=== PATIENT | female | born 1975 | race Caucasian/White ===

== ENCOUNTER 2017-06-24 16:23 | Emergency (ER) | payer MEDICAID, SELFPAY ==
[2017-06-24 16:24] VITALS: BP 124/82; PULSE 93; RESP 16; TEMP 36.9; O2SAT 97; BMI 26.9
--- NOTE | 2017-06-24 19:02 | CT_ITS ---
STUDY: CT ABDOMEN AND PELVIS WITH CONTRAST REASON FOR EXAM: Female, 42 years old. Right flank pain RADIATION DOSAGE (If Supplied By Facility): CTDIvol = ( 9.58 ) mGy, DLP = ( 471.56 ) mGycm TECHNIQUE: Transaxial images were obtained from the dome of the diaphragm to the symphysis pubis without oral contrast. 100 ml of Isovue 300 contrast was administered. Sagittal and coronal images were reconstructed. Individualized dose optimization techniques were used for this CT. COMPARISON: May 19, 2017 FINDINGS: There is diffuse interstitial thickening at both lung bases. The visualized portions of the heart are within normal limits. Normal liver. Normal gallbladder and extrahepatic biliary system. Normal spleen. Normal pancreas. Normal bilateral adrenal glands. Tiny noncalcified nonobstructing left renal calculus without hydronephrosis or ureteral calculus There is mild right renal pelvocaliectasis and hydroureter without definitive evidence for ureteral calculus. There is no renal mass Normal visualized stomach. Normal small intestine. Normal colon. The appendix is visualized and appears normal. Normal abdominal aorta. Normal inferior vena cava. Normal retroperitoneum. There is mild prominence of the uterus is deviated towards the left depressing the dome the bladder. There is mild cystic change in left adnexa and a small amount of fluid in the cul-de-sac possibly due to ovulation. Normal abdominal wall. Normal osseous structures. CT/Abdomen/Pelvis WITH Contrast IMPRESSION: Tiny nonobstructing left renal calculus. Mild right renal pelvocaliectasis and hydroureter of indeterminate etiology possibly due to recently passed stone Other findings as above. Electronically Signed: Juan Moser MD at 22:12 EST , Service support ,
--- NOTE | 2017-06-24 19:04 | ED.DCSUM_ITS ---
- ER Visit Summary Date of Service: 06/24/17 Chief Complaint: Abdominal pain History of Present Illness: The patient is a 42 F who presents for 1 week of right lower quadrant abdominal pain that radiates into the right lower back. Patient has had this pain before with negative workups, including in the emergency department and from her primary care doctor. She has been trying ibuprofen without relief. She has had vomiting, with none today but is currently nauseated. No diarrhea or constipation. No urinary symptoms. Patient is status post a right oophorectomy. She does still have her appendix. Physical Examination: Vital signs: afebrile, hemodynamically stable, no hypoxia on room air General: well nourished, well developed, in no distress Skin: warm, dry, no rash, no pallor HEENT: normocephalic and atraumatic; PERRL, EOMI, moist mucous membranes Cardiovascular: regular rate and rhythm without murmurs, no peripheral edema, 2 + pulses all distal extremities Respiratory: No increased work of breathing, lungs are clear to auscultation bilaterally, no rales, rhonchi or wheezing Abdominal: Abdomen is soft, tender in the right lower quadrant with normoactive bowel sounds, no guarding or rebound, no masses, tender to percussion of the right lower back MSK: Moves all extremities, no deformities, normal strength Neuro: Awake and alert, oriented ?4. No facial droop, sensation and motor function intact and symmetric Test Results: Abnormal Lab Results 06/24/17 06/24/17 06/24/17 17:55 17:55 18:06 WBC 6.3 RBC 4.28 Hgb 12.3 Hct 38.8 MCV 90.7 MCH 28.7 MCHC 31.7 L RDW 13.0 RDW Differential 42.9 Plt Count 217 MPV 10.0 Immature Gran % (Auto) 0.200 Neut % (Auto) 45.2 L Lymph % (Auto) 42.8 H Carver % (Auto) 7.5 Eos % (Auto) 3.8 Baso % (Auto) 0.5 Absolute Neuts (auto) 2.8 Absolute Lymphs (auto) 2.69 Total Counted Not Reportable Sodium 141 Potassium 3.8 Chloride 107 Carbon Dioxide 26.0 Anion Gap 8 BUN 9 Creatinine 0.62 Estim Creat Clear Calc 114.95 Est GFR (MDRD) Af Amer 137 Est GFR (MDRD) Non-Af 113 BUN/Creatinine Ratio 14.6 Glucose 72 L Calcium 8.6 Total Bilirubin 0.20 AST 12 L ALT 17 Alkaline Phosphatase 64 Total Protein 7.7 Albumin 3.7 Globulin 4.0 Albumin/Globulin Ratio 0.9 Lipase 170 Urine Color Urine Clarity Urine pH Ur Specific [place] Urine Protein Urine Glucose (UA) Urine Ketones Urine Occult Blood Urine Nitrite Urine Bilirubin Urine Urobilinogen Ur Leukocyte Esterase Urine RBC Urine WBC Ur Squamous Epith Cells Amorphous Sediment Urine Bacteria Urine Mucus Urine Test Negative 06/24/17 18:06 WBC RBC Hgb Hct MCV MCH MCHC RDW RDW Differential Plt Count MPV Immature Gran % (Auto) Neut % (Auto) Lymph % (Auto) Carver % (Auto) Eos % (Auto) Baso % (Auto) Absolute Neuts (auto) Absolute Lymphs (auto) Total Counted Sodium Potassium Chloride Carbon Dioxide Anion Gap BUN Creatinine Estim Creat Clear Calc Est GFR (MDRD) Af Amer Est GFR (MDRD) Non-Af BUN/Creatinine Ratio Glucose Calcium Total Bilirubin AST ALT Alkaline Phosphatase Total Protein Albumin Globulin Albumin/Globulin Ratio Lipase Urine Color Yellow Urine Clarity Clear Urine pH 7.0 Ur Specific [place] 1.015 Urine Protein Negative Urine Glucose (UA) Normal Urine Ketones Negative Urine Occult Blood Negative Urine Nitrite Negative Urine Bilirubin Negative Urine Urobilinogen Normal Ur Leukocyte Esterase Negative Urine RBC 0 SEEN Urine WBC 0 SEEN Ur Squamous Epith Cells 0-5 SEEN Amorphous Sediment 1+ Urine Bacteria 0 SEEN Urine Mucus 0 SEEN Urine Test Emergency Department Course and Treatment: Patient has had prior workups for the same complaint, with a negative CT scan last month. However she is presenting with right lower quadrant tenderness that is concerning for possible appendicitis. Thus workup was performed. Labs showed no leukocytosis, no electrolyte derangements, no hepatic derangements, negative , no UTI. CT of the abdomen and pelvis showed a mild right hydro ureter, with differential including recent passage of a kidney stone. Patient's presentation is consistent with this. She was given morphine and Zofran for pain as well as IV fluids while in the emergency department. She was given a prescription for Zofran and Motrin for home use for control of further symptoms. She was given referral to urology in case her symptoms do not resolve despite no obvious stone currently in her ureter. She was given a few [place] for severe pain. Patient agreed with this plan was discharged home in improved condition. Treatment Plan: [] Disposition: [] Impression: Right flank pain, low abdominal pain; right hydroureter, back recent passage of a kidney stone This note was generated with [employer] dictation software. It may contain incorrect words, spelling, and punctuation that were not noted in review of the chart prior to signing ED Disposition - Plan for ED Patient: Disposition: Home or Assisted Living Chief Complaint: Flank Pain Instructions: ED Flank Pain Uncertain Cause Prescriptions: Hydrocodone Bitart/Apap 5-325 [[place] 5/325] 1 tab PO Q6H PRN PRN 2 Days #8 tab PRN Reason: Pain Ondansetron [Zofran Odt] 4 mg PO Q8H PRN PRN #10 tab PRN Reason: Nausea Naproxen [Naprosyn] 500 mg PO BID #20 tab Referrals: Chandra Prado DO [Primary Care Provider] - 3-5 Days if not improving Jagdish Rivera MD [STAFF PHYSICIAN] - As soon as possible Additional Instructions: Your scan of your abdomen shows that you may have recently passed a kidney stone. Your pain should improve within a couple days. In the meantime you may use naproxen as needed for pain and the [place] for severe pain only. The Zofran is for nausea. Please follow-up with the urologist if you do not have improvement in your pain in 3 days since you continue to have this recurrent right-sided pain. Plenty of fluids. If you have any worsening of your condition or any new concerning symptoms, please come back to the emergency department for another evaluation.
[2017-06-24 19:11] LABS: Bacteria 0 SEEN /hpf (None Seen); Mucous, Urine 0 SEEN /hpf (<or=2+); Red Blood Cells-Urine 0 SEEN /hpf (0-5); White Blood Cells 0 SEEN /hpf (0-5)
[2017-06-24 19:12] LABS: Absolute Lymphocyte Count 2.69 X10^3/ul (0.83-4.51); Absolute Neutrophil Count 2.8 X10^3/uL (2.0-7.7); Basophil# 0.03 X10^3/uL; Basophil% 0.5 % (0-1); Eosinophil# 0.24 X10^3/uL; Eosinophils% 3.8 % (0-5); Hematocrit 38.8 % (37-47); Hemoglobin 12.3 g/dl (12.0-15.0); Lymphocyte # 2.69 X10^3/ul (4.0); Lymphocyte % 42.8 % (19-41); Mean Corp Hgb Conc 31.7 g/gl (32-36); Mean Corpuscular Hgb 28.7 pg (27.0-32.0); Mean Corpuscular Volume 90.7 fL (81-99); Monocyte# 0.47 X10^3/uL; Monocyte% 7.5 % (0-10); Neutrophil # 2.84 X10^3/uL (2.7-7.7); Neutrophil % 45.2 % (47-70); Platelet Count 217 K/mm3 (150-450); RBC Distribution Width SD 42.9 fl (35.1-43.9); Red Blood Count 4.28 M/mm3 (4.2-5.4); White Blood Count 6.3 K/mm3 (4.4-11.0)
[2017-06-24] MEDS: Ondansetron 4 MG/2 ML Vial IV (19:12)
[2017-06-24] MEDS: 0.9% Normal Saline 1,000 ML 1000 ML IV (19:12)
[2017-06-24 19:13] LABS: POSITIVE COUNT NO; POSITIVE DIFFERENTIAL NO; POSITIVE MORPHOLOGY NO
[2017-06-24 19:16] LABS: Color, Urine Yellow (Yellow); Glucose, Dipstick Normal (Normal); Ketone-Dipstick Negative (Negative); Leukocyte Esterase-Dipstick Negative /ul (Negative); Nitrite-Dipstick Negative (Negative); Occult Blood-Urine Negative /ul (Negative); Protein-Dipstick Negative (Negative); Specific Gravity, Urine 1.015 (1.002-1.030); Urine Bilirubin Dipstick Negative (Negative); Urine Clarity Clear (Clear); Urine Urobilinogen Normal (Normal)
[2017-06-24 19:21] LABS: Internal QC Validated? YES +Cl - CLEAR BKGD; Pregnancy, Urine Negative Negative
[2017-06-24 19:26] LABS: ALB/GLOB Ratio 0.9 RATIO (0.9-2.4); AST(SGOT) 12 U/L (15-37); Alanine Aminotransfer ALT/SGPT 17 U/L (13-56); Albumin, Serum 3.7 g/dL (3.2-5.0); Alkaline Phosphatase 64 U/L (45-117); Anion Gap 8 (5-15); BUN 9 mg/dL (7-18); BUN/Creat Ratio 14.6 RATIO (10-20); Calcium,Total 8.6 mg/dL (8.5-10.1); Chloride 107 mmol/L (98-107); Creatinine, Serum 0.62 mg/dL (0.55-1.02); EST Glomerular Filtration Rate 113 mL/min (>60); Est Glom Filt Rate - Afr Amer 137 mL/min (>60); Estimated Creatinine Clearance 114.95 ml/min; Glucose 72 mg/dL (74-106); Lipase 170 U/L (73-393); Potassium 3.8 mmol/L (3.5-5.1); Protein, Total 7.7 g/dL (6.4-8.2); Sodium Level 141 mmol/L (136-145)
[2017-06-24 20:39] LABS: Amorphous Sediment 1+; Squamous Epithelial Cells - UA 0-5 SEEN /hpf (5-10)
[2017-06-24 20:53] VITALS: RESP 16
--- NOTE | 2017-06-24 22:38 | ED.DEP ---
ED Disposition - Plan for ED Patient: Disposition: Home or Assisted Living Chief Complaint: Flank Pain Instructions: ED Flank Pain Uncertain Cause Prescriptions: Hydrocodone Bitart/Apap 5-325 [[place] 5/325] 1 tab PO Q6H PRN PRN 2 Days #8 tab PRN Reason: Pain Ondansetron [Zofran Odt] 4 mg PO Q8H PRN PRN #10 tab PRN Reason: Nausea Naproxen [Naprosyn] 500 mg PO BID #20 tab Referrals: Chandra Prado DO [Primary Care Provider] - 3-5 Days if not improving Jagdish Rivera MD [STAFF PHYSICIAN] - As soon as possible Additional Instructions: Your scan of your abdomen shows that you may have recently passed a kidney stone. Your pain should improve within a couple days. In the meantime you may use naproxen as needed for pain and the [place] for severe pain only. The Zofran is for nausea. Please follow-up with the urologist if you do not have improvement in your pain in 3 days since you continue to have this recurrent right-sided pain. Plenty of fluids. If you have any worsening of your condition or any new concerning symptoms, please come back to the emergency department for another evaluation.
--- NOTE | 2017-06-24 22:41 | DCINST.ED_ITS ---
ED Disposition - Plan for ED Patient: Disposition: Home or Assisted Living Chief Complaint: Flank Pain Instructions: ED Flank Pain Uncertain Cause Prescriptions: Hydrocodone Bitart/Apap 5-325 [[place] 5/325] 1 tab PO Q6H PRN PRN 2 Days #8 tab PRN Reason: Pain Ondansetron [Zofran Odt] 4 mg PO Q8H PRN PRN #10 tab PRN Reason: Nausea Naproxen [Naprosyn] 500 mg PO BID #20 tab Referrals: Chandra Prado DO [Primary Care Provider] - 3-5 Days if not improving Jagdish Rivera MD [STAFF PHYSICIAN] - As soon as possible Additional Instructions: Your scan of your abdomen shows that you may have recently passed a kidney stone. Your pain should improve within a couple days. In the meantime you may use naproxen as needed for pain and the [place] for severe pain only. The Zofran is for nausea. Please follow-up with the urologist if you do not have improvement in your pain in 3 days since you continue to have this recurrent right-sided pain. Plenty of fluids. If you have any worsening of your condition or any new concerning symptoms, please come back to the emergency department for another evaluation.
[2017-06-24] MEDS: Ketorolac 30 MG/ML Syringe 15 MG IV (22:50)
[2017-06-24 23:05] VITALS: BP 103/71; PULSE 71; RESP 16; O2SAT 97
== END 2017-06-24 23:06 | disposition home or self-care (01) ==
PROVIDERS: Emergency Provider Emergency Medicine; Family Provider Family Medicine; PCP Family Medicine
DX: N13.4 Hydroureter (principal); R10.31 Right lower quadrant pain; Z87.442 Personal history of urinary calculi; Z90.721 Acquired absence of ovaries, unilateral
CPT/HCPCS: 74177; 80053; 81001; 81025; 83690; 85025; 96361; 96374; 96375; 99284; J7030; Q9967; A4216; J2405

== ENCOUNTER → 2017-07-20 10:12 | Outpatient (CLI) | payer MEDICAID, SELFPAY ==
[2017-07-20 12:59] LABS: Color, Urine Yellow (Yellow); Glucose, Dipstick Normal (Normal); Ketone-Dipstick 5 mg/dl (Negative); Leukocyte Esterase-Dipstick 25 /ul (Negative); Nitrite-Dipstick Negative (Negative); Occult Blood-Urine 10 /ul (Negative); Protein-Dipstick 30 mg/dl (Negative); Specific Gravity, Urine 1.025 (1.002-1.030); Urine Clarity Cloudy (Clear); Urine Urobilinogen 1 mg/dl (Normal)
[2017-07-20 13:00] LABS: Urine Bilirubin Dipstick 1 mg/dL (Negative)
[2017-07-20 13:04] LABS: Internal QC Validated? YES +Cl - CLEAR BKGD
[2017-07-20 15:06] LABS: Pregnancy, Urine Positive Negative
== END ==
PROVIDERS: Visit Provider Family Medicine
DX: R10.9 Unspecified abdominal pain (principal)
CPT/HCPCS: 81002; 81025; 87086

== ENCOUNTER → 2017-07-20 14:37 | Outpatient (CLI) | payer MEDICAID, SELFPAY ==
--- NOTE | 2017-07-20 14:39 | US_ITS ---
STUDY: RENAL ULTRASOUND - COMPLETE REASON FOR EXAM: Female, 42 years old. FLANK PAIN- RT TECHNIQUE: Ultrasound evaluation of the kidneys was performed with real-time and static figueroa-scale imaging. COMPARISON: None. FINDINGS: RIGHT KIDNEY: Normal location of the right kidney, which is normal in size. The right kidney measures 11.3 x 5 x 5.5 cm. There is a normal cortex of the right kidney. The renal cortex measures 1.3 cm. There is no right renal mass or cyst. Single 7 mm calculus visualized in the right kidney. There is no right hydronephrosis. DISTAL RIGHT URETER: There is non-visualization of the distal right ureter. There is no demonstrated right ureterovesical junction calculus. There is no demonstrated right ureteral jet. LEFT KIDNEY: Normal location of the left kidney, which is normal in size. The left kidney measures 11.7 x 4.9 x 4.3 cm. There is a normal cortex of the left kidney. The renal cortex measures 1.1 cm. There is no left renal mass or cyst. There are no left renal calculi. There is no left hydronephrosis. DISTAL LEFT URETER: There is non-visualization of the distal left ureter. There is no demonstrated left ureterovesical junction calculus. There is no demonstrated left ureteral jet. Small fluid collection in the uterus. This has the appearance of a gestational sac. Dedicated pelvic ultrasound is suggested to further evaluate. US/Kidney and Bladder IMPRESSION: Nonobstructive right renal stone. Small fluid collection in the uterus. This has the appearance of a gestational sac. Dedicated pelvic ultrasound is suggested to further evaluate. Electronically Signed: Chano Acuna MD at 21:56 EDT , Service support ,
== END ==
PROVIDERS: Family Provider Family Medicine; PCP Family Medicine; Visit Provider Family Medicine
DX: N20.0 Calculus of kidney (principal); N13.4 Hydroureter
CPT/HCPCS: 76770; 81002; 81025; 87086

== ENCOUNTER → 2017-07-25 15:44 | Outpatient (CLI) | payer MEDICAID, SELFPAY ==
--- NOTE | 2017-07-25 15:47 | US_ITS ---
STUDY: FIRST TRIMESTER OBSTETRICAL ULTRASOUND REASON FOR EXAM: Female, 42 years old. Right-sided pain. . TECHNIQUE: Transvaginal PRIOR ULTRASOUND: None. FINDINGS: There is visualization of a single gestational sac in a normal intrauterine position. There is a visualized yolk sac. There is visualization of a live embryo. The crown-rump length (CRL) measures 0.9 cm, indicating an estimated gestational age (EGA) of 7 weeks, 1 days. There is demonstrated cardiac activity with a heart rate of 139 bpm. The uterus measures 11.5 x 6.3 x 6.0. There is no demonstrated uterine fibroid. The cervix is closed. The patient is status post right oophorectomy. The left ovary measures 2.8 x 2.8 x 1.8 cm. There is no left ovarian cyst. There is no visualized left adnexal mass or complex lesion. There is no fluid in the cul de sac. US/Transvaginal w/Preg US IMPRESSION: Single live intrauterine gestation at approximately 7 weeks and 1 day. Electronically Signed: [place] Joe, at 16:47 EDT Tel , Service support ,
== END ==
PROVIDERS: Family Provider Family Medicine; PCP Family Medicine; Visit Provider Family Medicine
DX: O26.891 Other specified pregnancy related conditions, first trimester (principal); R10.9 Unspecified abdominal pain; Z3A.01 Less than 8 weeks gestation of pregnancy
CPT/HCPCS: 76817

== ENCOUNTER 2017-08-04 16:27 | Emergency (ER) | payer MEDICAID, SELFPAY ==
[2017-08-04 16:27] VITALS: BP 116/85; PULSE 102; RESP 16; TEMP 36.7; O2SAT 98; BMI 26.2
--- NOTE | 2017-08-04 17:29 | US_ITS ---
STUDY: FIRST TRIMESTER OBSTETRICAL ULTRASOUND REASON FOR EXAM: Female, 42 years old. RLQ PAIN AND SPOTTING LMP: TECHNIQUE: Transvaginal PRIOR ULTRASOUND: July 25, 2017 FINDINGS: There is visualization of a single gestational sac in a normal intrauterine position. The mean sac diameter (MSD) measures 33 mm, indicating an estimated gestational age (EGA) of 8 weeks, 5 days. The gestational sac shape is within normal limits. There is a visualized yolk sac. The yolk sac measures 5.3 mm. The placenta is non-visualized. There is visualization of a live embryo. The crown-rump length (CRL) measures 5.3 mm, indicating an estimated gestational age (EGA) of 8 weeks, 2 days. There is demonstrated cardiac activity with a heart rate of 167 bpm. The estimated gestation age (EGA) by LMP is 8 weeks, 4 days. The estimated date of delivery (ELI) by LMP is 11.4.18. The estimated gestation age (EGA) by US is 8 weeks, 4 days. The estimated date of delivery (ELI) by US is 11.4.18. The uterus measures 11.6x8.9x5.8cm. There is no demonstrated uterine fibroid. The cervix is closed. The right ovary is not seen. The left ovary measures 27 x 17 x 14 mm. There is no left ovarian cyst. There is no visualized left adnexal mass or complex lesion. There is no fluid in the cul de sac. US/Transvaginal w/Preg US IMPRESSION: There is a single live intrauterine with a heart rate of 167 bpm. The estimated gestation age (EGA) by US is 8 weeks, 4 days. The estimated date of delivery (ELI) by US is 11.4.18. Electronically Signed: Chano Acuna MD at 18:56 EDT , Service support ,
--- NOTE | 2017-08-04 17:29 | ED.VISSUMM ---
- ER Visit Summary Date of Service: 08/04/17 Chief Complaint: Pelvic pain History of Present Illness: The patient is a 42 F presenting with pelvic pain ?2 days. She states she began having spotting last night. She is currently 7 weeks . She is Ab2. She denies fever. Denies other complaints. Physical Examination: Vitals are stable. Patient is afebrile. Alert no acute distress. HEENT exam is unremarkable. Neck is supple. Lungs are clear and equal bilaterally. Heart is regular rate and rhythm. Abdomen is soft mild suprapubic tenderness with no rebound or guarding : No vaginal bleeding, cervix is closed, no adnexal tenderness. Extremities are unremarkable. Skin is warm and dry. Remainder of exam is unremarkable. Emergency Department Course and Treatment: HCG quant 49970. Blood type A positive. Ultrasound shows single live IUP with heart rate 167, 8 weeks 4 days. Patient is advised to follow-up with her PHARMACEUTICAL SERVICE REPRESENTATIVE. Advised return ED if worsening complaints. Disposition: Discharge home Impression: Threatened miscarriage This note was generated with [employer] dictation software. It may contain incorrect words, spelling, and punctuation that were not noted in review of the chart prior to signing ED Disposition - Plan for ED Patient: Chief Complaint: Abd Pain Referrals: Chandra Prado DO [Primary Care Provider] -
[2017-08-04 18:33] VITALS: BP 120/78; PULSE 77; RESP 16; O2SAT 99
[2017-08-04 19:19] LABS: hCG Titer Quant., Serum 62096 mIU/mL (<9 non-preg)
--- NOTE | 2017-08-04 19:48 | ED.RN ---
lab called for critical lab results. HCG level [address]. Dr. Zhou made aware no new orders at this time
--- NOTE | 2017-08-04 20:17 | ED.DEP ---
ED Disposition - Plan for ED Patient: Chief Complaint: Abd Pain Instructions: ED Miscarriage Poss Referrals: Chandra Prado DO [Primary Care Provider] - Prisca Hines MD [STAFF PHYSICIAN] -
[2017-08-04 20:25] VITALS: RESP 16
== END 2017-08-04 20:26 | disposition home or self-care (01) ==
LOC: ED 18:38
PROVIDERS: Emergency Provider Emergency Medicine; Family Provider Family Medicine; PCP Family Medicine
DX: O20.0 Threatened abortion (principal); O99.351 Diseases of the nervous system complicating pregnancy, first trimester; G40.909 Epilepsy, unspecified, not intractable, without status epilepticus; Z3A.01 Less than 8 weeks gestation of pregnancy
CPT/HCPCS: 76817; 84702; 86900; 99282

== ENCOUNTER 2017-10-09 14:32 | Emergency (ER) | payer MEDICAID, SELFPAY ==
[2017-10-09 14:32] VITALS: BP 125/73; PULSE 90; RESP 14; TEMP 36.6; O2SAT 100; BMI 26.6
--- NOTE | 2017-10-09 14:42 | RAD_ITS ---
STUDY: X-RAY - LEFT WRIST REASON FOR EXAM: Female, 42 years old. Left wrist pain TECHNIQUE: 3 view(s) of the wrist were obtained. COMPARISON: None. FINDINGS: There is no evidence of fracture or dislocation. There are no significant degenerative changes. There are no radiodense foreign bodies. RAD/Wrist min 3 Views IMPRESSION: No fracture or dislocation. Electronically Signed: [place] Joe, at 15:17 EDT Tel , Service support ,
--- NOTE | 2017-10-09 14:43 | ED.VISSUMM ---
- ER Visit Summary Date of Service: 10/09/17 Chief Complaint: [] Left wrist injury occurred a few days ago about 20 weeks History of Present Illness: The patient is a 42 F [] patient reports is about 20 weeks she indicates that is uncomplicated no pain or bleeding she indicates the other day she basically punched an LAVONNE machine with her left hand she has persistent left wrist pain she is right-hand dominant no other complaints no forearm elbow shoulder pain Physical Examination: [] She is resting comforting the bed no distress she has a very mild pain to the left wrist is full range of motion of the wrist and hand function is normal okay sign thumb sign finger function normal forearm elbow unremarkable the rest of exams unremarkable the abdomen soft and nontender she appears Test Results: [] In the side she asked me to look at a small circular red dot on her buttock that she believes was related to an insect bite that occurred yesterday this area is on the buttock it is flat soft not fluctuant and does not appear to involve anything other than the very superficial part of the skin there is no vesicles or lesions elsewhere on her body explained her the exact etiology this lesion is unclear and have asked her to follow-up with her PLANT BREEDER return for change in symptoms or should there be any other lesions that develop on her skin Emergency Department Course and Treatment: [] The x-ray per radiology shows nothing acute of explained all the above the patient cons of occult injury Velcro preformed splint is applied she will follow-up Dr. Ratliff her family doctor return for change in symptoms and follow with her OB Treatment Plan: [] Disposition: [] Home stable Impression: [] Left wrist injury, reportedly 20 weeks This note was generated with [employer] dictation software. It may contain incorrect words, spelling, and punctuation that were not noted in review of the chart prior to signing ED Disposition - Plan for ED Patient: Chief Complaint: Upper Extremity Injury Referrals: Chandra Prado DO [Primary Care Provider] -
[2017-10-09] MEDS: Acetaminophen/Codeine #3 Tablet 1 TABLET PO (15:03)
--- NOTE | 2017-10-09 15:21 | ED.DEP ---
ED Disposition - Plan for ED Patient: Chief Complaint: Upper Extremity Injury Instructions: ED Sprain Wrist Prescriptions: Acetaminophen/Codeine #3 [Tylenol#3] 1 tab PO Q4H PRN PRN #10 tab PRN Reason: Pain Referrals: Chandra Prado DO [Primary Care Provider] -
== END 2017-10-09 15:42 | disposition home or self-care (01) ==
PROVIDERS: Emergency Provider Emergency Medicine; Family Provider Family Medicine; PCP Family Medicine
DX: O99.89 Other specified diseases and conditions complicating pregnancy, childbirth and the puerperium (principal); S69.92XA Unspecified injury of left wrist, hand and finger(s), initial encounter; W22.8XXA Striking against or struck by other objects, initial encounter; Y93.89 Activity, other specified; Y92.9 Unspecified place or not applicable; O99.712 Diseases of the skin and subcutaneous tissue complicating pregnancy, second trimester; L98.9 Disorder of the skin and subcutaneous tissue, unspecified; Z3A.20 20 weeks gestation of pregnancy
CPT/HCPCS: 73110; 99283

== ENCOUNTER 2017-10-17 18:42 | Emergency (ER) | payer MEDICAID, SELFPAY ==
--- NOTE | 2017-10-17 18:42 | DT_ITS ---
This patient was seen during an EMR downtime October 10, 2017 - October 17, 2017. This patient may have a combination of paper and electronic documentation or all paper documentation. All documentation is viewable within the e-chart portion of [facility] for each patient visit.
[2017-10-17 18:43] VITALS: BP 121/80; PULSE 102; RESP 22; TEMP 36.9; O2SAT 100; BMI 27.6
[2017-10-17] MEDS: DiphenhydrAMINE 50 MG/ML Syringe IV (18:52)
[2017-10-17] MEDS: MethylPREDNISolone 125 MG/2 ML Vial IV (18:53)
[2017-10-17 18:56] VITALS: BP 121/80; PULSE 110; RESP 24; O2SAT 99
--- NOTE | 2017-10-17 19:31 | ED.VISSUMM ---
- ER Visit Summary Date of Service: 10/17/17 Chief Complaint: Allergic reaction History of Present Illness: The patient is a 42 F who states that she accidentally ingested some oysters and she is allergic to seafood. Patient states that her throat is closing off. She states that she is 4 months . Physical Examination: Afebrile vital signs are stable 100% on room air heart rate of 94 Gen: Well-nourished well-developed Head: Normocephalic atraumatic Eyes: Perrl EOMI ENT: TMs clear no rhinorrhea moist mucous membranes there is no drooling. There is no tongue swelling. The posterior pharynx is normal. Neck: Supple no lymphadenopathy no JVD nontender CVS: Regular rate rhythm no murmurs normal S1-S2 Respiratory: clear to auscultation bilaterally chest nontender patient's breathing pattern is not consistent with acute angioedema or anaphylaxis. Patient holds her breath and then give several short quick breaths. During these breaths lung sounds are clear. Abdomen: Soft nontender nondistended normal bowel sounds no masses Back: Nontender Extremity: Nontender no edema Skin: Normal color there is no rash or urticaria Neuro: alert orientated ?3 CN II-XII intact normal strength sensation reflexes gait cerebellar Psych: Normal affect normal mood Emergency Department Course and Treatment: Patient received Benadryl Solu-Medrol and Pepcid. She was observed. Patient's exam is inconsistent. She goes from periods of a hoarse voice to periods where her voice is normal. heart tones are 150. Patient will be discharged home. Impression: 1. Acute stress reaction due to possibility of allergic reaction due to seafood 2. Second trimester This note was generated with [employer] dictation software. It may contain incorrect words, spelling, and punctuation that were not noted in review of the chart prior to signing ED Disposition - Plan for ED Patient: Disposition: Home or Assisted Living Chief Complaint: Allergic Reaction Instructions: First Aid: Allergic Reactions Referrals: Chandra Prado DO [Primary Care Provider] - As Needed
--- NOTE | 2017-10-17 19:34 | ED.DCSUM_ITS ---
- ER Visit Summary Date of Service: 10/17/17 Chief Complaint: Allergic reaction History of Present Illness: The patient is a 42 F who states that she accidentally ingested some oysters and she is allergic to seafood. Patient states that her throat is closing off. She states that she is 4 months . Physical Examination: Afebrile vital signs are stable 100% on room air heart rate of 94 Gen: Well-nourished well-developed Head: Normocephalic atraumatic Eyes: Perrl EOMI ENT: TMs clear no rhinorrhea moist mucous membranes there is no drooling. There is no tongue swelling. The posterior pharynx is normal. Neck: Supple no lymphadenopathy no JVD nontender CVS: Regular rate rhythm no murmurs normal S1-S2 Respiratory: clear to auscultation bilaterally chest nontender patient's breathing pattern is not consistent with acute angioedema or anaphylaxis. Patient holds her breath and then give several short quick breaths. During these breaths lung sounds are clear. Abdomen: Soft nontender nondistended normal bowel sounds no masses Back: Nontender Extremity: Nontender no edema Skin: Normal color there is no rash or urticaria Neuro: alert orientated ?3 CN II-XII intact normal strength sensation reflexes gait cerebellar Psych: Normal affect normal mood Emergency Department Course and Treatment: Patient received Benadryl Solu- Medrol and Pepcid. She was observed. Patient's exam is inconsistent. She goes from periods of a hoarse voice to periods where her voice is normal. heart tones are 150. Patient will be discharged home. Impression: 1. Acute stress reaction due to possibility of allergic reaction due to seafood 2. Second trimester This note was generated with [employer] dictation software. It may contain incorrect words, spelling, and punctuation that were not noted in review of the chart prior to signing ED Disposition - Plan for ED Patient: Disposition: Home or Assisted Living Chief Complaint: Allergic Reaction Instructions: First Aid: Allergic Reactions Referrals: Chandra Prado DO [Primary Care Provider] - As Needed
[2017-10-17 20:13] VITALS: BP 106/72; PULSE 85; RESP 21; O2SAT 96
[2017-10-17 21:00] VITALS: BP 106/72; PULSE 74; RESP 20; O2SAT 94
== END 2017-10-17 21:02 | disposition home or self-care (01) ==
PROVIDERS: Emergency Provider Emergency Medicine; Family Provider Family Medicine; PCP Family Medicine
DX: O99.89 Other specified diseases and conditions complicating pregnancy, childbirth and the puerperium (principal); T78.1XXA Other adverse food reactions, not elsewhere classified, initial encounter; F43.0 Acute stress reaction; X58.XXXA Exposure to other specified factors, initial encounter; Z3A.16 16 weeks gestation of pregnancy
CPT/HCPCS: 96374; 96375; 99284; A4216; J3490

== ENCOUNTER 2017-10-31 17:05 | Outpatient (CLI) | payer MEDICAID, SELFPAY ==
[2017-10-31 17:34] VITALS: BMI 26.9
[2017-10-31 17:45] LABS: Mucous, Urine 0 SEEN /hpf (<or=2+)
[2017-10-31 18:16] LABS: Color, Urine Yellow (Yellow); Glucose, Dipstick Normal (Normal); Ketone-Dipstick Negative (Negative); Leukocyte Esterase-Dipstick 500 /ul (Negative); Nitrite-Dipstick Negative (Negative); Occult Blood-Urine 10 /ul (Negative); Protein-Dipstick 15 mg/dl (Negative); Urine Bilirubin Dipstick Negative (Negative); Urine Clarity Cloudy (Clear); Urine Urobilinogen Normal (Normal)
[2017-10-31 18:23] LABS: Amphetamine Urine VISTA NEGATIVE (<1000 ng/mL); Barbiturate Urine VISTA NEGATIVE (< 200 ng/mL); Benzodiazepine Urine VISTA NEGATIVE (< 200 ng/mL); Cocaine Urine VISTA NEGATIVE (< 300 ng/mL); Ecstacy Urine VISTA NEGATIVE (< 500 ng/mL); Methadone Urine VISTA NEGATIVE (< 300 ng/mL); PCP Urine VISTA NEGATIVE (< 25 ng/mL); THC Urine VISTA NEGATIVE (< 50 ng/mL); Vista UDS pH Range 6
[2017-10-31 18:56] LABS: Bacteria 2+ /hpf (None Seen); Red Blood Cells-Urine 0-5 SEEN /hpf (0-5); Squamous Epithelial Cells - UA 0-5 SEEN /hpf (5-10); White Blood Cells 25-50 SEEN /hpf (0-5)
[2017-10-31 20:20] VITALS: RESP 18
--- NOTE | 2017-11-07 12:27 | OB.TRI.NOTE ---
History of Present Illness Date of Service: 10/31/17 Was patient seen by the physician?: No Reason For Visit: R/O LABOR Date of Service: 10/31/17 Final ELI: 03/08/18 Final ELI Source: US <20 weeks Gestational age: 22 Weeks and 5 Days History of Present Illness: Presented to L&D with complaint of abdominal cramping and pain. Allergies hydromorphone HCl [From Dilaudid] Allergy (Verified 10/31/17 17:40) Hives Penicillins [PCN] Allergy (Verified 10/31/17 17:40) Hives sea food Allergy (Uncoded 10/17/17 18:47) Anaphylaxis Physical Exam Vitals: Vital Signs Resp 18 10/31/17 20:20 NST - FHR Rate Baby A Baseline: 130. Unable to complete NST due to gestational age. Uterine Activity:: None Impression/Plan A:False Labor P: 1) Urine tox screen negative. 2) Urine culture ordered, fax results to office. 3) D/C home, PTL precautions reviewed.
== END 2017-10-31 20:20 | disposition home or self-care (01) ==
LOC: WPOUT 17:29 → WP 17:32
PROVIDERS: Family Provider Family Medicine; PCP Family Medicine; Visit Provider Advanced Practice Midwife
DX: O47.02 False labor before 37 completed weeks of gestation, second trimester (principal); Z3A.22 22 weeks gestation of pregnancy
CPT/HCPCS: 59050; 80307; 81001; 87086; 87088; 87186; 99218; G0378

== ENCOUNTER 2017-11-22 15:01 | Emergency (ER) | payer MEDICAID, SELFPAY ==
[2017-11-22 15:01] VITALS: BP 111/72; PULSE 94; RESP 16; TEMP 36.8; O2SAT 98; BMI 27.3
--- NOTE | 2017-11-22 15:46 | CT_ITS ---
STUDY: CT ABDOMEN AND PELVIS WITH CONTRAST REASON FOR EXAM: Female, 42 years old. RLQ PAIN, NAUSEA X 3 DAYS. 24 WEEKS RADIATION DOSAGE (If Supplied By Facility): CTDIvol = ( 14.97 ) mGy, DLP = ( 1012.84 ) mGycm TECHNIQUE: Transaxial images were obtained from the dome of the diaphragm to the symphysis pubis without oral contrast. 100 ml of Isovue 300 contrast was administered. Sagittal and coronal images were reconstructed. Individualized dose optimization techniques were used for this CT. COMPARISON: None. FINDINGS: The visualized lung bases are unremarkable. The visualized portions of the heart are within normal limits. Normal liver. Normal gallbladder and extrahepatic biliary system. Normal spleen. Normal pancreas. Normal bilateral adrenal glands. Mild right hydronephroureter. The right ureter is compressed at its midportion along the psoas muscle from the large gravid uterus. Normal left kidney. Normal visualized stomach. Normal small intestine. Normal colon. The appendix is visualized and appears normal. Normal abdominal aorta. Normal inferior vena cava. Normal retroperitoneum. Normal urinary bladder. Gravid uterus. Normal abdominal wall. Normal osseous structures. CT/Abdomen/Pelvis W IV Cont ONLY IMPRESSION: The appendix is visualized and appears normal. Mild right hydronephroureter. The right ureter is compressed at its midportion along the psoas muscle from the large gravid uterus. Electronically Signed: Chano Acuna MD at 17:47 EDT , Service support ,
--- NOTE | 2017-11-22 15:49 | ED.VISSUMM ---
- ER Visit Summary Date of Service: 11/22/17 Chief Complaint: Right lower quadrant abdominal pain History of Present Illness: The patient is a 42 F currently at 25 weeks. Due date is 03/08/2018. She is Ab2 with those being miscarriages. Currently under the care of [facility] at [facility]. Recently treated for UTI just finished her antibiotics. She states she has a 5-day history of right lower quadrant abdominal pain. Associated nausea with her . No fever. Currently no dysuria or hematuria. She does have a right-sided kidney stone reportedly. She denies any vaginal bleeding or discharge. She denies any fever. Physical Examination:. H EENT exam unremarkable. Poor dentition. Lungs clear to auscultation bilaterally. Heart regular rhythm no murmur. Abdomen gravid nontender uterus. Right lower quadrant pain around McBurney's point. Nondistended. Normal bowel sounds no peritoneal signs right upper left upper and left lower quadrant unremarkable. No signs of trauma. She is moving all 4 extremities. The neurovascular intact. Neurologically she is awake and alert with no focal motor deficits. Test Results: White count of 5. H&H 11 and 33 which is her baseline chronic anemia. No bands. Electrolytes gap and creatinine are all normal. Liver enzymes are unremarkable. UA normal no signs of infection. CT abdomen pelvis showed normal appendix. Mild right hydroureter secondary to a gravid uterus. Emergency Department Course and Treatment: female 25 weeks with right lower quadrant abdominal pain. History of both a kidney stone and recent UTI. She still has her appendix. IV morphine and Zofran. Labs will be obtained. She denied discussed imaging techniques. We discussed risks and benefits and she is fine with having a CT of her abdomen and pelvis done. Treatment Plan: Repeat exam patient doing well at 1801 and will be discharged home. Tylenol for pain. Disposition: Discharge Impression: Acute right lower quadrant abdominal pain of uncertain etiology 25 weeks This note was generated with Jolicloud dictation software. It may contain incorrect words, spelling, and punctuation that were not noted in review of the chart prior to signing ED Disposition - Plan for ED Patient: Chief Complaint: Abd Pain Referrals: Chandra Prado DO [Primary Care Provider] -
--- NOTE | 2017-11-22 15:52 | ED.DCSUM_ITS ---
- ER Visit Summary Date of Service: 11/22/17 Chief Complaint: Right lower quadrant abdominal pain History of Present Illness: The patient is a 42 F currently at 25 weeks. Due date is 03/08/2018. She is Ab2 with those being miscarriages. Currently under the care of [facility] at [facility]. Recently treated for UTI just finished her antibiotics. She states she has a 5-day history of right lower quadrant abdominal pain. Associated nausea with her . No fever. Currently no dysuria or hematuria. She does have a right-sided kidney stone reportedly. She denies any vaginal bleeding or discharge. She denies any fever. Physical Examination:. H EENT exam unremarkable. Poor dentition. Lungs clear to auscultation bilaterally. Heart regular rhythm no murmur. Abdomen gravid nontender uterus. Right lower quadrant pain around McBurney's point. Nondistended. Normal bowel sounds no peritoneal signs right upper left upper and left lower quadrant unremarkable. No signs of trauma. She is moving all 4 extremities. The neurovascular intact. Neurologically she is awake and alert with no focal motor deficits. Test Results: White count of 5. H&H 11 and 33 which is her baseline chronic anemia. No bands. Electrolytes gap and creatinine are all normal. Liver enzymes are unremarkable. UA normal no signs of infection. CT abdomen pelvis showed normal appendix. Mild right hydroureter secondary to a gravid uterus. Emergency Department Course and Treatment: female 25 weeks with right lower quadrant abdominal pain. History of both a kidney stone and recent UTI. She still has her appendix. IV morphine and Zofran. Labs will be obtained. She denied discussed imaging techniques. We discussed risks and benefits and she is fine with having a CT of her abdomen and pelvis done. Treatment Plan: Repeat exam patient doing well at 1801 and will be discharged home. Tylenol for pain. Disposition: Discharge Impression: Acute right lower quadrant abdominal pain of uncertain etiology 25 weeks This note was generated with HAM-IT dictation software. It may contain incorrect words, spelling, and punctuation that were not noted in review of the chart prior to signing ED Disposition - Plan for ED Patient: Chief Complaint: Abd Pain Referrals: Chandra Prado DO [Primary Care Provider] -
[2017-11-22] MEDS: Morphine 4 MG/ML Syringe IV (15:55)
[2017-11-22] MEDS: Ondansetron 4 MG/2 ML Vial IV (15:55)
[2017-11-22 15:59] LABS: Absolute Lymphocyte Count 1.66 X10^3/ul (0.83-4.51); Absolute Neutrophil Count 3.6 X10^3/uL (2.0-7.7); Basophil# 0.02 X10^3/uL; Basophil% 0.3 % (0-1); Eosinophil# 0.12 X10^3/uL; Lymphocyte # 1.66 X10^3/ul (4.0); Lymphocyte % 28.3 % (19-41); Mean Corp Hgb Conc 33.3 g/gl (32-36); Mean Corpuscular Hgb 30.1 pg (27.0-32.0); Mean Corpuscular Volume 90.4 fL (81-99); Mean Platelet Vol. 9.9 fl (6.2-12.0); Monocyte% 8.5 % (0-10); Neutrophil # 3.55 X10^3/uL (2.7-7.7); Neutrophil % 60.7 % (47-70); Platelet Count 181 K/mm3 (150-450); RBC Distribution Width CV 12.8 % (11.6-14.6); RBC Distribution Width SD 41.1 fl (35.1-43.9); Red Blood Count 3.65 M/mm3 (4.2-5.4); White Blood Count 5.9 K/mm3 (4.4-11.0)
[2017-11-22 16:01] LABS: POSITIVE COUNT NO; POSITIVE DIFFERENTIAL NO; POSITIVE MORPHOLOGY NO
[2017-11-22 16:14] LABS: Mucous, Urine 0 SEEN /hpf (<or=2+); Red Blood Cells-Urine 0 SEEN /hpf (0-5)
[2017-11-22 16:24] LABS: Color, Urine Yellow (Yellow); Glucose, Dipstick Normal (Normal); Ketone-Dipstick Negative (Negative); Leukocyte Esterase-Dipstick 25 /ul (Negative); Nitrite-Dipstick Negative (Negative); Occult Blood-Urine 25 /ul (Negative); Protein-Dipstick Negative (Negative); Specific Gravity, Urine 1.015 (1.002-1.030); Urine Bilirubin Dipstick Negative (Negative); Urine Clarity Clear (Clear); Urine Urobilinogen Normal (Normal)
[2017-11-22 16:43] LABS: Bacteria RARE /hpf (None Seen); Squamous Epithelial Cells - UA 0-5 SEEN /hpf (5-10); White Blood Cells 0-5 SEEN /hpf (0-5)
[2017-11-22 17:15] LABS: AST(SGOT) 8 U/L (15-37); Alanine Aminotransfer ALT/SGPT 10 U/L (13-56); Albumin, Serum 2.5 g/dL (3.2-5.0); Alkaline Phosphatase 47 U/L (45-117); Anion Gap 8 (5-15); BUN 6 mg/dL (7-18); BUN/Creat Ratio 16.7 RATIO (10-20); Bilirubin, Direct < 0.05 mg/dL (0.00-0.30); Calcium,Total 8.4 mg/dL (8.5-10.1); Chloride 106 mmol/L (98-107); Creatinine, Serum 0.36 mg/dL (0.55-1.02); EST Glomerular Filtration Rate 210 mL/min (>60); Est Glom Filt Rate - Afr Amer 254 mL/min (>60); Estimated Creatinine Clearance 197.97 ml/min; Globulin 4.1 g/dL (2.2-4.2); Glucose 76 mg/dL (74-106); Potassium 4.3 mmol/L (3.5-5.1); Protein, Total 6.6 g/dL (6.4-8.2); Sodium Level 139 mmol/L (136-145)
[2017-11-22 17:18] VITALS: BP 109/77; PULSE 87; RESP 15; O2SAT 96
--- NOTE | 2017-11-22 18:02 | ED.DEP ---
ED Disposition - Plan for ED Patient: Disposition: Home or Assisted Living Chief Complaint: Abd Pain Instructions: ED Abdominal Pain Unkn Cause Referrals: Chandra Prado DO [Primary Care Provider] - As Needed Additional Instructions: Tylenol for pain. Your labs today, urinalysis and CAT scan all were negative. Follow-up with your MILIEU TECHNICIAN physician or your primary care physician.
[2017-11-22 18:25] VITALS: BP 112/67; PULSE 80; RESP 12; O2SAT 98
--- NOTE | 2017-11-22 18:26 | ED.RN ---
pt given written and verbal discharge instructions and verbalizes understanding. educated to follow up with ob and return for any new or worsened sx. iv d/c and covered with 2x2 gauze dressing and paper tape. pt ambulates out of dept. with spouse. educated not to drive for 6 hours after having morphine.
== END 2017-11-22 18:27 | disposition home or self-care (01) ==
PROVIDERS: Emergency Provider Emergency Medicine; Family Provider Family Medicine; PCP Family Medicine
DX: O26.892 Other specified pregnancy related conditions, second trimester (principal); R10.31 Right lower quadrant pain; O99.012 Anemia complicating pregnancy, second trimester; D64.9 Anemia, unspecified; O99.352 Diseases of the nervous system complicating pregnancy, second trimester; G40.909 Epilepsy, unspecified, not intractable, without status epilepticus; Z3A.25 25 weeks gestation of pregnancy
CPT/HCPCS: 74177; 80048; 80076; 81001; 85025; 96374; 96375; 99283; Q9967; J2405

== ENCOUNTER 2017-11-23 10:55 | Outpatient (CLI) | payer MEDICAID, SELFPAY ==
[2017-11-23 11:13] VITALS: BMI 29.4
--- NOTE | 2017-11-23 19:14 | OB.TRI.HP_ITS ---
- Problem List (1) Vaginal discharge during in second trimester Status: Acute History of Present Illness Date of Service: 11/23/17 Was patient seen by the physician?: No Reason For Visit: CRAMPING Date of Service: 11/23/17 Final ELI: 03/08/18 Final ELI Source: US <20 weeks Gestational age: 25 Weeks and 0 Days History of Present Illness: Patient reports evaluation in [facility] office yesterday for evaluation of RLQ pain. Concern for possible appendicitis or Kidney Stone noted and patient was sent from office to ER for evaluation and imaging. Work-up was negative, CT scan was done and was unremarkable. Full physical head to toe exam done in ER including SVE. Patient was told to come back to hospital for evaluation if any of her symptoms changed. Patient presents today with scant brown vaginal discharge. Patient denies pain, reports +FM, denies vaginal bleeding. Allergies hydromorphone HCl [From Dilaudid] Allergy (Verified 11/22/17 15:04) Hives Penicillins [PCN] Allergy (Verified 11/22/17 15:04) Hives sea food Allergy (Uncoded 11/22/17 15:04) Anaphylaxis Physical Exam Vitals: See nursing note for vital signs and assessment. Estimated gestational size: Appropriate for gestational size Presentation: Cephalic NST - FHR Rate Baby A Baseline: 135 Variability:: Moderate Accelerations:: 15 x 15 Decelerations:: Variable - Few NST Reactive:: Appropriate for gestational age Uterine Activity:: No ctx noted on tocometer Impression/Plan 42 y/o @ 25 wks, Vaginal Discharge P: 1) discharge likely old blood and related to recent SVE check done yesterday - reassurance provided 2) PTL precaution education given 3) RTC as scheduled in 3 weeks for next visit. Estrella GRANT
== END 2017-11-23 12:40 | disposition home or self-care (01) ==
LOC: WPOUT 11:01 → WP 11:02
PROVIDERS: Family Provider Family Medicine; PCP Family Medicine; Visit Provider Advanced Practice Midwife
DX: O26.892 Other specified pregnancy related conditions, second trimester (principal); N89.8 Other specified noninflammatory disorders of vagina; Z3A.25 25 weeks gestation of pregnancy
CPT/HCPCS: 59025; 59050; 99218; G0378

== ENCOUNTER 2018-02-17 07:18 | Outpatient (CLI) | payer MEDICAID, SELFPAY ==
[2018-02-17 07:52] VITALS: BMI 29.1
--- NOTE | 2018-02-21 16:52 | OB.TRI.NOTE ---
- Problem List (1) Breech presentation Status: Acute History of Present Illness Date of Service: 02/17/18 Was patient seen by the physician?: Yes Reason For Visit: AVERSION Date of Service: 02/17/18 Final ELI: 03/08/18 Final ELI Source: US <20 weeks Gestational age: 37 Weeks and 6 Days History of Present Illness: 42 y/o multip who presents to L&D at 37 wks gestation for version given breech presentation on prior US and in the office. Upon her arriving to L&D, repeat US was performed and fetus now in vertex position. Feeling well and no complaints. No ctx, vb, lof. +FM. Allergies hydromorphone HCl [From Dilaudid] Allergy (Verified 11/22/17 15:04) Hives Penicillins [PCN] Allergy (Verified 11/22/17 15:04) Hives influenza virus vaccine ts [id number] (36 mos,up) [From Fluarix] Adverse Reaction (Mild, Verified 02/17/18 07:52) Rash sea food Allergy (Uncoded 11/22/17 15:04) Anaphylaxis Physical Exam General: Alert, Oriented x3 HEENT: Atraumatic Abdomen: Soft, Non Tender, Gravid Neurological: Neuro grossly intact Presentation: Cephalic Impression/Plan Patient presented for version. Ultrasound performed and fetus now in vertex presentation. NST obtained and discharged home with follow up in the office.
--- NOTE | 2018-02-21 16:56 | OB.TRI.HP_ITS ---
- Problem List (1) Breech presentation Status: Acute History of Present Illness Date of Service: 02/17/18 Was patient seen by the physician?: Yes Reason For Visit: AVERSION Date of Service: 02/17/18 Final ELI: 03/08/18 Final ELI Source: US <20 weeks Gestational age: 37 Weeks and 6 Days History of Present Illness: 42 y/o multip who presents to L&D at 37 wks gestation for version given breech presentation on prior US and in the office. Upon her arriving to L&D, repeat US was performed and fetus now in vertex position. Feeling well and no complaints. No ctx, vb, lof. +FM. Allergies hydromorphone HCl [From Dilaudid] Allergy (Verified 11/22/17 15:04) Hives Penicillins [PCN] Allergy (Verified 11/22/17 15:04) Hives influenza virus vaccine ts [id number] (36 mos,up) [From Fluarix] Adverse Reaction (Mild, Verified 02/17/18 07:52) Rash sea food Allergy (Uncoded 11/22/17 15:04) Anaphylaxis Physical Exam General: Alert, Oriented x3 HEENT: Atraumatic Abdomen: Soft, Non Tender, Gravid Neurological: Neuro grossly intact Presentation: Cephalic Impression/Plan Patient presented for version. Ultrasound performed and fetus now in vertex presentation. NST obtained and discharged home with follow up in the office.
== END 2018-02-17 08:15 | disposition home or self-care (01) ==
LOC: WPOUT 07:20 → WP 07:21
PROVIDERS: Family Provider Family Medicine; PCP Family Medicine; Referring Provider Obstetrics & Gynecology; Visit Provider Obstetrics & Gynecology
DX: Z03.79 Encounter for other suspected maternal and fetal conditions ruled out (principal)
CPT/HCPCS: 59025

== ENCOUNTER 2018-03-02 08:40 | Inpatient (IN) | payer MEDICAID, SELFPAY ==
[2018-03-02 09:20] VITALS: BMI 28.8
[2018-03-02 10:03] LABS: Hematocrit 35.3 % (37-47); Hemoglobin 11.5 g/dl (12.0-15.0); Mean Corp Hgb Conc 32.6 g/gl (32-36); Mean Corpuscular Hgb 29.8 pg (27.0-32.0); Mean Corpuscular Volume 91.5 fL (81-99); Mean Platelet Vol. 9.7 fl (6.2-12.0); Platelet Count 195 K/mm3 (150-450); RBC Distribution Width CV 13.4 % (11.6-14.6); RBC Distribution Width SD 44.5 fl (35.1-43.9); Red Blood Count 3.86 M/mm3 (4.2-5.4); White Blood Count 5.8 K/mm3 (4.4-11.0)
[2018-03-02 10:04] LABS: Scan Indicated on CBC? Y/N NO
[2018-03-02] MEDS: miSOPROStol 25 MCG TABLET PO (10:43)
[2018-03-02] MEDS: Lactated Ringers 1,000 ML 50 ML IV ×2 (12:22→14:03)
--- NOTE | 2018-03-02 12:41 | PCM.HP.OB ---
- Problem List (1) AMA (advanced maternal age) multigravida 35+ Status: Acute History Date of Admission: 03/02/18 Final ELI: 03/08/18 Final ELI Source: US <20 weeks Gestational age: 39 Weeks and 1 Days History of this : This is a 42 year-old, G9, P6026, at 39 weeks gestational age who presents for IOL for AMA. No complaints today. significant for the following: History of rapid deliveries. Desires permanent sterilization. Hx of IUGR in the , and was getting weekly biophysical profiles as well as Doppler ultrasounds; most recent growth 11% and no longer IUGR. She does not have custody of any of her other children as she states she was living in a house with drug friends. History of drug use. History of seizure disorder diagnosed in 2013 on Lamictal. 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 Hx of herpes on HSV prophylaxis. Poor historian. Grand mulitp with 6 prior vaginal deliveries. 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 Grand multipara Z64.1 Herpes B00.9 History of narcotic use Z87.898 IUGR (intrauterine growth restriction) Pyelectasis of fetus on ultrasound O35.8XX0 Seizure disorder G40.909 Allergies hydromorphone HCl [From Dilaudid] Allergy (Verified 11/22/17 15:04) Hives Penicillins [PCN] Allergy (Verified 11/22/17 15:04) Hives influenza virus vaccine ts [id number] (36 mos,up) [From Fluarix] Adverse Reaction (Mild, Verified 02/17/18 07:52) Rash sea food Allergy (Uncoded 11/22/17 15:04) Anaphylaxis Home Medications: Home Medications Albuterol Inhaler [Ventolin Hfa (SP)] 2 puff INHALATION Q6H PRN PRN 05/19/17 Lamotrigine [Lamictal Chew] 50 mg PO BID 10/31/17 Vits [Prenatabs FA] 1 tablet PO DAILY 10/31/17 Acyclovir [Zovirax] 200 mg PO TID 02/17/18 Magnesium 400 mg PO DAILY 03/02/18 Smoking Status: Former smoker Number of Fetus(es): 1 Heart Tracing: Category 1 TOCO Analysis: Quiet on admission, now with ctx's q 2 min History Past Pregnancies: Past Pregnancies Delivery Date Name GA/Weeks Outcome Route Weight Infant Gender Labor Length Anesthesia Delivery Location Provider FOB term term term term term term sab sab Labs: 1 hr GTT wnl, Rh pos, [id number] neg, Syphilis neg, RI, HepB neg, HIV neg, GC/CT neg Review of Systems Gynecological: Reports: - - No ctx, vb, lof. +FM Physical Exam General: Alert, Oriented x3 HEENT: Atraumatic Lungs: - - No increased resp effort Abdomen: Soft, Non Tender, Gravid Neurological: Neuro grossly intact AUDIO NARRATOR: Normal external genitalia - No HSV lesions noted by Dr. Hines on exam Presentation: Cephalic - TAUS perform by Dr. Hines confirming vertex presentation Cervix Dilation (cm): 1 Station: -3 Effacement (%): 50 Assessment/Plan All Active Problems Vaginal discharge during in second trimester (Acute) Breech presentation (Acute) AMA (advanced maternal age) multigravida 35+ (Acute) This is a 42 year-old, G9, P6026, at 39 weeks gestational age. - Admit for routine intrapartum care - Cytotec - UDS on admission - Desires tubal - Epidural prn
[2018-03-02 12:43] LABS: Amphetamine Urine VISTA NEGATIVE (<1000 ng/mL); Barbiturate Urine VISTA NEGATIVE (< 200 ng/mL); Benzodiazepine Urine VISTA NEGATIVE (< 200 ng/mL); Cocaine Urine VISTA NEGATIVE (< 300 ng/mL); Ecstacy Urine VISTA NEGATIVE (< 500 ng/mL); Methadone Urine VISTA NEGATIVE (< 300 ng/mL); PCP Urine VISTA NEGATIVE (< 25 ng/mL); THC Urine VISTA NEGATIVE (< 50 ng/mL); Vista UDS pH Range 6
--- NOTE | 2018-03-02 12:48 | HP.PCM_ITS ---
- Problem List (1) AMA (advanced maternal age) multigravida 35+ Status: Acute History Date of Admission: 03/02/18 Final ELI: 03/08/18 Final ELI Source: US <20 weeks Gestational age: 39 Weeks and 1 Days History of this : This is a 42 year-old, G9, P6026, at 39 weeks gestational age who presents for IOL for AMA. No complaints today. significant for the following: History of rapid deliveries. Desires permanent sterilization. Hx of IUGR in the , and was getting weekly biophysical profiles as well as Doppler ultrasounds; most recent growth 11% and no longer IUGR. She does not have custody of any of her other children as she states she was living in a house with drug friends. History of drug use. History of seizure disorder diagnosed in 2013 on Lamictal. 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 Hx of herpes on HSV prophylaxis. Poor historian. Grand mulitp with 6 prior vaginal deliveries. 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 Grand multipara Z64.1 Herpes B00.9 History of narcotic use Z87.898 IUGR (intrauterine growth restriction) Pyelectasis of fetus on ultrasound O35.8XX0 Seizure disorder G40.909 Allergies hydromorphone HCl [From Dilaudid] Allergy (Verified 11/22/17 15:04) Hives Penicillins [PCN] Allergy (Verified 11/22/17 15:04) Hives influenza virus vaccine ts [id number] (36 mos,up) [From Fluarix] Adverse Reaction (Mild, Verified 02/17/18 07:52) Rash sea food Allergy (Uncoded 11/22/17 15:04) Anaphylaxis Home Medications: Home Medications Albuterol Inhaler [Ventolin Hfa (SP)] 2 puff INHALATION Q6H PRN PRN 05/19/17 Lamotrigine [Lamictal Chew] 50 mg PO BID 10/31/17 Vits [Prenatabs FA] 1 tablet PO DAILY 10/31/17 Acyclovir [Zovirax] 200 mg PO TID 02/17/18 Magnesium 400 mg PO DAILY 03/02/18 Smoking Status: Former smoker Number of Fetus(es): 1 Heart Tracing: Category 1 TOCO Analysis: Quiet on admission, now with ctx's q 2 min History Past Pregnancies: Past Pregnancies Delivery Date Name GA/Weeks Outcome Route Weight Infant Gender Labor Length Anesthesia Delivery Location Provider FOB term term term term term term sab sab Labs: 1 hr GTT wnl, Rh pos, BlvfetpO17 neg, Syphilis neg, RI, HepB neg, HIV neg, GC/CT neg Review of Systems Gynecological: Reports: - - No ctx, vb, lof. 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 Hines on exam Presentation: Cephalic - TAUS perform by Dr. Hines confirming vertex presentation Cervix Dilation (cm): 1 Station: -3 Effacement (%): 50 Assessment/Plan All Active Problems Vaginal discharge during in second trimester (Acute) Breech presentation (Acute) AMA (advanced maternal age) multigravida 35+ (Acute) This is a 42 year-old, G9, P6026, at 39 weeks gestational age. - Admit for routine intrapartum care - Cytotec - UDS on admission - Desires tubal - Epidural prn
[2018-03-02] MEDS: fentaNYL-bupivacaine (epidural) 100 ML BAG EPIDURAL (14:51)
[2018-03-02] MEDS: Oxytocin 30 units/NS 500 ml 30 UNITS/500 ML IV.SOLN IV (15:46)
--- NOTE | 2018-03-02 16:12 | PCM.PN.BLA ---
Progress Note Patient was admitted by me. Upon examination when she was a first admitted, her cervix was 1 thick and the station was -4 and ballotable. heart tones are category 1. She was given a dose of Cytotec. When I reexamined the patient at lunchtime she was found to be approximately 2 cm dilated 50% effaced and -3 station. Head was against the cervix enough to allow for rupture of membranes. Large amount of clear fluid return. scalp electrode and IUPC were placed. heart tones are still category 1. It has been greater than 4 hours since she received the Cytotec. Will initiate Pitocin. Epidural is working somewhat, but she states she still feels a lot on her left side. Anesthesia has evaluated and will have them reevaluate as needed
[2018-03-02] MEDS: Ondansetron 4 MG/2 ML Vial IV (16:56)
--- NOTE | 2018-03-02 18:00 | PLAC_PTH ---
PATIENT: EVELYNE MARAVILLA LOC: [facility] U#:[id number] AGE/SX: 42/F ROOM: WP002 RE03/02/[address]: Dr. Prisca Hines MD : 1975 BED: 1 DIS: 03/04/2018 SPEC #: [id number] RECD: 03/02/18 20:26 STATUS: ADRIAN RESavana #: [id number] NAY: 03/02/18 18:[address]: Prisca Hines DEPT: SURGICAL PATHOLOGY RECD BY: Willam Luna ENTERED: 03/03/18 11:48 SP TYPE: PLACENTA OTHR DR: Dr. Chandra Prado, DO Tissues: Placenta, NOS Procedures: Surgery Specimen Level V HEADER OPERATION: Vaginal delivery PRE-OP DIAGNOSIS: SGA TISSUE SUBMITTED: Placenta MICROSCOPIC DIAGNOSIS Placenta: Placental disc - third trimester placenta (430 gm). - Focal area of infarction (0.5 cm in greatest dimension). - Focal increased perivillous and intervillous fibrin deposition. Membranes - focal circummarginate insertion. Umbilical cord - three blood vessels and no pathologic diagnosis. SJ:antonette 03/06/18 MICROSCOPIC DESCRIPTION Slides are reviewed. GROSS DESCRIPTION SPECIMEN: PLACENTA / CLINICAL INFORMATION: A. Weight: 2.647 kg B. Gestational Age: 39 weeks C. Sex: Male PLACENTAL WEIGHT (POST FIXATION): 430 gm PLACENTAL DIMENSIONS: 17 x 15 x 4 cm PLACENTAL SHAPE: Usual ovoid PLACENTAL WEIGHT FOR GESTATIONAL AGE: Within 10-99th percentile MEMBRANES - Present A. Insertion: The membranes are inserted in one-fourth circumference of placenta 1.5 cm away from the margin. B. Site of rupture from edge: 10 cm from edge of placental disc C. Color of membrane: Neville-ma D. Abnormalities: None UMBILICAL CORD - Present A. Color: Neville-ma B. Insertion: Paracentral C. Length: 34 cm D. Diameter: 1.3 cm E. Number of vessels: Three F. Abnormalities: None PLACENTAL DISC - Present A. Color of surface: Neville-ma B. surface abnormalities: None C. Maternal cotyledons: Intact with minimal tears. Maternal surface shows a plaque-like area measuring 0.5 cm in greatest dimension. D. Attached retro placental clot: No clot E. Cut surface: Dark red and spongy F. Lesions: None G. Separate clot: Absent SECTIONS SUBMITTED: 1. Membrane roll 2. Cord, maternal end, insertion of membrane away from the margin 3. Cord, end, insertion of membrane away from the margin 4. Placental disc, and maternal surfaces, plaque-like area 5. Placental disc, and maternal surfaces 6. Placental disc, and maternal surfaces ZAY:antonette 03/03/18 TC:5 CPT: 59294
[2018-03-02] MEDS: Oxytocin 30 units/NS 500 ml 30 UNITS/500 ML IV.SOLN 334 UNITS IV (18:06)
--- NOTE | 2018-03-02 18:31 | PCM.OB.VAG ---
Vaginal Delivery Maternal Presentation: Medically Indicated Induction Method of Induction: Pitocin, Amniotomy, Cytotec Medical Reason for Induction: - - polyhydramnios, SGA , advanced maternal age Amniotic Membrane Rupture Type: Artificial Amniotic Fluid Description: Clear, Bloody - at delivery Final ELI: 03/08/18 Gestational age: 39 Weeks and 1 Days Date of Procedure: 03/02/18 Pre-Operative Diagnosis: labor Post-Operative Diagnosis: same Surgery/ Procedure Performed: Spontaneous Vaginal Delivery Type of Anesthesia: Epidural Description of Procedure: A vigorous male infant was delivered LOP over an intact perineum. The remainder the infant was delivered with maternal pushing and gentle traction only in less than 15 seconds. The Pitocin infusion was initiated for active management of the third stage. The cord was clamped and cut immediately because the was not immediately vigorous with stimulation and suctioning during cord clamping. The infant was attended to by the waiting nursing staff. The placenta was delivered spontaneously and intact. The cervix and vagina were intact. Sponge and needle counts were correct. A vaginal sweep was completed by me. Presentation: ROP Placental Delivery Description: Spontaneous Placenta Disposition: Sent to Pathology Cord Vessel Description: 3 Vessels Cord Gases drawn per routine: ABG, VBG Cord Entanglement: None Drain: - - none Estimated Blood Loss: 300 Infant A gender: Male (1 minute): 2 (5 minute): 6 - 7,8 Episiotomy Description: None Laceration: None Medications given after delivery: IV Pitocin Complications: None
[2018-03-02] MEDS: Oxytocin 30 units/NS 500 ml 30 UNITS/500 ML IV.SOLN 167 UNITS IV (18:36)
[2018-03-02] MEDS: Naproxen 250 MG Tablet PO (19:47)
[2018-03-02] MEDS: 0.9% Saline Lock 10 ML Syringe IV (19:48)
--- NOTE | 2018-03-02 19:59 | SUR.OPER ---
This RN asked mother about other children. Patient reports that she now has 5 boys and 2 girls. The 19 year old and 10 year old live with biological father and the rest of them are adopted out. Patient reports that she is hoping to keep this one and reports having financial support from boyfriend's (Ernesto) 25 year old son. Patient reports that he makes good money and is an EMT and a cable tower operator. Patient states that boyfriend's son has paid to buy them a trailer and has bought them a brand new car seat for this baby.
[2018-03-02] MEDS: lamoTRIgine 25 MG Tablet 50 MG PO (23:39)
[2018-03-03] VITALS (14 sets, daily range): BP systolic 89–125; BP diastolic 59–73; PULSE 67–97; RESP 14–18; TEMP 36.3–37.1; O2SAT 97–99; BMI 28.8
--- NOTE | 2018-03-03 | FALS_PTH ---
PATIENT: EVELYNE MARAVILLA LOC: [facility] U#:[id number] AGE/SX: 42/F ROOM: WP002 RE03/02/[address]: Dr. Prisca Hines MD : 1975 BED: 1 DIS: 03/04/2018 SPEC #: [id number] RECD: 03/03/18 14:30 STATUS: ADRIAN REQ #: [id number] NAY: 03/03/18 00:[address]: Zayda Augustine DEPT: SURGICAL PATHOLOGY RECD BY: Dre Zheng ENTERED: 03/03/18 14:30 SP TYPE: FALL TUBES OTHR DR: DO Dr. Prisca Somers MD Tissues: Fallopian tube Procedures: Surgery Specimen Level II Comments: @ Ordering doctor for SUII edited from to @ by RGOOD at 03/06/18828 @ Submitting doctor edited from to @ by RGOOD at 03/06/18828 HEADER OPERATION: bilateral tubal ligation PRE-OP DIAGNOSIS: Elective sterilization TISSUE SUBMITTED: Bilateral fallopian tubes (portion) MICROSCOPIC DIAGNOSIS Bilateral fallopian tubes, tubal ligation: Completely transected segments of bilateral fallopian tubes, no pathologic diagnosis. ZAY:antonette 03/06/18 MICROSCOPIC DESCRIPTION Slides are reviewed. GROSS DESCRIPTION Received is one container labeled with the patient's name and designated bilateral fallopian tubes (portion). The specimen consists of two tubular pieces of vela soft tissue measuring 2 cm in length and 0.7 cm in diameter and 1.8 cm in length and 0.6 cm in diameter. Both pieces are not identified as right or left. The entire specimen is submitted in one cassette. Both pieces will be sectioned at the time of embedding. / ZAY:antonette 03/03/18 TC: 4 CPT: 23283 x2
[2018-03-03] MEDS: Naproxen 250 MG Tablet PO ×3 (04:31→22:06)
--- NOTE | 2018-03-03 06:55 | NURSING ---
0010 epidural removed per Artemio RN blue tip intact.
--- NOTE | 2018-03-03 07:13 | PCM.PN.OB ---
Patient Problems: Active and Suspected Problems (Last Updated 03/02/18 @ 12:50 by Zayda Augustine DO) AMA (advanced maternal age) multigravida 35+ (Acute) Subjective: average lochia, some cramping - Physical Exam General: Alert, Cooperative, No apparent distress Vital Signs Temp Pulse Resp BP 97.7 F L 76 16 120/73 03/03/18 04:30 03/03/18 04:30 03/03/18 04:30 03/03/18 04:30 Weight: 83.4 kg Body Mass Index (BMI) 28.8 Finger Stick Blood Glucose 91 Intake and Output for Last 24 Hours 03/01/18 03/02/18 03/03/18 23:59 23:59 23:59 Intake Total 1120 / 1120 Output Total 1200 / 1200 600 / 600 Balance -80 / -80 -600 / -600 Laboratory Tests Past 24 Hrs 03/02/18 03/02/18 03/02/18 09:10 09:10 12:05 WBC 5.8 RBC 3.86 L Hgb 11.5 L Hct 35.3 L MCV 91.5 MCH 29.8 MCHC 32.6 RDW 13.4 RDW Differential 44.5 H Plt Count 195 MPV 9.7 Urine Opiates Screen NEGATIVE Urine Methadone Screen NEGATIVE Ur Barbiturates Screen NEGATIVE Ur Phencyclidine Scrn NEGATIVE Ur Amphetamines Screen NEGATIVE U Methamphetamin-MDMA NEGATIVE U Benzodiazepines Scrn NEGATIVE Urine Cocaine Screen NEGATIVE U Cannabinoids Screen NEGATIVE Ur Drug Screen Comment Blood Type A POSITIVE Antibody Screen NEGATIVE Medical Necessity - Tobacco Use Smoking Status: Former smoker Assessment/Plan All Active Problems (Last Updated 03/02/18 @ 12:50 by Zayda Augustine DO) Vaginal discharge during in second trimester (Acute) Breech presentation (Acute) AMA (advanced maternal age) multigravida 35+ (Acute) PPD#1 doing well routine care NPO for BTO today
--- NOTE | 2018-03-03 07:59 | NURSING ---
0600 when up to void pt states she is to have a tubal today made npo, dr. deras informed that pt just now npo and that epidural was dcd after recovery when pt moved room as not aware pt to go to surgery today. Dr. Bejarano states she is unsure when she is scheduled for today, so continue to remain npo and leave SL in.
[2018-03-03] MEDS: lamoTRIgine 25 MG Tablet 50 MG PO ×2 (10:31→22:06)
[2018-03-03] MEDS: Magnesium Oxide 400 MG Tablet PO (10:32)
--- NOTE | 2018-03-03 12:36 | OP.PCM_ITS ---
Problem List (1) AMA (advanced maternal age) multigravida 35+ Status: Acute (2) Sterilization Status: Acute Operative Report Date of Procedure: 03/03/18 Pre-op diagnosis: Multiparity requesting permanent sterilization Postop diagnosis: As above Operation performed: bilateral partial tubal sterilization Estimated blood loss: < 50 cc Anesthesia: Spinal Complications: None Specimens removed: Bilateral partial fallopian tube segments Indications: Patient is a 42-year-old who is from a vaginal delivery. She desires permanent sterilization. She is 100% certain she does not want to conceive in the future. She understands all alternative control options to tubal ligation. Risks, benefits, and alternatives were fully discussed and she was consented. Procedure: The patient was taken to the operating room where spinal anesthesia was found to be adequate. The patient was then placed in supine position and prepped and draped in the usual sterile fashion. An infraumbilical incision was created using a scalpel and carried to the underlying fascial layer. The fascia was grasped with 2 hemostats and then sharply incised. The peritoneum was entered using blunt dissection. 2 [place] retractors were placed and the left fallopian tube was grasped. The left fallopian tube was followed out to the fimbriated end. A portion of the left fallopian tube was then double suture ligated and transected removing a 2 cm segment of the left fallopian tube. Hemostasis was noted. This tube was placed back in its anatomic position. The right fallopian tube was then grasped and followed out to the fimbriated end. The right fallopian tube was double suture ligated and transected. Hemostasis was noted. This tube was placed back in its anatomic position. The bilateral fallopian tube segments were sent to pathology for review. The peritoneum and fascia were reapproximated using 0 Vicryl in a running fashion. The subcutaneous tissue was hemostatic. The skin was closed in a subcuticular fashion. Dermabond was placed over the incision. Instrument count, needle count and sponge counts were all correct. The patient was taken to the recovery room in stable condition.
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
[2018-03-04] MEDS: Acetaminophen 500 MG Tablet 1000 MG PO ×2 (00:26→11:35)
[2018-03-04 00:30] VITALS: BP 110/66; PULSE 79; RESP 16; TEMP 37.7
[2018-03-04 04:00] VITALS: BP 121/73; PULSE 71; RESP 14; TEMP 37.1
[2018-03-04 08:00] VITALS: BP 117/71; PULSE 91; RESP 16; TEMP 36.8; O2SAT 97
--- NOTE | 2018-03-04 08:01 | PCM.PN.OB ---
Patient Problems: Active and Suspected Problems (Last Updated 03/02/18 @ 12:50 by Zayda Augustine DO) AMA (advanced maternal age) multigravida 35+ (Acute) Sterilization (Acute) Subjective: pt seen at bedside, doing well. pt reports good pain control. lochia mild. bottle feeding- baby in SCN. - Physical Exam General: Alert, Oriented x3 Abdomen: Soft, Non Tender, - - incision site dry and intact with skin glue. fundus firm Extremities: No Calf Tenderness Vital Signs Temp Pulse Resp BP Pulse Ox 98.7 F 71 14 121/73 H 97 03/04/18 04:00 03/04/18 04:00 03/04/18 04:00 03/04/18 04:00 03/03/18 13:09 Oxygen Delivery Method Room Air Weight: 83.4 kg Body Mass Index (BMI) 28.8 Finger Stick Blood Glucose 91 Intake and Output for Last 24 Hours 03/02/18 03/03/18 03/04/18 23:59 23:59 23:59 Intake Total 1120 / 1120 600 / 600 Output Total 1200 / 1200 600 / 600 Balance -80 / -80 0 / 0 Medical Necessity - Tobacco Use Smoking Status: Former smoker Assessment/Plan All Active Problems (Last Updated 03/02/18 @ 12:50 by Zayda Augustine DO) Vaginal discharge during in second trimester (Acute) Breech presentation (Acute) AMA (advanced maternal age) multigravida 35+ (Acute) Sterilization (Acute) PPD#2, POD#1- pt doing well Dc to hotel status today discharge instructions reviewed- has f/u appt scheduled in office 1-2 weeks from now.
--- NOTE | 2018-03-04 08:08 | DCINST_ITS ---
Discharge Diet: No Restrictions Discharge Activity: Return to Normal Activity, May not drive while taking narcotic pain medications., May Shower May resume sexual activity in: 4-6 weeks Additional Activity Instructions:: Nothing in the vagina for 4-6 weeks. You may return to work/school in 6 weeks. Call your doctor if your incision/area has: Continuous Slow Oozing, Sudden Increased Bleeding, Increased Pain/ Swelling, Increased Redness, Foul Smelling Discharge Call your doctor if you observe: Fever of 101 or Higher Cleanse incision/area with: - - do not pick off skin glue- you may shower let the soap and water run over incision site and dab it to dry. Additional Instructions: If you experience any of the following, contact your healthcare provider. * Bleeding that soaks a pad every hour for 2 hours * Fever 100.4 or higher * Unrelieved incision or abdominal pain * Swelling, redness, discharge or bleeding from your incision or episiotomy site * Your incision begins to separate * Problems urinating (including inability to urinate or burning while urinating). * Visual changes * Severe headache * Flu-like symptoms * Pain or redness in one of both of your breasts * Pain, warmth, tenderness or swelling in your legs, especially the calf area * Frequent nausea and vomiting * Symptoms of depression or anxiety If you experience any of the following, call 911 or go to the nearest Emergency Room. * Chest pain * Problems breathing * Seizure activity * Partial or complete paralysis of a body part, slurred speech, weakness or drooping of the face, or a sudden inability to walk or hold your balance Allergies/Adverse Reactions: Allergies hydromorphone HCl [From Dilaudid] Allergy (Verified 11/22/17 15:04) Hives Penicillins [PCN] Allergy (Verified 11/22/17 15:04) Hives influenza virus vaccine ts [id number] (36 mos,up) [From Fluarix] Adverse Reaction (Mild, Verified 02/17/18 07:52) Rash sea food Allergy (Uncoded 11/22/17 15:04) Anaphylaxis Medications to take at Discharge Albuterol Inhaler [Ventolin Hfa] 2 puff INHALATION Q6H PRN PRN 05/19/17 Lamotrigine [Lamictal Chew] 50 mg PO BID 10/31/17 Vits [Prenatabs FA ] 1 tablet PO DAILY 10/31/17 Acyclovir [Zovirax] 200 mg PO TID 02/17/18 Magnesium 400 mg PO DAILY 03/02/18 Lamotrigine [Lamictal Chew] 50 mg PO BID tablet 03/04/18 Magnesium Oxide [Mag-Ox 400] 400 mg PO DAILY tablet 03/04/18 Naproxen [Naprosyn] 250 - 500 mg PO Q8H PRN PRN #30 tablet 03/04/18 The following prescriptions were given: Naproxen [Naprosyn] 250 - 500 mg PO Q8H PRN PRN #30 tablet PRN Reason: Mild Pain (-07/16) Please Follow Up With: Dr. Zayda Bass When: Call to make an appointment with your doctor in 1-2 weeks and then again for your 6 weeks post check Primary Care Physician: Chandra Prado DO [Primary Care Provider] - Test Results: Test results from this visit will be discussed in further detail at your follow- up appointment, if applicable. Proposed Discharge Date: 03/04/18
[2018-03-04] MEDS: Naproxen 250 MG Tablet PO (08:36)
[2018-03-04 10:00] VITALS: BP 118/79; PULSE 105; PULSE 91; RESP 16; TEMP 37; O2SAT 96
[2018-03-04] MEDS: lamoTRIgine 25 MG Tablet 50 MG PO (11:35)
[2018-03-04] MEDS: Magnesium Oxide 400 MG Tablet PO (11:59)
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
[2018-03-06 16:01] LABS: Pathology Specimen OB SEE PATHOLOGY REPORT
== END 2018-03-04 12:30 | disposition home or self-care (01) | DRG 541 ==
PROVIDERS: Obstetrics & Gynecology; Admitting Provider Obstetrics & Gynecology; Family Provider Family Medicine; PCP Family Medicine; Referring Provider Obstetrics & Gynecology; Visit Provider Obstetrics & Gynecology
PROC: 0UL70ZZ Occlusion of Bilateral Fallopian Tubes, Open Approach (ICD-10-PCS; principal; 2018-03-03 07:15)
DX: O40.3XX0 Polyhydramnios, third trimester, not applicable or unspecified (principal); O36.5930 Maternal care for other known or suspected poor fetal growth, third trimester, not applicable or unspecified; O09.523 Supervision of elderly multigravida, third trimester; O99.354 Diseases of the nervous system complicating childbirth; G40.909 Epilepsy, unspecified, not intractable, without status epilepticus; O99.52 Diseases of the respiratory system complicating childbirth; J45.909 Unspecified asthma, uncomplicated; O98.513 Other viral diseases complicating pregnancy, third trimester; O99.284 Endocrine, nutritional and metabolic diseases complicating childbirth; E78.00 Pure hypercholesterolemia, unspecified; Z87.59 Personal history of other complications of pregnancy, childbirth and the puerperium; Z87.891 Personal history of nicotine dependence; Z87.898 Personal history of other specified conditions; Z86.73 Personal history of transient ischemic attack (TIA), and cerebral infarction without residual deficits; Z3A.39 39 weeks gestation of pregnancy; Z37.0 Single live birth; Z30.2 Encounter for sterilization
CPT/HCPCS: 59025; 59050; 80307; 85027; 86850; 86900; 88302; 88307; 99218; J7120; A4216; G0378; J2405

== ENCOUNTER 2018-05-18 17:16 | Emergency (ER) | payer MEDICAID, SELFPAY ==
[2018-05-18 17:17] VITALS: BP 163/81; PULSE 117; RESP 16; TEMP 36.6; O2SAT 97; BMI 26.2
--- NOTE | 2018-05-18 17:31 | RAD_ITS ---
STUDY: X-RAY - LEFT TIBIA AND FIBULA REASON FOR EXAM: Female, 42 years old. Pain of the distal lower leg after falling. TECHNIQUE: 2 view(s) of the tibia and fibula were obtained. COMPARISON: None. FINDINGS: Normal visualized tibia. Normal visualized fibula. There is no demonstrated acute fracture. The soft tissue structures are unremarkable. RAD/Tibia & Fibula 2 Views IMPRESSION: Normal x-ray examination of the tibia and fibula. Electronically Signed: Kristie Chandler MD at 18:11 EST , Service support ,
--- NOTE | 2018-05-18 17:32 | ED.VISSUMM ---
- ER Visit Summary Date of Service: 05/18/18 Chief Complaint: Distal left leg pain History of Present Illness: The patient is a 42 F who presents because of distal left leg pain since Tuesday. She states she was walking from her doctor's appointment [facility] office to the [place] and developed severe pain. She has no history of gout or pseudogout. She does not recall anything specific with regards to trauma. She denies symptoms of claudication. She denies symptoms to suggest neuropathy. She denies discoloration of her toes to suggest ray nods phenomenon. Physical Examination: Vital signs noted. She appears in no distress. She has pain out of proportion to tactile stimuli of the left distal leg. There is no swelling of the ankle or effusion noted. There is full active range of motion. DP and PT pulses are palpable. Capillary refill is normal. Foot is not discolored or cold. Test Results: Two-view x-ray of the left tibia/fibula interpreted by me as negative for fracture, foreign body soft tissue swelling or subcutaneous air. Emergency Department Course and Treatment: X-ray to evaluate patient's pain and anti-inflammatory since there is no contraindication Treatment Plan: Prescription for Naprosyn Disposition: Discharged home Impression: Left leg pain of unknown etiology This note was generated with WhatsOpen dictation software. It may contain incorrect words, spelling, and punctuation that were not noted in review of the chart prior to signing ED Disposition - Plan for ED Patient: Disposition: Home or Assisted Living Chief Complaint: Lower Extremity Injury Instructions: ED Acute Pain [facility]O Prescriptions: Naproxen [Naprosyn] 500 mg PO BID #14 tablet Referrals: Chandra Prado DO [Primary Care Provider] - 3-5 Days if not improving Additional Instructions: Your prescription was electronically transmitted to [email or web address].
--- NOTE | 2018-05-18 17:35 | ED.DCSUM_ITS ---
- ER Visit Summary Date of Service: 05/18/18 Chief Complaint: Distal left leg pain History of Present Illness: The patient is a 42 F who presents because of distal left leg pain since Tuesday. She states she was walking from her doctor's appointment [facility] office to the [place] and developed severe pain. She has no history of gout or pseudogout. She does not recall anything specific with regards to trauma. She denies symptoms of claudication. She denies symptoms to suggest neuropathy. She denies discoloration of her toes to suggest ray nods phenomenon. Physical Examination: Vital signs noted. She appears in no distress. She has pain out of proportion to tactile stimuli of the left distal leg. There is no swelling of the ankle or effusion noted. There is full active range of motion. DP and PT pulses are palpable. Capillary refill is normal. Foot is not di scolored or cold. Test Results: Two-view x-ray of the left tibia/fibula interpreted by me as negative for fracture, foreign body soft tissue swelling or subcutaneous air. Emergency Department Course and Treatment: X-ray to evaluate patient's pain and anti-inflammatory since there is no contraindication Treatment Plan: Prescription for Naprosyn Disposition: Discharged home Impression: Left leg pain of unknown etiology This note was generated with Intertwine dictation software. It may contain incorrect words, spelling, and punctuation that were not noted in review of the chart prior to signing ED Disposition - Plan for ED Patient: Disposition: Home or Assisted Living Chief Complaint: Lower Extremity Injury Instructions: ED Acute Pain [facility]O Prescriptions: Naproxen [Naprosyn] 500 mg PO BID #14 tablet Referrals: Chandra Prado DO [Primary Care Provider] - 3-5 Days if not improving Additional Instructions: Your prescription was electronically transmitted to [facility].
[2018-05-18] MEDS: Naproxen 500 MG Tablet PO (18:02)
== END 2018-05-18 18:19 | disposition home or self-care (01) ==
LOC: ED 18:13
PROVIDERS: Emergency Provider Emergency Medicine; Family Provider Family Medicine; PCP Family Medicine
DX: M79.662 Pain in left lower leg (principal); J45.909 Unspecified asthma, uncomplicated; G40.909 Epilepsy, unspecified, not intractable, without status epilepticus; Z79.899 Other long term (current) drug therapy; Z87.891 Personal history of nicotine dependence
CPT/HCPCS: 73590; 99283

== ENCOUNTER 2018-06-01 23:20 | Emergency (ER) | payer MEDICAID, SELFPAY ==
[2018-06-01 23:21] VITALS: BP 109/69; PULSE 108; RESP 16; TEMP 36.7; O2SAT 97; BMI 26.8
[2018-06-01 23:50] LABS: Color, Urine Yellow (Yellow); Glucose, Dipstick Normal (Normal); Ketone-Dipstick Negative (Negative); Leukocyte Esterase-Dipstick 500 /ul (Negative); Nitrite-Dipstick Negative (Negative); Occult Blood-Urine 250 /ul (Negative); Protein-Dipstick 15 mg/dl (Negative); Specific Gravity, Urine 1.025 (1.002-1.030); Urine Bilirubin Dipstick Negative (Negative); Urine Clarity Sl. Cloudy (Clear); Urine Urobilinogen Normal (Normal)
[2018-06-01] MEDS: Ketorolac 30 MG/ML Syringe IV (23:54)
[2018-06-01] MEDS: 0.9% Normal Saline 1,000 ML 1000 ML IV (23:54)
[2018-06-01 23:55] LABS: Bacteria RARE /hpf (None Seen); Mucous, Urine 1+ /hpf (<or=2+)
[2018-06-01] MEDS: Ondansetron 4 MG/2 ML Vial IV (23:55)
[2018-06-01 23:56] LABS: Red Blood Cells-Urine 0-5 SEEN /hpf (0-5); Squamous Epithelial Cells - UA 0-5 SEEN /hpf (5-10); White Blood Cells 10-25 SEEN /hpf (0-5)
[2018-06-01 23:59] LABS: Absolute Lymphocyte Count 2.96 X10^3/ul (0.83-4.51); Absolute Neutrophil Count 3.1 X10^3/uL (2.0-7.7); Basophil# 0.05 X10^3/uL; Basophil% 0.7 % (0-1); Eosinophil# 0.07 X10^3/uL; Hematocrit 36.4 % (37-47); Lymphocyte # 2.96 X10^3/ul (4.0); Lymphocyte % 44.1 % (19-41); Mean Corpuscular Hgb 29.9 pg (27.0-32.0); Mean Corpuscular Volume 90.5 fL (81-99); Mean Platelet Vol. 9.7 fl (6.2-12.0); Monocyte# 0.51 X10^3/uL; Monocyte% 7.6 % (0-10); Neutrophil # 3.11 X10^3/uL (2.7-7.7); Neutrophil % 46.5 % (47-70); Platelet Count 259 K/mm3 (150-450); RBC Distribution Width CV 13.1 % (11.6-14.6); Red Blood Count 4.02 M/mm3 (4.2-5.4); White Blood Count 6.7 K/mm3 (4.4-11.0)
[2018-06-02 00:03] LABS: Differential Indicated SCAN CRITERIA MET; POSITIVE COUNT NO; POSITIVE DIFFERENTIAL NO; POSITIVE MORPHOLOGY YES
[2018-06-02 00:13] LABS: AST(SGOT) 17 U/L (15-37); Alanine Aminotransfer ALT/SGPT 25 U/L (13-56); Albumin, Serum 3.6 g/dL (3.2-5.0); Alkaline Phosphatase 63 U/L (45-117); Anion Gap 10 (5-15); BUN 15 mg/dL (7-18); BUN/Creat Ratio 26.5 RATIO (10-20); Bilirubin, Direct 0.13 mg/dL (0.00-0.30); Calcium,Total 8.1 mg/dL (8.5-10.1); Chloride 109 mmol/L (98-107); Creatinine, Serum 0.57 mg/dL (0.55-1.02); EST Glomerular Filtration Rate 124 mL/min (>60); Est Glom Filt Rate - Afr Amer 150 mL/min (>60); Estimated Creatinine Clearance 123.76 ml/min; Globulin 3.5 g/dL (2.2-4.2); Glucose 86 mg/dL (74-106); Lipase 133 U/L (73-393); Potassium 3.8 mmol/L (3.5-5.1); Protein, Total 7.1 g/dL (6.4-8.2); Sodium Level 141 mmol/L (136-145)
[2018-06-02 00:17] LABS: Pregnancy, Serum, hCG Quali. NEGATIVE Negative (0-9 Nonpreg)
[2018-06-02 00:20] LABS: Differential Comment SCANNED
[2018-06-02] MEDS: Ceftriaxone 1 GM/50 ML BAG IV (00:33)
[2018-06-02 00:36] VITALS: BP 116/80; PULSE 76; RESP 18; TEMP 36.6; O2SAT 96
--- NOTE | 2018-06-02 01:36 | ED.DCSUM_ITS ---
- ER Visit Summary Date of Service: 06/02/18 Chief Complaint: Right flank and abdominal pain History of Present Illness: The patient is a [address] Prado. She reports that he had the abrupt onset of right flank and right-sided abdominal pain today. She describes it as a sharp pain is 10 at 10 worst 910 currently. Is worsened by nothing relieved by nothing. She denies any nausea or vomiting. She reports she has had 4 episodes of diarrhea today. No blood in her stools or black tarry stools. No dysuria or frequency. Last months. Was approximate 3 weeks ago. She reports is similar to when she had kidney stones in the past. Physical Examination: Vitals: Stable. Afebrile. General: Well-nourished and well-developed. Head: Normocephalic atraumatic. Neck: Supple, no lymphadenopathy. No JVD. Nontender. Cardiovascular: Regular rate and rhythm. No murmurs. Respiratory: No respiratory distress. Clear to auscultation bilaterally. Abdominal: Soft, moderate right upper quadrant tenderness palpation mild right lower quadrant tenderness to palpation, nondistended, normal bowel sounds. No guarding, rebound, or peritoneal signs. Back: Nontender. No CVA tenderness. Extremities: Nontender, no edema. Skin: Normal color, no rash. Neurologic: Alert and oriented ?3. Cranial nerves II through XII are intact. Normal strength and sensation. Psych: Normal affect. Test Results: CBC is remarkable for hematocrit of 36.4, 7 neutrophils of 47, l ymphocytes 44. Chem-7 is more for chloride 109 calcium of 8.1. LFTs are normal. Lipase is normal. UA does show UTI with 10-25 white blood cells and rare bacteria. test is negative. Clinical Impression(s) from Imaging Studies Abdomen/Pelvis CT 06/02/18 23:36 IMPRESSION: 1. Nonobstructive 3 mm left lower renal pole calculus. 2. 5 mm hyperattenuated lesion in the posterior midpole of the left kidney, potentially representing a hemorrhagic cyst 3. Small fat-containing umbilical Electronically Signed: Dre Sanchez MD at 1:38 EST Tel , Service support , Emergency Department Course and Treatment: Patient had an IV placed. She was given Toradol and Zofran IV. When her urine returned she was given a dose of Rocephin IV. She is resting comfortably. Treatment Plan: Patient will be discharged with Keflex and Zofran. Instructed use Tylenol and/or ibuprofen for pain. Follow-up with Dr. Prado in 1 week for another exam. Return to the emergency department for any worsening symptoms. Disposition: To home in improved and stable condition. Impression: 1. UTI. This note was generated with VitaPortal dictation software. It may contain incorrect words, spelling, and punctuation that were not noted in review of the chart prior to signing ED Disposition - Plan for ED Patient: Chief Complaint: Flank Pain Instructions: ED UTI Cystitis Female Prescriptions: Ondansetron [Zofran Odt] 4 mg PO Q8H PRN PRN #10 tablet PRN Reason: Nausea Cephalexin [Keflex] 500 mg PO Q12 #14 capsule Referrals: Chandra Prado DO [Primary Care Provider] - 1 Week
[2018-06-02 02:08] VITALS: BP 106/71; PULSE 66; RESP 16; O2SAT 98
--- NOTE | 2018-06-02 23:36 | CT_ITS ---
STUDY: CT ABDOMEN AND PELVIS WITHOUT CONTRAST REASON FOR EXAM: Female, 43 years old. Right flank pain RADIATION DOSAGE (If Supplied By Facility): CTDIvol = ( 7.20 ) mGy, DLP = ( 377.81 ) mGycm TECHNIQUE: Transaxial images were obtained from the dome of the diaphragm to the symphysis pubis without oral contrast, and without intravenous contrast. Sagittal and coronal images were reconstructed. Individualized dose optimization techniques were used for this CT. COMPARISON: 11/22/2017 FINDINGS: Atelectasis versus scar formation at the lung bases. The visualized portions of the heart are within normal limits. Normal liver. Normal gallbladder and extrahepatic biliary system. Normal spleen. Normal pancreas. Normal bilateral adrenal glands. Normal right kidney. Hyperattenuated lesion within the posterior mid pole of the left kidney. 3 mm calculus in the left lower renal pole. No hydronephrosis. Normal bilateral ureters. Normal visualized stomach. Normal small intestine. Normal colon. The appendix is visualized and appears normal. Normal abdominal aorta. Normal inferior vena cava. Normal retroperitoneum. Normal urinary bladder. Normal reproductive organs. Small fat-containing umbilical hernia with no evidence of bowel involvement. Normal osseous structures. CT/Abdomen/Pelvis without Cont IMPRESSION: 1. Nonobstructive 3 mm left lower renal pole calculus. 2. 5 mm hyperattenuated lesion in the posterior midpole of the left kidney, potentially representing a hemorrhagic cyst 3. Small fat-containing umbilical Electronically Signed: Dre Sanchez MD at 1:38 EST Tel , Service support ,
== END 2018-06-02 02:09 | disposition home or self-care (01) ==
LOC: ED 06-02 00:08
PROVIDERS: Emergency Provider Emergency Medicine; Family Provider Family Medicine; PCP Family Medicine
DX: N39.0 Urinary tract infection, site not specified (principal); J45.909 Unspecified asthma, uncomplicated; G40.909 Epilepsy, unspecified, not intractable, without status epilepticus; Z79.899 Other long term (current) drug therapy; Z72.0 Tobacco use
CPT/HCPCS: 74176; 80048; 80076; 81001; 83690; 84703; 85025; 96365; 96375; 99284; J7030; A4216; J2405

== ENCOUNTER → 2018-06-29 15:00 | Outpatient (CLI) | payer MEDICAID, SELFPAY ==
[2018-06-01 23:21] VITALS: BMI 26.8
[2018-06-29 15:04] LABS: Mucous, Urine 0 SEEN /hpf (<or=2+); Red Blood Cells-Urine 0 SEEN /hpf (0-5); White Blood Cells 0 SEEN /hpf (0-5)
[2018-06-29 18:00] LABS: Absolute Lymphocyte Count 2.38 X10^3/ul (0.83-4.51); Absolute Neutrophil Count 1.8 X10^3/uL (2.0-7.7); Basophil# 0.03 X10^3/uL; Basophil% 0.6 % (0-1); Eosinophil# 0.13 X10^3/uL; Eosinophils% 2.7 % (0-5); Hematocrit 38.2 % (37-47); Hemoglobin 12.1 g/dl (12.0-15.0); Lymphocyte # 2.38 X10^3/ul (4.0); Lymphocyte % 50.1 % (19-41); Mean Corp Hgb Conc 31.7 g/gl (32-36); Mean Corpuscular Hgb 29.6 pg (27.0-32.0); Mean Corpuscular Volume 93.4 fL (81-99); Mean Platelet Vol. 9.7 fl (6.2-12.0); Monocyte# 0.39 X10^3/uL; Monocyte% 8.2 % (0-10); Neutrophil # 1.82 X10^3/uL (2.7-7.7); Neutrophil % 38.4 % (47-70); Platelet Count 258 K/mm3 (150-450); RBC Distribution Width CV 13.5 % (11.6-14.6); RBC Distribution Width SD 45.9 fl (35.1-43.9); Red Blood Count 4.09 M/mm3 (4.2-5.4); White Blood Count 4.8 K/mm3 (4.4-11.0)
[2018-06-29 18:01] LABS: POSITIVE COUNT NO; POSITIVE DIFFERENTIAL NO; POSITIVE MORPHOLOGY NO
[2018-06-29 18:12] LABS: Erythrocyte Sedimentation Rate 7 mm/hr (0-20)
[2018-06-29 18:14] LABS: hCG Titer Quant., Serum < 1 mIU/mL (<9 non-preg)
[2018-06-29 18:19] LABS: AST(SGOT) 13 U/L (15-37); Alanine Aminotransfer ALT/SGPT 32 U/L (13-56); Albumin, Serum 3.7 g/dL (3.2-5.0); Alkaline Phosphatase 64 U/L (45-117); Anion Gap 8 (5-15); BUN 11 mg/dL (7-18); BUN/Creat Ratio 18.1 RATIO (10-20); CRP < 2.90 mg/L (0.0-3.0); Calcium,Total 8.4 mg/dL (8.5-10.1); Chloride 105 mmol/L (98-107); Creatinine, Serum 0.61 mg/dL (0.55-1.02); EST Glomerular Filtration Rate 114 mL/min (>60); Est Glom Filt Rate - Afr Amer 138 mL/min (>60); Globulin 3.8 g/dL (2.2-4.2); Glucose 88 mg/dL (74-106); Potassium 4.1 mmol/L (3.5-5.1); Protein, Total 7.5 g/dL (6.4-8.2); Sodium Level 141 mmol/L (136-145)
[2018-06-29 18:23] LABS: Color, Urine Yellow (Yellow); Glucose, Dipstick Normal (Normal); Ketone-Dipstick Negative (Negative); Leukocyte Esterase-Dipstick 25 /ul (Negative); Nitrite-Dipstick Negative (Negative); Occult Blood-Urine Negative /ul (Negative); Protein-Dipstick Negative (Negative); Specific Gravity, Urine 1.005 (1.002-1.030); Urine Bilirubin Dipstick Negative (Negative); Urine Clarity Clear (Clear); Urine Urobilinogen Normal (Normal)
[2018-06-29 18:41] LABS: Bacteria RARE /hpf (None Seen); Squamous Epithelial Cells - UA 0-5 SEEN /hpf (5-10)
== END ==
PROVIDERS: Family Provider Family Medicine; PCP Family Medicine; Visit Provider Family Medicine
DX: G43.909 Migraine, unspecified, not intractable, without status migrainosus (principal); R10.9 Unspecified abdominal pain
CPT/HCPCS: 36415; 80053; 81001; 84702; 85025; 85652; 86140; 87086; 87088

== ENCOUNTER 2018-07-21 18:24 | Emergency (ER) | payer MEDICAID, SELFPAY ==
[2018-07-21 18:24] VITALS: BP 134/85; PULSE 97; RESP 16; TEMP 37; O2SAT 99; BMI 27.6
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
[2018-07-21] MEDS: Naproxen 250 MG Tablet 500 MG PO (19:36)
[2018-07-21 19:52] VITALS: PULSE 91; RESP 20; O2SAT 99
--- NOTE | 2018-07-21 19:58 | ED.RN ---
THIS NURSE REVIEWED D/C INSTRUCTIONS WITH PT. PT VERBALIZED UNDERSTANDING OF INSTRUCTIONS. PT DENIES FURTHER NEEDS OR QUESTIONS AT THIS TIME. PT AMBULATES FROM ROOM ON OWN WITHOUT ASSISTANCE FROM STAFF
== END 2018-07-21 19:59 | disposition home or self-care (01) ==
LOC: ED 19:27
PROVIDERS: Emergency Provider Emergency Medicine; Family Provider Family Medicine; PCP Family Medicine
DX: T23.052A Burn of unspecified degree of left palm, initial encounter (principal); T23.051A Burn of unspecified degree of right palm, initial encounter; X19.XXXA Contact with other heat and hot substances, initial encounter; Y93.9 Activity, unspecified; Y92.9 Unspecified place or not applicable
CPT/HCPCS: 99283

== ENCOUNTER 2018-07-28 13:24 | Emergency (ER) | payer MEDICAID, SELFPAY ==
[2018-07-28 13:25] VITALS: BP 107/74; PULSE 93; RESP 18; TEMP 36.6; O2SAT 96; BMI 28.1
--- NOTE | 2018-07-28 14:40 | RAD_ITS ---
STUDY: X-RAY - RIGHT KNEE REASON FOR EXAM: Female, 43 years old. RT KNEE PAIN X COUPLE DAYS. HX KNEE DISLOCATION 2012. PT STATES IT KEEPS LOCKING TECHNIQUE: 5 view(s) of the knee. COMPARISON: None. FINDINGS: Normal visualized distal femur. Normal visualized proximal tibia and fibula. Normal proximal tibiofibular articulation. Normal medial femorotibial compartment. Normal lateral femorotibial compartment. Normal patellofemoral articulation. The soft tissue structures are unremarkable. RAD/Knee 4 or More Views IMPRESSION: Normal x-ray examination of the knee. Electronically Signed: Liana Durant, at 15:38 EDT Tel , Service support ,
--- NOTE | 2018-07-28 16:11 | ED.VISSUMM ---
- ER Visit Summary Date of Service: 07/28/18 Chief Complaint: Right knee pain History of Present Illness: The patient is a 43 F reports her right knee has been locking up intermittently for the past 2 days. She does describe a patellar dislocation greater than 10 years ago. She had not had problems with the knee until 2 days ago. She denies any recent injury. Physical Examination: Vital signs unremarkable. Patient is sitting upright in bed no acute distress. Right lower extremity examination reveals tenderness of the lateral joint line of the right knee. No edema. Patient will actively resist any attempt to bend her knee. She is able to straight leg raise her foot off the bed. Strong distal pulses are noted. Test Results: Right knee x-rays are obtained and are unremarkable. This does include sunrise view with her knee fully flexed. Emergency Department Course and Treatment: Test results were discussed with the patient. She states that she pushes on the back of her knee she is able to bend it. She be given an Alec wrap and referred to orthopedics for follow-up. We did discuss possibility of meniscus injury causing her knee to lock up, but I am uncertain why this would start acting up now when she has not had recent injury. Treatment Plan: [] Disposition: Discharge Impression: Right knee pain This note was generated with [employer] dictation software. It may contain incorrect words, spelling, and punctuation that were not noted in review of the chart prior to signing ED Disposition - Plan for ED Patient: Referrals: Chandra Prado DO [Primary Care Provider] -
--- NOTE | 2018-07-28 16:13 | ED.DEP ---
ED Disposition - Plan for ED Patient: Disposition: Home or Assisted Living Instructions: ED Meniscal Injury Knee Poss Referrals: Chandra Prado DO [Primary Care Provider] - Malachi Maradiaga MD [STAFF PHYSICIAN] - As Needed
== END 2018-07-28 16:22 | disposition home or self-care (01) ==
PROVIDERS: Emergency Provider Emergency Medicine; Family Provider Family Medicine; PCP Family Medicine
DX: M25.561 Pain in right knee (principal); G40.909 Epilepsy, unspecified, not intractable, without status epilepticus; J45.909 Unspecified asthma, uncomplicated; Z72.0 Tobacco use
CPT/HCPCS: 73564; 99282

== ENCOUNTER 2018-08-29 09:05 | Emergency (ER) | payer MEDICAID, SELFPAY ==
[2018-08-29 09:06] VITALS: BP 121/89; PULSE 98; RESP 16; TEMP 36.4; O2SAT 99; BMI 27.6
--- NOTE | 2018-08-29 09:18 | RAD_ITS ---
STUDY: X-RAY - RIGHT ANKLE REASON FOR EXAM: [place] a pop this morning. TECHNIQUE: 3 view(s) of the ankle. COMPARISON: Radiographs 07/17/2015. FINDINGS: Normal visualized distal tibia and fibula. Normal medial malleolus. There is an anchor in the lateral malleolus. Normal tibiotalar articulation and ankle mortise. Normal visualized talus and calcaneus. The visualized subtalar, talonavicular, calcaneocuboid and tarsal articulations are normal. There are small phleboliths anterior to the distal tibial diaphysis. RAD/Ankle min 3 Views IMPRESSION: [place] in the lateral malleolus. No demonstrated fracture. Electronically Signed: Segun Flores MD at 10:04 EDT Tel , Service support ,
--- NOTE | 2018-08-29 09:21 | ED.DCSUM_ITS ---
- ER Visit Summary Date of Service: 08/29/18 Chief Complaint: [Pain and swelling to right ankle] History of Present Illness: The patient is a 43 F [presents to the emergency department complaint of pain and swelling x5 days. Patient states that the ankle will pop when she walks and it feels very painful at times. Patient denies any trauma. Patient states she fractured her ankle in 2009 that required surgery. Patient denies any fevers. She denies recent illness.] Physical Examination: [HEENT-PERRLA, EOMI. Cranial nerves II through XII grossly intact. TMs clear. Mucous membranes moist. No adenopathy. Cardiovascular-regular rate and rhythm without murmur or ectopy Lungs-clear to auscultation, chest wall stable without crepitus or subcu emphysema Abdomen-normoactive bowel sounds, soft, nontender, no rebound or rigidity, no peritoneal signs. Extremities-intact ?4, normal range of motion, normal pulses, atraumatic. Right ankle-patient has tenderness to palpation inferior to the medial malleolus. There is no ecchymosis or bruising noted. There is no edema noted. There is no joint effusion noted. He is neurovascular intact distally. No pain at the proximal fibular head and no pain at the base of the fifth metatarsal. ] Test Results: [X-rays of the right ankle obtained which showed a bone anchor in the lateral malleolus however no new fractures.] Emergency Department Course and Treatment: [Patient was given an air splint and crutches] Treatment Plan: Patient given a prescription for naproxen and referral to orthopedics [] Disposition: [Discharged home in stable condition] Impression: [Right ankle pain Right ankle sprain] This note was generated with [employer] dictation software. It may contain incorrect words, spelling, and punctuation that were not noted in review of the chart prior to signing ED Disposition - Plan for ED Patient: Referrals: Chandra Prado DO [Primary Care Provider] -
--- NOTE | 2018-08-29 10:11 | ED.DEP ---
ED Disposition - Plan for ED Patient: Instructions: ED Sprain Ankle W X Ray Prescriptions: Naproxen [Naprosyn] 500 mg PO BID PRN #20 tab Referrals: Chandra Prado DO [Primary Care Provider] - Juan Galindo DPM [STAFF PHYSICIAN] - 5-7 Days
[2018-08-29 10:21] VITALS: PULSE 78; RESP 19; O2SAT 99
== END 2018-08-29 10:22 | disposition home or self-care (01) ==
LOC: ED 10:14
PROVIDERS: Emergency Provider Emergency Medicine; Family Provider Family Medicine; PCP Family Medicine
DX: S93.401A Sprain of unspecified ligament of right ankle, initial encounter (principal); X58.XXXA Exposure to other specified factors, initial encounter; Y93.9 Activity, unspecified; Y92.9 Unspecified place or not applicable; J45.909 Unspecified asthma, uncomplicated; G40.909 Epilepsy, unspecified, not intractable, without status epilepticus; Z72.0 Tobacco use
CPT/HCPCS: 73610; 99284; A4216

== ENCOUNTER 2018-09-18 09:05 | Emergency (ER) | payer MEDICAID, SELFPAY ==
[2018-09-18 09:06] VITALS: BP 127/72; PULSE 102; PULSE 98; RESP 16; TEMP 36.8; O2SAT 96; O2SAT 97; BMI 27.1
--- NOTE | 2018-09-18 09:20 | ED.VIS.GEN ---
History of Present Illness Chief Complaint: Abd Pain Informant: Patient Onset: Yesterday Context: Sudden Onset Timing: Continuous Quality: Pain Location: right groin region Current Severity: Moderate Maximum Severity: Severe Worsened by: Not able to specify Relieved by: Nothing Associated Symptoms: No associated symptoms Narrative: Patient is a 43-year-old woman status post bilateral tubal ligation and right nephrectomy who presents with pain right groin area. 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 She states her doctors are waiting for approval of a CAT scan of her abdomen. She denies nausea, vomiting diarrhea. She denies constipation. She denies black or maroon stool. She denies dysuria, frequency, urgency or hematuria. Per old records she has history of renal colic. She denies loss of appetite. She denies back or flank pain. Prior similar symptoms: Yes Recent Illness/Hospitalization: No - Past Medical History (1) Asthma Status: Chronic (2) Hypercholesterolemia Status: Chronic (3) Seizures Status: Chronic Past Medical History - Allergies and Home Meds Allergies/Adverse Reactions: Allergies hydromorphone HCl [From Dilaudid] Allergy (Verified 09/18/18 09:07) Hives Penicillins [PCN] Allergy (Verified 09/18/18 09:07) Hives shellfish derived Allergy (Verified 09/18/18 09:08) Anaphylaxis influenza virus vaccine ts [id number] (36 mos,up) [From Fluarix] Adverse Reaction (Mild, Verified 09/18/18 09:07) Rash sea food Allergy (Uncoded 09/18/18 09:07) Anaphylaxis Primary Care Physician: Chandra Prado DO [Primary Care Provider] - Prior records reviewed: Yes Surgical History: - - Right oopherectomy Lives: Spouse/ Significant Other Smoking Status: Current every day smoker Alcohol: Rare Drugs: None Review of Systems General: Denies: Chills, Fever, Sweats Eyes: Denies: Visual changes - bilaterally, Blurred Vision - bilaterally, Diplopia ENT: Denies: Rhinorrhea, Sore throat Cardiovascular: Denies: Chest pain, Palpitations Respiratory: Denies: Dyspnea, Cough, Dyspnea on exertion Gastrointestinal: Reports: Abdominal pain. Denies: Nausea, Vomiting, Diarrhea, Constipation, Melena, Hematochezia, -, - Genitourinary: Denies: Dysuria, Hematuria, Frequency Musculoskeletal: Denies: Myalgias, Arthralgias, Neck pain, Back pain, Extremity Pain Skin: Denies: Rash Neurological: Denies: Headache, Weakness, Numbness Hematologic: Denies: Easy bruising, Easy bleeding Allergy: Denies: Uticaria, Swelling of the mouth Physical Exam Vital Signs/Narrative: Vital Signs Temp Pulse Resp BP Pulse Ox 09/18/18 09:06 98.2 F 98 16 127/72 H 97 Inital Vital Signs reviewed: Yes General: Well nourished, Well developed, No Acute Distress Head: Normocephalic, Atraumatic Eyes: Perrl, EOMI ENT: Moist mucous membranes, No rhinorrhea Neck: Supple, Nontender, No lymphadenopathy, No JVD Cardiovascular: Regular rate, Regular rhythm, No murmurs, Normal S1, Normal S2 Respiratory: No distress, CTA bilaterally, Chest nontender Abdomen: Soft, Nondistended, Normal bowel sounds, No masses, - - Patient had pain out of proportion to light touch. She had pain prior to depression of the fascia. With distraction she had no pain.. Negative for: Hepatomegaly, Splenomegaly, Mass, Pulsatile mass, Ventral hernia, Inguinal hernia, Umbilical hernia Rectal: Deferred Back: Nontender, Normal Inspection Extremities: Nontender, No edema Skin: Normal color, No rash Neurological: Alert, Oriented x3, Cranial nerves II-XII grossly intact, Normal Strength, Normal Sensation, Normal Gait Psychological: Normal affect, Normal Mood Diagnostic/Tx/Re-eval Laboratory Results 09/18/18 09/18/18 09/18/18 09:20 09:25 09:25 WBC 7.2 RBC 4.23 Hgb 12.5 Hct 38.2 MCV 90.3 MCH 29.6 MCHC 32.7 RDW 13.4 RDW Differential 43.8 Plt Count 206 MPV 9.0 Immature Gran % (Auto) 0.100 Neut % (Auto) 74.8 H Lymph % (Auto) 16.6 L [place] % (Auto) 7.1 Eos % (Auto) 1.4 Baso % (Auto) 0.0 Absolute Neuts (auto) 5.4 Absolute Lymphs (auto) 1.19 Total Counted Not Reportable Sodium 136 Potassium 3.6 Chloride 105 Carbon Dioxide 26.0 Anion Gap 5 BUN 11 Creatinine 0.65 Estim Creat Clear Calc 108.52 Est GFR (MDRD) Af Amer 127 Est GFR (MDRD) Non-Af 105 BUN/Creatinine Ratio 16.8 Glucose 101 Calcium 8.1 L Urine Color Straw Urine Clarity Sl. Cloudy Urine pH 6.5 Ur Specific [place] 1.005 Urine Protein Negative Urine Glucose (UA) Normal Urine Ketones Negative Urine Occult Blood Negative Urine Nitrite Negative Urine Bilirubin Negative Urine Urobilinogen Normal Ur Leukocyte Esterase Negative Urine RBC 0 SEEN Urine WBC 0 SEEN Ur Squamous Epith Cells 0-5 SEEN Urine Bacteria 0 SEEN Urine Mucus 0 SEEN - Medical Decision Making Pain with recurrent right lower quadrant abdominal pain. Exam is benign. Because there is history of renal colic will obtain UA, CBC. Since she has had a nephrectomy and tubal ligation test was not obtained. She was medicated with IV Toradol. Will reevaluate once CBC, BMP and UA results are available for review and interpretation. Differential diagnosis right lower quadrant/inguinal pain of unknown etiology, exacerbation of chronic pain, mesenteric adenitis, doubt appendicitis doubt ectopic since she does not have an ovary and is status post tubal ligation. Patient was informed of results at 1015. After entering the room she began to grimace and applied pressure to her right lower quadrant and roll in bed. Patient was informed the etiology of her pain is unknown. Her work-up was negative. 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 Prisca Hines. ED Disposition - Plan for ED Patient: Disposition: Home or Assisted Living Diagnosis: Recurrent right lower quadrant abdominal pain Instructions: ED Abdominal Pain Unkn Cause Referrals: Chandra Prado DO [Primary Care Provider] - Prisca Hines MD [STAFF PHYSICIAN] - 3-5 Days
--- NOTE | 2018-09-18 09:26 | ED.DCSUM_ITS ---
History of Present Illness Chief Complaint: Abd Pain Informant: Patient Onset: Yesterday Context: Sudden Onset Timing: Continuous Quality: Pain Location: right groin region Current Severity: Moderate Maximum Severity: Severe Worsened by: Not able to specify Relieved by: Nothing Associated Symptoms: No associated symptoms Narrative: Patient is a 43-year-old woman status post bilateral tubal ligation and right nephrectomy who presents with pain right groin area. 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 She states her doctors are waiting for approval of a CAT scan of her abdomen. She denies nausea, vomiting diarrhea. She denies constipation. She denies black or maroon stool. She denies dysuria, frequency, urgency or hematuria. Per old records she has history of renal colic. She denies loss of appetite. She denies back or flank pain. Prior similar symptoms: Yes Recent Illness/Hospitalization: No - Past Medical History (1) Asthma Status: Chronic (2) Hypercholesterolemia Status: Chronic (3) Seizures Status: Chronic Past Medical History - Allergies and Home Meds Allergies/Adverse Reactions: Allergies hydromorphone HCl [From Dilaudid] Allergy (Verified 09/18/18 09:07) Hives Penicillins [PCN] Allergy (Verified 09/18/18 09:07) Hives shellfish derived Allergy (Verified 09/18/18 09:08) Anaphylaxis influenza virus vaccine ts [id number] (36 mos,up) [From Fluarix] Adverse Reaction (Mild, Verified 09/18/18 09:07) Rash sea food Allergy (Uncoded 09/18/18 09:07) Anaphylaxis Primary Care Physician: Chandra Prado DO [Primary Care Provider] - Prior records reviewed: Yes Surgical History: - - Right oopherectomy Lives: Spouse/ Significant Other Smoking Status: Current every day smoker Alcohol: Rare Drugs: None Review of Systems General: Denies: Chills, Fever, Sweats Eyes: Denies: Visual changes - bilaterally, Blurred Vision - bilaterally, Diplopia ENT: Denies: Rhinorrhea, Sore throat Cardiovascular: Denies: Chest pain, Palpitations Respiratory: Denies: Dyspnea, Cough, Dyspnea on exertion Gastrointestinal: Reports: Abdominal pain. Denies: Nausea, Vomiting, Diarrhea, Constipation, Melena, Hematochezia, -, - Genitourinary: Denies: Dysuria, Hematuria, Frequency Musculoskeletal: Denies: Myalgias, Arthralgias, Neck pain, Back pain, Extremity Pain Skin: Denies: Rash Neurological: Denies: Headache, Weakness, Numbness Hematologic: Denies: Easy bruising, Easy bleeding Allergy: Denies: Uticaria, Swelling of the mouth Physical Exam Vital Signs/Narrative: Vital Signs Temp Pulse Resp BP Pulse Ox 09/18/18 09:06 98.2 F 98 16 127/72 H 97 Inital Vital Signs reviewed: Yes General: Well nourished, Well developed, No Acute Distress Head: Normocephalic, Atraumatic Eyes: Perrl, EOMI ENT: Moist mucous membranes, No rhinorrhea Neck: Supple, Nontender, No lymphadenopathy, No JVD Cardiovascular: Regular rate, Regular rhythm, No murmurs, Normal S1, Normal S2 Respiratory: No distress, CTA bilaterally, Chest nontender Abdomen: Soft, Nondistended, Normal bowel sounds, No masses, - - Patient had pain out of proportion to light touch. She had pain prior to depression of the fascia. With distraction she had no pain.. Negative for: Hepatomegaly, Splen omegaly, Mass, Pulsatile mass, Ventral hernia, Inguinal hernia, Umbilical hernia Rectal: Deferred Back: Nontender, Normal Inspection Extremities: Nontender, No edema Skin: Normal color, No rash Neurological: Alert, Oriented x3, Cranial nerves II-XII grossly intact, Normal Strength, Normal Sensation, Normal Gait Psychological: Normal affect, Normal Mood Diagnostic/Tx/Re-eval Laboratory Results 09/18/18 09/18/18 09/18/18 09:20 09:25 09:25 WBC 7.2 RBC 4.23 Hgb 12.5 Hct 38.2 MCV 90.3 MCH 29.6 MCHC 32.7 RDW 13.4 RDW Differential 43.8 Plt Count 206 MPV 9.0 Immature Gran % (Auto) 0.100 Neut % (Auto) 74.8 H Lymph % (Auto) 16.6 L [place] % (Auto) 7.1 Eos % (Auto) 1.4 Baso % (Auto) 0.0 Absolute Neuts (auto) 5.4 Absolute Lymphs (auto) 1.19 Total Counted Not Reportable Sodium 136 Potassium 3.6 Chloride 105 Carbon Dioxide 26.0 Anion Gap 5 BUN 11 Creatinine 0.65 Estim Creat Clear Calc 108.52 Est GFR (MDRD) Af Amer 127 Est GFR (MDRD) Non-Af 105 BUN/Creatinine Ratio 16.8 Glucose 101 Calcium 8.1 L Urine Color Straw Urine Clarity Sl. Cloudy Urine pH 6.5 Ur Specific [place] 1.005 Urine Protein Negative Urine Glucose (UA) Normal Urine Ketones Negative Urine Occult Blood Negative Urine Nitrite Negative Urine Bilirubin Negative Urine Urobilinogen Normal Ur Leukocyte Esterase Negative Urine RBC 0 SEEN Urine WBC 0 SEEN Ur Squamous Epith Cells 0-5 SEEN Urine Bacteria 0 SEEN Urine Mucus 0 SEEN - Medical Decision Making Pain with recurrent right lower quadrant abdominal pain. Exam is benign. Because there is history of renal colic will obtain UA, CBC. Since she has had a nephrectomy and tubal ligation test was not obtained. She was medicated with IV Toradol. Will reevaluate once CBC, BMP and UA results are available for review and interpretation. Differential diagnosis right lower quadrant/inguinal pain of unknown etiology, exacerbation of chronic pain, mesenteric adenitis, doubt appendicitis doubt ectopic since she does not have an ovary and is status post tubal ligation. Patient was informed of results at 1015. After entering the room she began to grimace and applied pressure to her right lower quadrant and roll in bed. Patient was informed the etiology of her pain is unknown. Her work-up was negative. 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 Prisca Hines. ED Disposition - Plan for ED Patient: Disposition: Home or Assisted Living Diagnosis: Recurrent right lower quadrant abdominal pain Instructions: ED Abdominal Pain Unkn Cause Referrals: Chandra Prado DO [Primary Care Provider] - Prisca Hines MD [STAFF PHYSICIAN] - 3-5 Days
[2018-09-18] MEDS: Ketorolac 15 MG/ML Vial IV (09:27)
[2018-09-18 09:35] LABS: Absolute Lymphocyte Count 1.19 X10^3/ul (0.83-4.51); Absolute Neutrophil Count 5.4 X10^3/uL (2.0-7.7); Eosinophils% 1.4 % (0-5); Hematocrit 38.2 % (37-47); Hemoglobin 12.5 g/dl (12.0-15.0); Lymphocyte # 1.19 X10^3/ul (4.0); Lymphocyte % 16.6 % (19-41); Mean Corp Hgb Conc 32.7 g/gl (32-36); Mean Corpuscular Hgb 29.6 pg (27.0-32.0); Mean Corpuscular Volume 90.3 fL (81-99); Monocyte# 0.51 X10^3/uL; Monocyte% 7.1 % (0-10); Neutrophil # 5.38 X10^3/uL (2.7-7.7); Neutrophil % 74.8 % (47-70); POSITIVE COUNT NO; POSITIVE DIFFERENTIAL NO; POSITIVE MORPHOLOGY NO; Platelet Count 206 K/mm3 (150-450); RBC Distribution Width CV 13.4 % (11.6-14.6); RBC Distribution Width SD 43.8 fl (35.1-43.9); Red Blood Count 4.23 M/mm3 (4.2-5.4); White Blood Count 7.2 K/mm3 (4.4-11.0)
[2018-09-18 09:36] LABS: Bacteria 0 SEEN /hpf (None Seen); Mucous, Urine 0 SEEN /hpf (<or=2+); Red Blood Cells-Urine 0 SEEN /hpf (0-5); White Blood Cells 0 SEEN /hpf (0-5)
[2018-09-18 09:37] LABS: Color, Urine Straw (Yellow); Glucose, Dipstick Normal (Normal); Ketone-Dipstick Negative (Negative); Leukocyte Esterase-Dipstick Negative /ul (Negative); Nitrite-Dipstick Negative (Negative); Occult Blood-Urine Negative /ul (Negative); Protein-Dipstick Negative (Negative); Specific Gravity, Urine 1.005 (1.002-1.030); Urine Bilirubin Dipstick Negative (Negative); Urine Clarity Sl. Cloudy (Clear); Urine Urobilinogen Normal (Normal); Urine pH 6.5 (5.0 - 8.0)
[2018-09-18 09:43] LABS: Squamous Epithelial Cells - UA 0-5 SEEN /hpf (5-10)
[2018-09-18 09:46] LABS: Anion Gap 5 (5-15); BUN 11 mg/dL (7-18); BUN/Creat Ratio 16.8 RATIO (10-20); Calcium,Total 8.1 mg/dL (8.5-10.1); Chloride 105 mmol/L (98-107); Creatinine, Serum 0.65 mg/dL (0.55-1.02); EST Glomerular Filtration Rate 105 mL/min (>60); Est Glom Filt Rate - Afr Amer 127 mL/min (>60); Estimated Creatinine Clearance 108.52 ml/min; Glucose 101 mg/dL (74-106); Potassium 3.6 mmol/L (3.5-5.1); Sodium Level 136 mmol/L (136-145)
[2018-09-18 10:32] VITALS: BP 121/74; PULSE 87; RESP 18; O2SAT 99
== END 2018-09-18 10:33 | disposition home or self-care (01) ==
PROVIDERS: Emergency Provider Emergency Medicine; Family Provider Family Medicine; PCP Family Medicine
DX: R10.31 Right lower quadrant pain (principal); J45.909 Unspecified asthma, uncomplicated; F17.200 Nicotine dependence, unspecified, uncomplicated
CPT/HCPCS: 80048; 81001; 85025; 96374; 99283; A4216

== ENCOUNTER 2018-10-14 01:37 | Emergency (ER) | payer MEDICAID, SELFPAY ==
[2018-10-14 01:38] VITALS: BP 130/75; PULSE 94; RESP 16; TEMP 36.7; O2SAT 100; BMI 27.8
--- NOTE | 2018-10-14 01:46 | CT_ITS ---
STUDY: CT ABDOMEN AND PELVIS WITH CONTRAST REASON FOR EXAM: Female, 43 years old. RLQ PAIN,NAUSEA,VOMITING AND DIARRHEA,COUGH HX:ASTHMA,HLD,KIDNEY STONES,OVARIAN CYST WITH RT OOPHORECTOMY,TUBAL LIGATION RADIATION DOSAGE (If Supplied By Facility): CTDIvol = ( 16.93 ) mGy, DLP = ( 884.96 ) mGycm TECHNIQUE: Transaxial images were obtained from the dome of the diaphragm to the symphysis pubis without oral contrast. 100ML IV Isovue 300 was administered. Sagittal and coronal images were reconstructed. Individualized dose optimization techniques were used for this CT. COMPARISON: None. FINDINGS: The visualized lung bases are unremarkable. The visualized portions of the heart are within normal limits. Normal liver. Normal gallbladder and extrahepatic biliary system. Normal spleen. Normal pancreas. Normal bilateral adrenal glands. Normal right kidney. Normal left kidney. Normal visualized stomach. Normal small intestine. Normal colon. The appendix is visualized and appears normal. Normal abdominal aorta. Normal inferior vena cava. Normal retroperitoneum. Normal urinary bladder. Normal abdominal wall. There is levoscoliosis of the lumbar spine. CT/Abdomen/Pelvis W IV Cont ONLY IMPRESSION: Normal enhanced CT of the abdomen and pelvis. Electronically Signed: Liana Durant, at 3:19 EDT Tel , Service support ,
--- NOTE | 2018-10-14 01:47 | RAD_ITS ---
STUDY: X-RAY CHEST REASON FOR EXAM: Female, 43 years old. Cough TECHNIQUE: Frontal and lateral views of the chest. COMPARISON: None. FINDINGS: The lungs are clear and expanded. There is no demonstrated pleural abnormality. Normal size heart. Normal mediastinum and garfield. Normal visualized pulmonary arteries. Normal visualized aortic arch and descending thoracic aorta. There is a dextroscoliosis of the thoracic spine. Normal visualized ribs, clavicles, and shoulders. There is no demonstrated abnormality of the visualized soft tissue structures of the upper abdomen. RAD/Chest PA and Lateral IMPRESSION: No demonstrated acute cardiopulmonary process. Electronically Signed: Liana Durant, at 4:00 EDT Tel , Service support ,
[2018-10-14 01:48] VITALS: TEMP 36.7
[2018-10-14] MEDS: 0.9% Normal Saline 1,000 ML 1000 ML IV (01:59)
[2018-10-14] MEDS: Ondansetron 4 MG/2 ML Vial IV (01:59)
[2018-10-14 02:08] LABS: Bacteria 0 SEEN /hpf (None Seen); Mucous, Urine 0 SEEN /hpf (<or=2+); Red Blood Cells-Urine 0 SEEN /hpf (0-5); White Blood Cells 0 SEEN /hpf (0-5)
[2018-10-14 02:10] LABS: Color, Urine Yellow (Yellow); Glucose, Dipstick Normal (Normal); Ketone-Dipstick Negative (Negative); Leukocyte Esterase-Dipstick Negative /ul (Negative); Nitrite-Dipstick Negative (Negative); Occult Blood-Urine Negative /ul (Negative); Protein-Dipstick 15 mg/dl (Negative); Specific Gravity, Urine 1.025 (1.002-1.030); Urine Bilirubin Dipstick Negative (Negative); Urine Clarity Sl. Cloudy (Clear); Urine Urobilinogen Normal (Normal)
[2018-10-14 02:11] LABS: Absolute Lymphocyte Count 2.99 X10^3/ul (0.83-4.51); Absolute Neutrophil Count 3.3 X10^3/uL (2.0-7.7); Basophil# 0.03 X10^3/uL; Basophil% 0.4 % (0-1); Eosinophil# 0.08 X10^3/uL; Eosinophils% 1.1 % (0-5); Hematocrit 34.7 % (37-47); Hemoglobin 11.2 g/dl (12.0-15.0); Lymphocyte # 2.99 X10^3/ul (4.0); Lymphocyte % 42.7 % (19-41); Mean Corp Hgb Conc 32.3 g/gl (32-36); Mean Corpuscular Hgb 28.9 pg (27.0-32.0); Mean Corpuscular Volume 89.7 fL (81-99); Mean Platelet Vol. 9.5 fl (6.2-12.0); Monocyte# 0.61 X10^3/uL; Monocyte% 8.7 % (0-10); Neutrophil # 3.29 X10^3/uL (2.7-7.7); POSITIVE COUNT NO; POSITIVE DIFFERENTIAL NO; POSITIVE MORPHOLOGY NO; Platelet Count 254 K/mm3 (150-450); RBC Distribution Width CV 12.7 % (11.6-14.6); RBC Distribution Width SD 40.7 fl (35.1-43.9); Red Blood Count 3.87 M/mm3 (4.2-5.4)
[2018-10-14 02:16] LABS: Squamous Epithelial Cells - UA 0-5 SEEN /hpf (5-10)
[2018-10-14 02:23] LABS: Internal QC Validated? YES +Cl - CLEAR BKGD; Pregnancy, Serum, hCG Quali. NEGATIVE Negative
[2018-10-14 02:32] LABS: ALB/GLOB Ratio 0.9 RATIO (0.9-2.4); AST(SGOT) 10 U/L (15-37); Alanine Aminotransfer ALT/SGPT 19 U/L (13-56); Albumin, Serum 3.2 g/dL (3.2-5.0); Alkaline Phosphatase 66 U/L (45-117); Anion Gap 4 (5-15); BUN 14 mg/dL (7-18); BUN/Creat Ratio 22.6 RATIO (10-20); Calcium,Total 8.2 mg/dL (8.5-10.1); Chloride 108 mmol/L (98-107); Creatinine, Serum 0.62 mg/dL (0.55-1.02); EST Glomerular Filtration Rate 112 mL/min (>60); Est Glom Filt Rate - Afr Amer 135 mL/min (>60); Estimated Creatinine Clearance 113.78 ml/min; Globulin 3.5 g/dL (2.2-4.2); Glucose 90 mg/dL (74-106); Lipase 160 U/L (73-393); Potassium 3.7 mmol/L (3.5-5.1); Protein, Total 6.7 g/dL (6.4-8.2); Sodium Level 140 mmol/L (136-145)
[2018-10-14 02:33] LABS: Lactic Acid 0.8 mmol/L (0.4-2.0)
[2018-10-14 02:50] VITALS: TEMP 37
[2018-10-14 03:00] VITALS: TEMP 37.2
[2018-10-14 03:37] VITALS: BP 128/73; PULSE 72; RESP 17; O2SAT 98
--- NOTE | 2018-10-14 04:06 | ED.VISSUMM ---
- ER Visit Summary Date of Service: 10/14/18 Chief Complaint: [Vomiting and diarrhea and cough] History of Present Illness: The patient is a 43 F [presents to the emergency department with vomiting diarrhea for 3 days. Patient states that she is had 3 episodes of diarrhea today she is having frequent vomiting and cannot keep anything down. Patient denies any fever. She does have some right lower abdominal pain. She denies any urinary symptoms. Patient also states that she has a sore throat and she has had a cough for 3 to 4 weeks. Patient was seen at urgent care on September 23 and was given a cough syrup which is not helping her symptoms. Patient has history of asthma as well as seizures and history of hypoglycemia.] Physical Examination: [HEENT-PERRLA, EOMI. Cranial nerves II through XII grossly intact. TMs clear. Mucous membranes moist. No adenopathy. Cardiovascular-regular rate and rhythm without murmur or ectopy Lungs-clear to auscultation, chest wall stable without crepitus or subcu emphysema Abdomen-normoactive bowel sounds, soft. Patient has tenderness palpation over right lower quadrant with some guarding. There is no rebound, rigidity, or perineal signs. Extremities-intact ?4, normal range of motion, normal pulses, atraumatic] Test Results: [CBC with differential obtained was unremarkable. Chemistries unremarkable. LFTs were normal. Lipase was 160. Urinalysis normal. hCG was negative. CT flank showed nothing acute. Chest x-ray obtained was unremarkable.] Emergency Department Course and Treatment: [Patient was given Zofran in the emergency department patient also started on Zithromax 500 mg p.o.] Treatment Plan: [Given the prolonged cough of 3 to 4 weeks will cover for atypical pathogens with Zithromax. Patient will be given a prescription for Zofran. Patient advised to push fluids. Patient to follow-up with primary care physician in 5 to 7 days. Patient advised to return if increasing shortness of breath or condition should worsen anyway.] Disposition: [Discharged home in stable condition] Impression: [Bronchitis Gastroenteritis] This note was generated with [employer] software. It may contain incorrect words, spelling, and punctuation that were not noted in review of the chart prior to signing ED Disposition - Plan for ED Patient: Referrals: Chandra Prado DO [Primary Care Provider] -
--- NOTE | 2018-10-14 04:09 | ED.DEP ---
ED Disposition - Plan for ED Patient: Instructions: ED Nausea Vomiting, Acute Bronchitis Prescriptions: Ondansetron [Zofran Odt] 4 mg PO Q8H PRN PRN #10 tab PRN Reason: Nausea Azithromycin [Zithromax] 250 mg PO DAILY #4 tab Benzonatate [Tessalon Perle] 200 mg PO TID PRN PRN #20 cap PRN Reason: Cough Referrals: Chandra Prado DO [Primary Care Provider] - 5-7 Days
[2018-10-14] MEDS: Azithromycin 250 MG Tablet 500 MG PO (04:14)
[2018-10-14] MEDS: Ondansetron ODT 4 MG Tablet PO (04:15)
[2018-10-14 04:19] VITALS: RESP 16
== END 2018-10-14 04:20 | disposition home or self-care (01) ==
PROVIDERS: Emergency Provider Emergency Medicine; Family Provider Family Medicine; PCP Family Medicine
DX: K52.9 Noninfective gastroenteritis and colitis, unspecified (principal); J40 Bronchitis, not specified as acute or chronic; J06.9 Acute upper respiratory infection, unspecified; G40.909 Epilepsy, unspecified, not intractable, without status epilepticus; Z79.899 Other long term (current) drug therapy; Z72.0 Tobacco use
CPT/HCPCS: 71046; 74177; 80053; 81001; 83605; 83690; 84703; 85025; 96361; 96374; 99283; J7030; Q9967; A4216; J2405

== ENCOUNTER 2018-10-25 13:34 | Emergency (ER) | payer MEDICAID, SELFPAY ==
[2018-10-25 13:35] VITALS: BP 111/73; PULSE 96; RESP 18; TEMP 36.5; O2SAT 95; BMI 27.8
--- NOTE | 2018-10-25 13:52 | EKG12_ITS ---
Test Reason : CP Blood Pressure : / mmHG Vent. Rate : 097 BPM Atrial Rate : 097 BPM P-R Int : 128 ms QRS Dur : 078 ms QT Int : 338 ms P-R-T Axes : 057 077 020 degrees QTc Int : 429 ms Normal sinus rhythm Normal ECG Confirmed by KENIA DICK ([id number]), editor map AYALA CONNORS ([id number]) on 10/30/2018 10:03:21 AM Referred By: FRANKLIN Confirmed By:KENIA DICK
--- NOTE | 2018-10-25 13:55 | RAD_ITS ---
STUDY: X-RAY CHEST REASON FOR EXAM: Female, 43 years old. Chest pain. TECHNIQUE: Single AP portable view of the chest. COMPARISON: Comparison is made with prior study of October 14, 2018. FINDINGS: EKG records are seen. The lungs are clear and expanded. There is no demonstrated pleural abnormality. Normal size heart. Normal mediastinum and garfield. Normal visualized pulmonary arteries. Normal visualized aortic arch and descending thoracic aorta. There is a dextroscoliosis of the thoracic spine. Normal visualized ribs, clavicles, and shoulders. There is no demonstrated abnormality of the visualized soft tissue structures of the upper abdomen. RAD/Chest 1 View (Portable) IMPRESSION: Normal x-ray examination of the chest. Electronically Signed: Karlos Concepcion, at 14:08 EDT , Service support ,
[2018-10-25 14:00] LABS: Absolute Lymphocyte Count 2.48 X10^3/ul (0.83-4.51); Absolute Neutrophil Count 2.3 X10^3/uL (2.0-7.7); Basophil# 0.02 X10^3/uL; Basophil% 0.4 % (0-1); Eosinophil# 0.08 X10^3/uL; Eosinophils% 1.5 % (0-5); Hematocrit 40.7 % (37-47); Hemoglobin 13.2 g/dl (12.0-15.0); Lymphocyte # 2.48 X10^3/ul (4.0); Lymphocyte % 46.4 % (19-41); Mean Corp Hgb Conc 32.4 g/gl (32-36); Mean Corpuscular Hgb 28.8 pg (27.0-32.0); Mean Corpuscular Volume 88.7 fL (81-99); Mean Platelet Vol. 9.5 fl (6.2-12.0); Monocyte# 0.46 X10^3/uL; Monocyte% 8.6 % (0-10); Neutrophil % 42.9 % (47-70); POSITIVE COUNT NO; POSITIVE DIFFERENTIAL NO; POSITIVE MORPHOLOGY NO; Platelet Count 375 K/mm3 (150-450); RBC Distribution Width CV 12.9 % (11.6-14.6); RBC Distribution Width SD 41.8 fl (35.1-43.9); Red Blood Count 4.59 M/mm3 (4.2-5.4); White Blood Count 5.4 K/mm3 (4.4-11.0)
[2018-10-25] MEDS: Aspirin 81 MG TAB.CHEW 324 MG PO (14:00)
--- NOTE | 2018-10-25 14:00 | ED.RN ---
MED SCANNER IN ROOM NOT WORKING. UNABLE TO SCAN ASPIRIN. PT VERIFIED
[2018-10-25 14:12] LABS: Anion Gap 6 (5-15); BUN 12 mg/dL (7-18); BUN/Creat Ratio 15.3 RATIO (10-20); Calcium,Total 8.8 mg/dL (8.5-10.1); Chloride 107 mmol/L (98-107); Creatinine, Serum 0.78 mg/dL (0.55-1.02); EST Glomerular Filtration Rate 85 mL/min (>60); Est Glom Filt Rate - Afr Amer 103 mL/min (>60); Estimated Creatinine Clearance 90.44 ml/min; Glucose 105 mg/dL (74-106); Sodium Level 141 mmol/L (136-145)
[2018-10-25 14:45] VITALS: BP 111/69; PULSE 89; RESP 17; O2SAT 100
[2018-10-25 15:12] VITALS: BP 115/75; PULSE 70; RESP 18; O2SAT 100
--- NOTE | 2018-10-25 15:12 | ED.DCSUM_ITS ---
- ER Visit Summary Date of Service: 10/25/18 Chief Complaint: Midsternal chest pain History of Present Illness: The patient is a 43 F history of hypoglycemia, seizures and kidney stones. Also high cholesterol. No prior cardiac history. He states for [address] sharp stabbing pain. Pain is constant. No better. Mild shortness of breath. Pain is been constant for 4 days. And she denies any exertional symptoms. He is never had a heart cath. Physical Examination: Well-appearing middle-aged female. Vital signs stable afebrile. Pulse ox 95% room air no signs of hypoxia. HEENT exam normal. Neck nontender no JVD. Lungs clear to auscultation bilaterally. Heart regular rhyth m rate 90 no murmur. Chest wall is reproducible sternal chest wall pain. There is no ecchymosis or bruising. No subcu air crepitance. Abdomen is soft and nontender. Normal bowel sounds no peritoneal signs. No hernias or masses. Patient is moving all 4 extremities. There are neurovascular intact. Calves are nontender no cords. Equal symmetrical radial pulses. Neurologically she is awake alert with no focal motor deficits. Back exam is normal. Test Results: Middle-aged female with atypical reproducible chest wall pain. EKG shows a sinus rhythm rate of 97 no acute signs of ID or ischemia. Portable chest x-ray shows no acute abnormality is normal cardiac silhouette mediastinum read both by myself and the radiologist. CBC normal. Chemistries normal. Troponin normal. Emergency Department Course and Treatment: Patient treated with Motrin for pain. Repeat exam she is doing well at 15 11 PM. She and family and I discussed all of her test results. They are comfortable with her being discharged home. Treatment Plan: Motrin for pain. Ice to her chest wall. Follow-up if not improving or return if worse. Disposition: Discharge Impression: Acute chest wall pain This note was generated with [employer] dictation software. It may contain incorrect words, spelling, and punctuation that were not noted in review of the chart prior to signing ED Disposition - Plan for ED Patient: Referrals: Chandra Prado DO [Primary Care Provider] -
[2018-10-25 15:16] VITALS: BP 117/80; PULSE 80; RESP 18; O2SAT 98
--- NOTE | 2018-10-25 15:16 | ED.DEP ---
ED Disposition - Plan for ED Patient: Disposition: Home or Assisted Living Instructions: CHEST WALL PAIN, Costochondritis Referrals: Chandra Prado DO [Primary Care Provider] - 1 Week if not improving Additional Instructions: Your pain appears to be chest wall pain. All your labs and chest x-ray were unremarkable. Ice to your chest wall and Motrin for pain and inflammation. Follow-up with your doctor if not improving. Return if feeling worse.
[2018-10-25] MEDS: Ibuprofen 600 MG Tablet PO (15:20)
== END 2018-10-25 15:26 | disposition home or self-care (01) ==
PROVIDERS: Emergency Provider Emergency Medicine; Family Provider Family Medicine; PCP Family Medicine
DX: R07.89 Other chest pain (principal); E78.00 Pure hypercholesterolemia, unspecified; G40.909 Epilepsy, unspecified, not intractable, without status epilepticus; Z72.0 Tobacco use
CPT/HCPCS: 71045; 80048; 84484; 85025; 93005; 99284; A4216

== ENCOUNTER 2018-12-12 13:00 | Emergency (ER) | payer MEDICAID, SELFPAY ==
[2018-12-12 13:01] VITALS: BP 116/75; PULSE 98; RESP 16; TEMP 35.8; O2SAT 99; BMI 27.6
--- NOTE | 2018-12-12 14:53 | ED.DCSUM_ITS ---
History of Present Illness Chief Complaint: Bite Informant: Patient Onset: Yesterday Context: Gradual Onset Timing: Continuous Location: RLE Current Severity: Mild Maximum Severity: Mild Worsened by: n/a Relieved by: n/a Associated Symptoms: - - nausea earlier; no fevers. Negative for: Parasthesia, Weakness, Loss of Funtion Narrative: Patient states that 2 nights ago she stayed out and [employer], when she left yesterday morning she noticed a small red area that is very small and asymptomatic on her right proximal thigh that look like it might have been a bite sofiya. Today she noticed a couple of other red areas that are a little itchy but not painful that are more distal in her right lower extremity. She had some nausea and wondered if might these be related. She has no other symptoms or rashes. - Past Medical History (1) Borderline diabetes Status: Chronic (2) Asthma Status: Chronic (3) Hypercholesterolemia Status: Chronic (4) Seizures Status: Chronic Past Medical History - Allergies and Home Meds Allergies/Adverse Reactions: Allergies hydromorphone HCl [From Dilaudid] Allergy (Verified 10/14/18 01:48) Hives Penicillins [PCN] Allergy (Verified 10/14/18 01:48) Hives shellfish derived Allergy (Verified 10/14/18 01:48) Anaphylaxis influenza virus vaccine ts [id number] (36 mos,up) [From Fluarix] Adverse Reaction (Mild, Verified 10/14/18 01:48) Rash sea food Allergy (Uncoded 09/18/18 09:07) Anaphylaxis Primary Care Physician: Sofiya Prado DO [Primary Care Provider] - Surgical History: - - Right oopherectomy Smoking Status: Current every day smoker Drugs: None Review of Systems General: Denies: Chills, Fever Gastrointestinal: Reports: Nausea. Denies: Abdominal pain, Vomiting Musculoskeletal: Denies: Swelling, Extremity Pain Skin: Reports: Rash Neurological: Denies: Headache, Weakness, Numbness Physical Exam Vital Signs/Narrative: Vital Signs Temp Pulse Resp BP Pulse Ox 12/12/18 13:01 96.5 F L 98 16 116/75 99 Inital Vital Signs reviewed: Yes General: Well nourished, Well developed, - - Well-appearing, NAD Head: Normocephalic, Atraumatic Skin: Normal color, No Trauma, - - 1 small nontender papule right proximal thigh. 3 small areas of nonraised blanching nontender erythema right distal lower leg. No lymphangitis. Neurological: Alert, Oriented x3, Cranial nerves II-XII grossly intact, Normal Strength, Normal Sensation, Normal Gait Psychological: Normal affect, Normal Mood Diagnostic/Tx/Re-eval - Medical Decision Making Patient reassured these are likely not spider bite which is what she is concerned about, and if they are bedbug bites, she is removed from the scenario and has no bedbugs in her clothing. Given appropriate discharge instructions, h ydrocortisone cream on itchy areas only. ED Disposition - Plan for ED Patient: Disposition: Home or Assisted Living Diagnosis: Insect bites Instructions: Insect Bite Referrals: Sofiya Prado DO [Primary Care Provider] - As Needed
== END 2018-12-12 15:05 | disposition home or self-care (01) ==
LOC: ED 15:04
PROVIDERS: Emergency Provider Emergency Medicine; Family Provider Family Medicine; PCP Family Medicine
DX: S70.361A Insect bite (nonvenomous), right thigh, initial encounter (principal); S80.861A Insect bite (nonvenomous), right lower leg, initial encounter; W57.XXXA Bitten or stung by nonvenomous insect and other nonvenomous arthropods, initial encounter; Y93.89 Activity, other specified; Y92.838 Other recreation area as the place of occurrence of the external cause; Y99.8 Other external cause status; J45.909 Unspecified asthma, uncomplicated; G40.909 Epilepsy, unspecified, not intractable, without status epilepticus; F17.200 Nicotine dependence, unspecified, uncomplicated; Z79.899 Other long term (current) drug therapy
CPT/HCPCS: 99282

== ENCOUNTER 2019-01-12 21:54 | Emergency (ER) | payer MEDICAID, SELFPAY ==
[2019-01-12 21:56] VITALS: BP 131/94; PULSE 89; RESP 15; TEMP 36.8; O2SAT 99; BMI 27.3
--- NOTE | 2019-01-12 22:28 | ED.DCSUM_ITS ---
History of Present Illness Chief Complaint: Abd Pain Narrative: Patient is a 43-year-old female who presents with sudden onset nausea vomiting and diarrhea. This began about an hour after eating her dinner. She had steak ribs and kielbasa. No history of similar symptoms with these foods previously. She denies any fevers. She complains of sharp upper abdominal pain without radiation. She has had a tubal ligation but no other abdominal surgeries. Past Medical History - Allergies and Home Meds Allergies/Adverse Reactions: Allergies hydromorphone HCl [From Dilaudid] Allergy (Verified 01/12/19 21:58) Hives Penicillins [PCN] Allergy (Verified 01/12/19 21:58) Hives shellfish derived Allergy (Verified 01/12/19 21:58) Anaphylaxis influenza virus vaccine ts [id number] (36 mos,up) [From Fluarix] Adverse Reaction (Mild, Verified 01/12/19 21:58) Rash sea food Allergy (Uncoded 01/12/19 21:58) Anaphylaxis Primary Care Physician: Chandra Prado DO [Primary Care Provider] - Surgical History: - - Right oopherectomy Smoking Status: Light Smoker (<10/day) Review of Systems All systems negative except as indicated General: Denies: Fever Cardiovascular: Denies: Chest pain Respiratory: Denies: Dyspnea, Cough Gastrointestinal: Reports: Abdominal pain, Nausea, Vomiting, Diarrhea Neurological: Denies: Headache Physical Exam Vital Signs/Narrative: Vital Signs Temp Pulse Resp BP Pulse Ox 01/12/19 21:56 98.3 F 89 15 131/94 H 99 Inital Vital Signs reviewed: Yes General: Well nourished Head: Normocephalic Eyes: EOMI ENT: Moist mucous membranes Cardiovascular: Regular rate, Regular rhythm Respiratory: No distress, CTA bilaterally Abdomen: Soft, Nondistended, Tender - Epigastric. Negative for: Nontender, Guarding, Rebound tenderness Skin: Normal color Neurological: Alert Psychological: Normal affect Diagnostic/Tx/Re-eval Laboratory Results 01/12/19 01/12/19 22:12 22:12 WBC 6.7 RBC 4.30 Hgb 12.4 Hct 38.5 MCV 89.5 MCH 28.8 MCHC 32.2 RDW Std Deviation 42.8 RDW Coeff of [place]asha[place] 13.1 Plt Count 235 MPV 9.6 Immature Gran % (Auto) 0.100 Neut % (Auto) 46.3 L Lymph % (Auto) 45.0 H [place] % (Auto) 6.1 Eos % (Auto) 2.1 Baso % (Auto) 0.4 Absolute Neuts (auto) 3.1 Absolute Lymphs (auto) 3.02 Nucleated RBC % 0 Sodium 140 Potassium 3.6 Chloride 106 Carbon Dioxide 32.0 Anion Gap 2 L BUN 14 Creatinine 0.70 Estim Creat Clear Calc 100.77 Est GFR (MDRD) Af Amer 117 Est GFR (MDRD) Non-Af 97 BUN/Creatinine Ratio 20.0 Glucose 96 Calcium 8.7 Total Bilirubin 0.10 L AST 24 ALT 27 Alkaline Phosphatase 66 Total Protein 7.4 Albumin 3.6 Globulin 3.8 Albumin/Globulin Ratio 0.9 Lipase 177 - Medical Decision Making Labs including CBC, CMP, lipase unremarkable. I suspect patient's symptoms are related to gastroenteritis. She was treated here with IV fluids, Bentyl, Zofran, Imodium. She was given a prescription for Zofran for home and advised on supportive care. She understands return for new or worsening symptoms. She was advised to follow-up as an outpatient. She was discharged. ED Disposition - Plan for ED Patient: Disposition: Home or Assisted Living Diagnosis: Gastroenteritis Instructions: FOOD POISONING or GASTROENTERITIS (6y-Adult) Prescriptions: Ondansetron [Zofran Odt] 4 mg PO Q8H PRN PRN #10 tab PRN Reason: Nausea Prescription Printed Referrals: Chandra Prado DO [Primary Care Provider] -
[2019-01-12 22:48] LABS: Absolute Lymphocyte Count 3.02 X10^3/uL (0.83-4.51); Absolute Neutrophil Count 3.1 X10^3/uL (2.0-7.7); Basophil# 0.03 X10^3/uL; Basophil% 0.4 % (0-1); Eosinophil# 0.14 X10^3/uL; Eosinophils% 2.1 % (0-5); Hematocrit 38.5 % (37-47); Hemoglobin 12.4 g/dL (12.0-15.0); Lymphocyte # 3.02 X10^3/ul (4.0); Mean Corp Hgb Conc 32.2 g/dL (32-36); Mean Corpuscular Hgb 28.8 pg (27.0-32.0); Mean Corpuscular Volume 89.5 fL (81-99); Mean Platelet Vol. 9.6 fl (6.2-12.0); Monocyte# 0.41 X10^3/uL; Monocyte% 6.1 % (0-10); NRBC Flagged by Analyzer 0 % (0-5); Neutrophil % 46.3 % (47-70); Platelet Count 235 K/mm3 (150-450); RBC Distribution Width CV 13.1 % (11.6-14.6); RBC Distribution Width SD 42.8 fl (35.1-43.9); White Blood Count 6.7 K/mm3 (4.4-11.0)
[2019-01-12] MEDS: 0.9% Normal Saline 1,000 ML 1000 ML IV (22:53)
[2019-01-12] MEDS: Ondansetron 4 MG/2 ML Vial IV (22:54)
[2019-01-12] MEDS: Loperamide 2 MG Capsule 4 MG PO (22:54)
[2019-01-12] MEDS: Dicyclomine 20 MG/2 ML Vial IM (22:54)
[2019-01-12 23:00] LABS: ALB/GLOB Ratio 0.9 RATIO (0.9-2.4); AST(SGOT) 24 U/L (15-37); Alanine Aminotransfer ALT/SGPT 27 U/L (13-56); Albumin, Serum 3.6 g/dL (3.2-5.0); Alkaline Phosphatase 66 U/L (45-117); Anion Gap 2 (5-15); BUN 14 mg/dL (7-18); Calcium,Total 8.7 mg/dL (8.5-10.1); Chloride 106 mmol/L (98-107); EST Glomerular Filtration Rate 97 mL/min (>60); Est Glom Filt Rate - Afr Amer 117 mL/min (>60); Estimated Creatinine Clearance 100.77 ml/min; Globulin 3.8 g/dL (2.2-4.2); Glucose 96 mg/dL (74-106); Lipase 177 U/L (73-393); Potassium 3.6 mmol/L (3.5-5.1); Protein, Total 7.4 g/dL (6.4-8.2); Sodium Level 140 mmol/L (136-145)
[2019-01-12 23:49] VITALS: BP 131/86; PULSE 81; RESP 12; O2SAT 97
== END 2019-01-12 23:50 | disposition home or self-care (01) ==
PROVIDERS: Emergency Provider Emergency Medicine; Family Provider Family Medicine; PCP Family Medicine
DX: K52.9 Noninfective gastroenteritis and colitis, unspecified (principal); F17.200 Nicotine dependence, unspecified, uncomplicated
CPT/HCPCS: 80053; 83690; 85025; 96361; 96372; 96374; 99284; J7030; A4216; J2405

== ENCOUNTER → 2019-05-17 16:20 | Outpatient (CLI) | payer MEDICAID, SELFPAY ==
[2019-05-17 17:56] LABS: T4 Free Direct 0.94 ng/dL (0.76-1.46); Thyroid Stim Hormone (TSH) 1.31 uIU/mL (0.358-3.74)
== END ==
PROVIDERS: Family Provider Family Medicine; PCP Family Medicine; Visit Provider Family Medicine
DX: L65.9 Nonscarring hair loss, unspecified (principal)
CPT/HCPCS: 36415; 84439; 84443

== ENCOUNTER → 2019-07-03 16:42 | Outpatient (CLI) | payer MEDICAID, SELFPAY ==
--- NOTE | 2019-07-03 17:30 | MRI_ITS ---
STUDY: MR PELVIS WITH T WITHOUT CONTRAST REASON FOR EXAM: Female, 44 years old. RLQ pain x 2 months. History of tubal ligation and right ovarian cyst removal TECHNIQUE: Standardized fat and water weighted pulse sequences were obtained in all 3 orthogonal planes, pre-and post contrast administration. Pt received 17ml Dotarem via IV was administered for the contrast portion of the examination. COMPARISON: CT 10/14/2018 FINDINGS: Normal urinary bladder. Normal visualized small intestine. Normal visualized colon. There is no pelvic fluid. There is no pelvic mass lesion or lymphadenopathy. Normal visualized pelvic arteries. Prominent left ovarian vein and parametrial veins which can be seen in pelvic congestion syndrome. Normal osseous structures. Normal abdominal wall. MRI/Pelvis W/WO Contrast IMPRESSION: Possible pelvic congestion syndrome. Electronically Signed: Willam Marshall MD at 15:49 EST Tel , Service support ,
== END ==
PROVIDERS: PCP Family Medicine; Referring Provider Family Medicine; Visit Provider Family Medicine
DX: R10.31 Right lower quadrant pain (principal); I82.890 Acute embolism and thrombosis of other specified veins
CPT/HCPCS: 72197; A9575

== ENCOUNTER → 2020-08-12 09:56 | Outpatient (CLI) | payer MEDICAID, SELFPAY ==
[2020-08-12 11:12] LABS: Color, Urine Yellow (Yellow); Glucose, Dipstick Normal (Normal); Ketone-Dipstick Negative (Negative); Leukocyte Esterase-Dipstick Negative /ul (Negative); Nitrite-Dipstick Negative (Negative); Occult Blood-Urine Negative /ul (Negative); Protein-Dipstick Negative (Negative); Urine Bilirubin Dipstick Negative (Negative); Urine Clarity Sl. Cloudy (Clear); Urine Urobilinogen Normal (Normal)
[2020-08-12 11:14] LABS: Erythrocyte Sedimentation Rate 8 mm/hr (0-30)
[2020-08-12 11:16] LABS: Absolute Lymphocyte Count 2.39 X10^3/uL (0.83-4.51); Absolute Neutrophil Count 2.3 X10^3/uL (2.0-7.7); Basophil# 0.04 X10^3/uL; Basophil% 0.7 % (0-1); Eosinophil# 0.15 X10^3/uL; Eosinophils% 2.8 % (0-5); Hematocrit 37.8 % (37-47); Hemoglobin 12.1 g/dL (12.0-15.0); Lymphocyte # 2.39 X10^3/ul (4.0); Lymphocyte % 44.8 % (19-41); Mean Corpuscular Hgb 29.3 pg (27.0-32.0); Mean Corpuscular Volume 91.5 fL (81-99); Mean Platelet Vol. 9.6 fl (6.2-12.0); Monocyte# 0.44 X10^3/uL; Monocyte% 8.2 % (0-10); NRBC Flagged by Analyzer 0 % (0-5); Neutrophil # 2.31 X10^3/uL (2.7-7.7); Neutrophil % 43.3 % (47-70); Platelet Count 256 K/mm3 (150-450); RBC Distribution Width CV 12.7 % (11.6-14.6); RBC Distribution Width SD 42.3 fl (35.1-43.9); Red Blood Count 4.13 M/mm3 (4.2-5.4); White Blood Count 5.3 K/mm3 (4.4-11.0)
[2020-08-12 11:35] LABS: AST(SGOT) 15 U/L (15-37); Alanine Aminotransfer ALT/SGPT 21 U/L (13-56); Albumin, Serum 3.6 g/dL (3.2-5.0); Alkaline Phosphatase 64 U/L (45-117); Anion Gap 6 (5-15); BUN 15 mg/dL (7-18); BUN/Creat Ratio 27.8 RATIO (10-20); CRP < 2.90 mg/L (0.0-3.0); Calcium,Total 8.3 mg/dL (8.5-10.1); Chloride 105 mmol/L (98-107); Creatinine, Serum 0.54 mg/dL (0.55-1.02); EST Glomerular Filtration Rate 130 mL/min (>60); Est Glom Filt Rate - Afr Amer 157 mL/min (>60); Globulin 3.6 g/dL (2.2-4.2); Glucose 89 mg/dL (74-106); Protein, Total 7.2 g/dL (6.4-8.2); Sodium Level 136 mmol/L (136-145)
== END ==
PROVIDERS: PCP Family Medicine; Referring Provider Family Medicine; Visit Provider Family Medicine
DX: R10.31 Right lower quadrant pain (principal)
CPT/HCPCS: 36415; 80053; 81002; 85025; 85651; 85652; 86140

== ENCOUNTER → 2020-09-01 14:55 | Outpatient (CLI) | payer MEDICAID, SELFPAY ==
--- NOTE | 2020-09-01 14:58 | CT_ITS ---
INDICATION: RLQ ABD PAIN EXAMINATION: CT Abdomen And Pelvis W/ Contrast Injection TECHNIQUE: Helically acquired images were obtained of the abdomen and pelvis after IV contrast. A radiation dose optimization technique was used for this scan. IV Contrast dosage and agent: 100 cc [id number]-300 Oral contrast: Yes COMPARISON: 10/14/2018 FINDINGS: Visualized lung bases: Left basilar atelectasis. Liver: Unremarkable Gallbladder: Unremarkable Spleen: Unremarkable Pancreas: Unremarkable Adrenal Glands: Unremarkable Kidneys: Unremarkable Vasculature: Unremarkable GI Tract: Unremarkable Lymphadenopathy: None Peritoneum: No ascites. Bladder: Unremarkable Reproductive organs: Status post right oophorectomy. Bones/Soft tissues: Mild scattered degenerative changes of the visualized spine. CT/Abdomen/Pelvis WITH Contrast IMPRESSION: No acute abnormalities in the abdomen or pelvis. Electronically Signed: Yovany Gomez MD at 16:42 EDT Tel , Service support ,
== END ==
PROVIDERS: PCP Family Medicine; Referring Provider Family Medicine; Visit Provider Family Medicine
DX: R10.31 Right lower quadrant pain (principal)
CPT/HCPCS: 74177; Q9967

== ENCOUNTER 2021-01-28 09:13 | Day surgery (SDC) | payer MEDICAID, SELFPAY ==
[2021-01-28] VITALS (8 sets, daily range): BP systolic 114–126; BP diastolic 77–87; PULSE 71–85; RESP 16; TEMP 36.1–36.3; O2SAT 99–100; BMI 29.0
--- NOTE | 2021-01-28 09:34 | HP.PCM_ITS ---
History and Physical Date of Admission: 01/28/21 Date of Service: 01/09/21 Intake Vital Signs 01/01/21 09:36 01/09/21 14:03 Height 5 ft 7 in Weight: 186 lb 2 oz BMI 29.1 BP 122/80 H Blood Pressure Location Rt brachial Position Sitting Respiration 20 H Pulse 92 Pulse Source NIBP Temp 97.5 F L Temp Source Temporal Pulse Oximetry (%) 98 Oxygen Delivery Method room air Intake Visit Reasons: CSCOPE, EGD/ ABDOMINAL PAIN Chief Complaint: RLQ pain [employer] Captain Required: No Is patient in pain?: Yes (RLQ pain ) Pain scale (1-10): 5 Allergies hydromorphone HCl [From Dilaudid] Allergy (Verified 01/09/21 14:04) Hives Penicillins [PCN] Allergy (Verified 01/09/21 14:04) Hives shellfish derived Allergy (Verified 01/09/21 14:04) Anaphylaxis influenza virus vaccine ts [id number] (36 mos,up) [From Fluarix] Adverse Reaction (Mild, Verified 01/09/21 14:04) Rash sea food Allergy (Uncoded 01/12/19 21:58) Anaphylaxis Medications albuterol sulfate [Ventolin HFA] 2 puff INHALATION Q6H PRN PRN 05/19/17 [History Confirmed 01/09/21] lamotrigine 100 mg PO BID 10/31/17 [History Confirmed 01/09/21] ondansetron 4 mg PO Q8H PRN PRN #10 tab 10/14/18 [Rx Confirmed 01/09/21] naproxen 500 mg tablet 500 mg PO QHS tab 01/09/21 [History Confirmed 01/09/21] nortriptyline 10 mg capsule 10 mg PO QHS 01/09/21 [History Confirmed 01/09/21] rizatriptan 10 mg tablet 10 mg PO ONCE 01/09/21 [History Confirmed 01/09/21] Is last menstrual period known: No Post menopausal: No Patient : No PFSH Medical History (Updated 01/11/21 @ 09:[address] Monica Odom MD) Congenital heart defect Grand multipara Herpes History of narcotic use IUGR (intrauterine growth restriction) Myocardial infarction Pyelectasis of fetus on ultrasound Seizure disorder Surgical History (Updated 01/09/21 @ 14:07 by Lizbeth Rojo) History of ankle surgery History of oophorectomy, unilateral History of tubal ligation (~02/2018) Family History (Updated 01/09/21 @ 14:03 by Lizbeth Rojo) Mother Diabetes Father Cancer Sister Asthma Brother Heart disease Social History Smoking Status: Light Smoker (<10/day) HPI HPI HPI: EVELYNE MARAVILLA, is a 45 F who presents to the office today for colonoscopy due to right lower quadrant pain. Patient states for the last 2 months she has had constant right lower quadrant/groin pain. Patient states is not gotten any better with heat or ice. She states it is worse with movement. Patient states she has bowel movements daily denies any blood denies any family history colon cancer, and is never had a previous scope before. Patient denies any reflux, nausea, vomiting, epigastric pain. Patient currently does take naproxen 500 mg p.o. nightly for the pain. ROS Cardio Cardiovascular: No chest pain Resp Respiratory: No shortness of breath, Yes sleep apnea and No cough Gastro Gastrointestinal: Yes abdominal pain, No nausea or vomiting, No diarrhea, Yes constipation, No blood in stool, No acid reflux, No hemorrhoids, No ulcers, No gallbladder problem and No black,tarry stools Exam Const General: cooperative, healthy appearing, comfortable and no acute distress Neck Neck: normal visual inspection Resp Effort & Inspection: normal respiratory effort Cardio Rate: regular rate GI Inspection: non-distended Palpation: soft, no guarding, no hernias (Either groin right or left.) and tender (Right lower quadrant/groin, no peritoneal signs) Skin General: no rashes or lesions noted Neuro General: patient oriented x3 Psych Affect: normal affect COVID (Procedure Consent) Procedure Criteria Procedure Criteria: Yes Elective The surgeon/proceduralist and patient have discussed in detail the risk of exposure to and/or potential harm posed by the COVID-19 virus with having a surgery/procedure at this time versus the risk of delaying the surgery/procedure. It is not possible to know either the risk of delaying the surgery or procedure or chance of getting an infection with perfect accuracy, but a joint decision was made between the patient and the surgeon/proceduralist to proceed at this time with the scheduled surgery/procedure as indicated on the consent form. Assessment and Plan Assessment and Plan (1) RLQ abdominal pain: Status: Acute Plan - Dr. Monica Odom MD: Do not appreciate any hernia in that area in the right lower quadrant/right groin. Also did review previous CT abdomen pelvis that was done here did not see any obvious hernia. We will try to get the most recent CT abdomen pelvis from November pushed over from [place]. I have discussed the above with the patient. I have offered the patient colonoscopy for evaluation. I have explained the risks/benefits of the procedure and described the procedure. I have discussed the risks with the patient, including but not limited to: infection, bleeding, perforation of the GI tract requiring emergency surgery, inability to complete the procedure, injury to any internal organs, complications of anesthesia, etc. - the patient understands and agrees to proceed. I have answered all the patient's questions to the patient's satisfaction and the patient has no further questions. The patient has been given instructions for the colon cleansing preparation. 1 day of clears, MiraLAX Dulcolax prep. Monica Odom M.D. Pager: [phone] [facility] [address] [place] [address], [address] [place] [address] Office: [phone] Plan Details Other Orders: Orders: Colonoscopy Today Coding Level of Care Code Off vis,new,level 3 Diagnoses RLQ abdominal pain R10.31 01/11/21 0915<Electronically signed by Monica Odom MD>Date Monica Odom MD
[2021-01-28] MEDS: Lactated Ringers 1,000 ML 100 ML IV (09:56)
--- NOTE | 2021-01-28 11:13 | OP.COLON_ITS ---
Patient Name: Susy Florence Procedure Date: 01/28/2021 10:33 AM Date of : 1975 Age: 45 Procedure: Colonoscopy Indications: Abdominal pain in the right lower quadrant Providers: Monica Odom MD Medicines: Monitored Anesthesia Care Patient Profile: This is a 45 year old female. Last Colonoscopy: none. The patient's first colonoscopy is today. Complications: No immediate complications. Procedure: Pre-Anesthesia Assessment: - Prior to the procedure, a History and Physical was performed, and patient medications and allergies were reviewed. The patient's tolerance of previous anesthesia was also reviewed. The risks and benefits of the procedure and the sedation options and risks were discussed with the patient. All questions were answered, and informed consent was obtained. Prior Anticoagulants: The patient has taken no previous anticoagulant or antiplatelet agents. ASA Grade Assessment: Per anesthesia. After reviewing the risks and benefits, the patient was deemed in satisfactory condition to undergo the procedure. After I obtained informed consent, the scope was passed under direct vision. Throughout the procedure, the patient's blood pressure, pulse, and oxygen saturations were monitored continuously. The pediatric colonoscope was introduced through the anus and advanced to the terminal ileum. The colonoscopy was performed without difficulty. The patient tolerated the procedure well. The quality of the bowel preparation was good. Scope In: 10:48:27 AM Scope Withdrawal Time 0 hours 9 minutes 35 seconds Scope Out: 11:09:09 AM Total Procedure Duration Time 0 hours 20 minutes 42 seconds Findings: The perianal and digital rectal examinations were normal. The terminal ileum appeared normal. The entire examined colon appeared normal on direct and retroflexion views. Impression: - The examined portion of the ileum was normal. - The entire examined colon is normal on direct and retroflexion views. - No specimens collected. Recommendation: - Discharge patient to home. - Resume previous diet. - Continue present medications. - Repeat colonoscopy in 10 years for screening purposes. Procedure Code(s): --- Professional --- 71884, Colonoscopy, flexible; diagnostic, including collection of specimen(s) by brushing or washing, when performed (separate procedure) Diagnosis Code(s): --- Professional --- R10.31, Right lower quadrant pain CPT copyright 2017 [employer]. All rights reserved. The codes documented in this report are preliminary and upon auditing coder review may be revised to meet current compliance requirements. MD Monica Chisholm MD 01/28/2021 11:13:02 AM This report has been signed electronically. Number of Addenda: 0 Note Initiated On: 01/28/2021 10:33 AM
--- NOTE | 2021-01-28 11:14 | OP.CCLET_ITS ---
01/28/2021 Chandra Prado [address] [place] [address] Re : Colonoscopy procedure for Susy Florence Dear Dr. Prado This procedure was performed on Thursday, January 28, 2021. My impressions and recommendations are as follows: Impressions : - The examined portion of the ileum was normal. - The entire examined colon is normal on direct and retroflexion views. - No specimens collected. Recommendations : - Discharge patient to home. - Resume previous diet. - Continue present medications. - Repeat colonoscopy in 10 years for screening purposes. My findings are described in the full procedure note, which is enclosed. If I can be of further assistance, please feel free to contact me at Doctor phone number(s): , Work: . Sincerely, MD Monica Chisholm MD 01/28/2021 11:13:02 AM This report has been signed electronically.
== END 2021-01-28 12:29 ==
LOC: EN 09:13 → AC 09:14
PROVIDERS: PCP Family Medicine; Referring Provider Surgery; Visit Provider Surgery
PROC: 0DJD8ZZ Inspection of Lower Intestinal Tract, Via Natural or Artificial Opening Endoscopic (ICD-10-PCS; CPT 45378; principal; 2021-01-28 10:40)
DX: R10.31 Right lower quadrant pain (principal); F17.200 Nicotine dependence, unspecified, uncomplicated; I25.2 Old myocardial infarction; J45.909 Unspecified asthma, uncomplicated; G40.909 Epilepsy, unspecified, not intractable, without status epilepticus; Q24.9 Congenital malformation of heart, unspecified; Z79.899 Other long term (current) drug therapy
CPT/HCPCS: 45378; 87426; C9803; J7120

== ENCOUNTER → 2021-09-17 | Outpatient (CLI) | payer MEDICAID, SELFPAY ==
--- NOTE | 2021-09-17 09:42 | US_ITS ---
STUDY: ABDOMINAL ULTRASOUND - RIGHT UPPER QUADRANT REASON FOR VISIT: Female, 46 years old RUQ PAIN TECHNIQUE: Ultrasound evaluation of the right upper quadrant was performed with real-time and static ma-scale imaging. TECHNICAL QUALITY: Adequate. COMPARISON: None. FINDINGS: Liver: The liver measures 15.8 cm. There is increased echogenicity consistent with mild degree of fatty infiltration. The bile ducts are within normal limits. There is hepatic color flow. The direction of portal flow is hepatopetal. There is no demonstrated mass lesion. Gallbladder: Normal distended gallbladder. The gallbladder wall measures 2.2 mm. There is a negative sonographic Haas''s sign. There is no pericholecystic fluid. There are multiple echogenic structures within the gallbladder, consistent with multiple gallstones. Common Bile Duct (C.B.D.): The common bile duct measures 2.6 mm. Pancreas: Normal size of the head, body and tail of the pancreas. There is normal echogenicity of the pancreas. There is no demonstrated pancreatic mass or cyst. Right Kidney: Normal size of the right kidney. The right kidney measures 12 cm x 5.6 x 5.3 cm. Normal renal cortex. The right cortex measures 1.4 cm. There is no demonstrated renal mass or cyst. There is no right hydronephrosis. US/Abdomen Limited IMPRESSION: Mild degree of fatty infiltration of the liver. Multiple gallstones. Electronically Signed: Karlos Concepcion MD at 11:58 EDT ,
== END | disposition home or self-care (01) ==
LOC: US 09:39
PROVIDERS: PCP Family Medicine; Referring Provider Family Medicine; Visit Provider Family Medicine
DX: R11.2 Nausea with vomiting, unspecified (principal); R10.9 Unspecified abdominal pain
CPT/HCPCS: 76705

== ENCOUNTER 2021-09-25 06:54 | Day surgery (SDC) | payer MEDICAID, SELFPAY ==
[2021-09-25] MEDS: Lactated Ringers 1,000 ML 15 ML IV (07:10)
--- NOTE | 2021-09-25 07:11 | PCM.HP.BLA ---
History and Physical Date of Admission: 09/25/21 Date of Service: 09/21/21 MR#:[id number]:[id number]: EVELYNE MARAVILLARep #:[id number]:1975 Provider:Bev Joseph/Sex: 46/F [facility] Vital Signs 09/21/21 13:30 Height 5 ft 7 in Weight: 192 lb 8 oz BMI 30.1 BP 124/76 H Blood Pressure Location Rt brachial Position Sitting Respiration 18 Pulse 82 Pulse Source NIBP Temp 97.6 F L Temp Source Temporal Pulse Oximetry (%) 99 Oxygen Delivery Method room air Intake Visit Reasons: GALLBLADDER/GALLSTONES Chief Complaint: gallstones, abd pain [employer] Required: No Is patient in pain?: Yes (right mid abd into right flank--stabbing) Pain scale (1-10): 10 Allergies hydromorphone HCl [From Dilaudid] Allergy (Verified 09/21/21 13:31) Hives Penicillins [PCN] Allergy (Verified 09/21/21 13:31) Hives shellfish derived Allergy (Verified 09/21/21 13:31) Anaphylaxis influenza virus vaccine ts [id number] (36 mos,up) [From Fluarix] Adverse Reaction (Mild, Verified 09/21/21 13:31) Rash sea food Allergy (Uncoded 01/28/21 09:41) Anaphylaxis Medications albuterol sulfate [Ventolin HFA] 2 puff INHALATION Q6H PRN PRN 05/19/17 [History Confirmed 09/21/21] ondansetron 4 mg PO Q8H PRN PRN #10 tab 10/14/18 [Rx Confirmed 09/21/21] naproxen 500 mg tablet 500 mg PO QHS tab 01/09/21 [History Confirmed 09/21/21] nortriptyline 10 mg capsule 10 mg PO QHS 01/09/21 [History Confirmed 09/21/21] clonazepam 1 mg tablet 1 mg PO QHS tab 09/21/21 [History Confirmed 09/21/21] lamotrigine 25 mg chewable dispersible tablet 50 mg PO BID ea 09/21/21 [History Confirmed 09/21/21] pantoprazole 40 mg tablet,delayed release 40 mg PO DAILY #30 tab 09/21/21 [Rx Confirmed 09/21/21] Is last menstrual period known: No Post menopausal: No Patient : No PFSH Medical History (Updated 09/21/21 @ 14:06 by Lizbeth Rojo) Alcohol use Asthma Back pain Cardiology follow-up encounter Complete edentulism, class III Congenital heart defect Easy bruising Family history of patent foramen ovale Grand multipara Heartburn Herpes History of echocardiogram History of narcotic use History of stress test Hx of scoliosis Injury of head and neck IUGR (intrauterine growth restriction) Leg cramps Low iron Migraine headache Myocardial infarction Pyelectasis of fetus on ultrasound Seizure disorder Shortness of breath on exertion Smoker Syncope Wears glasses Surgical History (Updated 09/21/21 @ 13:30 by Lizbeth Rojo) History of ankle surgery History of cardiac catheterization History of colonoscopy History of oophorectomy, unilateral History of tubal ligation (~02/2018) Family History Mother Diabetes Father Cancer Sister Asthma Brother Heart disease Social History Smoking Status: Light Smoker (<10/day) HPI HPI HPI: EVELYNE MARAVILLA, is a 46 F who presents to the office today for right mid quadrant to back pain. Patient was previously seen in December 2020 for right-sided abdominal pain as well had a screening colonoscopy which did not show any obvious source. Patient currently rates it pain at 10/10 stabbing constant. Patient states it starts in the right upper quadrant and wraps around towards the back. Patient also does describe some nausea when she wakes up but does take some nausea medication on Tuesday night patient did wake up middle night with nausea and vomiting. Does not typically have the vomiting. Patient previously states the pain was a 7/10 before this Tuesday. Patient that time was also taking naproxen more regularly. Patient states she has bowel moods daily denies any blood. Still unable to get her last CT abdomen pelvis from November 2020 being pushed over from [place]. She did recently have an ultrasound of the gallbladder which showed gallstones normal wall of 2.2 cm, normal common bile duct, no pericholecystic fluid. Patient states that this time she was still having her constant 10 out of 10 pain. ROS General General: No weight change or fatigue HEENT HEENT: No difficulty swallowing Endo Endocrine: No cold intolerance Skin Skin: No rash or changing moles Musc Musculoskeletal: No back problems or joint pain Cardio Cardiovascular: No chest pain Psych Psychiatric: No depression or anxiety Resp Respiratory: No shortness of breath and No cough Gastro Gastrointestinal: Yes abdominal pain, No nausea or vomiting, No diarrhea, No constipation, No blood in stool, No acid reflux, No hemorrhoids, No ulcers, Yes gallbladder problem and No black,tarry stools Joaquin Hematologic: No blood thinners, No blood disorders, No bleeding, No anemia and No blood clots Neuro Neurologic: No abnormal speech and No confusion Exam Const General: cooperative, healthy appearing, comfortable and no acute distress HENMT Head: normocephalic and atraumatic Neck Neck: normal visual inspection Resp Effort & Inspection: normal respiratory effort Cardio Rate: regular rate GI Inspection: non-distended Palpation: soft, no guarding, hernia (Incisional at umbilicus-reducible) and tender (Right flank/right back near lower ribs) in the epigastrum and in the RUQ; with no rebound tenderness Skin General: no rashes or lesions noted Neuro General: patient oriented x3 Psych Affect: normal affect Assessment and Plan Assessment and Plan (1) RUQ pain: Status: Acute (2) Epigastric abdominal pain: Status: Acute (3) Nausea & vomiting: Status: Acute (4) Right flank pain: Status: Acute (5) Right-sided back pain: Status: Acute Orders: Orders: Abdomen/Pelvis WITH Contrast Today R10.9 Plan - Dr. Monica Odom MD: Did review patient's ultrasound with the patient and her . Patient does have gallstones however normal gallbladder wall with no pericholecystic fluid was seen. Patient states that eating does not make a difference with the pain as it is constant. Discussed with patient and her that typical presentation of gallbladder disease with gallstones right upper quadrant pain nausea and vomiting about 30 minutes or an hour after eating fatty or greasy foods. Patient's history does not fit with this. Patient does have some nausea in the morning before when she wakes up and also some in the middle night along with some vomiting question whether patient may have some gastritis. Will recommend Protonix and plan for an EGD. However on exam patient also is quite tender in the right flank and right back along near the inferior ribs unable to really account for this with gastritis or cholelithiasis with a normal ultrasound. Plan to get CT abdomen pelvis with IV and p.o. contrast. I have discussed the above with the patient. I have offered the patient EGD for evaluation. I have explained the risks/benefits of the procedure and described the procedure. I have discussed the risks with the patient, including but not limited to: infection, bleeding, perforation of the GI tract requiring emergency surgery, inability to complete the procedure, injury to any internal organs, complications of anesthesia, etc. - the patient understands and agrees to proceed. I have answered all the patient's questions to the patient's satisfaction and the patient has no further questions. Monica Odom M.D. Pager: [phone] [facility] [address] [place] [address], [address] [place] [address] Office: [phone] Plan Details Other Medications: New: pantoprazole Okay to take OTC famotidine 20 mg p.o. daily for the first 3 days when first starting medication; 40 mg PO DAILY 30 tabs 1RF Other Orders: Orders: EGD Today Coding Level of Care Code Off vis,est,level 4 Diagnoses RUQ pain R10.11 Epigastric abdominal pain R10.13 Nausea & vomiting R11.2 Right flank pain R10.9 Right-sided back pain M54.9 09/21/21 1413<Electronically signed by Monica Odom MD>Date Monica Odom MD
[2021-09-25 07:34] VITALS: BP 131/94; PULSE 85; RESP 18; TEMP 37.1; O2SAT 96
--- NOTE | 2021-09-25 08:45 | IMM_PTH ---
PATIENT: EVELYNE MARAVILLA LOC: [facility] U#:[id number] AGE/SX: 46/F ROOM: RE09/25/[address]: Dr. Monica Odom MD : 1975 BED: DIS: 09/25/2021 SPEC #: [id number] RECD: 09/25/21 15:02 STATUS: ADRIAN NATHALY #: [id number] NAY: 09/25/21 08:[address]: Monica Odom DEPT: IMMUNOHISTOCHEMISTRY RECD BY: Ainka Lindo ENTERED: 09/25/21 15:03 SP TYPE: IMMUNO OTHR DR: Dr. Chandra Prado, DO Tissues: Pylorus Procedures: H Pylori (initial) PHYSICIAN & INSTITUTION [place] [address] SPECIMEN INFORMATION: Tissue Source: Prepyloric ulcer Clinical Info: RUQ pain, epigastric abdominal pain, nausea and vomiting, right flank pain Specimen Number: [id number] CPT code: 73216 METHODOLOGY: Deparaffinized sections of prefer/formalin-fixed tissue or PAP/DQ stained slides are incubated with monoclonal/polyclonal antibodies/oligonucleotide probes. Localization is made via biotin free immunoperoxidase method. Appropriate controls are performed and reacted as expected. Results on target cell population are indicated in the following table: RESULTS: ANTIBODY / CLONE RESULT H Pylori (polyclonal) negative These tests were developed and their performance characteristics determined by [facility]. They may not have been cleared or approved by the U.S. Food and Drug Administration. The FDA has determined that such clearance or approval is not necessary. The above immunohistochemical/dualISH markers are ordered and reviewed by the Pathologist. INTERPRETATION: Prepyloric ulcer, biopsy: Negative for Helicobacter pylori organisms. SJ:antonette 09/29/2021
--- NOTE | 2021-09-25 08:45 | EGD_PTH ---
PATIENT: EVELYNE MARAVILLA LOC: EN U#:[id number] AGE/SX: 46/F ROOM: RE09/25/[address]: Dr. Monica Odom MD : 1975 BED: DIS: 09/25/2021 SPEC #: [id number] RECD: 09/25/21 09:57 STATUS: ADRIAN NATHALY #: [id number] NAY: 09/25/21 08:[address]: Monica Odom DEPT: SURGICAL PATHOLOGY RECD BY: Sandra Lemos ENTERED: 09/25/21 10:40 SP TYPE: EGD BIOPSY OT DR: Dr. Chandra Prado, DO Tissues: Gastric mucous membrane Procedures: Surgery Specimen Level IV HEADER OPERATION[place] DIAGNOSIS: RUQ pain, epigastric abdominal pain, nausea and vomiting, right flank pain TISSUE SUBMITTED: Prepyloric ulcer biopsy for H. pylori and pathology MICROSCOPIC DIAGNOSIS Prepyloric ulcer biopsy: Mild gastritis. See microscopic description and comment. ZAY:antonette 09/28/2021 COMMENT The results of immunohistochemistry for Helicobacter pylori will be reported separately ([id number]). MICROSCOPIC DESCRIPTION Slides are reviewed. The specimen shows fragments of gastric mucosa with chronic inflammatory cell infiltrates in the lamina propria consisting of lymphocytes and plasma cells, consistent with mild chronic gastritis. GROSS DESCRIPTION Received in fixative is one container labeled with the patient's name and designated prepyloric ulcer biopsy. The specimen consists of two irregular fragments of light vela soft tissue that in aggregate measure 0.4 x 0.2 x 0.1 cm. The specimen is totally submitted in one cassette. / ZAY:antonette 09/25/2021 TC:3 CPT: 03436
[2021-09-25 09:05] VITALS: BP 101/72; BP 131/94; PULSE 72; RESP 16; TEMP 36.6; O2SAT 100
--- NOTE | 2021-09-25 09:09 | OP.EGD_ITS ---
Patient Name: Susy Florence Procedure Date: 09/25/2021 8:48 AM Date of : 1975 Age: 46 Procedure: Upper GI endoscopy Indications: Abdominal pain in the right upper quadrant, Nausea Providers: Monica Odom MD Medicines: Monitored Anesthesia Care Patient Profile: This is a 46 year old female. Complications: No immediate complications. Procedure: Pre-Anesthesia Assessment: - Prior to the procedure, a History and Physical was performed, and patient medications and allergies were reviewed. The patient's tolerance of previous anesthesia was also reviewed. The risks and benefits of the procedure and the sedation options and risks were discussed with the patient. All questions were answered, and informed consent was obtained. Prior Anticoagulants: The patient has taken no previous anticoagulant or antiplatelet agents. ASA Grade Assessment: Per anesthesia. After reviewing the risks and benefits, the patient was deemed in satisfactory condition to undergo the procedure. After obtaining informed consent, the endoscope was passed under direct vision. Throughout the procedure, the patient's blood pressure, pulse, and oxygen saturations were monitored continuously. The gastroscope was introduced through the mouth, and advanced to the second part of duodenum. The upper GI endoscopy was accomplished without difficulty. The patient tolerated the procedure well. Scope In: 8:55:08 AM Scope Out: 8:58:32 AM Total Procedure Duration Time 0 hours 3 minutes 24 seconds Findings: The Z-line was variable and was found 38 cm from the incisors. The examined duodenum was normal. One non-bleeding cratered gastric ulcer with [Bleeding Classification] was found in the prepyloric region of the stomach. The lesion was 3 mm in largest dimension. Biopsies were taken with a cold forceps for histology. Biopsies were taken with a cold forceps for Helicobacter pylori cultures. The cardia and gastric fundus were normal on retroflexion. Impression: - Z-line variable, 38 cm from the incisors. - Normal examined duodenum. - Non-bleeding gastric ulcer with a clean ulcer base (Niraj Class III). Biopsied. Recommendation: - Await pathology results. - Discharge patient to home. - Resume previous diet. - Continue present medications. - Await pathology results. - Use sucralfate tablets 1 gram PO QID for 2 weeks. Procedure Code(s): --- Professional --- 88774, Esophagogastroduodenoscopy, flexible, transoral; with biopsy, single or multiple Diagnosis Code(s): --- Professional --- R10.11, Right upper quadrant pain R11.0, Nausea CPT copyright 2017 [employer]. All rights reserved. The codes documented in this report are preliminary and upon vp of global marketing review may be revised to meet current compliance requirements. MD Monica Chisholm MD 09/25/2021 9:09:07 AM This report has been signed electronically. Number of Addenda: 0 Note Initiated On: 09/25/2021 8:48 AM
[2021-09-25 09:10] VITALS: BP 113/74; BP 131/94; PULSE 71; RESP 16; O2SAT 100
--- NOTE | 2021-09-25 09:10 | OP.CCLET_ITS ---
09/25/2021 Chandra Prado [address] [place] [address] Re : Upper GI endoscopy procedure for Susy Florence Dear Dr. Prado This procedure was performed on Saturday, September 25, 2021. My impressions and recommendations are as follows: Impressions : - Z-line variable, 38 cm from the incisors. - Normal examined duodenum. - Non-bleeding gastric ulcer with a clean ulcer base (Niraj Class III). Biopsied. Recommendations : - Await pathology results. - Discharge patient to home. - Resume previous diet. - Continue present medications. - Await pathology results. - Use sucralfate tablets 1 gram PO QID for 2 weeks. My findings are described in the full procedure note, which is enclosed. If I can be of further assistance, please feel free to contact me at Doctor phone number(s): , Work: . Sincerely, MD Monica Chisholm MD 09/25/2021 9:09:07 AM This report has been signed electronically.
[2021-09-25 09:15] VITALS: BP 109/77; BP 131/94; PULSE 69; RESP 16; O2SAT 100
[2021-09-25 09:20] VITALS: BP 123/80; BP 131/94; PULSE 80; RESP 16; TEMP 37.3; O2SAT 99
[2021-09-25 10:06] VITALS: BP 131/94
== END 2021-09-25 10:38 | disposition home or self-care (01) ==
LOC: EN 06:55 → AC 06:57
PROVIDERS: PCP Family Medicine; Referring Provider Family Medicine; Visit Provider Surgery
PROC: 0DJ08ZZ Inspection of Upper Intestinal Tract, Via Natural or Artificial Opening Endoscopic (ICD-10-PCS; CPT 43235; principal; 2021-09-25 08:40)
DX: K29.70 Gastritis, unspecified, without bleeding (principal); G40.909 Epilepsy, unspecified, not intractable, without status epilepticus; R10.11 Right upper quadrant pain; M54.9 Dorsalgia, unspecified; K80.20 Calculus of gallbladder without cholecystitis without obstruction; F17.200 Nicotine dependence, unspecified, uncomplicated; K25.9 Gastric ulcer, unspecified as acute or chronic, without hemorrhage or perforation; R11.0 Nausea; R10.13 Epigastric pain; J45.909 Unspecified asthma, uncomplicated; Q24.9 Congenital malformation of heart, unspecified; Q21.1 Atrial septal defect; Z87.39 Personal history of other diseases of the musculoskeletal system and connective tissue; Z79.899 Other long term (current) drug therapy; I25.2 Old myocardial infarction; R06.02 Shortness of breath
CPT/HCPCS: 43239; 88305; 88342; J7120; J2405

== ENCOUNTER → 2021-10-07 | Outpatient (CLI) | payer MEDICAID, SELFPAY ==
--- NOTE | 2021-10-07 15:41 | CT_ITS ---
STUDY: CT Abdomen And Pelvis W/ Contrast Injection 10/07/2021 4:57 PM REASON FOR EXAM: Female, 46 years old. ABDOMINAL PAIN abd pain TECHNIQUE: Transaxial images were obtained without oral contrast, and IV 100mL Isovue-300 intravenous contrast. Individualized dose optimization techniques were used for this CT. COMPARISON: 09.01.20. FINDINGS: The visualized lung bases are unremarkable. The visualized portions of the heart are within normal limits. Unremarkable liver. Unremarkable gallbladder and extrahepatic biliary system. Unremarkable spleen. Unremarkable pancreas. Unremarkable bilateral adrenal glands. No acute findings of the right kidney. No acute findings of the left kidney. Unremarkable visualized stomach. Unremarkable small intestine. Unremarkable colon. The appendix is visualized and appears unremarkable. There are calcifications of the abdominal aorta. This is consistent for atherosclerotic disease. There is no abdominal aortic aneurysm. Unremarkable inferior vena cava. Subcentimeter mesenteric lymph nodes. Unremarkable urinary bladder. Normal visualized uterus. There is an umbilical hernia containing fat. There is scoliosis of the lumbar spine. CT/Abdomen/Pelvis WITH Contrast IMPRESSION: (NOT LISTED IN ORDER OF SIGNIFICANCE) There are no acute findings. Other findings as above. Electronically Signed: Chano Acuna MD at 17:13 EDT ,
== END | disposition home or self-care (01) ==
LOC: CT 15:35
PROVIDERS: PCP Family Medicine; Referring Provider Surgery; Visit Provider Surgery
DX: R10.9 Unspecified abdominal pain (principal)
CPT/HCPCS: 74177; Q9967

== ENCOUNTER 2021-10-27 11:51 | Day surgery (SDC) | payer MEDICAID, SELFPAY ==
[2021-10-27] VITALS (8 sets, daily range): BP systolic 116–145; BP diastolic 76–99; PULSE 72–91; RESP 15–18; TEMP 36.2–37; O2SAT 92–99; BMI 29.7
--- NOTE | 2021-10-27 11:59 | HP.PCM_ITS ---
HPI - General HPI Narrative EVELYNE MARAVILLA, is a 46 F who presents for a laparoscopic cholecystectomy. The patient has been having some right upper quadrant pain as well as right flank/back pain. Patient did have an EGD which showed prepyloric ulcer patient was started on Carafate as well as Protonix. Patient also had repeat CT abdomen pelvis would not show any obvious abnormalities acutely. Patient states she is still having right-sided abdominal pain. Ultrasound the gallbladder did show some gallstones within normal wall normal duct no pericholecystic fluid and normal LFTs. More recently patient states the right upper quadrant pain has gotten worse not as much in the back. Patient states she has not eaten as much due to the pain as well. [facility] Medical History (Updated 10/27/21 @ 12:[address] Monica Odom MD) Alcohol use Asthma Back pain Cardiology follow-up encounter Complete edentulism, class III Congenital heart defect Easy bruising Family history of patent foramen ovale Grand multipara Heartburn Herpes History of echocardiogram History of narcotic use History of stress test Hx of scoliosis Injury of head and neck IUGR (intrauterine growth restriction) Leg cramps Low iron Migraine headache Myocardial infarction Pyelectasis of fetus on ultrasound Seizure disorder Seizures Shortness of breath on exertion Smoker Syncope Wears glasses Home Medications albuterol sulfate 90 mcg/actuation aerosol inhaler (Ventolin HFA) 2 puff inhalation Q6H PRN PRN Shortness Of Breath 05/19/17 [History Last Taken 10/31/17] ondansetron 4 mg disintegrating tablet 4 mg PO Q8H PRN PRN Nausea #10 tabs 10/14/18 [Rx Last Taken Unknown] naproxen 500 mg tablet 500 mg PO QHS 01/09/21 [History Last Taken Unknown] nortriptyline 10 mg capsule 10 mg PO QHS 01/09/21 [History Last Taken Unknown] clonazepam 1 mg tablet 1 mg PO QHS 09/21/21 [History Last Taken Unknown] lamotrigine 25 mg chewable dispersible tablet 50 mg PO BID siezures 09/21/21 [History Last Taken 09/25/21 05:00] pantoprazole 40 mg tablet,delayed release 40 mg PO DAILY #30 tabs 09/21/21 [Rx Last Taken 09/25/21 05:00] sucralfate 1 gram tablet 1 g PO 4X/DAY #56 tabs 09/25/21 [Rx Last Taken Unknown] Allergy/AdvReac Type Severity Reaction Status Date / Time hydromorphone HCl Allergy Hives Verified 10/22/21 14:55 [From Dilaudid] Penicillins [PCN] Allergy Hives Verified 10/22/21 14:55 shellfish derived Allergy Anaphylaxis Verified 10/22/21 14:55 influenza virus vaccine ts AdvReac Mild Rash Verified 10/22/21 14:55 [id number] (36 mos,up) [From Fluarix] adhesive tape AdvReac Rash Verified 10/22/21 14:55 sea food Allergy Anaphylaxis Uncoded 10/22/21 14:55 Family History Mother Diabetes Father Cancer Sister Asthma Brother Heart disease Surgical History (Updated 10/22/21 @ 14:59 by Alissa Peres) History of ankle surgery History of cardiac catheterization History of colonoscopy History of esophagogastroduodenoscopy (EGD) History of oophorectomy, unilateral History of tubal ligation (~02/2018) Social History Smoking Status: Current every day smoker tobacco type: cigarettes Physical Exam Const alert, oriented x3 and no apparent distress HEENT normocephalic and head/scalp atraumatic Resp normal respiratory effort Cardio regular rate GI soft to palpation; Negative for non-distended Palpation: tender RUQ; Negative for guarding Extremity no clubbing, cyanosis or edema Neuro CN's II-XII intact bilaterally Psych mental status grossly normal Assessment & Plan Assessment/Plan (1) Gallstones: (2) RUQ pain: (3) Right flank pain: (4) Prepyloric ulcer: PLAN: Plan Did discuss with patient that her pain is atypical for gallbladder disease and cannot guarantee that removing her gallbladder will alleviate all of her abdominal pain. Patient is currently on Carafate and Protonix due to her prepyloric ulcer. Reviewed the anatomy with the patient and discussed the procedure: laparoscopic cholecystectomy with cholangiograms, possible open. Review risks including but not limited to bleeding, infection, hernia, bile leak, retained gallstones requiring another procedure ERCP- Endoscopic Retrograde Cholangiopancreatography, injury to another organ (bile ducts, common bile duct, small bowel, etc.) may require transfer to a tertiary care facility and conversion to an open procedure. All questions were answered. Monica Odom M.D. Pager: [phone] [facility] [address] [place] [address] [address] [place] [address] Office: [phone] Procedure Criteria Type of Procedure Procedure Type: Elective Elective Risks - COVID COVID Risk Discussion: The surgeon/proceduralist and patient have discussed in detail the risk of exposure to and/or potential harm posed by the COVID-19 virus with having a danielle leigha/procedure at this time versus the risk of delaying the surgery/procedure. It is not possible to know either the risk of delaying the surgery or procedure or chance of getting an infection with perfect accuracy, but a joint decision was made between the patient and the surgeon/proceduralist to proceed at this time with the scheduled surgery/procedure as indicated on the consent form.
--- NOTE | 2021-10-27 12:02 | EKG12_ITS ---
Test Reason : PRE OP Blood Pressure : / mmHG Vent. Rate : 079 BPM Atrial Rate : 079 BPM P-R Int : 142 ms QRS Dur : 082 ms QT Int : 392 ms P-R-T Axes : 060 075 016 degrees QTc Int : 449 ms Normal sinus rhythm Normal ECG Confirmed by NAVEEN HORNE, TIRSO ([id number]), editor producer TAHMINA HENDRICKS ([id number]) on 10/30/2021 11:50:23 AM Referred By: JACOB Confirmed By:TIRSO HODGE MD
[2021-10-27 13:00] LABS: Hematocrit 33.4 % (37-47); Mean Corp Hgb Conc 32.9 g/dL (32-36); Mean Corpuscular Hgb 28.9 pg (27.0-32.0); Mean Corpuscular Volume 87.7 fL (81-99); Mean Platelet Vol. 9.3 fl (6.2-12.0); Platelet Count 243 K/mm3 (150-450); RBC Distribution Width CV 12.9 % (11.6-14.6); RBC Distribution Width SD 41.1 fl (35.1-43.9); Red Blood Count 3.81 M/mm3 (4.2-5.4); White Blood Count 4.4 K/mm3 (4.4-11.0)
--- NOTE | 2021-10-27 13:00 | RAD_ITS ---
CLINICAL HISTORY: Female, 46 years old. Fluoroscopic guidance in the OR. PROCEDURE: CHOLANGIOGRAM - intraoperative FLUOROSCOPY TIME (if supplied): 0.4 seconds. Dosage was 3.49 mGys. TECHNIQUE: Fluoroscopic guidance was provided OR during the performance of an intraoperative cholangiogram. 2 cine runs were performed The initial set of images demonstrate contrast injected via the cystic duct stump. There is contrast extending into the intra and extrahepatic bile ducts without stricture or stenosis or dilatation. The second series of images demonstrates excretion of contrast into the duodenum. Please refer to the operative report for further details. RAD/Cholangiogram/ O R,Initial IMPRESSION: Fluoroscopic guidance provided during the performance of an intraoperative cholangiogram. Electronically Signed: Luis Mckeon DO at 22:14 EDT ,
[2021-10-27] MEDS: Ciprofloxacin 400 MG/200 ML BAG 200 MG IV (13:10)
[2021-10-27] MEDS: Lactated Ringers 1,000 ML 15 ML IV (13:10)
[2021-10-27 13:19] LABS: Anion Gap 5 (5-15); BUN 7 mg/dL (7-18); Calcium,Total 8.6 mg/dL (8.5-10.1); Chloride 109 mmol/L (98-107); Creatinine, Serum 0.58 mg/dL (0.55-1.02); EST Glomerular Filtration Rate 118 mL/min (>60); Est Glom Filt Rate - Afr Amer 143 mL/min (>60); Estimated Creatinine Clearance 117.86 ml/min; Glucose 88 mg/dL (74-106); Potassium 3.6 mmol/L (3.5-5.1); Sodium Level 141 mmol/L (136-145)
--- NOTE | 2021-10-27 13:30 | GALL_PTH ---
PATIENT: EVELYNE MARAVILLA [place] [facility] [id number] AGE/SX: 46/F ROOM: RE10/27/[address]: Dr. Monica Odom MD : 1975 BED: DIS: 10/27/2021 SPEC #: [id number] RECD: 10/28/21 06:47 STATUS: ADRIAN RESavana #: [id number] NAY: 10/27/21 13:[address]: Monica Odom DEPT: SURGICAL PATHOLOGY RECD BY: Nallely Virk ENTERED: 10/28/21 08:09 SP TYPE: ROMIE BAI DR: Dr. Chandra Prado, DO Tissues: Gallbladder, NOS Procedures: Surgery Specimen Level III HEADER OPERATION: Laparoscopic cholecystectomy with IOC PRE-OP DIAGNOSIS: Right upper quadrant pain, cholelithiasis TISSUE SUBMITTED: Gallbladder MICROSCOPIC DIAGNOSIS Gallbladder, cholecystectomy: Cholesterolosis, chronic cholecystitis and cholelithiasis. AM:antonette 10/29/2021 MICROSCOPIC DESCRIPTION Slides are reviewed. GROSS DESCRIPTION Received is one container labeled with the patient's name and designated gallbladder. The specimen consists of a previously opened gallbladder measuring 6 x 3 x 2 cm. The external surface is smooth and glistening. Focally, it is granular, hemorrhagic and contains cautery artifact. The lumen of the gallbladder contains greenish mucoid bile and multiple small mulberry-shaped calculi averaging 1 cm each. Present free in the container are three yellow, mulberry-shaped calculi each averaging 1.2 cm in diameter. The mucosa is bile-stained and without any mass lesions. The gallbladder wall averages 0.2 cm in thickness and is free of mass lesions. Corporate Director Of Pharmacy sections of the gallbladder and the cystic duct at margin of resection are submitted in one cassette. / AM:antonette 10/28/2021 TC:3 CPT: 47144
[2021-10-27 13:37] LABS: Partial Thromboplast Time 33.4 Seconds (24.1-36.2)
[2021-10-27] MEDS: metroNIDAZOLE 500 MG/100 ML BAG 100 MG IV (14:04)
[2021-10-27] MEDS: Bupivacaine Mpf 0.5% 30 ML VIAL (14:27)
--- NOTE | 2021-10-27 15:05 | PCM.OPRPT ---
Report of Operation Date of Procedure: 10/27/21 Pre-Operative Diagnosis: Cholelithiasis, right upper quadrant Post-Operative Diagnosis: Same Surgery/Procedure Performed:: Laparoscopic cholecystectomy with cholangiograms Surgeon: Monica Odom Type of Anesthesia: General/Supplemental Anesthesiologist: Chandrakant Wyatt Special Medications: Cipro 400 mg IV x1, Flagyl 500 mg IV x1 Specimen's removed: Gallbladder and stones Estimated Blood Loss (mL): < 10 cc Description of Procedure: Indications: this is a 46 year-old female who developed abdominal pain/nausea/vomiting and on workup was found to have cholelithiasis, with a normal common bile duct. Laparoscopic cholecystectomy was elected. Description procedure: The patient was placed on operating table in supine position. A timeout was completed verifying correct patient, procedure, site, position and special equipment prior to beginning procedure. General Anesthesia was induced. The abdomen was prepped and draped in usual sterile fashion. An incision was made in the natural skin line above the umbilicus. The fascia was elevated and incised. The peritoneum was elevated and incised. Entry into the peritoneum was confirmed visually and no bowel was noted in the vicinity of the incision. Gaines trocar was placed. The abdomen was insufflated with carbon dioxide to a pressure of 12-15 mmHg. Patient tolerated insufflation well. The laparoscope was then inserted and abdomen inspected. No injuries from initial trocar placement were noted. Additional trochars were then inserted in the following locations 5 mm trocar in the epigastrium and 2 more 5 mm trochars along the right costal margin. The abdomen was inspected no abnormalities were found. The table is placed in reverse Trendelenburg position with the right side up. The dome of the gallbladder was grasped with atraumatic grasper passed through the lateral port and retracted over the dome of the liver. Infundibulum was then grasped with atraumatic grasper through the midclavicular port and retracted to the right lower quadrant. This maneuver exposed Calot's triangle. The peritoneum overlying the gallbladder infundibulum was then incised and cystic duct and artery identified and circumferentially dissected. Ranfac catheter was used for cholangiograms due to multiple small stones at the neck, small right upper quadrant stab incision was made to accommodate the Ranfac.. The cholangiogram showed good filling of the common bile duct into the duodenum with no filling defects, good filling of the right and left bile ducts as well. The cystic duct and artery were then doubly clipped and divided close to the gallbladder. The gallbladder then dissected from its peritoneal attachments by electrocautery. Hemostasis was checked and the gallbladder and contained stones were removed using the endoscopic retrieval bag through the umbilical port. The gallbladder is passed off table as specimen. The gallbladder fossa was irrigated with saline and hemostasis obtained. There is no evidence of bleeding from the gallbladder fossa or cystic artery leakage of bile from the cystic duct stump. Secondary trochars removed under direct vision. No bleeding was noted the trocar sites. The laparoscope was withdrawn and umbilical trocar removed. The abdomen was allowed to collapse. The fascia of the 12 mm trocar was closed with a dcnomw-[id number]-pvbso 0 Vicryl suture. The skin was closed with sutures of 4-0 Monocryl and Steri-Strips. The patient was extubated. The patient tolerated procedure well and was taken to the postanesthesia care unit in stable condition. Complications none
--- NOTE | 2021-10-27 15:08 | DCINST_ITS ---
Discharge Instructions Diet Discharge Diet: Light diet - advance as tolerated Activity Discharge Activity: May Not Drive (while taking narcotic pain medications.) May shower in (days): 1 Lifting Restrictions: no lifting >20 lbs x 2 wks, no strenuous exercise for 4 wks Dressing / Incision Call your doctor if your incision/area has: Continuous Slow Oozing, Sudden Increased Bleeding, Increased Pain/ Swelling, Increased Redness, Foul Smelling Discharge and Swelling at the incision site Call your doctor if you observe: Fever of 101 or Higher Remove Dressing in: 2 days Cleanse incision/area with: Soap & Water Additional Dressing/Incision Instructions:: Steri-Strips will fall off in 7 to 10 days, if they do not fall off okay to remove after 10 days. Follow Up Care Please Follow Up With: Monica Odom MD When: Call the office for a follow-up appointment 2 weeks; after 5 PM and on the weekends call [phone] with any concerns. Test Results: Test results from this visit will be discussed in further detail at your follow- up appointment, if applicable. Discharge Plan Admission Attending Provider: Monica Odom Primary Care Provider: Chandra Prado Instructions Additional Instructions / Restrictions: Okay to take ibuprofen 400-600 mg PO q6hr PRN along with the Percocet. Avoid Tylenol since there is already Tylenol in the Percocet. Take all pain meds with food. Percocet can cause constipation recommend taking daily stool softener (i.e. Colace/docusate) while taking the pain meds. Recommend starting some MiraLAX in 1 to 2 days if no bowel movement. If still no bowel movement the following day recommend taking magnesium citrate half the bottle and waiting 4-6 hours if still no results take the other half the bottle. Discharge Orders/Prescriptions Prescriptions: New oxycodone-acetaminophen 5-325 mg tablet 1 - 2 tab PO Q6H PRN (Reason: pain) 3 Days Qty: 16 0RF Continued nortriptyline 10 mg capsule 10 mg PO QHS naproxen 500 mg tablet 500 mg PO QHS clonazepam 1 mg tablet 1 mg PO QHS pantoprazole 40 mg tablet,delayed release (DR/EC) 40 mg PO DAILY Qty: 30 1RF Rx Instructions: Okay to take OTC famotidine 20 mg p.o. daily for the first 3 days when first starting medication; albuterol sulfate [Ventolin HFA] 1 INHALER inhaler 2 puff inhalation Q6H PRN PRN (Reason: Shortness Of Breath) lamotrigine 25 mg tablet, chewable dispersible 50 mg PO BID ondansetron 4 MG tablet 4 mg PO Q8H PRN PRN (Reason: Nausea) Qty: 10 0RF sucralfate 1 gram tablet 1 g PO 4X/DAY Qty: 56 0RF Rx Instructions: Take 1 hour before meals and at bedtime Referrals / Follow Up: Chandra Prado DO [Primary Care Provider] - Disposition Disposition (needs filled in before D/C Order can be placed): Home, Self Care
[2021-10-27] MEDS: oxyCODONE 5 MG Tablet PO (17:16)
[2021-10-27] MEDS: Acetaminophen 325 MG Tablet PO (17:16)
== END 2021-10-27 17:57 | disposition home or self-care (01) ==
LOC: SDC 11:52 → AC 11:55
PROVIDERS: Anesthesiology; PCP Family Medicine; Visit Provider Surgery
PROC: (CPT 47610; principal; 2021-10-27 13:15)
DX: K80.10 Calculus of gallbladder with chronic cholecystitis without obstruction (principal); F17.210 Nicotine dependence, cigarettes, uncomplicated; K25.9 Gastric ulcer, unspecified as acute or chronic, without hemorrhage or perforation; J45.909 Unspecified asthma, uncomplicated; Q24.9 Congenital malformation of heart, unspecified; I25.2 Old myocardial infarction; Z79.899 Other long term (current) drug therapy
CPT/HCPCS: 47563; 00790; 74300; 76000; 80048; 85027; 85730; 88304; 93005; J7120; J0744; J2405

== ENCOUNTER → 2022-04-13 | Outpatient (CLI) | payer MEDICAID, SELFPAY ==
[2022-04-13 17:42] LABS: Absolute Lymphocyte Count 2.34 X10^3/uL (0.83-4.51); Absolute Neutrophil Count 2.5 X10^3/uL (2.0-7.7); Basophil# 0.04 X10^3/uL; Basophil% 0.7 % (0-1); Eosinophil# 0.25 X10^3/uL; Eosinophils% 4.6 % (0-5); Hematocrit 39.6 % (37-47); Hemoglobin 12.8 g/dL (12.0-15.0); Lymphocyte # 2.34 X10^3/ul (0.83-4.51); Lymphocyte % 42.7 % (19-41); Mean Corp Hgb Conc 32.3 g/dL (32-36); Mean Corpuscular Volume 92.7 fL (81-99); Mean Platelet Vol. 9.9 fl (6.2-12.0); Monocyte# 0.39 X10^3/uL; Monocyte% 7.1 % (0-10); NRBC Flagged by Analyzer 0 % (0-5); Neutrophil # 2.45 X10^3/uL (2.7-7.7); Neutrophil % 44.7 % (47-70); Platelet Count 259 K/mm3 (150-450); RBC Distribution Width CV 12.6 % (11.6-14.6); Red Blood Count 4.27 M/mm3 (4.2-5.4); White Blood Count 5.5 K/mm3 (4.4-11.0)
[2022-04-13 17:50] LABS: International Normalized Ratio 1.1; Prothrombin Time (Protime)PT. 14.2 SECONDS (11.7-14.9)
[2022-04-13 18:07] LABS: Ferritin 69 ng/mL (8-252); Iron 94 ug/dL (50-170)
== END | disposition home or self-care (01) ==
LOC: BFHLAB 15:27
PROVIDERS: PCP Family Medicine; Visit Provider Family Medicine
DX: D64.9 Anemia, unspecified (principal); R58 Hemorrhage, not elsewhere classified
CPT/HCPCS: 36415; 82728; 83540; 85025; 85610

== ENCOUNTER 2022-05-06 13:50 | Observation (INO) | payer MEDICAID, SELFPAY ==
--- NOTE | 2022-04-27 16:53 | PCM.HP.BLA ---
History and Physical Date of Admission: 05/06/22 HPI: The patient is a 46 year old female presenting for pre-operative visit. She is scheduled for TVH with possible bilateral salpingectomy (had sterilization in 2018) for pelvic pain, heavy menstrual bleeding, has completed child bearing on 05/06/22. Procedure discussed along with risks, benefits and complications. Other alternatives discussed for management. Consent form signed? Yes. ? ? PAST MEDICAL HISTORY PAST MEDICAL HISTORY Diagnosis Date ? Anemia ? ? Asthma ? ? breast lump ? ? Congenital heart defect ? ? fracture ? ? right ankle -5 surgeries ? Herpes simplex type 2 (HSV-2) infection affecting , antepartum, unspecified trimester 01/13/2018 ? History of narcotic use 10/06/2017 ? 10/25/17-Patient seen in ER on 10/09/17 for 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 Xray negative. She was given Rx for Tylenol #3 but [place] report does not show this was filled. Please verify with patient at next visit. Jil Farrar APRN.CNM October 06, 2017 Vicodin use during > Please review [place], please review risks at next appt. and intermittently. Vish Colbert ? Kidney stone 08/29/2017 ? August 29, 2017 had renal US, there is a small 7 mm kidney stone nonobstructing, not causing an issue clinically in that location. Renal US done [facility] on 07/20/17. CT done 06/24/17 shows small right nonobstructing stone, none on left. Prisca Hines MD ? kidney stones ? ? Seizure disorder (HCC) 05/2013 ? Trichomoniasis 05/24/2018 ? ? PAST SURGICAL HISTORY PAST SURGICAL HISTORY Procedure Laterality Date ? ANKLE SURGERY HX ? ? ? REMOVAL GALLBLADDER ? 2020 ? REMOVAL OF OVARY(S) Right ? ? TUBAL LIGATION ? 03/03/2018 ? ? ? CURRENT MEDICATIONS Current Outpatient Medications Medication Sig Dispense Refill ? lamoTRIgine (LAMICTAL) 100 mg tablet Take 1 tablet by mouth as directed. Take 1 pill in the morning and 2 pills at bedtime 90 tablet 5 ? rizatriptan (MAXALT) 10 mg tablet take 1 tablet by mouth AT ONSET OF MIGRAINE, REPEAT IN 2 HOURS IF NEEDED ? ? ? temazepam (RESTORIL) 15 mg Take 15 mg by mouth at bedtime as needed. ? ? ? nortriptyline (PAMELOR) 10 mg capsule take 1 capsule by mouth at bedtime for migraines ? ? ? Naproxen-Esomeprazole Mag 500-20 mg TbID Take by mouth. ? ? ? albuterol HFA (VENTOLIN HFA) 90 mcg/actuation inhaler Inhale 2 Puffs as instructed every 4 hours as needed for Wheezing/Shortness of Breath. 1 Inhaler 0 ? fluconazole (DIFLUCAN) 150 mg tablet Take one tablet by mouth once. Then repeat every 3 days for 3 doses. (Patient not taking: Reported on 04/27/2022) 3 tablet 0 ? No current facility-administered medications for this visit. ? ? ALLERGIES: Adhesive Tape (Rosins), Dilaudid [Hydromorphone Hcl], Influenza Virus Vaccines, Penicillins, and Shellfish Derived ? PERSONAL HISTORY: SOCIAL HISTORY Social History ? Tobacco Use ? Smoking status: Some Days ? ? Years: 25.00 ? ? Types: Cigarettes ? ? Last attempt to quit: 2016 ? ? Years since quittin.9 ? Smokeless tobacco: Never Vaping Use ? Vaping Use: Some days ? Substances: Flavoring Substance Use Topics ? Alcohol use: Yes ? ? Comment: Socially ? Drug use: No ? FAMILY HISTORY: FAMILY HISTORY FAMILY HISTORY Problem Relation Age of Onset ? Diabetes Mother ? ? Cancer Father ? ? Breast Cancer Maternal Aunt ? ? Asthma Sister ? ? Heart Brother ? ? ? REVIEW OF SYMPTOMS: GENERAL: denies fevers or chills ENDOCRINOLOGY: has not been on steroids Cardiology : denies palpitations or chest pain Respiratory: denies SOB or cough Hematology: denies history of prolonged bleeding or easy bruising or VTE Allergy: Denies history of personal or family history of allergy to anesthesia ? PHYSICAL EXAMINATION: ? VITALS: Last menstrual period 02/09/2022. ? GENERAL: The patient is well nourished, well hydrated in no acute distress. , The patient is oriented to time, place, and person. NECK: Supple. No lynphadenopathy, normal thyroid, no thyromegaly. LUNGS: Clear to auscultation bilaterally. no wheezes, rhonchi or rales HEART: Regular rate and rhythm, Normal heart sounds, and No murmurs or gallops ? IMPRESSION: menorrhagia, pelvic pain. ? PLAN: The risks/benefits/alternatives and personal involved for the planned TVH, possible bilateral salpingectomy were reviewed with the patient. Her questions were answered to her satisfaction and she desires to proceed. Consent was signed. I reviewed with her postop instructions and expectations. ? ? I have reviewed and updated past medical and surgical history, medications and allergies Assessment & Plan Assessment/Plan (1) Menorrhagia: (2) Pelvic pain:
[2022-04-29 13:52] LABS: Partial Thromboplast Time 32.4 Seconds (24.1-36.2)
[2022-04-29 14:01] LABS: Anion Gap 1 (5-15); BUN 16 mg/dL (7-18); Chloride 109 mmol/L (98-107); EST Glomerular Filtration Rate 96 mL/min (>60); Est Glom Filt Rate - Afr Amer 116 mL/min (>60); Glucose 93 mg/dL (74-106); Magnesium 2.3 mg/dL (1.6-2.6); Potassium 4.3 mmol/L (3.5-5.1); Sodium Level 140 mmol/L (136-145)
[2022-05-04 22:23] LABS: Lamotrigine (Lamictal) Level 7.1 ug/mL (2.0-20.0)
[2022-05-06] VITALS (13 sets, daily range): BP systolic 101–121; BP diastolic 55–84; PULSE 91–112; RESP 14–16; TEMP 36.1–37.3; O2SAT 91–100; BMI 29.0
[2022-05-06] MEDS: Celecoxib 200 MG Capsule 400 MG PO (10:14)
[2022-05-06] MEDS: Acetaminophen 500 MG Tablet 1000 MG PO ×2 (10:14→18:19)
[2022-05-06] MEDS: Gabapentin 600 MG Tablet PO (10:15)
[2022-05-06] MEDS: Phenazopyridine 95 MG Tablet 190 MG PO (10:15)
[2022-05-06] MEDS: Enoxaparin 40 MG/0.4 ML Syringe SC (10:15)
[2022-05-06] MEDS: Magnesium 1 GM over 15 mins IV (10:16)
[2022-05-06] MEDS: Lactated Ringers 1,000 ML 40 ML IV (10:16)
--- NOTE | 2022-05-06 11:30 | HYST_PTH ---
PATIENT: EVELYNE MARAVILLA LOC: [facility] U#:[id number] AGE/SX: 46/F ROOM: [facility] RE05/06/[address]: Dr. Prisca Hines MD : 1975 BED: 1 DIS: 05/07/2022 SPEC #: [id number] RECD: 05/06/22 16:40 STATUS: ADRIAN ANDERSEN #: [id number] NAY: 05/06/22 11:[address]: Prisca Hines DEPT: SURGICAL PATHOLOGY RECD BY: Sandra Lemos ENTERED: 05/07/22 08:59 SP TYPE: HYSTERECT OTHR DR: Dr. Chandra Prado, DO Tissues: Uterus, NOS Procedures: Surgery Specimen Level V HEADER OPERATION: ERAS, vaginal hysterectomy, cystoscopy PRE-OP DIAGNOSIS: Menorrhagia, pelvic pain TISSUE SUBMITTED: Uterus, cervix MICROSCOPIC DIAGNOSIS Uterus, hysterectomy: Cervix ? nabothian cysts and squamous metaplasia. Endometrium ? proliferative endometrium. Myometrium ? superficial adenomyosis. AM:antonette 05/11/2022 MICROSCOPIC DESCRIPTION Slides are reviewed. GROSS DESCRIPTION Received in fixative is one container labeled with the patient's name and designated uterus, cervix. The specimen consists of a hysterectomy specimen consisting of uterus with cervix weighing 162 gm and measuring 10 x 7.5 x 5.5. The serosal surface is ragged. The ectocervical mucosa is congested. The external os is circular in contour. The endocervical canal measures 4 cm in length and the endocervical mucosa is unremarkable. The triangular endometrial cavity measures 5.5 cm in length and up to 3 cm in width. The endometrium is vela, glistening without any mass lesion and measures 0.2 cm in thickness. Sections of the uterine wall do not reveal any mass lesion and measures up to 2.5 cm in thickness. [employer]ak[employer] sections are submitted in six cassettes as follows: 1 - anterior cervix, 2 - posterior cervix, 3 & 4 - anterior uterine wall, 5 & 6 - posterior uterine wall. / ZAY:antonette 05/07/2022 TC: 5 CPT: 04348
[2022-05-06] MEDS: dexAMETHasone 10 MG/ML Vial 8 MG IV (12:22)
[2022-05-06] MEDS: Cefazolin 2 GM in 0.9% Normal Saline 100 ML IV (12:29)
[2022-05-06] MEDS: Lidocaine 2% /Epi 1:100 (20ml) 20 ML VIAL (12:33)
[2022-05-06 12:45] LABS: Bedside Glucose 113 mg/dL (74-106)
--- NOTE | 2022-05-06 13:43 | OP.PCM_ITS ---
Problems Associated Problem List Diagnoses (1) Menorrhagia: (2) Pelvic pain: Report of Operation Date of Procedure: 05/06/22 Pre-Operative Diagnosis: menorrhagia, pelvic pain Post-Operative Diagnosis: same Surgery/Procedure Performed:: TVH w/ cystoscopy Description of Surgical Findings:: boggy uterus, normal ovaries Surgeon: Prisca Hines pasting inspector: Octavia Avalos Type of Anesthesia: General Anesthesiologist: Vicky Cheema Special Medications: none Specimen's removed: uterus and cervix Drains: NONE Estimated Blood Loss (mL): 30 Fluids Replaced: 1000 cc Description of Procedure: The patient was taken to the operating room where she was prepped and draped in the normal sterile fashion in the dorsal lithotomy position. A weighted speculum was placed in the vagina and the anterior lip of the cervix was grasped with a Megan clamp. The vaginal epithelium was infiltrated circumferentially around the cervix with 1% Xylocaine solution. An incision was made the anterior with a scalpel and the vaginal epithelium was dissected back with blunt and sharp dissection. The anterior colpotomy incision was made sharply. Entry into the anterior cul-de-sac was confirmed by visualization of the uterine fundus and bowel behind the uterus. The vaginal epithelium around the cervix was clamped with Leighann clamps, transected and suture-ligated on both sides. The cardinal ligaments were clamped transected and suture ligated. The remainder of the cardinal ligament with the uterine arteries was clamped transected and suture ligated. The uterus was flipped and brought through the anterior cul-de-sac. The utero-ovarian ligaments and tubes were clamped transected and suture ligated. The uterosacral ligaments were then clamped, transected and suture-ligated. A aoodjq-[id number]-pjlqn suture was needed in the vagina in the midline between the 2 clamps. Small particles of tube were very adherent to the ovary and decision was made not to remove them because of risk of bleeding. The pedicles were all examined again and found to be hemostatic. At this point a Hensley's culdoplasty was done with 2-0 PDS suture. Entering the posterior vaginal cuff the peritoneum was secured reefed across the peritoneum to the right uterosacral ligament, back across the peritoneum to the left uterosacral ligament and back out through the posterior vaginal wall. The vaginal cuff was then reapproximated horizontally with interrupted 0 Vicryl [id number] sutures. The Hensley's sutures were tied down. The vaginal cuff was hemostatic and excellent support was noted. A cystoscopy was performed in the usual sterile fashion. The bladder was intact. Both ureteral orifices were identified with strong ureteral jets noted from both sides The Ingram was left out. The vaginal sweep was completed by me. All sponge lap and needle counts were correct. Patient was awakened and taken to the recovery room in stable condition. Grafts/Implants Used: none Procedure Start Time: 12:33 Procedure Stop Time: 13:38 Complications none Admit VTE Documentation VTE Present on Admission: No VTE Mechan Device Prophylaxis: SCD's VTE Pharm Prophylaxis ordered?: No Reason prophylaxis not ordered:: Procedure Not Indicated
[2022-05-06] MEDS: Lactated Ringers @ 40 MLS/HR 40 ML IV (14:05)
[2022-05-06] MEDS: Ondansetron 4 MG/2 ML Vial IV (14:14)
[2022-05-06] MEDS: Ketorolac 30 MG/ML Syringe IV (18:19)
[2022-05-06] MEDS: oxyCODONE 5 MG Tablet PO (20:00)
[2022-05-06] MEDS: clonazePAM 1 MG Tablet PO (21:56)
[2022-05-06] MEDS: lamoTRIgine 100 MG Tablet PO (21:56)
[2022-05-06] MEDS: Docusate Sodium 100 MG Capsule PO (21:56)
[2022-05-06] MEDS: Nortriptyline 10 MG Capsule PO (21:58)
--- NOTE | 2022-05-06 22:09 | NURSING ---
Emergency charting in effect.
[2022-05-07] MEDS: Ketorolac 30 MG/ML Syringe IV ×2 (00:08→05:29)
[2022-05-07] MEDS: Acetaminophen 500 MG Tablet 1000 MG PO ×2 (00:08→05:30)
[2022-05-07] MEDS: 0.9% Saline Lock 10 ML Syringe IV ×2 (00:08→05:29)
[2022-05-07 02:00] VITALS: BP 109/69; PULSE 99; RESP 18; TEMP 37.1; O2SAT 95
[2022-05-07 04:59] LABS: Hematocrit 35.4 % (37-47); Hemoglobin 11.1 g/dL (12.0-15.0); Mean Corp Hgb Conc 31.4 g/dL (32-36); Mean Corpuscular Hgb 28.8 pg (27.0-32.0); Mean Corpuscular Volume 91.7 fL (81-99); Mean Platelet Vol. 9.2 fl (6.2-12.0); Platelet Count 272 K/mm3 (150-450); RBC Distribution Width CV 12.5 % (11.6-14.6); RBC Distribution Width SD 42.1 fl (35.1-43.9); Red Blood Count 3.86 M/mm3 (4.2-5.4); White Blood Count 10.7 K/mm3 (4.4-11.0)
[2022-05-07 08:00] VITALS: BP 115/80; PULSE 109; RESP 14; TEMP 36.7; O2SAT 96
--- NOTE | 2022-05-07 09:11 | PCM.PN.BLA ---
Progress Note pain well controlled. Minimal spotting vaginally. Ambulating and tolerating regular diet. No N/V. Able to urinate without difficulty Physical Exam Narrative awake, alert, NAD. Abd- soft w/ mild distention, mild tenderness Assessment & Plan Assessment/Plan (1) Menorrhagia: PLAN: POD#1 s/p TVH, doing well. Blood count stable. r kenny for d/c home today.
--- NOTE | 2022-05-07 09:13 | DCINST_ITS ---
Discharge Instructions Diet Discharge Diet: Light diet - advance as tolerated Activity Discharge Activity: May Drive (in 7 days if not taking pain medication), May Shower and May Take a Tub Bath (after your 6 week postop appointment) May resume sexual activity in: 6-8 weeks Weight Bearing Status: Full weight bearing Lifting Restrictions: 15 lbs x 6 weeks Dressing / Incision Call your doctor if your incision/area has: Continuous Slow Oozing, Sudden Increased Bleeding and Foul Smelling Discharge Call your doctor if you observe: Fever of 101 or Higher Follow Up Care Please Follow Up With: Prisca Hines MD When: as scheduled next week or as needed Test Results: Test results from this visit will be discussed in further detail at your follow- up appointment, if applicable. Discharge Plan Admission Admit Date/Time: 05/06/22 13:50 Attending Provider: Prisca Hines Primary Care Provider: Chandra Prado Discharge Orders/Prescriptions Prescriptions: No Action nortriptyline 10 mg capsule 10 mg PO QHS naproxen 500 mg tablet 500 mg PO QHS clonazepam 1 mg tablet 1 mg PO QHS albuterol sulfate [Ventolin HFA] 1 INHALER inhaler 2 puff inhalation Q6H PRN PRN (Reason: Shortness Of Breath) lamotrigine 25 mg tablet, chewable dispersible 100 mg PO BID pantoprazole 40 mg tablet,delayed release (DR/EC) 40 mg PO DAILY Rx Instructions: take 1 tablet by mouth daily ---OKAY TO TAKE OTC FAMOTIDINE 20 MG THE FIRST 3 DAYS WHEN STARTING THIS MEDICATION Referrals / Follow Up: Chandra Prado DO [Primary Care Provider] -
--- NOTE | 2022-05-07 09:14 | DCINST_ITS ---
Discharge Instructions Diet Discharge Diet: Light diet - advance as tolerated Activity May resume sexual activity in: 6-8 weeks Weight Bearing Status: Full weight bearing Dressing / Incision Call your doctor if your incision/area has: Continuous Slow Oozing, Sudden Increased Bleeding and Foul Smelling Discharge Call your doctor if you observe: Fever of 101 or Higher Follow Up Care Please Follow Up With: Prisca Hines MD Test Results: Test results from this visit will be discussed in further detail at your follow- up appointment, if applicable. Discharge Plan Admission Admit Date/Time: 05/06/22 13:50 Primary Reason for Your Visit: vaginal hysterectomy Attending Provider: Prisca Hines Primary Care Provider: Chandra Prado Discharge Orders/Prescriptions Prescriptions: New ibuprofen [ibuprofen] 600 MG tablet 600 mg PO Q6H PRN (Reason: Pain) 20 Days Qty: 60 1RF oxycodone 5 MG tablet 5 mg PO Q8H PRN (Reason: severe pain) 7 Days Qty: 10 0RF Continued nortriptyline 10 mg capsule 10 mg PO QHS naproxen 500 mg tablet 500 mg PO QHS clonazepam 1 mg tablet 1 mg PO QHS albuterol sulfate [Ventolin HFA] 1 INHALER inhaler 2 puff inhalation Q6H PRN PRN (Reason: Shortness Of Breath) lamotrigine 25 mg tablet, chewable dispersible 100 mg PO BID pantoprazole 40 mg tablet,delayed release (DR/EC) 40 mg PO DAILY Rx Instructions: take 1 tablet by mouth daily ---OKAY TO TAKE OTC FAMOTIDINE 20 MG THE FIRST 3 DAYS WHEN STARTING THIS MEDICATION Referrals / Follow Up: Chandra Prado DO [Primary Care Provider] -
[2022-05-07] MEDS: lamoTRIgine 100 MG Tablet PO (10:24)
[2022-05-07] MEDS: Docusate Sodium 100 MG Capsule PO (10:24)
[2022-05-07] MEDS: oxyCODONE 5 MG Tablet PO (10:28)
[2022-05-07] MEDS: Ensure Plus High Protein 120 ML LIQUID PO (10:28)
== END 2022-05-07 13:20 | disposition home or self-care (01) ==
LOC: SDC 15:03 → MS3 15:03
PROVIDERS: Admitting Provider Obstetrics & Gynecology; PCP Family Medicine; Referring Provider Obstetrics & Gynecology; Visit Provider Obstetrics & Gynecology
PROC: (CPT 58260; principal; 2022-05-06 11:10)
DX: N92.0 Excessive and frequent menstruation with regular cycle (principal); G40.909 Epilepsy, unspecified, not intractable, without status epilepticus; J45.909 Unspecified asthma, uncomplicated; Q24.9 Congenital malformation of heart, unspecified; Z86.2 Personal history of diseases of the blood and blood-forming organs and certain disorders involving the immune mechanism; R10.2 Pelvic and perineal pain; I25.2 Old myocardial infarction; Z79.899 Other long term (current) drug therapy; R06.02 Shortness of breath; F17.210 Nicotine dependence, cigarettes, uncomplicated; F17.290 Nicotine dependence, other tobacco product, uncomplicated
CPT/HCPCS: 58260; 00944; 36415; 80048; 82542; 82962; 83735; 85027; 85730; 86850; 86900; 86901; 88307; 96374; 96376; 99221; 99251; J7120; A4216; G0378; G0463; J2405; J3475

== ENCOUNTER 2022-12-22 19:56 | Emergency (ER) | payer MEDICAID, SELFPAY ==
[2022-12-22 19:58] VITALS: BP 135/89; PULSE 110; RESP 16; TEMP 36.1; O2SAT 98; BMI 29.4
--- NOTE | 2022-12-22 20:36 | CT_ITS ---
STUDY: CT ABDOMEN AND PELVIS WITHOUT CONTRAST REASON FOR EXAM: Female, 47 years old. Nausea and vomiting RADIATION DOSAGE (If Supplied By Facility): CTDIvol = ( 10.82 ) mGy, DLP = ( 556.84 ) mGycm TECHNIQUE: Transaxial images were obtained from the dome of the diaphragm to the symphysis pubis without oral contrast, and without intravenous contrast. Sagittal and coronal images were reconstructed. Individualized dose optimization techniques were used for this CT. COMPARISON: October 07, 2021 FINDINGS: There is left lower lung atelectasis. The visualized portions of the heart are within normal limits. Normal liver. There are surgical clips in the gallbladder fossa consistent with a prior cholecystectomy. Normal spleen. Normal pancreas. Normal bilateral adrenal glands. Normal right kidney. Normal left kidney. Normal visualized stomach. Normal small intestine. Normal colon. The appendix is visualized and appears normal. Normal abdominal aorta. Normal inferior vena cava. Normal retroperitoneum. Normal urinary bladder. There is absence of the uterus consistent with a prior hysterectomy. There is no free fluid in the abdomen or pelvis. There is a small umbilical hernia containing fat. There is lumbar levoscoliosis with degenerative change. CT/Abdomen/Pelvis without Cont IMPRESSION: Postoperative change. No obstruction. Electronically Signed: Tim Spivey MD at 21:34 EDT ,
--- NOTE | 2022-12-22 20:44 | ED.VIS.GI ---
HPI HPI - GI History of Present Illness Chief Complaint: Abd Pain Informant: spouse/S.O. Narrative Narrative: Progressive right lower quadrant abdominal pain since yesterday. Nausea with no vomiting. Stools are loose however not bloody. No fevers or chills. Cholecystectomy within the past year by Dr. Odom. Hysterectomy in the past. Urine frequency. No anticoagulants. Still has her appendix. Allergies to Dilaudid however tolerated morphine. PFSH PFSH Medical History Alcohol use Asthma Back pain Cardiology follow-up encounter Complete edentulism, class III Congenital heart defect Easy bruising Family history of patent foramen ovale Grand multipara Heartburn Herpes History of echocardiogram History of narcotic use History of stress test Hx of scoliosis Injury of head and neck IUGR (intrauterine growth restriction) Leg cramps Low iron Migraine headache Myocardial infarction Pyelectasis of fetus on ultrasound Seizure disorder Seizures Shortness of breath on exertion Smoker Syncope Wears glasses Home Medications albuterol sulfate 90 mcg/actuation aerosol inhaler (Ventolin HFA) 2 puff inhalation Q6H PRN PRN Shortness Of Breath 05/19/17 [History Last Taken 10/31/17] naproxen 500 mg tablet 500 mg PO QHS 01/09/21 [History Last Taken Unknown] nortriptyline 10 mg capsule 10 mg PO QHS 01/09/21 [History Last Taken Unknown] clonazepam 1 mg tablet 1 mg PO QHS 09/21/21 [History Last Taken Unknown] lamotrigine 25 mg chewable dispersible tablet 100 mg PO BID siezures 09/21/21 [History Last Taken 05/06/22] ibuprofen 600 mg tablet 600 mg PO Q6H PRN Pain 20 days #60 TABLETS 05/07/22 [Rx Last Taken Unknown] pantoprazole 40 mg tablet,delayed release See Rx Instructions .Route .COMPLEX #30 TABLETS 07/19/22 [Rx Last Taken Unknown] cefuroxime axetil 500 mg tablet 500 mg PO BID #14 tabs 12/22/22 [Rx Last Taken Unknown] ondansetron 4 mg disintegrating tablet 4 mg PO Q8H PRN PRN Nausea #10 tabs 12/22/22 [Rx Last Taken Unknown] Allergy/AdvReac Type Severity Reaction Status Date / Time Fish Containing Products Allergy Severe Anaphylaxis Verified 12/22/22 19:57 shellfish derived Allergy Severe Anaphylaxis Verified 12/22/22 19:57 hydromorphone HCl Allergy Hives Verified 12/22/22 19:57 [From Dilaudid] Penicillins [PCN] Allergy Hives Verified 12/22/22 19:57 influenza virus vaccine ts AdvReac Mild Rash Verified 12/22/22 19:57 [id number] (36 mos,up) [From Fluarix] adhesive tape AdvReac Rash Verified 12/22/22 19:57 Family History Mother Diabetes Father Cancer Sister Asthma Brother Heart disease Surgical History History of ankle surgery History of cardiac catheterization History of cholecystectomy History of colonoscopy History of esophagogastroduodenoscopy (EGD) History of oophorectomy, unilateral History of tubal ligation (~02/2018) Social History Smoking Status: Current every day smoker tobacco type: cigarettes ROS ROS ED Constitutional Constitutional ED: Denies chills, fever(s) or sweats Eyes Eyes: Denies change in vision ENT ENT ED: Denies dysphagia or sore throat Cardiovascular Cardiovascular: Denies chest pain, leg edema, palpitations or racing heartbeat Respiratory/Chest Respiratory/Chest: Denies cough, dyspnea or dyspnea on exertion Gastrointestinal Gastrointestinal: Reports abdominal pain and nausea; Denies diarrhea or vomiting Genitourinary Genitourinary ED: Denies dysuria, hematuria or urinary frequency Musculoskeletal Musculoskeletal: Denies back pain, extremity pain or neck pain Integumentary Denies rash or wounds Neurologic Neurologic: Denies headache(s), paresthesias or weakness EXAM Physical Exam Const Vital Signs: 12/22/22 19:58 12/22/22 21:56 12/22/22 23:06 Temperature 96.9 F L Temperature Source Temporal Pulse Rate 110 H 85 68 Respiratory Rate 16 14 14 Blood Pressure 135/89 H 134/90 H 127/85 H Blood Pressure Mean 104 104 99 Pulse Ox 98 99 96 Oxygen Delivery Method Room Air Room Air Positive well nourished and well developed General Appearance ED: well developed and NAD HEENT Reports moist mucous membranes normocephalic and atraumatic Eyes PERRL, EOMs intact bilaterally and conjunctivae normal General Eye ED: Yes normal appearance of both eyes Neck no lymphadenopathy and supple General: Negative for tenderness Chest Wall Chest: Negative for tenderness Resp normal respiratory effort and normal air movement Effort and Inspection: symmetric chest movement; Negative for respiratory distress Cardio regular rate, regular rhythm and no murmurs Rate: tachycardic Peripheral Pulses: pulses 2+ throughout GI normal to inspection, nondistended, normoactive bowel sounds GI Narrative: Tender right lower quadrant with guarding Palpation: Negative for guarding or rebound tenderness present Back/Spine no CVA tenderness and no thoracic nor lumbar tenderness Extremity normal to inspection General Extremety ED: Negative for edema or tenderness General Extremity: Negative for edema Neuro oriented x3 and no sensory deficits noted Sensorium / Orientation: awake and alert Skin no rashes or lesions noted and no wounds MDM MDM MDM Narrative Medical decision making narrative: Interventions / MDM: Differential diagnosis: Diagnosis considered but do not suspect: N/A My EKG interpretation: N/A Imaging independently reviewed and interpreted by myself: N/A External documents reviewed: N/A Test considered but not ordered:N/A ED course: Patient with right lower quadrant pain progress since yesterday. Nausea without vomiting. Denies fevers. Labs were ordered urine test, CT scan of abdomen pelvis ordered. Morphine ordered for pain control. Zofran IV fluids. 0: Labs White count 6. Creatinine 0.78. Did urine result for urine frequency noted nitrite and leukocytes. 1+ bacteria. Her CT scan reviewed and also read by her allergy. On states he stave planer tender on exam she still has guarding. I will speak with her surgeon who is on Dr. Odom due to her persistent pain. 2240: I spoke with her surgeon, she reviewed imaging there is no signs of appendicitis. She states no indication for her involvement at this time. She reported had pelvic procedure at the end of April. Discussed with the patient this, she had menorrhalgia. States this pain is different. She had a right-sided nephrectomy from ectopic years ago, with her hysterectomy she had left nephrectomy. There are no pelvic structures for concerns of any emergent issues from this. At this time we will give antibiotics of Rocephin and additional morphine given for pain. Will reevaluate. 2350: Reevaluation feeling much better abdomen exam soft there is no guarding. This time she is feeling much better, discussed we will continue antibiotic treatment. She will use Tylenol as needed for pain control. Strict return precaution if pain worsens or returns. Prescription for Zofran to use as needed also sent to her pharmacy. All questions were answered. Re-evaluation: stable Disposition discussed with patient/family/significant other: Patient and significant other Case discussed with consulting clinician: General surgery, Dr. Odom This note was generated with [employer] dictation software. It may contain incorrect words, spelling, and punctuation that were not noted in checking the note before signing. Lab Data Attestation: I reviewed the patient's lab results. Labs: Laboratory Results - last 24 hr 12/22/22 12/22/22 20:48 21:25 WBC 6.5 RBC 4.09 L Hgb 11.7 L Hct 37.3 MCV 91.2 MCH 28.6 MCHC 31.4 L RDW Std Deviation 41.6 RDW Coeff of [place] 12.6 Plt Count 308 MPV 9.3 Immature Gran % (Auto) 0.300 Neut % (Auto) 57.3 Lymph % (Auto) 33.0 [place] % (Auto) 7.1 Eos % (Auto) 1.7 Baso % (Auto) 0.6 Absolute Neuts (auto) 3.7 Absolute Lymphs (auto) 2.13 Nucleated RBC % 0 Sodium 142 Potassium 3.5 Chloride 110 H Carbon Dioxide 29.0 Anion Gap 3 L BUN 18 Creatinine 0.78 Estim Creat Clear Calc 86.71 Est GFR (MDRD) Af Amer 102 Est GFR (MDRD) Non-Af 84 BUN/Creatinine Ratio 23.2 H Glucose 102 Calcium 8.7 Urine Color Yellow Urine Clarity Clear Urine pH 7.0 Ur Specific [place] 1.015 Urine Protein Negative Urine Glucose (UA) Normal Urine Ketones Negative Urine Occult Blood 10 H Urine Nitrite Positive H Urine Bilirubin Negative Urine Urobilinogen Normal Ur Leukocyte Esterase 25 H Urine RBC 0 SEEN Urine WBC 0-5 SEEN Ur Squamous Epith Cells 0-5 SEEN Urine Bacteria 1+ Urine Mucus 0 SEEN Radiography Diagnostic Testing: Clinical Impression(s) from Imaging Studies Abdomen/Pelvis CT 12/22/22 20:36 IMPRESSION: Postoperative change. No obstruction. Electronically Signed: Tim Spivey MD at 21:34 EDT , Discharge Plan Triage Chief Complaint: Abd Pain ED Provider: Sherman Villalobos Dx/Rx/DC Orders Clinical Impression: Abdominal pain, RLQ, UTI (urinary tract infection) Instructions: Urinary Tract Infections in Women, ED Abdominal Pain Unkn Cause Fem Prescriptions: New cefuroxime axetil 500 mg tablet 500 mg PO BID Qty: 14 0RF ondansetron [ondansetron] 4 mg tablet,disintegrating 4 mg PO Q8H PRN PRN (Reason: Nausea) Qty: 10 0RF No Action nortriptyline 10 mg capsule 10 mg PO QHS naproxen 500 mg tablet 500 mg PO QHS clonazepam 1 mg tablet 1 mg PO QHS albuterol sulfate [Ventolin HFA] 1 INHALER inhaler 2 puff inhalation Q6H PRN PRN (Reason: Shortness Of Breath) lamotrigine 25 mg tablet, chewable dispersible 100 mg PO BID ibuprofen [ibuprofen] 600 MG tablet 600 mg PO Q6H PRN (Reason: Pain) 20 Days Qty: 60 1RF pantoprazole 40 mg tablet,delayed release (DR/EC) See Rx Instructions .ROUTE .COMPLEX Qty: 30 1RF Dose Instruction: TAKE 1 TABLET BY MOUTH DAILY *OKAY TO TAKE OTC FAMOTIDINE 20 MG THE FIRST 3 DAYS WHEN STARTING THIS MEDICATION Rx Instructions: TAKE 1 TABLET BY MOUTH DAILY Primary Care Provider: Chandra Prado Referrals: Chandra Prado DO [Primary Care Provider] - 3-5 Days Activity Restrictions/Additional Instructions: Your CT scan is normal today. You have findings of urinary tract infection. Take antibiotic prescribed. Use Tylenol as needed. Nausea medicines as needed. If your pain worsens or develop new symptoms return for reevaluation. Disposition Disposition: Home, Self Care Discharge Date/Time: 12/23/22 00:01
[2022-12-22] MEDS: Morphine 4 MG/ML Syringe IV ×2 (20:45→22:55)
[2022-12-22] MEDS: Ondansetron 4 MG/2 ML Vial IV (20:45)
[2022-12-22] MEDS: 0.9% Normal Saline 1,000 ML 1000 ML IV (20:45)
[2022-12-22 21:17] LABS: Absolute Lymphocyte Count 2.13 X10^3/uL (0.83-4.51); Absolute Neutrophil Count 3.7 X10^3/uL (2.0-7.7); Basophil# 0.04 X10^3/uL; Basophil% 0.6 % (0-1); Eosinophil# 0.11 X10^3/uL; Eosinophils% 1.7 % (0-5); Hematocrit 37.3 % (37-47); Hemoglobin 11.7 g/dL (12.0-15.0); Lymphocyte # 2.13 X10^3/ul (0.83-4.51); Mean Corp Hgb Conc 31.4 g/dL (32-36); Mean Corpuscular Hgb 28.6 pg (27.0-32.0); Mean Corpuscular Volume 91.2 fL (81-99); Mean Platelet Vol. 9.3 fl (6.2-12.0); Monocyte# 0.46 X10^3/uL; Monocyte% 7.1 % (0-10); NRBC Flagged by Analyzer 0 % (0-5); Neutrophil # 3.69 X10^3/uL (2.7-7.7); Neutrophil % 57.3 % (47-70); Platelet Count 308 K/mm3 (150-450); RBC Distribution Width CV 12.6 % (11.6-14.6); RBC Distribution Width SD 41.6 fl (35.1-43.9); Red Blood Count 4.09 M/mm3 (4.2-5.4); White Blood Count 6.5 K/mm3 (4.4-11.0)
[2022-12-22 21:18] LABS: Anion Gap 3 (5-15); BUN 18 mg/dL (7-18); BUN/Creat Ratio 23.2 RATIO (10-20); Calcium,Total 8.7 mg/dL (8.5-10.1); Chloride 110 mmol/L (98-107); Creatinine, Serum 0.78 mg/dL (0.55-1.02); EST Glomerular Filtration Rate 84 mL/min (>60); Est Glom Filt Rate - Afr Amer 102 mL/min (>60); Estimated Creatinine Clearance 86.71 ml/min; Glucose 102 mg/dL (74-106); Potassium 3.5 mmol/L (3.5-5.1); Sodium Level 142 mmol/L (136-145)
[2022-12-22 21:26] LABS: Mucous, Urine 0 SEEN /hpf (<or=2+); Red Blood Cells-Urine 0 SEEN /hpf (0-5)
[2022-12-22 21:42] LABS: Color, Urine Yellow (Yellow); Glucose, Dipstick Normal (Normal); Ketone-Dipstick Negative (Negative); Leukocyte Esterase-Dipstick 25 /ul (Negative); Nitrite-Dipstick Positive (Negative); Occult Blood-Urine 10 /ul (Negative); Protein-Dipstick Negative (Negative); Specific Gravity, Urine 1.015 (1.002-1.030); Urine Bilirubin Dipstick Negative (Negative); Urine Clarity Clear (Clear); Urine Urobilinogen Normal (Normal)
[2022-12-22 21:49] LABS: Bacteria 1+ /hpf (None Seen); Squamous Epithelial Cells - UA 0-5 SEEN /hpf (5-10); White Blood Cells 0-5 SEEN /hpf (0-5)
[2022-12-22 21:56] VITALS: BP 134/90; PULSE 85; RESP 14; O2SAT 99
[2022-12-22] MEDS: Ceftriaxone 1 GM/50 ML BAG IV (22:54)
[2022-12-22 23:06] VITALS: BP 127/85; PULSE 68; RESP 14; O2SAT 96
== END 2022-12-23 00:01 | disposition home or self-care (01) ==
PROVIDERS: Emergency Provider Emergency Medicine; PCP Family Medicine; Visit Provider Emergency Medicine
DX: R10.31 Right lower quadrant pain (principal); N39.0 Urinary tract infection, site not specified; F17.210 Nicotine dependence, cigarettes, uncomplicated; I25.2 Old myocardial infarction; J45.909 Unspecified asthma, uncomplicated; Z79.899 Other long term (current) drug therapy
CPT/HCPCS: 74176; 80048; 81001; 85025; 87077; 87086; 87088; 87186; 96365; 96375; 96376; 99283; J7030; J7050; A4216; J2405

== ENCOUNTER → 2023-03-02 | Outpatient (CLI) | payer MEDICAID, SELFPAY ==
[2023-03-02 16:19] LABS: Erythrocyte Sedimentation Rate 14 mm/hr (0-30)
[2023-03-02 16:23] LABS: CRP < 2.90 mg/L (0.0-3.0)
== END | disposition home or self-care (01) ==
LOC: BFHLAB 11:46
PROVIDERS: PCP Family Medicine; Visit Provider Family Medicine
DX: R10.9 Unspecified abdominal pain (principal)
CPT/HCPCS: 36415; 85652; 86140

== ENCOUNTER → 2023-06-03 | Outpatient (CLI) | payer MEDICAID, SELFPAY ==
--- NOTE | 2023-06-03 09:13 | MRI_ITS ---
EXAM: MR ABDOMEN AND PELVIS WITHOUT INTRAVENOUS CONTRAST CLINICAL INDICATION: Reason For Exam: Trauma, Fall TECHNIQUE: Multiplanar and multisequence MR images of the abdomen and pelvis without intravenous contrast. CONTRAST: 15 cc of Clariscan IV. COMPARISON: No relevant prior studies available. FINDINGS: LOWER THORAX: Unremarkable. No pleural effusion. ABDOMEN: LIVER: Unremarkable. Normal morphology. GALLBLADDER AND BILE DUCTS: Cholecystectomy. No intra- or extrahepatic biliary ductal dilation. PANCREAS: Unremarkable. No focal cystic mass. SPLEEN: Unremarkable. Normal size without focal cystic or solid mass. ADRENALS: Unremarkable. No nodules. KIDNEYS AND URETERS: Unremarkable. Normal renal size and position. No hydronephrosis. PELVIS: APPENDIX: No evidence of acute appendicitis. BLADDER: Unremarkable. PROSTATE: Unremarkable as visualized. No hypertrophy. No contour abnormality. SEMINAL VESICLES: Unremarkable as visualized. No nodule or cyst. ABDOMEN and PELVIS: INTRAPERITONEAL SPACE: Unremarkable. No ascites or other fluid collection. VASCULATURE: Unremarkable. Abdominal aorta is non-dilated. LYMPH NODES: No enlarged lymph nodes. MRI/MRI Abd WITH and W/O Contrast IMPRESSION: 1. Cholecystectomy. 2. No bowel abnormalities. Electronically Signed: Shar Montano MD at 3:18 EST ,
--- OUTSIDE RECORDS SUMMARY | 2023-06-03 09:26 | XMS RPT_ITS | CCD ---
Author Name Unknown Address [id number] [place] [address] Organization [facility] Care Team Providers Care Automation Application Engineer Name Role Phone Marj Read Unavailable Unavailable Marj Read Unavailable Unavailable Marj Read Unavailable Unavailable [facility] Nurse Unavailable Unavailable Liborio Prado DO A Primary Care Provider Liborio Prado DO A Primary Care Provider DR LIBORIO PRADO DO A Primary Care Physician WILFRIDO HORNE, JW Jordan Attending Unavail able DR LIBORIO PRADO DO A Primary Care Unavailab LIBORIO Cisneros Primary Care Unavailable LEIGHA YU Admitting Unavailable LEIGHA YU Attending Unavailable MICHA DO Attending UnavailLIBORIO Valente Primary Care Unavailable RACHEL VELASQUEZ Referring Unavailable RACHEL VELASQUEZ Attending Unavailable LIBORIO PRADO Primary Care Unavailable LIANNE YU Referring Unavailable LIANNE YU Attending Unavailable LIBORIO PRADO Primary Care Unavailable LIANNE YU Attending Unavailable LIBORIO PRADO Primary Care Unavailable NICHOLAS, YONNY Referring Unavailable LIBORIO PRADO Primary Care Unavailable NICHOLAS, YONNY Referring Unavailable LIBORIO PRADO Primary Care Unavailable RACHEL VELASQUEZ Referring Unavailable LIBORIO PRADO Primary Care Unavailable RACHEL VELASQUEZ Attending Unavailable LIBORIO PRADO Primary Care Unavailable Allergies Allergy Classification Reported Allergen(s) Allergy Type Date of Onset Reaction(s) Facility (4 sources) Adhesive Tape drug allergy 6 [facility] Work Phone: (4 sources) HYDROmorphone drug allergy 6 [facility] Work Phone: [phone] (4 sources) penicillin v drug allergy 6 [facility] Work Phone: (5 sources) SEAFOOD drug allergy 6 [facility] Work Phone: [phone] (20 sources) Adhesive Tape; Translations: [ADHESIVE TAPE (ROSINS)] Allergy to substance 9 [facility] Work Phone: (20 sources) HYDROmorphone; Translations: [HYDROMORPHONE HCL] Drug Allergy 7 [facility] Work Phone: (20 sources) Penicillins; Translations: [PENICILLINS] Drug Intolerance 7 [facility] Work Phone: (20 sources) Shellfish; Translations: [SHELLFISH DERIVED] Drug Intolerance 7 Swelling, Shortness of Breath [facility] Work Phone: (20 sources) Influenza Virus Vaccines; Translations: [INFLUENZA VIRUS VACCINES] Drug Allergy 8 [facility] (1 source) HYDROmorphone; Translations: [hydromorphone] Drug Allergy [facility] (1 source) Penicillin; Translations: [penicillins] Drug Allergy [facility] (1 source) Influenza virus antigen (substance); Translations: [flu vaccines] Propensity to adverse reactions to drug [facility] Medications Current Medications Medication Drug Class(es) Dates Sig (Normalized) Sig (Original) dicyclomine hydrochloride 20 mg oral tablet (4 sources) Anticholinergic Start: 02-24-2023 End: 02-27-2023 dicyclomine 20 mg oral tablet Dose : 20 mg = 1 tab(s), Oral, QID, PRN abdominal discomfort, # 12 tab(s), 0 Refill(s) Start Date: 02/24/23 Stop Date: 02/27/23 Status: Ordered Completed/Discontinued Medications Medication Drug Class(es) Dates Sig (Normalized) Sig (Original) acetaminophen 325 mg / butalbital 50 mg / caffeine 40 mg oral capsule (8 sources) Barbiturate, Central Nervous System Stimulant, Methylxanthine Start: 09-03-2015 End: 10-01-2015 ESGIC 50-325-40 MG CAPS One capsule three times a day as needed for headache [id number] AFFEINE [id number] Liborio Prado DO Problems Active Problems Problem Classification Problem Date Documented Date Episodic/Chronic Abdominal pain (10 sources) Flank pain; Translations: [Pain in female pelvis] Onset: 07-14-2015 Resolved: 12-01-2015 07-14-2015 Episodic Asthma (5 sources) Asthma; Translations: [Unspecified asthma, uncomplicated] Onset: 05-29-2015 05-29-2015 Chronic Cardiac and circulatory congenital anomalies (20 sources) Congenital heart disease; Translations: [Congenital malformation of heart, unspecified] Onset: 08-04-2017 08-04-2017 Chronic Delirium, dementia amnestic and other cognitive disorders (8 sources) Traumatic encephalopathy; 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] Onset: 05-29-2015 Resolved: 07-03-2015 05-29-2015 Chronic Disorders of lipid metabolism (4 sources) Hyperlipidemia; Translations: [Hyperlipidemia, unspecified] Onset: 05-29-2015 05-29-2015 Chronic Endometriosis (1 source) Uterine adenomyosis; Translations: [Adenomyosis] Chronic Epilepsy; convulsions (7 sources) Seizure disorder; Translations: [Epilepsy, unspecified, not intractable, without status epilepticus] Onset: 05-29-2015 05-29-2015 Chronic Epilepsy; convulsions (10 sources) Seizure; Translations: [Unspecified convulsions] Onset: 03-02-2023 10-23-2014 Episodic Headache, including migraine (5 sources) Migraine; Translations: [Migraine, unspecified, not intractable, without status migrainosus] Onset: 05-29-2015 05-29-2015 Chronic Immunizations and screening for infectious disease (1 source) Patient encounter status; Translations: [Encounter for screening for human papillomavirus (HPV)] Episodic Lymphadenitis (3 sources) Lymphadenopathy; Translations: [Enlarged lymph nodes, unspecified] Episodic Menstrual disorders (4 sources) Dysmenorrhea; Translations: [Dysmenorrhea, unspecified] Chronic Mycoses (1 source) Candidal vulvovaginitis; Translations: [Vulvovaginitis due to yeast] 02-16-2023 Episodic Other aftercare (1 source) Surgical follow-up; Translations: [Encounter for follow-up examination after completed treatment for conditions other than malignant neoplasm] Episodic Other complications of (9 sources) Poor growth affecting management; Translations: [Maternal care for other known or suspected poor growth, third trimester, not applicable or unspecified] Episodic Other complications of (2 sources) High risk ; Translations: [Supervision of high risk , unspecified, first trimester] Episodic Other complications of (2 sources) Multigravida of advanced maternal age; Translations: [Supervision of elderly multigravida, first trimester] Episodic Other endocrine disorders (5 sources) Hypoglycemia; Translations: [Hypoglycemia, unspecified] Onset: 05-29-2015 05-29-2015 Chronic Other female genital disorders (1 source) Abnormal uterine bleeding; Translations: [Abnormal uterine and vaginal bleeding, unspecified] Chronic Other female genital disorders (1 source) Vaginal discharge; Translations: [Other specified noninflammatory disorders of vagina] Episodic Other and delivery including normal (1 source) 10-23-2014 Episodic Other screening for suspected conditions (not mental disorders or infectious disease) (14 sources) Electrocardiogram abnormal; Translations: [Patient encounter status] Onset: 01-02-2016 01-02-2016 Episodic Ovarian cyst (1 source) Cyst of ovary 10-23-2014 Episodic Residual codes; unclassified (4 sources) ultrasound scan abnormal; Translations: [Pyelectasis of fetus on ultrasound] Episodic Residual codes; unclassified (2 sources) Gestation period, 12 weeks; Translations: [12 weeks gestation of ] Episodic Past or Other Problems Problem Classification Problem Date Documented Da te Episodic/Chronic Abdominal hernia (4 sources) Umbilical hernia; Translations: [Umbilical hernia without obstruction or gangrene] Onset: 12-01-2015 12-01-2015 Episodic Allergic reactions (4 sources) Contact dermatitis; Translations: [Unspecified contact dermatitis, unspecified cause] Onset: 06-25-2015 06-25-2015 Episodic Cardiac dysrhythmias (4 sources) Palpitations; Translations: [Palpitations] Onset: 05-08-2015 05-08-2015 Episodic Conditions associated with dizziness or vertigo (8 sources) Lightheadedness; Translations: [Dizziness and giddiness] Onset: 05-08-2015 Resolved: 12-01-2015 12-01-2015 Episodic Headache, including migraine (8 sources) Chronic headache disorder; Translations: [Headache] Onset: 08-13-2015 Resolved: 08-28-2015 10-01-2015 Episodic Noninfectious gastroenteritis (4 sources) Gastroenteritis; Translations: [Noninfective gastroenteritis and colitis, unspecified] Onset: 10-01-2015 Resolved: 10-08-2015 10-01-2015 Episodic Nonspecific chest pain (20 sources) Chest pain; Translations: [Atypical chest pain] Onset: 05-08-2015 Resolved: 12-01-2015 05-08-2015 Episodic Other aftercare (1 source) Encounter for follow-up examination after completed treatment for conditions other than malignant neoplasm; Translations: [Postop check] Onset: 06-21-2022 Episodic Other circulatory disease (9 sources) Elevated blood-pressure reading without diagnosis of hypertension; Translations: [Electrocardiogram abnormal] Onset: 05-29-2015 Resolved: 07-14-2015 05-29-2015 Episodic Other connective tissue disease (5 sources) Peroneal tendinitis, right leg; Translations: [Pain in toe] Onset: 11-12-2015 11-27-2015 Episodic Other connective tissue disease (3 sources) Pain in toe; Translations: [Pain in unspecified toe(s)] Onset: 11-12-2015 11-12-2015 Episodic Other gastrointestinal disorders (4 sources) Diarrhea; Translations: [Diarrhea, unspecified] Onset: 12-01-2015 Resolved: 12-06-2015 12-01-2015 Episodic Other infections (4 sources) Infestation by Sarcoptes scabiei pieter hominis; Translations: [Scabies] Onset: 10-01-2015 Resolved: 10-04-2015 10-01-2015 Episodic Other lower respiratory disease (4 sources) Dyspnea; Translations: [Dyspnea, unspecified] Onset: 01-07-2016 01-07-2016 Episodic Other nervous system disorders (20 sources) Impaired cognition; Translations: [Other symptoms and signs involving cognitive functions and awareness] Onset: 08-04-2017 08-04-2017 Episodic Other non-traumatic joint disorders (4 sources) Ankle pain; Translations: [Pain in right ankle and joints of right foot] Onset: 06-25-2015 06-25-2015 Episodic Other nutritional; endocrine; and metabolic disorders (3 sources) Body mass index (BMI) 27.0-27.9, adult; Translations: [Body mass index (BMI) 27.0-27.9, adult] Onset: 11-11-2016 11-11-2016 Episodic Spondylosis; intervertebral disc disorders; other back problems (8 sources) Neck pain; Translations: [Low back pain] Onset: 07-14-2015 07-14-2015 Episodic Sprains and strains (8 sources) Sprain of other ligament of right ankle, initial encounter; Translations: [Sprain of other ligament of right ankle, initial encounter] Onset: 07-17-2015 Resolved: 12-01-2015 07-24-2015 Episodic Unclassified (2 sources) Preoperative cardiovascular examination ; Translations: [Encounter for preprocedural cardiovascular examination] Onset: 01-02-2016 Resolved: 08-20-2016 01-02-2016 Results Test Name Value Interpretation Reference Range Facil ity Vital Signs Date Time Vital Sign Value Performing Clinician Facility 03-02-2023 08:45-0400 Body height 170.2 cm Micha Do MD Work Phone: [facility] 03-02-2023 08:45-0400 Body weight 83.46 kg Micha Do MD Work Phone: [facility] 03-02-2023 08:45-0400 Diastolic blood pressure 83 mm[Hg] Micha Do MD Work Phone: [facility] 03-02-2023 08:45-0400 Heart rate 80 /min Micha Do MD Work Phone: [facility] 03-02-2023 08:45-0400 Respiratory rate 16 /min Micha Do MD Work Phone: [facility] 03-02-2023 08:45-0400 Systolic blood pressure 135 mm[Hg] Micha Do MD Work Phone: [facility] 02-24-2023 18:35-0400 Diastolic Blood Pressure Non-Invasive 75 1 JW ANNA MD [facility] 02-24-2023 18:35-0400 Heart rate 88 /min JW ANNA MD [facility] 02-24-2023 18:35-0400 Reason For Taking VItal Signs JW ANNA MD [facility] 02-24-2023 18:35-0400 Respiratory rate 16 /min JW ANNA MD [facility] 02-24-2023 18:35-0400 Systolic Blood Pressure Non-Invasive 108 1 JW ANNA MD [facility] 02-24-2023 17:37-0400 Blood Pressure Location JW ANNA MD [facility] 02-24-2023 17:37-0400 Blood Pressure Method JW ANNA MD [facility] 02-24-2023 17:37-0400 Body height 170.2 cm JW ANNA MD [facility] 02-24-2023 17:37-0400 Body temperature 98.42 [degF] JW ANNA MD [facility] 02-24-2023 17:37-0400 Body weight 85.7 kg JW ANNA MD [facility] 02-24-2023 17:37-0400 Diastolic Blood Pressure Non-Invasive 86 1 JW ANNA MD [facility] 02-24-2023 17:37-0400 Heart rate 103 /min JW ANNA MD [facility] 02-24-2023 17:37-0400 Respiratory rate 18 /min JW ANNA MD [facility] 02-24-2023 17:37-0400 Systolic Blood Pressure Non-Invasive 126 1 JW ANNA MD [facility] 02-16-2023 14:16-0400 Body height 170.2 cm Rachel Velasquez MD Work Phone: [facility] 02-16-2023 14:16-0400 Body weight 83.46 kg Rachel Velasquez MD Work Phone: [facility] 02-16-2023 14:16-0400 Diastolic blood pressure 70 mm[Hg] Rachel Velasquez MD Work Phone: [facility] 02-16-2023 14:16-0400 Systolic blood pressure 122 mm[Hg] Rachel Velasquez MD Work Phone: [facility] 06-08-2022 14:45-0500 Body height 170.2 cm Lianne Yu MD Work Phone: [facility] 06-08-2022 14:45-0500 Body temperature 98.4 [degF] Lianne Yu MD Work Phone: [facility] 06-08-2022 14:45-0500 Body weight 83.46 kg Lianne Yu MD Work Phone: [facility] 06-08-2022 14:45-0500 Diastolic blood pressure 82 mm[Hg] Lianne Yu MD Work Phone: [facility] 06-08-2022 14:45-0500 Heart rate 125 /min Lianne Yu MD Work Phone: [facility] 06-08-2022 14:45-0500 SaO2% (BldA) [Mass fraction] 98 % Lianne Yu MD Work Phone: [facility] 06-08-2022 14:45-0500 Systolic blood pressure 112 mm[Hg] Lianne Yu MD Work Phone: [facility] 05-26-2022 15:58-0500 Body height 170.2 cm Lianne Yu MD Work Phone: [facility] 05-26-2022 15:58-0500 Body temperature 97.9 [degF] Lianne Yu MD Work Phone: [facility] 05-26-2022 15:58-0500 Body weight 84.91 kg Lianne Yu MD Work Phone: [facility] 05-26-2022 15:58-0500 Diastolic blood pressure 78 mm[Hg] Lianne Yu MD Work Phone: [facility] 05-26-2022 15:58-0500 Heart rate 116 /min Lianne Yu MD Work Phone: [facility] 05-26-2022 15:58-0500 SaO2% (BldA) [Mass fraction] 97 % Lianne Yu MD Work Phone: [facility] 05-26-2022 15:58-0500 Systolic blood pressure 118 mm[Hg] Lianne Yu MD Work Phone: [facility] 05-13-2022 13:40-0500 Body weight 81.19 kg Rachel Velasquez MD Work Phone: [facility] 05-13-2022 13:40-0500 Diastolic blood pressure 72 mm[Hg] Rachel Velasquez MD Work Phone: [facility] 05-13-2022 13:40-0500 Systolic blood pressure 104 mm[Hg] Rachel Velasquez MD Work Phone: [facility] 04-27-2022 16:16-0500 Body height 165.1 cm Rachel Velasquez MD Work Phone: [facility] 04-27-2022 16:16-0500 Body weight 82.56 kg Rachel Velasquez MD Work Phone: [facility] 04-27-2022 16:16-0500 Diastolic blood pressure 74 mm[Hg] Rachel Velasquez MD Work Phone: [facility] 04-27-2022 16:16-0500 Heart rate 98 /min Rachel Velasquez MD Work Phone: [facility] 04-27-2022 16:16-0500 Respiratory rate 16 /min Rachel Velasquez MD Work Phone: [facility] 04-27-2022 16:16-0500 SaO2% (BldA) [Mass fraction] 99 % Rachel Velasquez MD Work Phone: [facility] 04-27-2022 16:16-0500 Systolic blood pressure 112 mm[Hg] Rachel Velasquez MD Work Phone: [facility] 04-09-2022 10:21-0500 Body height 170.2 cm Jil Farrar APRN.CNM Work Phone: [facility] 04-09-2022 10:21-0500 Body weight 80.92 kg Jil Farrar APRN.CNM Work Phone: [facility] 04-09-2022 10:21-0500 Diastolic blood pressure 68 mm[Hg] Jil Farrar APRN.CNM Work Phone: [facility] 04-09-2022 10:21-0500 Systolic blood pressure 110 mm[Hg] Jil Farrar APRN.CNM Work Phone: [facility] 03-19-2022 14:06-0500 Body weight 81.1 kg Rachel Velasquez MD Work Phone: [facility] 03-19-2022 14:06-0500 Diastolic blood pressure 82 mm[Hg] Rachel Velasquez MD Work Phone: [facility] 03-19-2022 14:06-0500 Systolic blood pressure 118 mm[Hg] Rachel Velasquez MD Work Phone: [facility] 11-11-2016 12:16-0400 BMI (Body Mass Index) 27.34 kg/m2 [facility] Work Phone: 11-11-2016 12:16-0400 BP Diastolic 82 mm[Hg] [facility] Work Phone: 11-11-2016 12:16-0400 BP Diastolic 80 mm[Hg] [facility] Work Phone: 11-11-2016 12:16-0400 BP Systolic 110 mm[Hg] [facility] Work Phone: 11-11-2016 12:16-0400 BP Systolic 120 mm[Hg] [facility] Work Phone: 11-11-2016 12:16-0400 BP Systolic 114 mm[Hg] [facility] Work Phone: 11-11-2016 12:16-0400 Height 170.18 cm [facility] Work Phone: 11-11-2016 12:16-0400 Pulse (Heart Rate) 88 /min [facility] Work Phone: 11-11-2016 12:16-0400 Respiratory Rate 20 /min [facility] Work Phone: 11-11-2016 12:16-0400 Weight 79.2 kg [facility] Work Phone: 08-20-2016 11:36-0400 BMI (Body Mass Index) 26.78 kg/m2 [facility] Work Phone: 08-20-2016 11:36-0400 BP Diastolic 84 mm[Hg] [facility] Work Phone: 08-20-2016 11:36-0400 BP Systolic 132 mm[Hg] [facility] Work Phone: 08-20-2016 11:36-0400 Height 170.18 cm [facility] Work Phone: [phone] 11:36-0400 Pulse (Heart Rate) 90 /min [facility] Work Phone: 08-20-2016 11:36-0400 Respiratory Rate 18 /min [facility] Work Phone: 08-20-2016 11:36-0400 Weight 77.57 kg Marj M[facility] [employer] Work Phone: 07-01-2016 11:19-0500 BSA (Body Surface Area) 1.88 m2 [facility] Work Phone: 07-01-2016 11:19-0500 Pulse Oximetry 98 % [facility] Work Phone: 01-07-2016 17:05-0400 Heart rate 72 /min Marj Lobo [employer] Work Phone: 01-07-2016 16:39-0400 BP Diastolic 64 mm[Hg] [facility] Work Phone: 01-07-2016 16:39-0400 BP Systolic 112 mm[Hg] [facility] Work Phone: 01-07-2016 16:39-0400 Pulse (Heart Rate) 88 /min Marj Lobo [employer] Work Phone: 12-19-2015 13:45-0400 Body surface area Derived from formula 125.38 mL/min [facility] Work Phone: 12-11-2015 14:52-0400 Body Temperature 98.1 [degF] [facility] Work Phone: 12-11-2015 14:52-0400 Pulse Oximetry 97 % Marj Lobo [employer] Work Phone: Encounters Encounter Date Encounter Type Care Provider Facility Start: 05-25-2023 End: 05-25-2023 ambulatory YONNY NICHOLAS Facility[facility] Start: 04-12-2023 Documentation procedure Mammog thomas Coordinator [facility] Start: 04-12-2023 Letter encounter Mammography Coordinator [facility] Department Start: 04-11-2023 End: 04-11-2023 ambulatory RACHEL VELASQUEZ Facility[facility] Start: 04-11-2023 End: 04-11-2023 Subsequent hospital visit by physician Screen Mammo [facility] Mammogram Procedures Date Procedure Procedure Detail Performing Clinician Start: 06-01-2022 US AXILLA LEFT (POC) FOR SURG USE ONLY Lianne Yu MD Work Phone: Start: 05-25-2022 Us breast uni real time with image limited Jil Farrar APRN.CNM Work Phone: Start: 05-25-2022 End: 05-25-2022 Mammography Jil Farrar APRN.CNM Work Phone: Start: 04-09-2022 GLENN SCREENING W NOEL Jil Farrar APRN.CNM Work Phone: Start: 04-09-2022 Mammography Mammography Coordinator Start: 02-22-2022 Us transvaginal Jil Farrar APRN.CNM Work Phone: Start: 04-11-2018 BACT/AZUL VAG GRAM STAIN Zayda Augustine MD Work Phone: Start: 02-21-2018 BIOPHYSICAL PROFILE US WHI Ijl Charan STODDARD.CNM Work Phone: Start: 02-09-2018 BIOPHYSICAL PROFILE US WHI Jil Charan STODDARD.CNM Work Phone: Start: 01-27-2018 BIOPHYSICAL PROFILE US WHI Jil Charan STODDARD.CNM Work Phone: Start: 01-18-2018 BIOPHYSICAL PROFILE US WHI Jil Charan STODDARD.CNM Work Phone: Start: 01-11-2018 BIOPHYSICAL PROFILE US WHI Jil Charan STODDARD.CNM Work Phone: Start: 08-29-2017 GEST GLUC SCREEN, 1-HR, 50 GM, NON-FASTING Jil Farrar APRN.CNM Work Phone: Start: 08-29-2017 HEP C AB IA W/CONF SCRN Rachel solis MD Work Phone: Start: 05-18-2017 Mammography Us 2 Work Phone: Start: 11-11-2016 End: 12-07-2016 Follow Up Appt Other Jessica Alexander PA-C Work Phone: Start: 11-11-2016 End: 12-07-2016 Transesophageal echocardiogram (TAMARA) Jessica Alexander PA-C Work Phone: Start: 08-20-2016 End: 10-27-2016 Follow Up Appt 6 weeks Jagdish Gonzales MD Start: 08-20-2016 End: 10-27-2016 MMM Jagdish Gonzales MD Start: 08-20-2016 End: 10-27-2016 Transesophageal echocardiogram (TAMARA) Jagdish Gonzales MD Start: 07-23-2016 End: 10-27-2016 Transesophageal echocardiogram (TAMARA) Jagdish Gonzales MD Start: 07-01-2016 End: 10-27-2016 Follow Up Appt 1 month Yuliana Lanza NP Work Phone: Start: 07-01-2016 End: 10-27-2016 MMM Yuliana Lanza NP Work Phone: Start: 01-07-2016 End: 01-07-2016 Dietary management education, guidance, and counseling Marj Read Start: 01-07-2016 End: 07-12-2016 *BMP Jagdish Gonzales MD Start: 01-07-2016 End: 07-12-2016 aPTT Jagdish Gonzales MD Start: 01-07-2016 End: 07-12-2016 CBC W Auto Differential panel - Blood Jagdish Gonzales MD Start: 01-07-2016 End: 07-13-2016 Chest x-ray Jagdish Gonzales MD Start: 01-07-2016 End: 07-12-2016 Coagulation factor induced.INR assay in platelet poor plasma Jagdish Gonzales MD Start: 01-07-2016 End: 10-27-2016 Echocardiography Jagdish Gonzales MD Start: 01-07-2016 End: 01-28-2016 Electrocardiogram, complete Jagdish cornell MD Start: 01-07-2016 End: 01-28-2016 Follow Up Appt 1 month Jagdish Gonzales MD Start: 01-07-2016 End: 07-21-2016 Left & Right Heart Cath Jagdish Gonzales MD Start: 01-07-2016 End: 01-28-2016 MMM Jagdish Gonzales MD Start: 01-02-2016 End: 08-20-2016 Preoperative cardiovascular examination Pre-op cardiovascular exam Marj Read Start: 12-19-2015 End: 12-19-2015 Urinalysis Marj Read Start: 09-03-2015 End: 09-03-2015 Electrocardiogram report Liborio Prado DO Work Phone: Start: 07-14-2015 Lipid 1996 panel - Serum or Plasma Rachel Velasquez MD Work Phone: Start: 07-14-2015 End: 07-15-2015 *CBC with Differential Liborio Obrien O Work Phone: Start: 07-14-2015 End: 07-15-2015 *CMP Complete Metabolic Panel Liborio Prado DO Work Phone: Start: 07-14-2015 End: 07-15-2015 Lipid panel [AGGREGATE] Liborio Prado DO Work Phone: Start: 07-14-2015 End: 07-15-2015 Urinalysis complete panel - Urine Liborio Prado DO Work Phone: Start: 10-27-2014 End: 10-27-2014 Urinalysis Marj Read Cyst of ovary (disorder) AMANDA ANNA MD Plan of Treatment Date Care Activity Detail Author Start: 11-11-2030 Urine microalbumin profile DTaP,Tdap,Td Vaccine (3 - Td or Tdap) [facility] Start: 01-28-2028 Urine microalbumin profile [facility] Start: 03-19-2027 HPV TESTING HPV TESTING [facility] Start: 03-19-2027 PAP TESTING PAP TESTING [facility] Start: 03-07-2026 Diabetes Screening Diabetes Screening [facility] Start: 04-11-2024 Mammography Mammogram Screening [facility] Start: 05-25-2023 Mammography [facility] Start: 04-09-2023 Mammography MAMMOGRAM [facility] Start: 01-07-2023 Influenza vaccination Influenza Vaccine (#1) [facility] Start: 05-18-2022 HPV TESTING HPV TESTING [facility] Start: 05-18-2022 PAP TESTING PAP TESTING [facility] Start: 05-09-2022 DEPRESSION ASSESSMENT DEPRESSION ASSESSMENT [facility] Start: 01-07-2022 Influenza vaccination INFLUENZA (#1) [facility] Start: 09-04-2021 DIABETES SCREEN DIABETES SCREEN [facility] Start: 09-04-2021 Diabetes Screening Diabetes Screening [facility] Start: 05-09-2021 DEPRESSION ASSESSMENT DEPRESSION ASSESSMENT [facility] Start: 07-14-2020 LIPID SCREEN LIPID SCREEN [facility] Start: 07-13-2020 Lipid 1996 panel - Serum or Plasma Lipid Screening [facility] Start: 2020 COLOGUARD (FIT-DNA) COLOGUARD (FIT-DNA) [facility] Start: 2020 Colonoscopy COLONOSCOPY [facility] [facility] Start: 2020 COLORECTAL CANCER SCREENING COLORECTAL CANCER SCREENING [facility] Start: [address] COLONOGRAPHY [facility] Start: 2020 FECAL OCCULT BLOOD FECAL OCCULT BLOOD [facility] Start: 2020 SIGMOIDOSCOPY SIGMOIDOSCOPY [facility] Start: 05-18-2018 Mammography MAMMOGRAM [facility] Start: 11-11-2016 End: 12-07-2016 Follow Up Appt Other Follow Up Appt Other [facility] Work Phone: Start: 11-11-2016 End: 11-11-2016 Pulmonary Function Test - complete Pulmonary Function Test - complete [facility] Work Phone: Start: 11-11-2016 End: 11-11-2016 Transesophageal echocardiogram (TAMARA) Transesophageal echocardiogram (TAMARA) [facility] Work Phone: Start: 08-20-2016 End: 10-27-2016 Follow Up Appt 6 weeks Follow Up Appt 6 weeks [facility] Work Phone: Start: 08-20-2016 End: 10-27-2016 MMM MMM [facility] Work Phone: Start: 08-20-2016 End: 08-20-2016 Transesophageal echocardiogram (TAMARA) Transesophageal echocardiogram (TAMARA) [facility] Work Phone: Start: 07-23-2016 End: 07-23-2016 Transesophageal echocardiogram (TAMARA) Transesophageal echocardiogram (TAMARA) [facility] Work Phone: Start: 07-01-2016 End: 10-27-2016 Follow Up Appt 1 month Follow Up Appt 1 month [facility] Work Phone: Start: 07-01-2016 End: 10-27-2016 MMM MMM [facility] Work Phone: Start: 01-07-2016 End: 07-12-2016 *BMP *BMP [facility] Work Phone: Start: 01-07-2016 End: 07-12-2016 aPTT *PTT-Partial Thromboplastin Time [facility] Work Phone: Start: 01-07-2016 End: 07-12-2016 aPTT Coag time (PPP) *PTT-Partial Thromboplastin Time [facility] Work Phone: Start: 01-07-2016 End: 07-12-2016 CBC W Auto Differential panel - Blood *CBC without Diff [facility] Work Phone: Start: 01-07-2016 End: 07-13-2016 Chest x-ray X-Ray, Chest, PA &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 difficult to tell if you feel nauseous. You may just feel bad and not connect that feeling to nausea. Constipation, diarrhea, and a fever may go along with the pain. The pain may continue even if treated correctly over the following days. Depending on how things go, sometimes the cause can become clear and may need more or different treatment. Additional evaluations, medicines, or tests may also be needed. Home care Your healthcare provider may prescribe medicine for pain, symptoms, or an infection. Follow the healthcare provider's instructions for taking these medicines. General care Rest as much as you can until your next exam. No strenuous activities. Try to find positions that ease discomfort. A small pillow placed on the abdomen may help relieve pain. Something warm on your abdomen (such as a heating pad) may help, but be careful not to burn yourself. Diet Don t force yourself to eat, especially if having cramps, vomiting, or diarrhea. Water is important so you don't get dehydrated. Soup may also be good. Sports drinks may also help, especially if they are not too acidic. Don't drink sugary drinks as this can make things worse. Take liquids in small amounts. Don t guzzle them. Caffeine sometimes makes the pain and cramping worse. Don t take dairy products if you have vomiting or diarrhea. Don't eat large amounts at a time. Wait a few minutes between bites. Eat a diet low in fiber (called a low-residue diet). Foods allowed include refined breads, white rice, fruit and vegetable juices without pulp, tender meats. These foods will pass more easily through the intestine. Don t have whole-grain foods, whole fruits and vegetables, meats, seeds and nuts, fried or fatty foods, dairy, alcohol and spicy foods until your symptoms go away. Follow-up care Follow up with your healthcare provider, or as advised, if your pain does not begin to improve in the next 24 hours. Call 911 Call 911 if any of these occur: Trouble breathing Confusion Fainting or loss of consciousness Rapid heart rate Seizure When to seek medical advice Call your healthcare provider right away if any of these occur: Pain gets worse or moves to the right lower abdomen New or worsening vomiting or diarrhea Swelling of the abdomen Unable to pass stool for more than 3 days Fever of 100.4 F (38 C) or higher, or as directed by your healthcare provider. Blood in vomit or bowel movements (dark red or black color) Yellow color of eyes and skin (jaundice) Weakness, dizziness Chest, arm, back, neck, or jaw pain Unexpected vaginal bleeding or missed period Can't keep down liquids or water and you are getting dehydrated [id number] [employer]. [address] [place] [address]. All rights reserved. This information is not intended as a substitute for professional medical care. Always follow your healthcare professional's instructions. Follow Up Care 02/24/2023 17:20:34 With:CHEYANNE ANDREW MD Address: [address] [id number]- [phone] When:2-4 days Comments:Lifeguard With:LIBORIO PRADO DO Address: [address] [place] [address]- When:2-4 days [facility] 02-24-2023 Note Discharge Instructions Thank you for allowing [facility] to assist you with your healthcare needs. The following is important discharge information regarding your hospital visit. Diagnosis from Today's Visit Abdominal pain Abdominal pain What to Do Next Instructions from Your Care Team No qualifying data available. Post Acute Orders No qualifying data available. You Need to Schedule the Following Appointments Follow Up with CHEYANNE ANDREW MD When Within 2-4 days Why: Lifeguard Where: [address] [address] [phone] Follow Up with JAYMIE, LIBORIO A DO When Within 2-4 days Where: [address] [place] [address]- Allergies Dilaudid Seafood flu vaccines penicillin Medications Please ask your primary doctor or pharmacist before taking any other medication not listed, including over the counter drugs, herbal medications, vitamins and or supplements as they may interact with your home medications. What How Much When Instructions Last Dose New dicyclomine (dicyclomine 20 mg oral tablet) 1 tab(s) by mouth Four (4) times a day as needed for abdominal discomfort Duration: 3 Days Printed Prescription Unchanged budesonide-formoterol (Symbicort 160 mcg-4.5 mcg/ inh Inhaler) 2 puff(s) by inhalation Two (2) times a day Unchanged lamoTRIgine (lamoTRIgine 100 mg oral tablet) 1 tab(s) by mouth Two (2) times a day Unchanged multivitamin, ( 1) 1 cap by mouth Once a day Unchanged naproxen (naproxen 500 mg oral tablet) 1 tab(s) by mouth Two (2) times a day as needed for as needed for pain Unchanged nortriptyline (nortriptyline 10 mg oral capsule) 1 cap by mouth Daily at bedtime Unchanged rizatriptan (rizatriptan 10 mg oral tablet) 1 tab(s) by mouth Once as needed for as needed for migraine headache Unchanged temazepam (temazepam 15 mg oral capsule) 1 cap by mouth Daily at bedtime as needed for as needed for sleep Please take this list to your next doctor s visit. Bring all medications you take, including over the counter medications, herbals and other supplements with you to your doctor s visit. Patients and families are reminded to discard old lists and to update any records with all medication providers or retail pharmacies. Medication Leaflets dicyclomine (oral/injection) (lokesh Prieto What is the most important information I should know about dicyclomine? Many drugs can affect dicyclomine. Tell your doctor about all your current medicines. What is dicyclomine? Dicyclomine is used to treat functional bowel or irritable bowel syndrome. Dicyclomine may also be used for purposes not listed in this medication guide. What should I discuss with my healthcare provider before taking dicyclomine? You should not use dicyclomine if you are allergic to it, or if you have: glaucoma; a bladder obstruction or other urination problems; a blockage in your digestive tract (stomach or intestines); severe ulcerative colitis; gastroesophageal reflux disease (GERD); a serious heart condition and active bleeding; myasthenia gravis; or if you are a baby. Not approved for use by anyone younger than 18 years old. Dicyclomine should never be given to a child younger than 6 months old. Tell your doctor if you have ever had: heart problems or high blood pressure; a stroke; ulcerative colitis; an ileostomy or colostomy; an enlarged prostate; or liver or kidney disease. Older adults may be more sensitive to the effects of this medicine. Tell your doctor if you are . Do not breastfeed. How should I take dicyclomine? Follow all directions on your prescription label and read all medication guides or instruction sheets. Your doctor may occasionally change your dose. Use the medicine exactly as directed. Dicyclomine oral is taken by mouth. Measure liquid medicine with the supplied syringe or a dose-measuring device (not a kitchen spoon). Dicyclomine injection is given in a muscle if you are unable to take the medicine by mouth. Call your doctor if your symptoms do not improve after 2 weeks. Store at room temperature away from moisture and heat. What happens if I miss a dose? Skip the missed dose and use your next dose at the regular time. Do not use two doses at one time. What happens if I overdose? Seek emergency medical attention or call the Poison Help line at . Overdose can cause nausea, vomiting, dilated pupils, weakness or loss of movement in any part of your body, trouble swallowing, fainting, or seizure (convulsions). What should I avoid while taking dicyclomine? May cause dizziness or blurred vision. Avoid driving or hazardous activity until you know how this medicine will affect you. Avoid becoming overheated or dehydrated during exercise and in hot weather. Dicyclomine can decrease sweating and you may be more prone to heat stroke. Tell your doctor if you have a fever while taking dicyclomine. Avoid using an antacid. Antacids can make it harder for your body to absorb dicyclomine oral. What are the possible side effects of dicyclomine? Get emergency medical help if you have signs of an allergic reaction: hives; difficult breathing; swelling of your face, lips, tongue, or throat. Call your doctor at once if you have: fast or slow heartbeats, pounding heartbeats or fluttering in your chest; confusion, agitation, hallucinations, unusual thoughts or behavior; problems with memory or speech; problems with balance or muscle movement; diarrhea, severe constipation, or worsening of bowel symptoms; trouble swallowing; bruising, swelling, or pain where a dicyclomine injection was given; or dehydration --dizziness, confusion, feeling very thirsty, less urination or sweating. Confusion and mood or behavior changes may be more likely in older adults. Common side effects may include: drowsiness, dizziness, weakness, nervousness; blurred vision; dry mouth; or nausea. This is not a complete list of side effects and others may occur. Call your doctor for medical advice about side effects. You may report side effects to FDA at 1-758-NML-1948. What other drugs will affect dicyclomine? Using dicyclomine with other drugs that make you drowsy can worsen this effect. Ask your doctor before using opioid medication, a sleeping pill, a muscle relaxer, or medicine for anxiety or seizures. Tell your doctor about all your current medicines. Many drugs can affect dicyclomine, especially: bronchodilator asthma medication; cold or allergy medicine (Benadryl and others); glaucoma medication; heart medication; medicine to treat depression, anxiety, mood disorders, or mental illness; medicine to treat overactive bladder; medicine to treat Parkinson's disease; or medicine to treat stomach problems, motion sickness, or irritable bowel syndrome. This list is not complete and many other drugs may affect dicyclomine. This includes prescription and [id number] medicines, vitamins, and herbal products. Not all possible drug interactions are listed here. Where can I get more information? Your pharmacist can provide more information about dicyclomine. Remember, keep this and all other medicines out of the reach of children, never share your medicines with others, and use this medication only for the indication prescribed. Every effort has been made to ensure that the information provided by [employer]. ('[employer]') is accurate, up-to-date, and complete, but no guarantee is made to that effect. Drug information contained herein may be time sensitive. [employer] information has been compiled for use by healthcare practitioners and consumers in the [place] and therefore [employer] does not warrant that uses outside of the [place] are appropriate, unless specifically indicated otherwise. [employer] drug information does not endorse drugs, diagnose patients or recommend therapy. [employer] drug information is an informational resource designed to assist licensed healthcare practitioners in caring for their patients and/or to serve consumers viewing this service as a supplement to, and not a substitute for, the expertise, skill, knowledge and judgment of healthcare practitioners. The absence of a warning for a given drug or drug combination in no way should be construed to indicate that the drug or drug combination is safe, effective or appropriate for any given patient. [employer] does not assume any responsibility for any aspect of healthcare administered with the aid of information [employer] provides. The information contained herein is not intended to cover all possible uses, directions, precautions, warnings, drug interactions, allergic reactions, or adverse effects. If you have questions about the drugs you are taking, check with your doctor, nurse or pharmacist. Copyright 3977-3675 [employer]. Version: 8.. Revision Date: 12/10/2022. Education Materials Unknown Causes of Abdominal Pain (Female) The exact cause of your belly (abdominal) pain is not clear. This does not mean that this is something to worry about. Everyone likes to know the exact cause of the problem. But sometimes with belly pain, there is no clear-cut cause, and this could be a good thing. The good news is that your symptoms can be treated, and you will feel better. Your condition does not seem serious now. But sometimes the signs of a serious problem may take more time to appear. For this reason, it is important for you to watch for any new symptoms, problems, or worsening of your condition. Over the next few days, the abdominal pain may come and go. Or it may be constant. Other common symptoms can include nausea and vomiting. Sometimes it can be difficult to tell if you feel nauseous. You may just feel bad and not connect that feeling to nausea. Constipation, diarrhea, and a fever may go along with the pain. The pain may continue even if treated correctly over the following days. Depending on how things go, sometimes the cause can become clear and may need more or different treatment. Additional evaluations, medicines, or tests may also be needed. Home care Your healthcare provider may prescribe medicine for pain, symptoms, or an infection. Follow the healthcare provider's instructions for taking these medicines. General care Rest as much as you can until your next exam. No strenuous activities. Try to find positions that ease discomfort. A small pillow placed on the abdomen may help relieve pain. Something warm on your abdomen (such as a heating pad) may help, but be careful not to burn yourself. Diet Don t force yourself to eat, especially if having cramps, vomiting, or diarrhea. Water is important so you don't get dehydrated. Soup may also be good. Sports drinks may also help, especially if they are not too acidic. Don't drink sugary drinks as this can make things worse. Take liquids in small amounts. Don t guzzle them. Caffeine sometimes makes the pain and cramping worse. Don t take dairy products if you have vomiting or diarrhea. Don't eat large amounts at a time. Wait a few minutes between bites. Eat a diet low in fiber (called a low-residue diet). Foods allowed include refined breads, white rice, fruit and vegetable juices without pulp, tender meats. These foods will pass more easily through the intestine. Don t have whole-grain foods, whole fruits and vegetables, meats, seeds and nuts, fried or fatty foods, dairy, alcohol and spicy foods until your symptoms go away. Follow-up care Follow up with your healthcare provider, or as advised, if your pain does not begin to improve in the next 24 hours. Call 911 Call 911 if any of these occur: Trouble breathing Confusion Fainting or loss of consciousness Rapid heart rate Seizure When to seek medical advice Call your healthcare provider right away if any of these occur: Pain gets worse or moves to the right lower abdomen New or worsening vomiting or diarrhea Swelling of the abdomen Unable to pass stool for more than 3 days Fever of 100.4 F (38 C) or higher, or as directed by your healthcare provider. Blood in vomit or bowel movements (dark red or black color) Yellow color of eyes and skin (jaundice) Weakness, dizziness Chest, arm, back, neck, or jaw pain Unexpected vaginal bleeding or missed period Can't keep down liquids or water and you are getting dehydrated [id number] [employer]. [address] [place] [address]. All rights reserved. This information is not intended as a substitute for professional medical care. Always follow your healthcare professional's instructions. Additional Information VACCINATE! IT SAVES LIVES! Members of the community who have not yet received the COVID-19 vaccine and would like to receive it can visit one of [facility] vaccine clinics. There are many vaccine clinic locations within the [facility]. For locations and available times, please visit [email or web address].[place].g [email or web address] It is important to note that some COVID mobile vaccine clinics are held outdoors and may be canceled in rainy or stormy conditions. To learn more about pediatric vaccinations (ages 5-11), we invite you to visit the [facility] webpage. https://[email or web address].org/pa ges/6910-Evrut-Yqlekjsqzib-Freque hsmq-Lluiq-Hgxxbvllj.html To learn more about the COVID-19 vaccine, we invite you to visit the CDC website for a list of frequently asked questions. https://www.cdc.gov/coronavirus/2 019-ncov/vaccines/faq.html [facility] Patient Portal Access Instructions: Stay connected with your healthcare team and access your personal medical information anytime with the [email or web address] Patient Portal. If you would like a full copy of your medical records please contact the [facility] Medical Records Department Tuesday through Tuesday between 8a.m. and 4:30p.m. Please follow the directions below to access the portal: 1.Access the email account you provided upon registration to the hospital.2.Look for an invitation email from [facility].3.Open the email and access the invitation link: Accept Invitation to [email or web address].Fill in the required barroso to create your account. Sign into [email or web address] with your username and password that you created in the above steps to stay up to date. You can then view a summary of results, a summary of your visits, and the ability to download your summaries to your computer or send the information securely to a physician. Remember that your healthcare information is confidential, so carefully consider who you will allow to register on the [email or web address] Patient Portal for access to your information. You can also access the [facility] Patient Portal on the [employer]. Simply click on Health Records under Health Data and then click on the [employer] logo. HOW TO SAFELY DISPOSE OF PRESCRIPTION MEDICATIONS Please use one of the following methods to safely dispose of your unused medications. 1.Use a drug disposal kit: the drug disposal pouch allows you to safely discard your old and unused drugs. Ask your nurse to give you one when you are discharged.2.Visit a local take-back location: Many local pharmacies and police departments have programs that collect old and unwanted prescription drugs. Call your local pharmacy or go to http://[employer]/4Z8Jw8p to find one close to you.3.Make use of household items: Use cat litter or old coffee grounds to dispose medications if other options are not available. Mix your drugs with these household products, seal them in an airtight container and throw it into the garbage. Call [facility]: [phone] to be sure your drugs can be disposed of in this way. Some medicines may require a different approach.4.Never flush your medications down the toilet. IF YOU HAVE BEEN PRESCRIBED AN OPIOIDS FOR PAIN If you have been prescribed an opioid (such as hydrocodone, oxycodone or morphine), it is critical to understand the possible side effects and risks of opioid pain medications. Even when taken as directed, opioids can have several side effects including: Tolerance, meaning you might need to take more of a medication for the same pain relief. Nausea, vomiting and/or constipation. Sleepiness, dizziness, dry mouth, confusion, depression or itching. Physical dependence, meaning you have withdrawal symptoms when a medication is stopped ? this can develop within a few days. KNOW YOUR RESPONSIBILITIES It is important to know exactly how much and how often to take the opioid pain medications you are prescribed. Never take opioids in higher amounts or more often than prescribed. Do not combine opioids with alcohol or other drugs that cause drowsiness, such as benzodiazepines, also known as benzos, including diazepam and alprazolam, muscle relaxants or sleep aids. Never sell or share prescription opioids. This is illegal. Store opioids in a secure place and out of reach of others (including children, family, friends and visitors). The last page(s) of this document has been signed and retained as a CHART COPY Signatures Patient Education Materials Abdominal Pain, Unknown Cause, (Female) Medication Leaflets dicyclomine (oral/injection) My discharge plan and instructions have been reviewed and explained to me and I,TAIWO EVELYNE Camille understand my current condition and have read and understand these discharge instructions. I have received a written copy of the plan/instructions. If I have questions, I am aware that I should contact my doctor. 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 Multiplanar reformatted images are provided for review. Automated exposure control, iterative reconstruction, and/or weight based adjustment of the mA/kV was utilized to reduce the radiation dose to as low as reasonably achievable. COMPARISON: December 02, 2020 HISTORY: ORDERING SYSTEM PROVIDED HISTORY: Reason for Exam: pain FINDINGS: Lower Chest: Normal heart size. No focal consolidation or pleural effusion. Organs: The liver appears normal. The patient is status post cholecystectomy. The spleen appears normal. The pancreas appears normal. The adrenal glands appear normal. The kidneys enhance symmetrically with no evidence of nephrolithiasis or hydronephrosis. GI/Bowel: There is no evidence of obstruction. The appendix is normal. Pelvis: The patient is status post hysterectomy. Peritoneum/Retroperitoneum: There is no intraperitoneal free air or ascites. The aorta and its major branches appear normal. No lymphadenopathy is identified. Bones/Soft Tissues: Degenerative changes are noted in the spine. No focal soft tissue abnormality is identified. IMPRESSION: No acute abnormality identified. Interpreted by: Delbert Motley Preliminary Report By: Delbert Motley Electronically signed By Delbert Motley Dictated Date: 02/24/2023 7:28:55 PM Prelim Date: 02/24/2023 7:32:56 PM Sign Date: 02/24/2023 7:32:56 PM Ordering Provider: JW ANNA [facility] 02-24-2023 Evaluation + Plan note Diagnostic Tests PendingUrine Culture 02/24/23 [facility] 02-16-2023 Note HNO ID: [id number] Author: Rachel Velasquez MD Service: ? Author Type: Physician Type: Progress Notes Filed: 02/16/2023 2:31 PM Note Text: Evelyne is a 47 year old who presents for an annual gynecologic exam without complaints. Menses: n/a s/p hyst. 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 Xray negative. She was given Rx for Tylenol #3 but [place] report does not show this was filled. Please verify with patient at next visit. Jil Farrar APRN.DONATO October 06, 2017 Vicodin use during > Please review [place], please review risks at next appt. and intermittently. Vish Colbert Kidney stone 08/29/2017 August 29, 2017 had renal US, there is a small 7 mm kidney stone nonobstructing, not causing an issue clinically in that location. Renal US done [facility] on 07/20/17. CT done 06/24/17 shows small right nonobstructing stone, none on left. Rachel Velasquez MD kidney stones Seizure disorder (HCC) 05/2013 Trichomoniasis 05/24/2018 PAST SURGICAL HISTORY Procedure Laterality Date ANKLE SURGERY HX REMOVAL GALLBLADDER 2020 REMOVAL OF OVARY(S) Right TUBAL LIGATION 03/03/2018 VAGINAL HYSTERECTOMY 05/06/2022 TVH and cysto FAMILY HISTORY Problem Relation Age of Onset Diabetes Mother Cancer Father Breast Cancer Maternal Aunt Asthma Sister Heart Brother SOCIAL HISTORY Social History Tobacco Use Smoking status: Some Days Years: 25 Types: Cigarettes Last attempt to quit: 2016 Years since quittin.7 Smokeless tobacco: Never Vaping Use Vaping Use: Some days Substances: Flavoring Substance Use Topics Alcohol use: Yes Comment: Socially Drug use: No REVIEW OF SYSTEMS Abdomen: No abdominal pain, nausea, vomiting, diarrhea, or constipation. No bloating, early satiety, indigestion, or increased flatulence. Bladder: No dysuria, gross hematuria, urinary frequency, urinary urgency, or incontinence. Breast: No breast lumps, nipple d/c, overlying skin changes, redness or skin retraction. Allergies and current medication updated:Yes EXAM: BP 122/70 Ht 5' 7 (1.70m) Wt 184 lb (83.5kg) LMP 02/09/2022 BMI 28.81 kg/(m2). GENERAL: pleasant, female in no apparent distress HEENT: Normocephalic, atraumatic, mucus membranes moist, and no lesions NECK: Supple, full range of motion, no adenopathy, and thyroid normal DERMATOLOGY: Normal, without lesions, non-icteric, and non-hirsute BREAST: soft, non-tender, symmetric, no dominant mass, normal nipple-areolar complex, no lymphadenopathy, and no nipple discharge CHEST: Normal inspiratory effort ABDOMEN: soft, non-tender, and no masses PELVIC: external genitalia normal, normal Bartholin's glands, urethra, Lewellen's glands, no vulvar lesions, cervix absent good vaginal support, physiologic discharge present, normal appearing perineal body and perianal region, lower vulva and buttocks have some erythema and irritaiton c/w yeast BIMANUAL: no adnexal masses, non-tender, and uterus surgically absent RECTOVAGINAL: deferred. NEURO: alert and oriented x3,exam grossly non-focal EXTREMITIES: normal ASSESSMENT/PLAN: 1) Health maintenance: pap no longer needed declines flu vaccine 2) Contraception: hysterectomy. Contraceptive options reviewed and information provided. 3) STD screening: Declined STD check. 4) Follow up one year or sooner as needed yeast of vulva- nystatin cream rx Rachel Velasquez MD [facility] 02-16-2023 History of Present illness Narrative Evelyne is a 47 year old who presents for an annual gynecologic exam without complaints. Menses: n/a s/p hyst. 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 Xray negative. She was given Rx for Tylenol #3 but [place] report does not show this was filled. Please verify with patient at next visit. Jil Farrar APRN.CNM October 06, 2017 Vicodin use during > Please review [place], please review risks at next appt. and intermittently. Vish Colbert Kidney stone 08/29/2017 August 29, 2017 had renal US, there is a small 7 mm kidney stone nonobstructing, not causing an issue clinically in that location. Renal US done [facility] on 07/20/17. CT done 06/24/17 shows small right nonobstructing stone, none on left. Rachel Velasquez MD kidney stones Seizure disorder (HCC) 05/2013 Trichomoniasis 05/24/2018 PAST SURGICAL HISTORY Procedure Laterality Date ANKLE SURGERY HX REMOVAL GALLBLADDER 2020 REMOVAL OF OVARY(S) Right TUBAL LIGATION 03/03/2018 VAGINAL HYSTERECTOMY 05/06/2022 TVH and cysto FAMILY HISTORY Problem Relation Age of Onset Diabetes Mother Cancer Father Breast Cancer Maternal Aunt Asthma Sister Heart Brother SOCIAL HISTORY Social History Tobacco Use Smoking status: Some Days Years: 25 Types: Cigarettes Last attempt to quit: 2017 Years since quittin.7 Smokeless tobacco: Never Vaping Use Vaping Use: Some days Substances: Flavoring Substance Use Topics Alcohol use: Yes Comment: Socially Drug use: No REVIEW OF SYSTEMS Abdomen: No abdominal pain, nausea, vomiting, diarrhea, or constipation. No bloating, early satiety, indigestion, or increased flatulence. Bladder: No dysuria, gross hematuria, urinary frequency, urinary urgency, or incontinence. Breast: No breast lumps, nipple d/c, overlying skin changes, redness or skin retraction. Allergies and current medication updated:Yes EXAM: BP 122/70 Ht 5' 7 (1.70m) Wt 184 lb (83.5kg) LMP 02/09/2022 BMI 28.81 kg/(m^2). GENERAL: pleasant, female in no apparent distress HEENT: Normocephalic, atraumatic, mucus membranes moist, and no lesions NECK: Supple, full range of motion, no adenopathy, and thyroid normal DERMATOLOGY: Normal, without lesions, non-icteric, and non-hirsute BREAST: soft, non-tender, symmetric, no dominant mass, normal nipple-areolar complex, no lymphadenopathy, and no nipple discharge CHEST: Normal inspiratory effort ABDOMEN: soft, non-tender, and no masses PELVIC: external genitalia normal, normal Bartholin's glands, urethra, Lewellen's glands, no vulvar lesions, cervix absent good vaginal support, physiologic discharge present, normal appearing perineal body and perianal region, lower vulva and buttocks have some erythema and irritaiton c/w yeast BIMANUAL: no adnexal masses, non-tender, and uterus surgically absent RECTOVAGINAL: deferred. NEURO: alert and oriented x3,exam grossly non-focal EXTREMITIES: normal ASSESSMENT/PLAN: 1) Health maintenance: pap no longer needed declines flu vaccine 2) Contraception: hysterectomy. Contraceptive options reviewed and information provided. 3) STD screening: Declined STD check. 4) Follow up one year or sooner as needed yeast of vulva- nystatin cream rx Rachel Velasquez MD documented in this encounter [facility] 06-21-2022 Note HNO ID: [id number] Author: Rachel Velasquez MD Service: ? Author Type: Physician Type: Progress Notes Filed: 06/21/2022 2:03 PM Note Text: DATE OF SERVICE: 06/21/2022 PROBLEM: Evelyne Florence presents for postop visit. SURGERY AND DATE: 05/06/22 TV PATHOLOGY: benign SUBJECTIVE/INTERVAL HISTORY: Evelyne Florence reports that she feels well. No fever or chills. No shortness of breath, cough, or chest pain.. Patient reports that her appetite is good. urination normal. Denies vaginal bleeding. OBJECTIVE: ABDOMEN: Abdomen soft, non-tender, no hepatosplenomegaly. PELVIC: External genitalia normal. Vagina normal on speculum exam. Uterus, cervix, adnexa surgically absent. No urethral, bladder or pelvic masses. Cuff smooth. Cul de sac negative on rectal exam. No rectal masses. Sutures resolved ASSESSMENT: Postop visit PLAN: 1. Discussed results of pathology and implications with patient. 2. Postop restrictions reviewed. Rachel Velasquez MD [facility] 06-08-2022 Note HNO ID: [id number] Author: Lianne Yu MD Service: ? Author Type: Physician Type: Progress Notes Filed: 06/10/2022 7:48 AM Note Text: Evelyne Florence 1975 REFERRING PHYSICIAN: Lianne Yu MD CHIEF COMPLAINT: Follow Up (Left axillary biopsy) HPI: The patient is a 47 year old female is s/p left axillary lymph node biopsy - needle core. Pathology reveals Lymph node with reactive changes Patient notes no problems from biopsy. 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 Xray negative. She was given Rx for Tylenol #3 but [place] report does not show this was filled. Please verify with patient at next visit. Jil Farrar APRN.CNM October 06, 2017 Vicodin use during > Please review [place], please review risks at next appt. and intermittently. Vish Colbert Kidney stone 08/29/2017 August 29, 2017 had renal US, there is a small 7 mm kidney stone nonobstructing, not causing an issue clinically in that location. Renal US done [facility] on 07/20/17. CT done 06/24/17 shows small right nonobstructing stone, none on left. Rachel Velasquez MD kidney stones Seizure disorder (HCC) 05/2013 Trichomoniasis 05/24/2018 PAST SURGICAL HISTORY Procedure Laterality Date ANKLE SURGERY HX REMOVAL GALLBLADDER 2020 REMOVAL OF OVARY(S) Right TUBAL LIGATION 03/03/2018 VAGINAL HYSTERECTOMY 05/06/2022 TVH and cysto Current Outpatient Medications Medication Sig ibuprofen (MOTRIN) 600 mg tablet oxyCODONE IR (ROXICODONE) 5 mg immediate release tablet polyethylene glycol 3350 (MIRALAX) 17 gram/dose powder Take 17 g by mouth once daily. Dissolve dose in 4 - 8 ounces of liquid and take as directed. lamoTRIgine (LAMICTAL) 100 mg tablet Take 1 tablet by mouth as directed. Take 1 pill in the morning and 2 pills at bedtime rizatriptan (MAXALT) 10 mg tablet take 1 tablet by mouth AT ONSET OF MIGRAINE, REPEAT IN 2 HOURS IF NEEDED temazepam (RESTORIL) 15 mg Take 15 mg by mouth at bedtime as needed. nortriptyline (PAMELOR) 10 mg capsule take 1 capsule by mouth at bedtime for migraines Naproxen-Esomeprazole Mag 500-20 mg TbID Take by mouth. albuterol HFA (VENTOLIN HFA) 90 mcg/actuation inhaler Inhale 2 Puffs as instructed every 4 hours as needed for Wheezing/Shortness of Breath. ALLERGIES: Adhesive Tape (Rosins), Dilaudid [Hydromorphone Hcl], Influenza Virus Vaccines, Penicillins, and Shellfish Derived REVIEW OF SYSTEMS: Denies fevers PHYSICAL EXAMINATION: General: The patient is 47 year old female, well nourished, well hydrated in no acute distress. The patient is oriented to time, place, and person. VITALS: Blood pressure 112/82, pulse (!) 125, temperature 36.9 ?C (98.4 ?F), height 170.2 cm (5' 7 ), weight 83.5 kg (184 lb), last menstrual period 02/09/2022, SpO2 98 %. Body mass index is 28.82 kg/m?. Head: Normal cephalic, atraumatic Eyes: pupils are equally round, sclera are clear/anicteric Neck is supple with no tracheal deviation Respiratory: Normal respiratory excursion and pattern. Abdominal exam: benign Extremities: left axilla - biopsy site is well healed - no evidence of infection Neuro: non focal Psych: normal mood Assessment IMPRESSION: reactive lymph nodes - enlarged PLAN: I have discussed the above with the patient. I have reassured her that there is no evidence of malignancy. Patient can return to her PCP for medical care. Patient to return to this clinic if any worsening signs/symptoms. The patient acknowledges the above. I have answered all questions to the patient?s satisfaction and the patient has no further questions. I have confirmed and edited as necessary, the PFSH and ROS obtained by others. . Diagnoses: (R59.0) Enlarged lymph nodes in armpit (primary encounter diagnosis) Return to Clinic: The patient is instructed to follow-up with me as above. I spent a total of 10 minutes on the date of the service which included preparing to see the patient with review of any pertinent laboratory studies/radiological imaging/medical records, [id number] patient care, obtaining oral medical history from the patient in this encounter, performing a medically appropriate examination, counseling and educating the patient/family/caregiver, and completing appropriate medical documentation. Lianne Yu MD [facility] 06-08-2022 History of Present illness Narrative Evelyne Florence 1975 REFERRING PHYSICIAN: Lianne Yu MD CHIEF COMPLAINT: Follow Up (Left axillary biopsy) HPI: The patient is a 47 year old female is s/p left axillary lymph node biopsy - needle core. Pathology reveals Lymph node with reactive changes Patient notes no problems from biopsy. 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 Xray negative. She was given Rx for Tylenol #3 but [place]AR[place] report does not show this was filled. Please verify with patient at next visit. Jil Farrar APRN.CNM October 06, 2017 Vicodin use during > Please review OARRS, please review risks at next appt. and intermittently. Vish Colbert Kidney stone 08/29/2017 August 29, 2017 had renal US, there is a small 7 mm kidney stone nonobstructing, not causing an issue clinically in that location. Renal US done [facility] on 07/20/17. CT done 06/24/17 shows small right nonobstructing stone, none on left. Rachel Velasquez MD kidney stones Seizure disorder (HCC) 05/2013 Trichomoniasis 05/24/2018 PAST SURGICAL HISTORY Procedure Laterality Date ANKLE SURGERY HX REMOVAL GALLBLADDER 2020 REMOVAL OF OVARY(S) Right TUBAL LIGATION 03/03/2018 VAGINAL HYSTERECTOMY 05/06/2022 TVH and cysto Current Outpatient Medications Medication Sig ibuprofen (MOTRIN) 600 mg tablet oxyCODONE IR (ROXICODONE) 5 mg immediate release tablet polyethylene glycol 3350 (MIRALAX) 17 gram/dose powder Take 17 g by mouth once daily. Dissolve dose in 4 - 8 ounces of liquid and take as directed. lamoTRIgine (LAMICTAL) 100 mg tablet Take 1 tablet by mouth as directed. Take 1 pill in the morning and 2 pills at bedtime rizatriptan (MAXALT) 10 mg tablet take 1 tablet by mouth AT ONSET OF MIGRAINE, REPEAT IN 2 HOURS IF NEEDED temazepam (RESTORIL) 15 mg Take 15 mg by mouth at bedtime as needed. nortriptyline (PAMELOR) 10 mg capsule take 1 capsule by mouth at bedtime for migraines Naproxen-Esomeprazole Mag 500-20 mg TbID Take by mouth. albuterol HFA (VENTOLIN HFA) 90 mcg/actuation inhaler Inhale 2 Puffs as instructed every 4 hours as needed for Wheezing/Shortness of Breath. ALLERGIES: Adhesive Tape (Rosins), Dilaudid [Hydromorphone Hcl], Influenza Virus Vaccines, Penicillins, and Shellfish Derived REVIEW OF SYSTEMS: Denies fevers PHYSICAL EXAMINATION: General: The patient is 47 year old female, well nourished, well hydrated in no acute distress. The patient is oriented to time, place, and person. VITALS: Blood pressure 112/82, pulse (!) 125, temperature 36.9 C (98.4 F), height 170.2 cm (5' 7 ), weight 83.5 kg (184 lb), last menstrual period 02/09/2022, SpO2 98 %. Body mass index is 28.82 kg/m . Head: Normal cephalic, atraumatic Eyes: pupils are equally round, sclera are clear/anicteric Neck is supple with no tracheal deviation Respiratory: Normal respiratory excursion and pattern. Abdominal exam: benign Extremities: left axilla - biopsy site is well healed - no evidence of infection Neuro: non focal Psych: normal mood Assessment IMPRESSION: reactive lymph nodes - enlarged PLAN: I have discussed the above with the patient. I have reassured her that there is no evidence of malignancy. Patient can return to her PCP for medical care. Patient to return to this clinic if any worsening signs/symptoms. The patient acknowledges the above. I have answered all questions to the patient s satisfaction and the patient has no further questions. \ I have confirmed and edited as necessary, the PFSH and ROS obtained by others. . Diagnoses: (R59.0) Enlarged lymph nodes in armpit (primary encounter diagnosis) Return to Clinic: The patient is instructed to follow-up with me as above. I spent a total of 10 minutes on the date of the service which included preparing to see the patient with review of any pertinent laboratory studies/radiological imaging/medical records, [id number] patient care, obtaining oral medical history from the patient in this encounter, performing a medically appropriate examination, counseling and educating the patient/family/caregiver, and completing appropriate medical documentation. Lianne Yu MD documented in this encounter [facility] 06-01-2022 Note HNO ID: [id number] Author: Lianne Yu MD Service: ? Author Type: Physician Type: Procedures Filed: 06/03/2022 2:39 PM Note Text: Procedure - US guided left axillary lymph node needle core biopsy. The ultrasound machine was used for identification of the lesion and facilitation of the biopsy in real time imaging. An abnormal lymph node was identified in the left axillary area by ultrasound imaging. The skin at the site was cleansed with a surgical skin preparation. The skin and subcutaneous tissues were infiltrated with 1% xylocaine. A total of 6 ml was used. A small skin jayne was made medial/lateral to the lesion with an 11 blade scalpel. The Bard 14 G needle core device was then positioned near the lymph node and then fired into the lymph node. Ultrasound imaging pictures were captured. The device was withdrawn and the tissue was placed on Telfa. The device was the reinserted and more tissue was obtained. Several core samples of tissue were obtained in this fashion. This was done completely using simultaneous visualization with the ultrasound transducer. Adequate sampling was determined to be done. Hemostasis was achieved by pressure. No evidence of active bleeding was noted after pressure applied for a period of time. Steristrips were placed to reapproximate the wound edges. Sterile dressing was applied over this. Complications: none EBL - minimal [facility] 06-01-2022 Note HNO ID: [id number] Author: Lianne uY MD Service: ? Author Type: Physician Type: Progress Notes Filed: 06/03/2022 2:39 PM Note Text: Here for US guided left axillary lymph node needle core biopsy. She tolerated procedure well. She will follow up next week for discussion of results. [facility] 06-01-2022 History of Present illness Narrative Here for US guided left axillary lymph node needle core biopsy. She tolerated procedure well. She will follow up next week for discussion of results. documented in this encounter [facility] 06-01-2022 Procedure note Procedure(s): BX/EXC LYMPH NODE NEEDLE SUPERFICIAL Pre-Procedure Diagnose(s): Enlarged lymph nodes Post-Procedure Diagnose(s): Enlarged lymph nodes Procedure - US guided left axillary lymph node needle core biopsy. The ultrasound machine was used for identification of the lesion and facilitation of the biopsy in real time imaging. An abnormal lymph node was identified in the left axillary area by ultrasound imaging. The skin at the site was cleansed with a surgical skin preparation. The skin and subcutaneous tissues were infiltrated with 1% xylocaine. A total of 6 ml was used. A small skin jayne was made medial/lateral to the lesion with an 11 blade scalpel. The Joonto 14 G needle core device was then positioned near the lymph node and then fired into the lymph node. Ultrasound imaging pictures were captured. The device was withdrawn and the tissue was placed on Telfa. The device was the reinserted and more tissue was obtained. Several core samples of tissue were obtained in this fashion. This was done completely using simultaneous visualization with the ultrasound transducer. Adequate sampling was determined to be done. Hemostasis was achieved by pressure. No evidence of active bleeding was noted after pressure applied for a period of time. Steristrips were placed to reapproximate the wound edges. Sterile dressing was applied over this. Complications: none EBL - minimal documented in this encounter [facility] 06-01-2022 Instructions Allison Lara LPN - 06/01/2022 4:02 PM EST Instructions After OFFICE BASED LEFT AUXILARY BIOPSY Please do not take aspirin or other blood thinners for the next few days. After the procedure, Steri-Strips and a dressing will be placed on your small incision. The dressing may be removed in two to three days after the procedure. The Steri-Strips should be left in place until they fall off. If you have bleeding from the biopsy site, hold pressure with a clean gauze. If the bleeding continues, contact our office immediately. I recommend taking Advil or Tylenol for the discomfort. You should wear a comfortable but somewhat tight fitting bra. If you have significant bruising, an ice pack may improve your discomfort. Please make an appointment to return to our office in 7 days for a follow up visit. If you have any questions or concerns please call our office at [phone] and ask for General Surgery. documented in this encounter [facility] 06-01-2022 Nurse Note UNIVERSAL PROTOCOL / SAFETY CHECKLIST Procedure to be Performed: US guided left axillary lymph node needle core biopsy Sign In: A Moment of CARE was completed. Personnel directly involved with the procedure wore the appropriate PPE (Personal Protective Equipment). Special equipment: Ultraclip dual trigger breast tissue marker, 14g Bard Max-Core disposable core biopsy instrument Patient/Surrogate Stated/Verified: Time Out Communication: Intended patient and procedure match the source documents. Consent documented and matches the intended procedure. Relevant labs, photos, and/or imaging studies have been reviewed. Correct side/site marked and visible. Medications required for procedure verified. No fire risk assessment and interventions applicable. Implant(s) inserted: Correct implant(s) confirmed including size and side. and Expiration date(s) reviewed. Sign Out: SIGN OUT (optional for EMERGENT procedures): All specimen containers correctly labeled. No instruments, equipment or retained foreign bodies applicable. Post-procedure follow-up management communicated and Plan of Care Visit completed when applicable. Allison Lara LPN documented in this encounter [facility] 05-26-2022 History of Present illness Narrative Evelyne Florence 1975 REFERRING PHYSICIAN: Jil Farrar APRN.CNM CHIEF COMPLAINT: Consult (Lymph nodes) HPI: The patient is a 46 year old female presents with enlarged left axillary lymph nodes. This was found by breast radiographs. She notes no palpable lymph nodes. She denies palpable breast masses. She denies nipple discharge. She denies previous breast biopsies or breast surgeries. She denies breast pain. She denies previous infections of left arm, she does have cats in the house. Her gynecological history is as follows: menarche onset at age 12, , BCP use initially at age 14 for about 5 years, breast feeding about 2y, last menstrual period 02/09/2022 US left breast 05/25/2022 IMPRESSION: SUSPICIOUS FINDING - BIOPSY SHOULD BE CONSIDERED The oval lymph node in the left breast is suspicious of malignancy. An ultrasound guided biopsy is recommended. 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 Xray negative. She was given Rx for Tylenol #3 but [place] report does not show this was filled. Please verify with patient at next visit. Jil Farrar APRN.CNM October 06, 2017 Vicodin use during > Please review OARRS, please review risks at next appt. and intermittently. Vish Colbert Kidney stone 08/29/2017 August 29, 2017 had renal US, there is a small 7 mm kidney stone nonobstructing, not causing an issue clinically in that location. Renal US done [facility] on 07/20/17. CT done 06/24/17 shows small right nonobstructing stone, none on left. Rachel Velasquez MD kidney stones Seizure disorder (HCC) 05/2013 Trichomoniasis 05/24/2018 PAST SURGICAL HISTORY Procedure Laterality Date ANKLE SURGERY HX REMOVAL GALLBLADDER 2020 REMOVAL OF OVARY(S) Right TUBAL LIGATION 03/03/2018 VAGINAL HYSTERECTOMY 05/06/2022 TVH and cysto Current Outpatient Medications Medication Sig ibuprofen (MOTRIN) 600 mg tablet oxyCODONE IR (ROXICODONE) 5 mg immediate release tablet polyethylene glycol 3350 (MIRALAX) 17 gram/dose powder Take 17 g by mouth once daily. Dissolve dose in 4 - 8 ounces of liquid and take as directed. lamoTRIgine (LAMICTAL) 100 mg tablet Take 1 tablet by mouth as directed. Take 1 pill in the morning and 2 pills at bedtime rizatriptan (MAXALT) 10 mg tablet take 1 tablet by mouth AT ONSET OF MIGRAINE, REPEAT IN 2 HOURS IF NEEDED temazepam (RESTORIL) 15 mg Take 15 mg by mouth at bedtime as needed. nortriptyline (PAMELOR) 10 mg capsule take 1 capsule by mouth at bedtime for migraines Naproxen-Esomeprazole Mag 500-20 mg TbID Take by mouth. albuterol HFA (VENTOLIN HFA) 90 mcg/actuation inhaler Inhale 2 Puffs as instructed every 4 hours as needed for Wheezing/Shortness of Breath. ALLERGIES: Adhesive Tape (Rosins), Dilaudid [Hydromorphone Hcl], Influenza Virus Vaccines, Penicillins, and Shellfish Derived PERSONAL HISTORY: Social History Tobacco Use Smoking status: Some Days Years: 25.00 Types: Cigarettes Last attempt to quit: 2017 Years since quittin.0 Smokeless tobacco: Never Vaping Use Vaping Use: Some days Substances: Flavoring Substance Use Topics Alcohol use: Yes Comment: Socially Drug use: No FAMILY HISTORY Problem Relation Age of Onset Diabetes Mother Cancer Father Breast Cancer Maternal Aunt Asthma Sister Heart Brother The review of systems data was entered by the nurse and reviewed by me Nursing Notes: Allison Lara LPN 05/26/2022 4:02 PM Signed REVIEW OF SYSTEMS: General: The patient denies fatigue, denies weight loss, denies weight gain, denies feeling hot, and denies feelings of cold. Eyes: The patient denies glaucoma, denies eye injury/surgery, wears glasses or contacts. Ear/Nose/Throat: The patient NOTES allergies, denies hayfever, NOTES ear infections, and denies bloody noses. Cardiovascular: The patient denies chest pain, denies heart disease, denies high blood pressure,denies cardiac stent, denies prior heart attack, denies irregular heart beat, denies high cholesterol, denies poor circulation, denies heart failure, other cardiac issues, denies claudication, denies cold feet, denies peripheral arterial stent. Respiratory: The patient denies tuberculosis, denies pneumonia, denies frequent cough, denies pulmonary embolism, denies shortness of breath, and denies coughing up blood. Gastrointestinal: The patient denies difficulty swallowing, denies acid reflux, NOTES ulcers, denies vomiting, denies jaundice/hepatitis, denies gallbladder problems, denies black or tarry stools, denies hemorrhoids, denies bleeding from rectum, denies diverticulitis, denies constipation, denies diarrhea, denies loss of stool control, and denies hernias. Kidney/Bladder: The patient denies kidney stones, denies urine infections, and denies bloody urine. Skin: The patient denies a history of skin cancer, denies bleeding/changing moles, and denies a history of skin rash. Neurologic: The patient NOTES a history of epilepsy/convulsions, NOTES headaches, denies head/spinal injuries, and denies stroke/TIA. Psychiatric: The patient denies psychiatric medications, denies depression, and denies voices, denies substance abuse. Endocrine: The patient denies thyroid disorders, denies diabetes, and denies hormonal problems. Hematologic: The patient NOTES a history of bruising, denies bleeding, and denies anemia, denies blood clots. Infections: The patient denies a history of measles and mumps, denies rheumatic fever, and denies sexually transmitted diseases. Musculoskeletal: The patient denies back pain/injury, denies back problems, denies sciatica, denies knee/foot trouble, denies arthritis, or denies gout. When was patient's last Mammogram screening? 05/25/2022 Last Colonoscopy: n/a Allison Lara LPN PHYSICAL EXAMINATION: General: The patient is 46 year old female, well nourished, well hydrated in no acute distress. The patient is oriented to time, place, and person. VITALS: Blood pressure 118/78, pulse 116, temperature 36.6 C (97.9 F), height 170.2 cm (5' 7 ), weight 84.9 kg (187 lb 3.2 oz), SpO2 97 %. Body mass index is 29.32 kg/m . Head - Normocephalic. EOM intact with sclera clear and no icterus noted. Neck - supple with no jugular venous distention noted. Trachea is midline. No thyroid enlargement or thyroid nodules detected. No masses noted. Chest/breast - no asymmetry of breasts noted, no suspicious skin lesions noted, no nipple discharge and both nipples everted, no breast masses noted Lungs - clear to auscultation. Normal breath sounds. No rales/rhonchi/wheezing noted. No labored breathing noted, such as retractions. No cough heard. Heart - normal S1 and S2 auscultated. No rubs/clicks/murmurs noted. Regular rate. Abdomen - soft and benign. Normal bowel sounds No abdominal bruits noted. Difficult to determine if any masses or organomegaly due to body habitus. Extremities - no calf tenderness noted. No pitting edema noted. Skin - normal skin integrity. Lymph - no cervical adenopathy detected, no supraclavicular adenopathy detected, no axillary adenopathy detected Neurological - gait normal, no focal deficits noted Psych - calm and appropriate RADIOLOGIC STUDIES: As Noted Assessment IMPRESSION: enlarged left axillary lymph nodes PLAN: I have discussed the above with the patient. I have reviewed the abnormal imaging studies with the patient I have offered US guided left axillary needle core lymph node biopsy. I have explained the procedure to the patient. To be done in the office using local anesthesia I have counseled the patient as to the risks of the procedure, including but not limited to: infection, bleeding, injury to any blood vessels/nerves, scar tissue, wound infections, complications of anesthesia, etc. - the patient understands. The patient wishes to proceed. I have answered all questions to the patient s satisfaction and the patient has no further questions. I have confirmed and edited as necessary, the PFSH and ROS obtained by others. Consultation requested by Jil Farrar for an opinion regarding patient's abnormal ultrasound and enlarged left axillary lymph nodes. My final recommendations will be communicated back to the requesting physician by way of shared Medical record or letter to requesting physician via [place] mail. . Diagnoses: (R92.8) Abnormal ultrasound of breast (R59.9) Enlarged lymph nodes Return to Clinic: The patient will be scheduled for above. Medical Decision Making: Problems: Moderate: New problem with uncertain prognosis Data: Unique test result(s) reviewed: 1 Risk: Low: Low risk from testing/treatment Medical Decision Making Level: 3 - Low Lianne Yu MD documented in this encounter [facility] 05-26-2022 Nurse Note REVIEW OF SYSTEMS: General: The patient denies fatigue, denies weight loss, denies weight gain, denies feeling hot, and denies feelings of cold. Eyes: The patient denies glaucoma, denies eye injury/surgery, wears glasses or contacts. Ear/Nose/Throat: The patient NOTES allergies, denies hayfever, NOTES ear infections, and denies bloody noses. Cardiovascular: The patient denies chest pain, denies heart disease, denies high blood pressure,denies cardiac stent, denies prior heart attack, denies irregular heart beat, denies high cholesterol, denies poor circulation, denies heart failure, other cardiac issues, denies claudication, denies cold feet, denies peripheral arterial stent. Respiratory: The patient denies tuberculosis, denies pneumonia, denies frequent cough, denies pulmonary embolism, denies shortness of breath, and denies coughing up blood. Gastrointestinal: The patient denies difficulty swallowing, denies acid reflux, NOTES ulcers, denies vomiting, denies jaundice/hepatitis, denies gallbladder problems, denies black or tarry stools, denies hemorrhoids, denies bleeding from rectum, denies diverticulitis, denies constipation, denies diarrhea, denies loss of stool control, and denies hernias. Kidney/Bladder: The patient denies kidney stones, denies urine infections, and denies bloody urine. Skin: The patient denies a history of skin cancer, denies bleeding/changing moles, and denies a history of skin rash. Neurologic: The patient NOTES a history of epilepsy/convulsions, NOTES headaches, denies head/spinal injuries, and denies stroke/TIA. Psychiatric: The patient denies psychiatric medications, denies depression, and denies voices, denies substance abuse. Endocrine: The patient denies thyroid disorders, denies diabetes, and denies hormonal problems. Hematologic: The patient NOTES a history of bruising, denies bleeding, and denies anemia, denies blood clots. Infections: The patient denies a history of measles and mumps, denies rheumatic fever, and denies sexually transmitted diseases. Musculoskeletal: The patient denies back pain/injury, denies back problems, denies sciatica, denies knee/foot trouble, denies arthritis, or denies gout. When was patient's last Mammogram screening? N/A Last Colonoscopy: n/a Allison Lara LPN documented in this encounter [facility] 05-25-2022 History of Present illness Narrative Radiology Service Progress Note PATIENT NAME: Evelyne Florence DATE OF SERVICE: May 25, 2022 TIME: 4:54 PM PATIENT IDENTITY VERIFICATION COMPLETED USING TWO (2) IDENTIFIERS: Name and Date of confirmed by patient verbally. FALL SCREENING: Has the patient had 2 falls in the last year or 1 fall with injury or currently using an Ambulatory Assistive Device (Walker, Cane, Wheelchair, Crutches, etc.)? No PATIENT GENDER DATA: Female. status: : No status: NO. PATIENT RELEVANT IMPLANT DATA REVIEWED: Not Applicable RADIOLOGY DEPARTMENT: Ultrasound PERIPHERAL IV DATA: Not applicable SIGNED BY: Tri Reynoso RDMS May 25, 2022 4:54 PM documented in this encounter [facility] 05-25-2022 History of Present illness Narrative Radiology Service Progress Note PATIENT NAME: Evelyne Florence DATE OF SERVICE: May 25, 2022 TIME: 3:10 PM PATIENT IDENTITY VERIFICATION COMPLETED USING TWO (2) IDENTIFIERS: Name and Date of confirmed by patient verbally. FALL SCREENING: Has the patient had 2 falls in the last year or 1 fall with injury or currently using an Ambulatory Assistive Device (Walker, Cane, Wheelchair, Crutches, etc.)? No PATIENT GENDER DATA: Female. status: : No status: NO. PATIENT RELEVANT IMPLANT DATA REVIEWED: Not Applicable RADIOLOGY DEPARTMENT: Mammography PERIPHERAL IV DATA: Not applicable SIGNED BY: RT Reagan(Yahir) May 25, 2022 3:10 PM documented in this encounter [facility] 05-13-2022 History of Present illness Narrative DATE OF SERVICE: 05/13/2022 PROBLEM: Evelyne Florence presents for postop visit. SURGERY & DATE: 05/06/22 [facility] PATHOLOGY: benign- adenomyosis SUBJECTIVE/INTERVAL HISTORY: Evelyne Florence reports that she feels well. No fever or chills. No shortness of breath, cough, or chest pain. No incisional redness, swelling, or drainage. Patient reports that her appetite is fair. .No vaginal bleeding, small amount of discharge. OBJECTIVE: ABDOMEN: Abdomen soft, non-tender, no hepatosplenomegaly. . ASSESSMENT: pOSTOP TVH PLAN: 1. Discussed results of pathology and implications with patient. 2. Postop restrictions reviewed. f/u for 6 week postop Rachel Velasquez MD documented in this encounter [facility] 04-27-2022 History of Present illness Narrative Evelyne Florence is a 46 year old female who presents for problem visit for heavy menses . HPI: 46-year-old female who is completed her childbearing who is having bleedin so heavy that has bleeding through her protection. She also has a significant amount of cramping. She has had a previous tubal ligation. 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 Xray negative. She was given Rx for Tylenol #3 but [place] report does not show this was filled. Please verify with patient at next visit. Jil Farrar APRN.CNM October 06, 2017 Vicodin use during > Please review OARRS, please review risks at next appt. and intermittently. Vish Colbert Kidney stone 08/29/2017 August 29, 2017 had renal US, there is a small 7 mm kidney stone nonobstructing, not causing an issue clinically in that location. Renal US done [facility] on 07/20/17. CT done 06/24/17 shows small right nonobstructing stone, none on left. Rachel Velasquez MD kidney stones Seizure disorder (HCC) 05/2013 Trichomoniasis 05/24/2018 PAST SURGICAL HISTORY Procedure Laterality Date ANKLE SURGERY HX REMOVAL GALLBLADDER 2020 REMOVAL OF OVARY(S) Right TUBAL LIGATION 03/03/2018 FAMILY HISTORY Problem Relation Age of Onset Diabetes Mother Cancer Father Breast Cancer Maternal Aunt Asthma Sister Heart Brother Social History Tobacco Use Smoking status: Some Days Years: 25.00 Types: Cigarettes Last attempt to quit: 2017 Years since quittin.9 Smokeless tobacco: Never Vaping Use Vaping Use: Some days Substances: Flavoring Substance Use Topics Alcohol use: Yes Comment: Socially Drug use: No Current Outpatient Medications Medication Sig lamoTRIgine (LAMICTAL) 100 mg tablet Take 1 tablet by mouth as directed. Take 1 pill in the morning and 2 pills at bedtime rizatriptan (MAXALT) 10 mg tablet take 1 tablet by mouth AT ONSET OF MIGRAINE, REPEAT IN 2 HOURS IF NEEDED temazepam (RESTORIL) 15 mg Take 15 mg by mouth at bedtime as needed. nortriptyline (PAMELOR) 10 mg capsule take 1 capsule by mouth at bedtime for migraines Naproxen-Esomeprazole Mag 500-20 mg TbID Take by mouth. albuterol HFA (VENTOLIN HFA) 90 mcg/actuation inhaler Inhale 2 Puffs as instructed every 4 hours as needed for Wheezing/Shortness of Breath. No current facility-administered medications for this visit. Allergies As of Date: 04/27/2022 Allergen Noted Reaction ADHESIVE TAPE (ROSINS) 09/23/2018 Rash DILAUDID [HYDROMORPHONE HCL] 02/14/2017 Hives INFLUENZA VIRUS VACCINES 01/27/2018 Hives PENICILLINS 02/14/2017 Hives SHELLFISH DERIVED 02/14/2017 Swelling and Shortness of Breath Fully Assessed 04/27/2022 REVIEW OF SYSTEMS Abdomen: No bloating, early satiety, indigestion, or increased flatulence. No abdominal pain, nausea, vomiting, diarrhea, or constipation. Bladder: No dysuria, gross hematuria, urinary frequency, urinary urgency, or incontinence. Allergies and current medication updated:Yes EXAM: BP 112/74 Pulse 98 Resp 16 Ht 5' 5 (1.65m) Wt 182 lb (82.6kg) SpO2 99% LMP 02/09/2022 BMI 30.29 kg/(m^2). GENERAL: pleasant, female in no apparent distress ASSESSMENT AND PLAN: Menorrhagia, pelvic pain. Discussed with the patient that all pelvic pain is not alleviated by hysterectomy. However her heavy menstrual bleeding will be. Not a good combined hormonal contraceptive candidate with the medications she is currently on and her history of ovarian vein thrombosis. Does not want to take daily hormones. Not a good ablation candidate due to pelvic pain, suspect adenomyosis. Declines Mirena IUD. Risk benefits and alternatives to hysterectomy discussed with the patient, questions were answered to her satisfaction she desires to proceed. She understands this will make her permanently unable to bear children. She had a previous tubal ligation. We will remove any tubal remnants if accessible during the surgery. Medical Decision Making: Medical Decision Making Level: 1 - N/A Rachel Velasquez MD documented in this encounter [facility] 04-27-2022 History and physical note Pre-Op History and Physical HPI: The patient is a 46 year old female presenting for pre-operative visit. She is scheduled for TVH with possible bilateral salpingectomy (had sterilization in 2018) for pelvic pain, heavy menstrual bleeding, has completed child bearing on 05/06/22. Procedure discussed along with risks, benefits and complications. Other alternatives discussed for management. Consent form signed? Yes. 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 Xray negative. She was given Rx for Tylenol #3 but OARRS report does not show this was filled. Please verify with patient at next visit. Jil Farrar APRN.DONATO October 06, 2017 Vicodin use during > Please review OARRS, please review risks at next appt. and intermittently. Vish Colbert Kidney stone 08/29/2017 August 29, 2017 had renal US, there is a small 7 mm kidney stone nonobstructing, not causing an issue clinically in that location. Renal US done [facility] on 07/20/17. CT done 06/24/17 shows small right nonobstructing stone, none on left. Rachel Velasquez MD kidney stones Seizure disorder (HCC) 05/2013 Trichomoniasis 05/24/2018 PAST SURGICAL HISTORY Procedure Laterality Date ANKLE SURGERY HX REMOVAL GALLBLADDER 2020 REMOVAL OF OVARY(S) Right TUBAL LIGATION 03/03/2018 Current Outpatient Medications Medication Sig Dispense Refill lamoTRIgine (LAMICTAL) 100 mg tablet Take 1 tablet by mouth as directed. Take 1 pill in the morning and 2 pills at bedtime 90 tablet 5 rizatriptan (MAXALT) 10 mg tablet take 1 tablet by mouth AT ONSET OF MIGRAINE, REPEAT IN 2 HOURS IF NEEDED temazepam (RESTORIL) 15 mg Take 15 mg by mouth at bedtime as needed. nortriptyline (PAMELOR) 10 mg capsule take 1 capsule by mouth at bedtime for migraines Naproxen-Esomeprazole Mag 500-20 mg TbID Take by mouth. albuterol HFA (VENTOLIN HFA) 90 mcg/actuation inhaler Inhale 2 Puffs as instructed every 4 hours as needed for Wheezing/Shortness of Breath. 1 Inhaler 0 fluconazole (DIFLUCAN) 150 mg tablet Take one tablet by mouth once. Then repeat every 3 days for 3 doses. (Patient not taking: Reported on 04/27/2022) 3 tablet 0 No current facility-administered medications for this visit. ALLERGIES: Adhesive Tape (Rosins), Dilaudid [Hydromorphone Hcl], Influenza Virus Vaccines, Penicillins, and Shellfish Derived PERSONAL HISTORY: Social History Tobacco Use Smoking status: Some Days Years: 25.00 Types: Cigarettes Last attempt to quit: 2017 Years since quittin.9 Smokeless tobacco: Never Vaping Use Vaping Use: Some days Substances: Flavoring Substance Use Topics Alcohol use: Yes Comment: Socially Drug use: No FAMILY HISTORY: FAMILY HISTORY Problem Relation Age of Onset Diabetes Mother Cancer Father Breast Cancer Maternal Aunt Asthma Sister Heart Brother REVIEW OF SYMPTOMS: GENERAL: denies fevers or chills ENDOCRINOLOGY: has not been on steroids Cardiology : denies palpitations or chest pain Respiratory: denies SOB or cough Hematology: denies history of prolonged bleeding or easy bruising or VTE Allergy: Denies history of personal or family history of allergy to anesthesia PHYSICAL EXAMINATION: VITALS: Last menstrual period 02/09/2022. GENERAL: The patient is well nourished, well hydrated in no acute distress. , The patient is oriented to time, place, and person. NECK: Supple. No lynphadenopathy, normal thyroid, no thyromegaly. LUNGS: Clear to auscultation bilaterally. no wheezes, rhonchi or rales HEART: Regular rate and rhythm, Normal heart sounds, and No murmurs or gallops IMPRESSION: menorrhagia, pelvic pain. PLAN: The risks/benefits/alternatives and personal involved for the planned TVH, possible bilateral salpingectomy were reviewed with the patient. Her questions were answered to her satisfaction and she desires to proceed. Consent was signed. I reviewed with her postop instructions and expectations. I have reviewed and updated past medical and surgical history, medications and allergies Rachel Velasquez M.D. documented in this encounter [facility] 04-19-2022 History of Present illness Narrative documented in this encounter [facility] 04-10-2022 Miscellaneous Notes April 10, 2022 PID: [id number] Evelnye Florence [address], [place] [id number] Dear Ms. Florence, Your recent breast imaging exam on 04/09/2022 showed a possible finding that requires additional imaging studies for a complete evaluation. Most such findings are probably benign (not cancer). Your mammogram demonstrates that you have dense breast tissue, which could hide abnormalities. Dense breast tissue, in and of itself, is a relatively common condition. Therefore, this information is not provided to cause undue concern; rather, it is to raise your awareness and promote discussion with your health care provider regarding the presence of dense breast tissue in addition to other risk factors. If you have a healthcare provider who ordered/prescribed your screening mammogram: Please call [phone] or EXT: [phone] to schedule an appointment for your additional imaging (if you have not already done so). If you DO NOT have a healthcare provider (ie you did not have an order/prescription for your screening mammogram): Please call to schedule an appointment for your additional imaging (if you have not already done so). You must have an order/prescription from your physician when calling to schedule your appointment. If your order/prescription is not electronic, you must bring the hard copy with you on the day of your exam to avoid delays. Your imaging studies and reports are kept on file at [facility] as part of your permanent medical record, and are available for your continuing care. Thank you for allowing us to help in meeting your health care needs. Sincerely, Dr. Ravi Interpreting Radiologist [facility] (Additional imaging) documented in this encounter [facility] 03-19-2022 History of Present illness Narrative Evelyne Florence is a 46 year old female who presents for problem visit for heavy menstrual bleeding. Passes clots. Changes protection frequently. Has to wear protection that cover like underwear. Some cramping. Had EMB and pelvic US. Had tubal, does not desire future . 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 Xray negative. She was given Rx for Tylenol #3 but OARRS report does not show this was filled. Please verify with patient at next visit. Jil Farrar APRN.CNM October 06, 2017 Vicodin use during > Please review OARRS, please review risks at next appt. and intermittently. Vish Colbert Kidney stone 08/29/2017 August 29, 2017 had renal US, there is a small 7 mm kidney stone nonobstructing, not causing an issue clinically in that location. Renal US done [facility] on 07/20/17. CT done 06/24/17 shows small right nonobstructing stone, none on left. Rachel Velasquez MD kidney stones Seizure disorder (HCC) 05/2013 Trichomoniasis 05/24/2018 PAST SURGICAL HISTORY Procedure Laterality Date ANKLE SURGERY HX REMOVAL OF OVARY(S) Right TUBAL LIGATION 03/03/2018 FAMILY HISTORY Problem Relation Age of Onset Diabetes Mother Cancer Father Breast Cancer Maternal Aunt Asthma Sister Heart Brother Social History Tobacco Use Smoking status: Some Days Years: 25.00 Types: Cigarettes Last attempt to quit: 2017 Years since quittin.8 Smokeless tobacco: Never Vaping Use Vaping Use: Never used Substance Use Topics Alcohol use: Yes Comment: Socially Drug use: No Current Outpatient Medications Medication Sig fluconazole (DIFLUCAN) 150 mg tablet Take one tablet by mouth once. Then repeat every 3 days for 3 doses. lamoTRIgine (LAMICTAL) 100 mg tablet Take 1 tablet by mouth as directed. Take 1 pill in the morning and 2 pills at bedtime rizatriptan (MAXALT) 10 mg tablet take 1 tablet by mouth AT ONSET OF MIGRAINE, REPEAT IN 2 HOURS IF NEEDED temazepam (RESTORIL) 15 mg Take 15 mg by mouth at bedtime as needed. nortriptyline (PAMELOR) 10 mg capsule take 1 capsule by mouth at bedtime for migraines Naproxen-Esomeprazole Mag 500-20 mg TbID Take by mouth. albuterol HFA (VENTOLIN HFA) 90 mcg/actuation inhaler Inhale 2 Puffs as instructed every 4 hours as needed for Wheezing/Shortness of Breath. No current facility-administered medications for this visit. Allergies As of Date: 03/19/2022 Allergen Noted Reaction ADHESIVE TAPE (ROSINS) 09/23/2018 Rash DILAUDID [HYDROMORPHONE HCL] 02/14/2017 Hives INFLUENZA VIRUS VACCINES 01/27/2018 Hives PENICILLINS 02/14/2017 Hives SHELLFISH DERIVED 02/14/2017 Swelling and Shortness of Breath Fully Assessed 03/19/2022 REVIEW OF SYSTEMS Abdomen: No bloating, early satiety, indigestion, or increased flatulence. No abdominal pain, nausea, vomiting, diarrhea, or constipation. Bladder: No dysuria, gross hematuria, urinary frequency, urinary urgency, or incontinence. Breast: No breast lumps, nipple d/c, overlying skin changes, redness or skin retraction. Denies H/o VTE. No h/o prolonged bleeding or easy bruising Endocrine,- some hair thining, no heat or cold intolerance, some hot flashes. Allergies and current medication updated:Yes EXAM: BP 118/82 Wt 178 lb 12.8 oz (81.1kg) LMP 02/09/2022 GENERAL: pleasant, female in no apparent distress PELVIC: external genitalia normal, normal Bartholin's glands, urethra, Lewellen's glands, no vulvar lesions, no cervical lesions, physiologic discharge present, normal appearing perineal body and perianal region, cystocele 1st degree, rectocele 1st degree, cervical prolapse 1st degree BIMANUAL: uterus normal size, shape and consistency, no adnexal masses, non-tender, and boggy, mobile ASSESSMENT AND PLAN: Encounter Diagnosis ICD-10-CM 1. Encounter for screening for malignant neoplasm of cervix Z12.4 2. Special screening examination for human papillomavirus (HPV) Z11.51 menorrhagia, dysmenorrhea, adenomyosis. Reviewed TSH/CBC,pelvic US and EMB. Pap updated today. R/B/A/P to various treatment options reviewed. No combined hormonal contraceptive candidate due to migraines. Declines MIrena. [id number] present so not a good endometrial ablation candidate. Desires definitive therapy in form of hysterectomy. Understands she will be permanently unable to have a and she does not desire future fertility, previous tubal. Medical Decision Making: Medical Decision Making Level: 1 - N/A Rachel Velasquez MD documented in this encounter [facility] 02-22-2022 History of Present illness Narrative Radiology Service Progress Note PATIENT NAME: Evelyne Florence DATE OF SERVICE: February 22, 2022 TIME: 10:14 AM PATIENT IDENTITY VERIFICATION COMPLETED USING TWO (2) IDENTIFIERS: Name and Date of confirmed by patient verbally. FALL SCREENING: Has the patient had 2 falls in the last year or 1 fall with injury or currently using an Ambulatory Assistive Device (Walker, Cane, Wheelchair, Crutches, etc.)? No PATIENT GENDER DATA: Female. status: : No status: NO. 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 IgM positive. Patient denies any previous outbreak. Start prophylaxis at 36 weeks. Jil Farrar APRN.CNM Polyhydramnios in third trimester 12/12/2017 05/23/2018 Overview: 12/28/17-RUPAL 27.4. Weekly BPP. Jil Farrar APRN.CNM Intrauterine growth restrict ion (IUGR) affecting care of mother, second trimester, single gestation 12/12/2017 05/23/2018 Overview: 12/14/[address] Carroll UTI (urinary tract infection) in , ante 11/02/2017 05/23/2018 Overview: 11/02/17-Positive E Coli UTI. Treated with Macrobid 100mg PO BID x 7 days. Urine LIBERTY in 4 weeks. Jil Farrar APRN.CNM Pyelectasis of fetus on ultrasound 10/0705/23/2018 Overview: 01/31/18 - pediatric urology recommendations OK to deliver at [facility] Please obtain renal and bladder ultrasound at and a repeat at 7-10 days He will need prophylactic antibiotics amoxicillin 20mg/kg/dose daily Recommend circumcision Note printed & taken to peds at [facility]. Alvarez Rojo MD 12/28/17- Pyelectasis is still noted.The left renal APD measures 10.2 mm (larger than the previous scan). Left hydroureter is noted. Appointment with on 01/04/18. Jil Farrar APRN.CNM Left kidney at 5.1 mm and calyceal dilation 12/14/[address] Carroll Evaluate anatomy not seen on prior sonogram 10/0705/23/2018 Overview: Stomach bubble not visualized well at 19 weeks History of narcotic use 10/06/2017 01/11/20 Overview: 10/25/17-Patient seen in ER on 10/09/17 for 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 Xray negative. She was given Rx for Tylenol #3 but OARRS report does not show this was filled. Please verify with patient at next visit. Jil Farrar APRN.CNM October 06, 2017 Vicodin use during > Please review OARRS, please review risks at next appt. and intermittently. Rachel Velasquez MD Kidney stone 08/29/2017 01/11/2020 Overview: August 29, 2017 had renal US, there is a small 7 mm kidney stone nonobstructing, not causing an issue clinically in that location. Renal US done [facility] on 07/20/17. CT done 06/24/17 shows small right nonobstructing stone, none on left. Rachel Velasquez MD Grand multipara 08/04/2017 05/23/2018 Overview: 08/04/2017 She is . I have asked her to sign a release form for her delivery records from [place]. TKRN Custody issue 08/04/2017 01/11/2020 Overview: 08/04/2017She states she does not have custody of any of her children due to living in a house in [place], [place] with drug friends . She denies ever using drugs. TKRN Antepartum multigravida of advanced maternal age 0308/04/2017 05/23/2018 Overview: 08/04/2017Patient is 42 years old. Advanced Maternal age discussed. Pt refused handouts on Genetic Amniocentesis and [facility]. [facility] handout on Early Screening In given and discussed. Level II Ultrasound and Dr. Carroll's services discussed. Patient desires nuchal ultrasound and [id number] test. Patient recently saw Dr Prado her PCP for right sided pain in . AN ultrasound was done and that showed IUP at 7w1d. She had an ultrasound for brown discharge from her nipples 05/18/2017. She is scheduled for folw-up mammogram 11/2017. She will discuss with Dr Rojo appropriate follow-up during . She has a history of kidney stones. Recent ultrasound done at [facility] . She is being followed by Dr Prado. Patient has a history of seizures diagnosed in [address] Smith. She currently is taking Depakote. She has an appt with Dr Smith in [place] 09/04. She is advised to call Dr Smith today or tomorrow and let him know she is . 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 She denies any surgical correction. She states she recently saw Dr Gonzales and had a heart cath and stress test done. She states there were negative findings. Pt quit smoking 1 year ago. Discussed risks of smoking during and advised pt to continue not smoking. TKRN Pelvic pain in , antepartum 08/04/2017 08/29/2017 Overview: 08/04/2017Patient recently saw Dr Prado her PCP for right sided pain in . AN ultrasound was done and that showed IUP at 7w1d. She states pain has resolved. Denies any bleeding this . Patient is to call/come in if she develops pain or bleeding or PRN problems.TKRN Breast discharge 08/04/2017 01/11/2020 Overview: 08/04/2017 She had an ultrasound for brown discharge from her nipples 05/18/2017. She is scheduled for folw-up mammogram 11/2017. She will discuss with Dr Rojo appropriate follow-up during . She has a history of kidney stones. Recent ultrasound done at [facility] . She is being followed by Dr Prado. TKRN History of seizures 08/04/2017 01/11/2020 Overview: 08/04/2017Patient has a history of seizures [place] [address] Smith. She currently is taking Depakote. She has an appt with Dr Smith in [place] 09/04. She is advised to call Dr Smith today or tomorrow and let him know she is .TKRN Seizure disorder in Overview: 10/24/17-Seen by -neurology on 09/30/17. Started on Lamictal XR and titrate as follows: 25mg daily x2 weeks, then 50mg daily x2 weeks then 100mg daily. No seizures since 2014. 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 IgM positive. Patient denies any previous outbreak. Start prophylaxis at 36 weeks. Jil Farrar APRN.CNM Polyhydramnios in third trimester 12/12/2017 05/23/2018 Overview: 12/28/17-RUPAL 27.4. Weekly BPP. Jil Farrar APRN.CNM Intrauterine growth restrict ion (IUGR) affecting care of mother, second trimester, single gestation 12/12/2017 05/23/2018 Overview: 12/14/[address] Carroll UTI (urinary tract infection) in , ante 11/02/2017 05/23/2018 Overview: 11/02/17-Positive E Coli UTI. Treated with Macrobid 100mg PO BID x 7 days. Urine LIBERTY in 4 weeks. Jil Farrar APRN.CNM Pyelectasis of fetus on ultrasound 10/0705/23/2018 Overview: 01/31/18 - pediatric urology recommendations OK to deliver at [facility] Please obtain renal and bladder ultrasound at and a repeat at 7-10 days He will need prophylactic antibiotics amoxicillin 20mg/kg/dose daily Recommend circumcision Note printed & taken to peds at [facility]. Alvarez Rojo MD 12/28/17- Pyelectasis is still noted.The left renal APD measures 10.2 mm (larger than the previous scan). Left hydroureter is noted. Appointment with on 01/04/18. Jil Farrar APRN.CNM Left kidney at 5.1 mm and calyceal dilation 12/14/[address] Carroll Evaluate anatomy not seen on prior sonogram 10/0705/23/2018 Overview: Stomach bubble not visualized well at 19 weeks History of narcotic use 10/06/2017 01/11/20 Overview: 10/25/17-Patient seen in ER on 10/09/17 for 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 Xray negative. She was given Rx for Tylenol #3 but OARRS report does not show this was filled. Please verify with patient at next visit. Jil Farrar APRN.CNM October 06, 2017 Vicodin use during > Please review OARRS, please review risks at next appt. and intermittently. Rachel Velasquez MD Kidney stone 08/29/2017 01/11/2020 Overview: August 29, 2017 had renal US, there is a small 7 mm kidney stone nonobstructing, not causing an issue clinically in that location. Renal US done [facility] on 07/20/17. CT done 06/24/17 shows small right nonobstructing stone, none on left. Rachel Velasquez MD Grand multipara 08/04/2017 05/23/2018 Overview: 08/04/2017 She is . I have asked her to sign a release form for her delivery records from [place]. TKRN Custody issue 08/04/2017 01/11/2020 Overview: 08/04/2017She states she does not have custody of any of her children due to living in a house in [place], [place] with drug friends . She denies ever using drugs. TKRN Antepartum multigravida of advanced maternal age 0308/04/2017 05/23/2018 Overview: 08/04/2017Patient is 42 years old. Advanced Maternal age discussed. Pt refused handouts on Genetic Amniocentesis and [facility]. [facility] handout on Early Screening In given and discussed. Level II Ultrasound and Dr. Carroll's services discussed. Patient desires nuchal ultrasound and [id number] test. Patient recently saw Dr Prado her PCP for right sided pain in . AN ultrasound was done and that showed IUP at 7w1d. She had an ultrasound for brown discharge from her nipples 05/18/2017. She is scheduled for folw-up mammogram 11/2017. She will discuss with Dr Rojo appropriate follow-up during . She has a history of kidney stones. Recent ultrasound done at [facility] . She is being followed by Dr Prado. Patient has a history of seizures diagnosed in [address] Smith. She currently is taking Depakote. She has an appt with Dr Smith in [place] 09/04. She is advised to call Dr Smith today or tomorrow and let him know she is . 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 She denies any surgical correction. She states she recently saw Dr Gonzales and had a heart cath and stress test done. She states there were negative findings. Pt quit smoking 1 year ago. Discussed risks of smoking during and advised pt to continue not smoking. TKRN Pelvic pain in , antepartum 08/04/2017 08/29/2017 Overview: 08/04/2017Patient recently saw Dr Prado her PCP for right sided pain in . AN ultrasound was done and that showed IUP at 7w1d. She states pain has resolved. Denies any bleeding this . Patient is to call/come in if she develops pain or bleeding or PRN problems.TKRN Breast discharge 08/04/2017 01/11/2020 Overview: 08/04/2017 She had an ultrasound for brown discharge from her nipples 05/18/2017. She is scheduled for folw-up mammogram 11/2017. She will discuss with Dr Rojo appropriate follow-up during . She has a history of kidney stones. Recent ultrasound done at [facility] . She is being followed by Dr Prado. TKRN History of seizures 08/04/2017 01/11/2020 Overview: 08/04/2017Patient has a history of seizures [place] [address] [place]. She currently is taking Depakote. She has an appt with Dr Smith in [place] 09/04. She is advised to call Dr Smith today or tomorrow and let him know she is .TKRN Seizure disorder in Overview: 10/24/17-Seen by -neurology on 09/30/17. Started on Lamictal XR and titrate as follows: 25mg daily x2 weeks, then 50mg daily x2 weeks then 100mg daily. No seizures since 2014. 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 IgM positive. Patient denies any previous outbreak. Start prophylaxis at 36 weeks. Jil Farrar APRN.CNM Polyhydramnios in third trimester 12/12/2017 05/23/2018 Overview: 12/28/17-RUPAL 27.4. Weekly BPP. Jil Farrar APRN.CNM Intrauterine growth restrict ion (IUGR) affecting care of mother, second trimester, single gestation 12/12/2017 05/23/2018 Overview: 12/14/[address] Carroll UTI (urinary tract infection) in , ante 11/02/2017 05/23/2018 Overview: 11/02/17-Positive E Coli UTI. Treated with Macrobid 100mg PO BID x 7 days. Urine LIBERTY in 4 weeks. Jil Farrar APRN.CNM Pyelectasis of fetus on ultrasound 10/0705/23/2018 Overview: 01/31/18 - pediatric urology recommendations OK to deliver at [facility] Please obtain renal and bladder ultrasound at and a repeat at 7-10 days He will need prophylactic antibiotics amoxicillin 20mg/kg/dose daily Recommend circumcision Note printed & taken to peds at [facility]. Alvarez Rojo MD 12/28/17- Pyelectasis is still noted.The left renal APD measures 10.2 mm (larger than the previous scan). Left hydroureter is noted. Appointment with on 01/04/18. Jil Farrar APRN.CNM Left kidney at 5.1 mm and calyceal dilation 12/14/[address] Carroll Evaluate anatomy not seen on prior sonogram 10/0705/23/2018 Overview: Stomach bubble not visualized well at 19 weeks History of narcotic use 10/06/2017 01/11/20 Overview: 10/25/17-Patient seen in ER on 10/09/17 for 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 Xray negative. She was given Rx for Tylenol #3 but OARRS report does not show this was filled. Please verify with patient at next visit. Jil Farrar APRN.CNM October 06, 2017 Vicodin use during > Please review OARRS, please review risks at next appt. and intermittently. Rachel Velasquez MD Kidney stone 08/29/2017 01/11/2020 Overview: August 29, 2017 had renal US, there is a small 7 mm kidney stone nonobstructing, not causing an issue clinically in that location. Renal US done [facility] on 07/20/17. CT done 06/24/17 shows small right nonobstructing stone, none on left. Rachel Velasquez MD Grand multipara 08/04/2017 05/23/2018 Overview: 08/04/2017 She is . I have asked her to sign a release form for her delivery records from [place]. TKRN Custody issue 08/04/2017 01/11/2020 Overview: 08/04/2017She states she does not have custody of any of her children due to living in a house in [place], [place] with drug friends . She denies ever using drugs. TKRN Antepartum multigravida of advanced maternal age 0308/04/2017 05/23/2018 Overview: 08/04/2017Patient is 42 years old. Advanced Maternal age discussed. Pt refused handouts on Genetic Amniocentesis and [facility]. [facility] handout on Early Screening In given and discussed. Level II Ultrasound and Dr. Carroll's services discussed. Patient desires nuchal ultrasound and [id number] test. Patient recently saw Dr Prado her PCP for right sided pain in . AN ultrasound was done and that showed IUP at 7w1d. She had an ultrasound for brown discharge from her nipples 05/18/2017. She is scheduled for folw-up mammogram 11/2017. She will discuss with Dr Rojo appropriate follow-up during . She has a history of kidney stones. Recent ultrasound done at [facility] . She is being followed by Dr Prado. Patient has a history of seizures diagnosed in [address] Smith. She currently is taking Depakote. She has an appt with Dr Smith in [place] 09/04. She is advised to call Dr Smith today or tomorrow and let him know she is . 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 She denies any surgical correction. She states she recently saw Dr Gonzales and had a heart cath and stress test done. She states there were negative findings. Pt quit smoking 1 year ago. Discussed risks of smoking during and advised pt to continue not smoking. TKRN Pelvic pain in , antepartum 08/04/2017 08/29/2017 Overview: 08/04/2017Patient recently saw Dr Prado her PCP for right sided pain in . AN ultrasound was done and that showed IUP at 7w1d. She states pain has resolved. Denies any bleeding this . Patient is to call/come in if she develops pain or bleeding or PRN problems.TKRN Breast discharge 08/04/2017 01/11/2020 Overview: 08/04/2017 She had an ultrasound for brown discharge from her nipples 05/18/2017. She is scheduled for folw-up mammogram 11/2017. She will discuss with Dr Rojo appropriate follow-up during . She has a history of kidney stones. Recent ultrasound done at [facility] . She is being followed by Dr Prado. TKRN History of seizures 08/04/2017 01/11/2020 Overview: 08/04/2017Patient has a history of seizures [place] [address] [place]. She currently is taking Depakote. She has an appt with Dr Smith in [place] 09/04. She is advised to call Dr Smith today or tomorrow and let him know she is .TKRN Seizure disorder in Overview: 10/24/17-Seen by -neurology on 09/30/17. Started on Lamictal XR and titrate as follows: 25mg daily x2 weeks, then 50mg daily x2 weeks then 100mg daily. No seizures since 2014. 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 IgM positive. Patient denies any previous outbreak. Start prophylaxis at 36 weeks. Jil Farrar APRN.CNM Polyhydramnios in third trimester 12/12/2017 05/23/2018 Overview: 12/28/17-RUPAL 27.4. Weekly BPP. Jil Farrar APRN.CNM Intrauterine growth restrict ion (IUGR) affecting care of mother, second trimester, single gestation 12/12/2017 05/23/2018 Overview: 12/14/[address] Carroll UTI (urinary tract infection) in , ante 11/02/2017 05/23/2018 Overview: 11/02/17-Positive E Coli UTI. Treated with Macrobid 100mg PO BID x 7 days. Urine LIBERTY in 4 weeks. Jil Farrar APRN.CNM Pyelectasis of fetus on ultrasound 10/0705/23/2018 Overview: 01/31/18 - pediatric urology recommendations OK to deliver at [facility] Please obtain renal and bladder ultrasound at and a repeat at 7-10 days He will need prophylactic antibiotics amoxicillin 20mg/kg/dose daily Recommend circumcision Note printed & taken to peds at [facility]. Alvarez Rojo MD 12/28/17- Pyelectasis is still noted.The left renal APD measures 10.2 mm (larger than the previous scan). Left hydroureter is noted. Appointment with on 01/04/18. Jil Farrar APRN.CNM Left kidney at 5.1 mm and calyceal dilation 12/14/[address] Carroll Evaluate anatomy not seen on prior sonogram 10/0705/23/2018 Overview: Stomach bubble not visualized well at 19 weeks History of narcotic use 10/06/2017 01/11/20 20 Overview: 10/25/17-Patient seen in ER on 10/09/17 for 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 Xray negative. She was given Rx for Tylenol #3 but OARRS report does not show this was filled. Please verify with patient at next visit. Jil Farrar APRN.CNM October 06, 2017 Vicodin use during > Please review OARRS, please review risks at next appt. and intermittently. Rachel Velasquez MD Kidney stone 08/29/2017 01/11/2020 Overview: August 29, 2017 had renal US, there is a small 7 mm kidney stone nonobstructing, not causing an issue clinically in that location. Renal US done [facility] on 07/20/17. CT done 06/24/17 shows small right nonobstructing stone, none on left. Rachel Velasquez MD Grand multipara 08/04/2017 05/23/2018 Overview: 08/04/2017 She is . I have asked her to sign a release form for her delivery records from [place]. TKRN Custody issue 08/04/2017 01/11/2020 Overview: 08/04/2017She states she does not have custody of any of her children due to living in a house in [place], [place] with drug friends . She denies ever using drugs. TKRN Antepartum multigravida of advanced maternal age 0308/04/2017 05/23/2018 Overview: 08/04/2017Patient is 42 years old. Advanced Maternal age discussed. Pt refused handouts on Genetic Amniocentesis and [facility]. [facility] handout on Early Screening In given and discussed. Level II Ultrasound and Dr. Carroll's services discussed. Patient desires nuchal ultrasound and [id number] test. Patient recently saw Dr Prado her PCP for right sided pain in . AN ultrasound was done and that showed IUP at 7w1d. She had an ultrasound for brown discharge from her nipples 05/18/2017. She is scheduled for folw-up mammogram 11/2017. She will discuss with Dr Rojo appropriate follow-up during . She has a history of kidney stones. Recent ultrasound done at [facility] . She is being followed by Dr Prado. Patient has a history of seizures diagnosed in [address] Smith. She currently is taking Depakote. She has an appt with Dr Smith in [place] 09/04. She is advised to call Dr Smith today or tomorrow and let him know she is . 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 She denies any surgical correction. She states she recently saw Dr Gonzales and had a heart cath and stress test done. She states there were negative findings. Pt quit smoking 1 year ago. Discussed risks of smoking during and advised pt to continue not smoking. TKRN Pelvic pain in , antepartum 08/04/2017 08/29/2017 Overview: 08/04/2017Patient recently saw Dr Prado her PCP for right sided pain in . AN ultrasound was done and that showed IUP at 7w1d. She states pain has resolved. Denies any bleeding this . Patient is to call/come in if she develops pain or bleeding or PRN problems.TKRN Breast discharge 08/04/2017 01/11/2020 Overview: 08/04/2017 She had an ultrasound for brown discharge from her nipples 05/18/2017. She is scheduled for folw-up mammogram 11/2017. She will discuss with Dr Rojo appropriate follow-up during . She has a history of kidney stones. Recent ultrasound done at [facility] . She is being followed by Dr Prado. TKRN History of seizures 08/04/2017 01/11/2020 Overview: 08/04/2017Patient has a history of seizures [place] [address] Smith. She currently is taking Depakote. She has an appt with Dr Smith in [place] 09/04. She is advised to call Dr Smith today or tomorrow and let him know she is .TKRN Seizure disorder in Overview: 10/24/17-Seen by -neurology on 09/30/17. Started on Lamictal XR and titrate as follows: 25mg daily x2 weeks, then 50mg daily x2 weeks then 100mg daily. No seizures since 2014. 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 IgM positive. Patient denies any previous outbreak. Start prophylaxis at 36 weeks. Jil Farrar APRN.CNM Polyhydramnios in third trimester 12/12/2017 05/23/2018 Overview: 12/28/17-RUPAL 27.4. Weekly BPP. Jil Farrar APRN.CNM Intrauterine growth restrict ion (IUGR) affecting care of mother, second trimester, single gestation 12/12/2017 05/23/2018 Overview: 12/14/[address] Carroll UTI (urinary tract infection) in , ante 11/02/2017 05/23/2018 Overview: 11/02/17-Positive E Coli UTI. Treated with Macrobid 100mg PO BID x 7 days. Urine LIBERTY in 4 weeks. Jil Farrar APRN.CNM Pyelectasis of fetus on ultrasound 10/0705/23/2018 Overview: 01/31/18 - pediatric urology recommendations OK to deliver at [facility] Please obtain renal and bladder ultrasound at and a repeat at 7-10 days He will need prophylactic antibiotics amoxicillin 20mg/kg/dose daily Recommend circumcision Note printed & taken to peds at [facility]. Alvarez Rojo MD 12/28/17- Pyelectasis is still noted.The left renal APD measures 10.2 mm (larger than the previous scan). Left hydroureter is noted. Appointment with on 01/04/18. Jil Farrar APRN.CNM Left kidney at 5.1 mm and calyceal dilation 12/14/[address] Carroll Evaluate anatomy not seen on prior sonogram 10/0705/23/2018 Overview: Stomach bubble not visualized well at 19 weeks History of narcotic use 10/06/2017 01/11/20 Overview: 10/25/17-Patient seen in ER on 10/09/17 for 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 Xray negative. She was given Rx for Tylenol #3 but OARRS report does not show this was filled. Please verify with patient at next visit. Jil Farrar APRN.CNM October 06, 2017 Vicodin use during > Please review OARRS, please review risks at next appt. and intermittently. Rachel Velasquez MD Kidney stone 08/29/2017 01/11/2020 Overview: August 29, 2017 had renal US, there is a small 7 mm kidney stone nonobstructing, not causing an issue clinically in that location. Renal US done [facility] on 07/20/17. CT done 06/24/17 shows small right nonobstructing stone, none on left. Rachel Velasquez MD Grand multipara 08/04/2017 05/23/2018 Overview: 08/04/2017 She is . I have asked her to sign a release form for her delivery records from [place]. TKRN Custody issue 08/04/2017 01/11/2020 Overview: 08/04/2017She states she does not have custody of any of her children due to living in a house in [place], [place] with drug friends . She denies ever using drugs. TKRN Antepartum multigravida of advanced maternal age 0308/04/2017 05/23/2018 Overview: 08/04/2017Patient is 42 years old. Advanced Maternal age discussed. Pt refused handouts on Genetic Amniocentesis and [facility]. [facility] handout on Early Screening In given and discussed. Level II Ultrasound and Dr. Carroll's services discussed. Patient desires nuchal ultrasound and [id number] test. Patient recently saw Dr Prado her PCP for right sided pain in . AN ultrasound was done and that showed IUP at 7w1d. She had an ultrasound for brown discharge from her nipples 05/18/2017. She is scheduled for folw-up mammogram 11/2017. She will discuss with Dr Rojo appropriate follow-up during . She has a history of kidney stones. Recent ultrasound done at [facility] . She is being followed by Dr Prado. Patient has a history of seizures diagnosed in [address] Smith. She currently is taking Depakote. She has an appt with Dr Smith in [place] 09/04. She is advised to call Dr Smith today or tomorrow and let him know she is . 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 She denies any surgical correction. She states she recently saw Dr Gonzales and had a heart cath and stress test done. She states there were negative findings. Pt quit smoking 1 year ago. Discussed risks of smoking during and advised pt to continue not smoking. TKRN Pelvic pain in , antepartum 08/04/2017 08/29/2017 Overview: 08/04/2017Patient recently saw Dr Prado her PCP for right sided pain in . AN ultrasound was done and that showed IUP at 7w1d. She states pain has resolved. Denies any bleeding this . Patient is to call/come in if she develops pain or bleeding or PRN problems.TKRN Breast discharge 08/04/2017 01/11/2020 Overview: 08/04/2017 She had an ultrasound for brown discharge from her nipples 05/18/2017. She is scheduled for folw-up mammogram 11/2017. She will discuss with Dr Rojo appropriate follow-up during . She has a history of kidney stones. Recent ultrasound done at [facility] . She is being followed by Dr Prado. TKRN History of seizures 08/04/2017 01/11/2020 Overview: 08/04/2017Patient has a history of seizures diagnosed [place] [address] Smith. She currently is taking Depakote. She has an appt with Dr Smith in [place] 09/04. She is advised to call Dr Smith today or tomorrow and let him know she is .TKRN Seizure disorder in Overview: 10/24/17-Seen by -neurology on 09/30/17. Started on Lamictal XR and titrate as follows: 25mg daily x2 weeks, then 50mg daily x2 weeks then 100mg daily. No seizures since 2014. 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 IgM positive. Patient denies any previous outbreak. Start prophylaxis at 36 weeks. Jil Farrar APRN.CNM Polyhydramnios in third trimester 12/12/2017 05/23/2018 Overview: 12/28/17-RUPAL 27.4. Weekly BPP. Jil Farrar APRN.CNM Intrauterine growth restrict ion (IUGR) affecting care of mother, second trimester, single gestation 12/12/2017 05/23/2018 Overview: 12/14/[address] Carroll UTI (urinary tract infection) in , ante 11/02/2017 05/23/2018 Overview: 11/02/17-Positive E Coli UTI. Treated with Macrobid 100mg PO BID x 7 days. Urine LIBERTY in 4 weeks. Jil Farrar APRN.CNM Pyelectasis of fetus on ultrasound 10/0705/23/2018 Overview: 01/31/18 - pediatric urology recommendations OK to deliver at [facility] Please obtain renal and bladder ultrasound at and a repeat at 7-10 days He will need prophylactic antibiotics amoxicillin 20mg/kg/dose daily Recommend circumcision Note printed & taken to peds at [facility]. Alvarez Rojo MD 12/28/17- Pyelectasis is still noted.The left renal APD measures 10.2 mm (larger than the previous scan). Left hydroureter is noted. Appointment with on 01/04/18. Jil Farrar APRN.CNM Left kidney at 5.1 mm and calyceal dilation 12/14/[address] Carroll Evaluate anatomy not seen on prior sonogram 10/0705/23/2018 Overview: Stomach bubble not visualized well at 19 weeks History of narcotic use 10/06/2017 01/11/20 20 Overview: 10/25/17-Patient seen in ER on 10/09/17 for 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 Xray negative. She was given Rx for Tylenol #3 but OARRS report does not show this was filled. Please verify with patient at next visit. Jil Farrar APRN.CNVish October 06, 2017 Vicodin use during > Please review OARRS, please review risks at next appt. and intermittently. Rachel Velasquez MD Kidney stone 08/29/2017 01/11/2020 Overview: August 29, 2017 had renal US, there is a small 7 mm kidney stone nonobstructing, not causing an issue clinically in that location. Renal US done [facility] on 07/20/17. CT done 06/24/17 shows small right nonobstructing stone, none on left. Rachel Velasquez MD Grand multipara 08/04/2017 05/23/2018 Overview: 08/04/2017 She is . I have asked her to sign a release form for her delivery records from [place]. TKRN Custody issue 08/04/2017 01/11/2020 Overview: 08/04/2017She states she does not have custody of any of her children due to living in a house in [place], [place] with drug friends . She denies ever using drugs. TKRN Antepartum multigravida of advanced maternal age 0308/04/2017 05/23/2018 Overview: 08/04/2017Patient is 42 years old. Advanced Maternal age discussed. Pt refused handouts on Genetic Amniocentesis and [facility]. [facility] handout on Early Screening In given and discussed. Level II Ultrasound and Dr. Carroll's services discussed. Patient desires nuchal ultrasound and [id number] test. Patient recently saw Dr Prado her PCP for right sided pain in . AN ultrasound was done and that showed IUP at 7w1d. She had an ultrasound for brown discharge from her nipples 05/18/2017. She is scheduled for folw-up mammogram 11/2017. She will discuss with Dr Rojo appropriate follow-up during . She has a history of kidney stones. Recent ultrasound done at [facility] . She is being followed by Dr Prado. Patient has a history of seizures diagnosed in [address] Smith. She currently is taking Depakote. She has an appt with Dr Smith in [place] 09/04. She is advised to call Dr Smith today or tomorrow and let him know she is . 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 She denies any surgical correction. She states she recently saw Dr Gonzales and had a heart cath and stress test done. She states there were negative findings. Pt quit smoking 1 year ago. Discussed risks of smoking during and advised pt to continue not smoking. TKRN Pelvic pain in , antepartum 08/04/2017 08/29/2017 Overview: 08/04/2017Patient recently saw Dr Prado her PCP for right sided pain in . AN ultrasound was done and that showed IUP at 7w1d. She states pain has resolved. Denies any bleeding this . Patient is to call/come in if she develops pain or bleeding or PRN problems.TKRN Breast discharge 08/04/2017 01/11/2020 Overview: 08/04/2017 She had an ultrasound for brown discharge from her nipples 05/18/2017. She is scheduled for folw-up mammogram 11/2017. She will discuss with Dr Rojo appropriate follow-up during . She has a history of kidney stones. Recent ultrasound done at [facility] . She is being followed by Dr Prado. TKRN History of seizures 08/04/2017 01/11/2020 Overview: 08/04/2017Patient has a history of seizures [place] [address] [place]. She currently is taking Depakote. She has an appt with Dr Smiht in [place] 09/04. She is advised to call Dr Smith today or tomorrow and let him know she is .TKRN Seizure disorder in Overview: 10/24/17-Seen by -neurology on 09/30/17. Started on Lamictal XR and titrate as follows: 25mg daily x2 weeks, then 50mg daily x2 weeks then 100mg daily. No seizures since 2014. 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 IgM positive. Patient denies any previous outbreak. Start prophylaxis at 36 weeks. Jil Farrar APRN.CNM Polyhydramnios in third trimester 12/12/2017 05/23/2018 Overview: 12/28/17-RUPAL 27.4. Weekly BPP. Jil Farrar APRN.CNM Intrauterine growth restrict ion (IUGR) affecting care of mother, second trimester, single gestation 12/12/2017 05/23/2018 Overview: 12/14/[address] Carroll UTI (urinary tract infection) in , ante 11/02/2017 05/23/2018 Overview: 11/02/17-Positive E Coli UTI. Treated with Macrobid 100mg PO BID x 7 days. Urine LIBERTY in 4 weeks. Jil Farrar APRN.CNM Pyelectasis of fetus on ultrasound 10/0705/23/2018 Overview: 01/31/18 - pediatric urology recommendations OK to deliver at [facility] Please obtain renal and bladder ultrasound at and a repeat at 7-10 days He will need prophylactic antibiotics amoxicillin 20mg/kg/dose daily Recommend circumcision Note printed & taken to peds at [facility]. Alvarez Rojo MD 12/28/17- Pyelectasis is still noted.The left renal APD measures 10.2 mm (larger than the previous scan). Left hydroureter is noted. Appointment with on 01/04/18. Jil Farrar APRN.CNM Left kidney at 5.1 mm and calyceal dilation 12/14/[address] Carroll Evaluate anatomy not seen on prior sonogram 10/0705/23/2018 Overview: Stomach bubble not visualized well at 19 weeks History of narcotic use 10/06/2017 01/11/20 Overview: 10/25/17-Patient seen in ER on 10/09/17 for 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 Xray negative. She was given Rx for Tylenol #3 but OARRS report does not show this was filled. Please verify with patient at next visit. Jil Farrar APRN.CNM October 06, 2017 Vicodin use during > Please review OARRS, please review risks at next appt. and intermittently. Rachel Velasquez MD Kidney stone 08/29/2017 01/11/2020 Overview: August 29, 2017 had renal US, there is a small 7 mm kidney stone nonobstructing, not causing an issue clinically in that location. Renal US done [facility] on 07/20/17. CT done 06/24/17 shows small right nonobstructing stone, none on left. Rachel Velasquez MD Grand multipara 08/04/2017 05/23/2018 Overview: 08/04/2017 She is . I have asked her to sign a release form for her delivery records from [place]. TKRN Custody issue 08/04/2017 01/11/2020 Overview: 08/04/2017She states she does not have custody of any of her children due to living in a house in [place], [place] with drug friends . She denies ever using drugs. TKRN Antepartum multigravida of advanced maternal age 0308/04/2017 05/23/2018 Overview: 08/04/2017Patient is 42 years old. Advanced Maternal age discussed. Pt refused handouts on Genetic Amniocentesis and [facility]. [facility] handout on Early Screening In given and discussed. Level II Ultrasound and Dr. Carroll's services discussed. Patient desires nuchal ultrasound and [id number] test. Patient recently saw Dr Prado her PCP for right sided pain in . AN ultrasound was done and that showed IUP at 7w1d. She had an ultrasound for brown discharge from her nipples 05/18/2017. She is scheduled for folw-up mammogram 11/2017. She will discuss with Dr Rojo appropriate follow-up during . She has a history of kidney stones. Recent ultrasound done at [facility] . She is being followed by Dr Prado. Patient has a history of seizures diagnosed in [address] Smith. She currently is taking Depakote. She has an appt with Dr Smith in [place] 09/04. She is advised to call Dr Smith today or tomorrow and let him know she is . 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 She denies any surgical correction. She states she recently saw Dr Gonzales and had a heart cath and stress test done. She states there were negative findings. Pt quit smoking 1 year ago. Discussed risks of smoking during and advised pt to continue not smoking. TKRN Pelvic pain in , antepartum 08/04/2017 08/29/2017 Overview: 08/04/2017Patient recently saw Dr Prado her PCP for right sided pain in . AN ultrasound was done and that showed IUP at 7w1d. She states pain has resolved. Denies any bleeding this . Patient is to call/come in if she develops pain or bleeding or PRN problems.TKRN Breast discharge 08/04/2017 01/11/2020 Overview: 08/04/2017 She had an ultrasound for brown discharge from her nipples 05/18/2017. She is scheduled for folw-up mammogram 11/2017. She will discuss with Dr Rojo appropriate follow-up during . She has a history of kidney stones. Recent ultrasound done at [facility] . She is being followed by Dr Prado. TKRN History of seizures 08/04/2017 01/11/2020 Overview: 08/04/2017Patient has a history of seizures [place] [address] [place]. She currently is taking Depakote. She has an appt with Dr Smith in [place] 09/04. She is advised to call Dr Smith today or tomorrow and let him know she is .TKRN Seizure disorder in Overview: 10/24/17-Seen by -neurology on 09/30/17. Started on Lamictal XR and titrate as follows: 25mg daily x2 weeks, then 50mg daily x2 weeks then 100mg daily. No seizures since 2014. 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 IgM positive. Patient denies any previous outbreak. Start prophylaxis at 36 weeks. Jil Farrar APRN.CNM Polyhydramnios in third trimester 12/12/2017 05/23/2018 Overview: 12/28/17-RUPAL 27.4. Weekly BPP. Jil Farrar APRN.CNM Intrauterine growth restrict ion (IUGR) affecting care of mother, second trimester, single gestation 12/12/2017 05/23/2018 Overview: 12/14/[address] Carroll UTI (urinary tract infection) in , ante 11/02/2017 05/23/2018 Overview: 11/02/17-Positive E Coli UTI. Treated with Macrobid 100mg PO BID x 7 days. Urine LIBERTY in 4 weeks. Jil Farrar APRN.CNM Pyelectasis of fetus on ultrasound 10/0705/23/2018 Overview: 01/31/18 - pediatric urology recommendations OK to deliver at [facility] Please obtain renal and bladder ultrasound at and a repeat at 7-10 days He will need prophylactic antibiotics amoxicillin 20mg/kg/dose daily Recommend circumcision Note printed & taken to peds at [facility]. Alvarez Rojo MD 12/28/17- Pyelectasis is still noted.The left renal APD measures 10.2 mm (larger than the previous scan). Left hydroureter is noted. Appointment with on 01/04/18. Jil Farrar APRN.CNM Left kidney at 5.1 mm and calyceal dilation 12/14/[address] Carroll Evaluate anatomy not seen on prior sonogram 10/0705/23/2018 Overview: Stomach bubble not visualized well at 19 weeks History of narcotic use 10/06/2017 01/11/20 20 Overview: 10/25/17-Patient seen in ER on 10/09/17 for 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 Xray negative. She was given Rx for Tylenol #3 but OARRS report does not show this was filled. Please verify with patient at next visit. Jil Farrar APRN.CNM October 06, 2017 Vicodin use during > Please review OARRS, please review risks at next appt. and intermittently. Rachel Velasquez MD Kidney stone 08/29/2017 01/11/2020 Overview: August 29, 2017 had renal US, there is a small 7 mm kidney stone nonobstructing, not causing an issue clinically in that location. Renal US done [facility] on 07/20/17. CT done 06/24/17 shows small right nonobstructing stone, none on left. Rachel Velasquez MD Grand multipara 08/04/2017 05/23/2018 Overview: 08/04/2017 She is . I have asked her to sign a release form for her delivery records from [place]. TKRN Custody issue 08/04/2017 01/11/2020 Overview: 08/04/2017She states she does not have custody of any of her children due to living in a house in [place], [place] with drug friends . She denies ever using drugs. TKRN Antepartum multigravida of advanced maternal age 0308/04/2017 05/23/2018 Overview: 08/04/2017Patient is 42 years old. Advanced Maternal age discussed. Pt refused handouts on Genetic Amniocentesis and [facility]. [facility] handout on Early Screening In given and discussed. Level II Ultrasound and Dr. Carroll's services discussed. Patient desires nuchal ultrasound and [id number] test. Patient recently saw Dr Prado her PCP for right sided pain in . AN ultrasound was done and that showed IUP at 7w1d. She had an ultrasound for brown discharge from her nipples 05/18/2017. She is scheduled for folw-up mammogram 11/2017. She will discuss with Dr Rojo appropriate follow-up during . She has a history of kidney stones. Recent ultrasound done at [facility] . She is being followed by Dr Prado. Patient has a history of seizures diagnosed in [address] Smith. She currently is taking Depakote. She has an appt with Dr Smith in [place] 09/04. She is advised to call Dr Smith today or tomorrow and let him know she is . 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 She denies any surgical correction. She states she recently saw Dr Gonzales and had a heart cath and stress test done. She states there were negative findings. Pt quit smoking 1 year ago. Discussed risks of smoking during and advised pt to continue not smoking. TKRN Pelvic pain in , antepartum 08/04/2017 08/29/2017 Overview: 08/04/2017Patient recently saw Dr Prado her PCP for right sided pain in . AN ultrasound was done and that showed IUP at 7w1d. She states pain has resolved. Denies any bleeding this . Patient is to call/come in if she develops pain or bleeding or PRN problems.TKRN Breast discharge 08/04/2017 01/11/2020 Overview: 08/04/2017 She had an ultrasound for brown discharge from her nipples 05/18/2017. She is scheduled for folw-up mammogram 11/2017. She will discuss with Dr Rojo appropriate follow-up during . She has a history of kidney stones. Recent ultrasound done at [facility] . She is being followed by Dr Prado. TKRN History of seizures 08/04/2017 01/11/2020 Overview: 08/04/2017Patient has a history of seizures diagnosed [place] [address] Smith. She currently is taking Depakote. She has an appt with Dr Smith in [place] 09/04. She is advised to call Dr Smith today or tomorrow and let him know she is .TKRN Seizure disorder in Overview: 10/24/17-Seen by -neurology on 09/30/17. Started on Lamictal XR and titrate as follows: 25mg daily x2 weeks, then 50mg daily x2 weeks then 100mg daily. No seizures since 2014. 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 IgM positive. Patient denies any previous outbreak. Start prophylaxis at 36 weeks. Jil Farrar APRN.CNM Polyhydramnios in third trimester 12/12/2017 05/23/2018 Overview: 12/28/17-RUPAL 27.4. Weekly BPP. Jil Farrar APRN.CNM Intrauterine growth restrict ion (IUGR) affecting care of mother, second trimester, single gestation 12/12/2017 05/23/2018 Overview: 12/14/[address] Carroll UTI (urinary tract infection) in , ante 11/02/2017 05/23/2018 Overview: 11/02/17-Positive E Coli UTI. Treated with Macrobid 100mg PO BID x 7 days. Urine LIBERTY in 4 weeks. Jil Farrar APRN.CNM Pyelectasis of fetus on ultrasound 10/0705/23/2018 Overview: 01/31/18 - pediatric urology recommendations OK to deliver at [facility] Please obtain renal and bladder ultrasound at and a repeat at 7-10 days He will need prophylactic antibiotics amoxicillin 20mg/kg/dose daily Recommend circumcision Note printed & taken to peds at [facility]. Alvarez Rojo MD 12/28/17- Pyelectasis is still noted.The left renal APD measures 10.2 mm (larger than the previous scan). Left hydroureter is noted. Appointment with on 01/04/18. Jil Farrar APRN.CNM Left kidney at 5.1 mm and calyceal dilation 12/14/[address] Carroll Evaluate anatomy not seen on prior sonogram 10/0705/23/2018 Overview: Stomach bubble not visualized well at 19 weeks History of narcotic use 10/06/2017 01/11/20 Overview: 10/25/17-Patient seen in ER on 10/09/17 for 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 Xray negative. She was given Rx for Tylenol #3 but OARRS report does not show this was filled. Please verify with patient at next visit. Jil Farrar APRN.CNM October 06, 2017 Vicodin use during > Please review OARRS, please review risks at next appt. and intermittently. Rachel Velasquez MD Kidney stone 08/29/2017 01/11/2020 Overview: August 29, 2017 had renal US, there is a small 7 mm kidney stone nonobstructing, not causing an issue clinically in that location. Renal US done [facility] on 07/20/17. CT done 06/24/17 shows small right nonobstructing stone, none on left. Rachel Velasquez MD Grand multipara 08/04/2017 05/23/2018 Overview: 08/04/2017 She is . I have asked her to sign a release form for her delivery records from [place]. TKRN Custody issue 08/04/2017 01/11/2020 Overview: 08/04/2017She states she does not have custody of any of her children due to living in a house in [place], [place] with drug friends . She denies ever using drugs. TKRN Antepartum multigravida of advanced maternal age 0308/04/2017 05/23/2018 Overview: 08/04/2017Patient is 42 years old. Advanced Maternal age discussed. Pt refused handouts on Genetic Amniocentesis and [facility]. [facility] handout on Early Screening In given and discussed. Level II Ultrasound and Dr. Carroll's services discussed. Patient desires nuchal ultrasound and [id number] test. Patient recently saw Dr Prado her PCP for right sided pain in . AN ultrasound was done and that showed IUP at 7w1d. She had an ultrasound for brown discharge from her nipples 05/18/2017. She is scheduled for folw-up mammogram 11/2017. She will discuss with Dr Rojo appropriate follow-up during . She has a history of kidney stones. Recent ultrasound done at [facility] . She is being followed by Dr Prado. Patient has a history of seizures diagnosed in [address] Smith. She currently is taking Depakote. She has an appt with Dr Smith in [place] 09/04. She is advised to call Dr Smith today or tomorrow and let him know she is . 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 She denies any surgical correction. She states she recently saw Dr Gonzales and had a heart cath and stress test done. She states there were negative findings. Pt quit smoking 1 year ago. Discussed risks of smoking during and advised pt to continue not smoking. TKRN Pelvic pain in , antepartum 08/04/2017 08/29/2017 Overview: 08/04/2017Patient recently saw Dr Prado her PCP for right sided pain in . AN ultrasound was done and that showed IUP at 7w1d. She states pain has resolved. Denies any bleeding this . Patient is to call/come in if she develops pain or bleeding or PRN problems.TKRN Breast discharge 08/04/2017 01/11/2020 Overview: 08/04/2017 She had an ultrasound for brown discharge from her nipples 05/18/2017. She is scheduled for folw-up mammogram 11/2017. She will discuss with Dr Rojo appropriate follow-up during . She has a history of kidney stones. Recent ultrasound done at [facility] . She is being followed by Dr Prado. TKRN History of seizures 08/04/2017 01/11/2020 Overview: 08/04/2017Patient has a history of seizures diagnosed in [address] Smith. She currently is taking Depakote. She has an appt with Dr Smith in [place] 09/04. She is advised to call Dr Smith today or tomorrow and let him know she is .TKRN Seizure disorder in Overview: 10/24/17-Seen by -neurology on 09/30/17. Started on Lamictal XR and titrate as follows: 25mg daily x2 weeks, then 50mg daily x2 weeks then 100mg daily. No seizures since 2014. 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 IgM positive. Patient denies any previous outbreak. Start prophylaxis at 36 weeks. Jil Farrar APRN.CNM Polyhydramnios in third trimester 12/12/2017 05/23/2018 Overview: 12/28/17-RUPAL 27.4. Weekly BPP. Jil Farrar APRN.CNM Intrauterine growth restrict ion (IUGR) affecting care of mother, second trimester, single gestation 12/12/2017 05/23/2018 Overview: 12/14/[address] Carroll UTI (urinary tract infection) in , ante 11/02/2017 05/23/2018 Overview: 11/02/17-Positive E Coli UTI. Treated with Macrobid 100mg PO BID x 7 days. Urine LIBERTY in 4 weeks. Jil Farrar APRN.CNM Pyelectasis of fetus on ultrasound 10/0705/23/2018 Overview: 01/31/18 - pediatric urology recommendations OK to deliver at [facility] Please obtain renal and bladder ultrasound at and a repeat at 7-10 days He will need prophylactic antibiotics amoxicillin 20mg/kg/dose daily Recommend circumcision Note printed & taken to peds at [facility]. Alvarez Rojo MD 12/28/17- Pyelectasis is still noted.The left renal APD measures 10.2 mm (larger than the previous scan). Left hydroureter is noted. Appointment with on 01/04/18. Jil Farrar APRN.CNM Left kidney at 5.1 mm and calyceal dilation 12/14/[address] Carroll Evaluate anatomy not seen on prior sonogram 10/0705/23/2018 Overview: Stomach bubble not visualized well at 19 weeks History of narcotic use 10/06/2017 01/11/20 Overview: 10/25/17-Patient seen in ER on 10/09/17 for 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 Xray negative. She was given Rx for Tylenol #3 but OARRS report does not show this was filled. Please verify with patient at next visit. Jil Farrar APRN.CNM October 06, 2017 Vicodin use during > Please review OARRS, please review risks at next appt. and intermittently. Rachel Velasquez MD Kidney stone 08/29/2017 01/11/2020 Overview: August 29, 2017 had renal US, there is a small 7 mm kidney stone nonobstructing, not causing an issue clinically in that location. Renal US done [facility] on 07/20/17. CT done 06/24/17 shows small right nonobstructing stone, none on left. Rachel Velasquez MD Grand multipara 08/04/2017 05/23/2018 Overview: 08/04/2017 She is . I have asked her to sign a release form for her delivery records from [place]. [facility] Custody issue 08/04/2017 01/11/2020 Overview: 08/04/2017She states she does not have custody of any of her children due to living in a house in [place], [place] with drug friends . She denies ever using drugs. TKRN Antepartum multigravida of advanced maternal age 0308/04/2017 05/23/2018 Overview: 08/04/2017Patient is 42 years old. Advanced Maternal age discussed. Pt refused handouts on Genetic Amniocentesis and [facility]. [facility] handout on Early Screening In given and discussed. Level II Ultrasound and Dr. Carroll's services discussed. Patient desires nuchal ultrasound and [id number] test. Patient recently saw Dr Prado her PCP for right sided pain in . AN ultrasound was done and that showed IUP at 7w1d. She had an ultrasound for brown discharge from her nipples 05/18/2017. She is scheduled for folw-up mammogram 11/2017. She will discuss with Dr Rojo appropriate follow-up during . She has a history of kidney stones. Recent ultrasound done at [facility] . She is being followed by Dr Prado. Patient has a history of seizures diagnosed in [address] Smith. She currently is taking Depakote. She has an appt with Dr Smith in [place] 09/04. She is advised to call Dr Smith today or tomorrow and let him know she is . 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 She denies any surgical correction. She states she recently saw Dr Gonzales and had a heart cath and stress test done. She states there were negative findings. Pt quit smoking 1 year ago. Discussed risks of smoking during and advised pt to continue not smoking. TKRN Pelvic pain in , antepartum 08/04/2017 08/29/2017 Overview: 08/04/2017Patient recently saw Dr Prado her PCP for right sided pain in . AN ultrasound was done and that showed IUP at 7w1d. She states pain has resolved. Denies any bleeding this . Patient is to call/come in if she develops pain or bleeding or PRN problems.TKRN Breast discharge 08/04/2017 01/11/2020 Overview: 08/04/2017 She had an ultrasound for brown discharge from her nipples 05/18/2017. She is scheduled for folw-up mammogram 11/2017. She will discuss with Dr Rojo appropriate follow-up during . She has a history of kidney stones. Recent ultrasound done at [facility] . She is being followed by Dr Prado. TKRN History of seizures 08/04/2017 01/11/2020 Overview: 08/04/2017Patient has a history of seizures diagnosed [place] [address] Smith. She currently is taking Depakote. She has an appt with Dr Smith in [place] 09/04. She is advised to call Dr Smith today or tomorrow and let him know she is .TKRN Seizure disorder in Overview: 10/24/17-Seen by -neurology on 09/30/17. Started on Lamictal XR and titrate as follows: 25mg daily x2 weeks, then 50mg daily x2 weeks then 100mg daily. No seizures since 2014. 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 IgM positive. Patient denies any previous outbreak. Start prophylaxis at 36 weeks. Jil Farrar APRN.CNM Polyhydramnios in third trimester 12/12/2017 05/23/2018 Overview: 12/28/17-RUPAL 27.4. Weekly BPP. Jil Farrar APRN.CNM Intrauterine growth restrict ion (IUGR) affecting care of mother, second trimester, single gestation 12/12/2017 05/23/2018 Overview: 12/14/[address] Carroll UTI (urinary tract infection ) in , antepartum 11/02/2017 05/23/2018 Overview: 11/02/17-Positive E Coli UTI. Treated with Macrobid 100mg PO BID x 7 days. Urine LIBERTY in 4 weeks. Jil Farrar APRN.CNM Pyelectasis of fetus on ultrasound 10/17/2017 05/23/2018 Overview: 01/31/18 - pediatric urology recommendations OK to deliver at [facility] Please obtain renal and bladder ultrasound at and a repeat at 7-10 days He will need prophylactic antibiotics amoxicillin 20mg/kg/dose daily Recommend circumcision Note printed & taken to peds at [facility]. Alvarez Rojo MD 12/28/17- Pyelectasis is still noted.The left renal APD measures 10.2 mm (larger than the previous scan). Left hydroureter is noted. Appointment with on 01/04/18. Jil Farrar APRN.CNM Left kidney at 5.1 mm and calyceal dilation 12/14/[address] Carroll Evaluate anatomy not seen on prior sonogram 10/17/2017 05/23/2018 Overview: Stomach bubble not visualized well at 19 weeks History of narcotic use 10/06/2017/08/2019 Overview: 10/25/17-Patient seen in ER on 10/09/17 for 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 Xray negative. She was given Rx for Tylenol #3 but OARRS report does not show this was filled. Please verify with patient at next visit. Jil Farrar APRN.CNM October 06, 2017 Vicodin use during > Please review OARRS, please review risks at next appt. and intermittently. Rachel Velasquez MD Kidney stone 08/29/2017 01/11/2020 Overview: August 29, 2017 had renal US, there is a small 7 mm kidney stone nonobstructing, not causing an issue clinically in that location. Renal US done [facility] on 07/20/17. CT done 06/24/17 shows small right nonobstructing stone, none on left. Rachel Velasquez MD Grand multipara 08/04/2017 05/23/2018 Overview: 08/04/2017 She is . I have asked her to sign a release form for her delivery records from [place]. TKRN Custody issue 08/04/2017 01/11/2020 Overview: 08/04/2017She states she does not have custody of any of her children due to living in a house in [place], [place] with drug friends . She denies ever using drugs. TKRN Antepartum multigravida of a dvanced maternal age 0308/04/2017 05/23/2018 Overview: 08/04/2017Patient is 42 years old. Advanced Maternal age discussed. Pt refused handouts on Genetic Amniocentesis and [facility]. [facility] handout on Early Screening In given and discussed. Level II Ultrasound and Dr. Carroll's services discussed. Patient desires nuchal ultrasound and [id number] test. Patient recently saw Dr Prado her PCP for right sided pain in . AN ultrasound was done and that showed IUP at 7w1d. She had an ultrasound for brown discharge from her nipples 05/18/2017. She is scheduled for folw-up mammogram 11/2017. She will discuss with Dr Rojo appropriate follow-up during . She has a history of kidney stones. Recent ultrasound done at [facility] . She is being followed by Dr Prado. Patient has a history of seizures diagnosed in [address] Smith. She currently is taking Depakote. She has an appt with Dr Smith in [place] 09/04. She is advised to call Dr Smith today or tomorrow and let him know she is . 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 She denies any surgical correction. She states she recently saw Dr Gonzales and had a heart cath and stress test done. She states there were negative findings. Pt quit smoking 1 year ago. Discussed risks of smoking during and advised pt to continue not smoking. TKRN Pelvic pain in , antepartum 08/04/2017 08/29/2017 Overview: 08/04/2017Patient recently saw Dr Prado her PCP for right sided pain in . AN ultrasound was done and that showed IUP at 7w1d. She states pain has resolved. Denies any bleeding this . Patient is to call/come in if she develops pain or bleeding or PRN problems.TKRN Breast discharge 08/04/2017 01/11/2020 Overview: 08/04/2017 She had an ultrasound for brown discharge from her nipples 05/18/2017. She is scheduled for folw-up mammogram 11/2017. She will discuss with Dr Rojo appropriate follow-up during . She has a history of kidney stones. Recent ultrasound done at [facility] . She is being followed by Dr Prado. TKRN History of seizures 08/04/2017 01/11/20 Overview: 08/04/2017Patient has a history of seizures [place] [address] Smith. She currently is taking Depakote. She has an appt with Dr Smith in [place] 09/04. She is advised to call Dr Smith today or tomorrow and let him know she is .TKRN Seizure disorder in 01/11/2020 Overview: 10/24/17-Seen by -neurology on 09/30/17. Started on Lamictal XR and titrate as follows: 25mg daily x2 weeks, then 50mg daily x2 weeks then 100mg daily. No seizures since 2014. 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 IgM positive. Patient denies any previous outbreak. Start prophylaxis at 36 weeks. Jil Farrar APRN.CNM Polyhydramnios in third trimester 12/12/2017 05/23/2018 Overview: 12/28/17-RUPAL 27.4. Weekly BPP. Jil Farrar APRN.CNM Intrauterine growth restrict ion (IUGR) affecting care of mother, second trimester, single gestation 12/12/2017 05/23/2018 Overview: 12/14/[address] Carroll UTI (urinary tract infection ) in , antepartum 11/02/2017 05/23/2018 Overview: 11/02/17-Positive E Coli UTI. Treated with Macrobid 100mg PO BID x 7 days. Urine LIBERTY in 4 weeks. Jil Farrar APRN.CNM Pyelectasis of fetus on ultrasound 10/17/2017 05/23/2018 Overview: 01/31/18 - pediatric urology recommendations OK to deliver at [facility] Please obtain renal and bladder ultrasound at and a repeat at 7-10 days He will need prophylactic antibiotics amoxicillin 20mg/kg/dose daily Recommend circumcision Note printed & taken to peds at [facility]. Alvarez Rojo MD 12/28/17- Pyelectasis is still noted.The left renal APD measures 10.2 mm (larger than the previous scan). Left hydroureter is noted. Appointment with on 01/04/18. Jil Farrar APRN.CNM Left kidney at 5.1 mm and calyceal dilation 12/14/[address] Carroll Evaluate anatomy not seen on prior sonogram 10/17/2017 05/23/2018 Overview: Stomach bubble not visualized well at 19 weeks History of narcotic use 10/06/201708/2019 Overview: 10/25/17-Patient seen in ER on 10/09/17 for 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 Xray negative. She was given Rx for Tylenol #3 but OARRS report does not show this was filled. Please verify with patient at next visit. Jil Farrar APRN.CNM October 06, 2017 Vicodin use during > Please review OARRS, please review risks at next appt. and intermittently. Rachel Velasquez MD Kidney stone 08/29/2017 01/11/2020 Overview: August 29, 2017 had renal US, there is a small 7 mm kidney stone nonobstructing, not causing an issue clinically in that location. Renal US done [facility] on 07/20/17. CT done 06/24/17 shows small right nonobstructing stone, none on left. Rachel Velasquez MD Grand multipara 08/04/2017 05/23/2018 Overview: 08/04/2017 She is . I have asked her to sign a release form for her delivery records from [place]. TKRN Custody issue 08/04/2017 01/11/2020 Overview: 08/04/2017She states she does not have custody of any of her children due to living in a house in [place], [place] with drug friends . She denies ever using drugs. TKRN Antepartum multigravida of a dvanced maternal age 0308/04/2017 05/23/2018 Overview: 08/04/2017Patient is 42 years old. Advanced Maternal age discussed. Pt refused handouts on Genetic Amniocentesis and [facility]. [facility] handout on Early Screening In given and discussed. Level II Ultrasound and Dr. Carroll's services discussed. Patient desires nuchal ultrasound and [id number] test. Patient recently saw Dr Prado her PCP for right sided pain in . AN ultrasound was done and that showed IUP at 7w1d. She had an ultrasound for brown discharge from her nipples 05/18/2017. She is scheduled for folw-up mammogram 11/2017. She will discuss with Dr Rojo appropriate follow-up during . She has a history of kidney stones. Recent ultrasound done at [facility] . She is being followed by Dr Prado. Patient has a history of seizures diagnosed in [address] Smith. She currently is taking Depakote. She has an appt with Dr Smith in [place] 09/04. She is advised to call Dr Smith today or tomorrow and let him know she is . 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 She denies any surgical correction. She states she recently saw Dr Gonzales and had a heart cath and stress test done. She states there were negative findings. Pt quit smoking 1 year ago. Discussed risks of smoking during and advised pt to continue not smoking. TKRN Pelvic pain in , antepartum 08/04/2017 08/29/2017 Overview: 08/04/2017Patient recently saw Dr Prado her PCP for right sided pain in . AN ultrasound was done and that showed IUP at 7w1d. She states pain has resolved. Denies any bleeding this . Patient is to call/come in if she develops pain or bleeding or PRN problems.TKRN Breast discharge 08/04/2017 01/11/2020 Overview: 08/04/2017 She had an ultrasound for brown discharge from her nipples 05/18/2017. She is scheduled for folw-up mammogram 11/2017. She will discuss with Dr Rojo appropriate follow-up during . She has a history of kidney stones. Recent ultrasound done at [facility] . She is being followed by Dr Prado. TKRN History of seizures 08/04/2017 01/11/20 Overview: 08/04/2017Patient has a history of seizures [place] [address] Smith. She currently is taking Depakote. She has an appt with Dr Smith in [place] 09/04. 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 IgM positive. Patient denies any previous outbreak. Start prophylaxis at 36 weeks. Jil Farrar APRN.CNM Polyhydramnios in third trimester 12/12/2017 05/23/2018 Overview: 12/28/17-RUPAL 27.4. Weekly BPP. Jil Farrar APRN.CNM Intrauterine growth restrict ion (IUGR) affecting care of mother, second trimester, single gestation 12/12/2017 05/23/2018 Overview: 12/14/[address] Carroll UTI (urinary tract infection ) in , antepartum 11/02/2017 05/23/2018 Overview: 11/02/17-Positive E Coli UTI. Treated with Macrobid 100mg PO BID x 7 days. Urine LIBERTY in 4 weeks. Jil Farrar APRN.CNM Pyelectasis of fetus on ultrasound 10/17/2017 05/23/2018 Overview: 01/31/18 - pediatric urology recommendations OK to deliver at [facility] Please obtain renal and bladder ultrasound at and a repeat at 7-10 days He will need prophylactic antibiotics amoxicillin 20mg/kg/dose daily Recommend circumcision Note printed & taken to peds at [facility]. Alvarez Rojo MD 12/28/17- Pyelectasis is still noted.The left renal APD measures 10.2 mm (larger than the previous scan). Left hydroureter is noted. Appointment with on 01/04/18. Jil Farrar APRN.CNM Left kidney at 5.1 mm and calyceal dilation 12/14/[address] Carroll Evaluate anatomy not seen on prior sonogram 10/17/2017 05/23/2018 Overview: Stomach bubble not visualized well at 19 weeks History of narcotic use 10/06/2017 09/0 08/2019 Overview: 10/25/17-Patient seen in ER on 10/09/17 for 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 Xray negative. She was given Rx for Tylenol #3 but OARRS report does not show this was filled. Please verify with patient at next visit. Jil Farrar APRN.CNM October 06, 2017 Vicodin use during > Please review OARRS, please review risks at next appt. and intermittently. Rachel Velasquez MD Kidney stone 08/29/2017 01/11/2020 Overview: August 29, 2017 had renal US, there is a small 7 mm kidney stone nonobstructing, not causing an issue clinically in that location. Renal US done [facility] on 07/20/17. CT done 06/24/17 shows small right nonobstructing stone, none on left. Rachel Velasquez MD Grand multipara 08/04/2017 05/23/2018 Overview: 08/04/2017 She is . I have asked her to sign a release form for her delivery records from [place]. TKRN Custody issue 08/04/2017 01/11/2020 Overview: 08/04/2017She states she does not have custody of any of her children due to living in a house in [place], [place] with drug friends . She denies ever using drugs. TKRN Antepartum multigravida of a dvanced maternal age 0308/04/2017 05/23/2018 Overview: 08/04/2017Patient is 42 years old. Advanced Maternal age discussed. Pt refused handouts on Genetic Amniocentesis and [facility]. [facility] handout on Early Screening In given and discussed. Level II Ultrasound and Dr. Carroll's services discussed. Patient desires nuchal ultrasound and [id number] test. Patient recently saw Dr Prado her PCP for right sided pain in . AN ultrasound was done and that showed IUP at 7w1d. She had an ultrasound for brown discharge from her nipples 05/18/2017. She is scheduled for folw-up mammogram 11/2017. She will discuss with Dr Rojo appropriate follow-up during . She has a history of kidney stones. Recent ultrasound done at [facility] . She is being followed by Dr Prado. Patient has a history of seizures diagnosed [place] [address] Smtih. She currently is taking Depakote. She has an appt with Dr Smith in [place] 09/04. She is advised to call Dr Smith today or tomorrow and let him know she is . 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 She denies any surgical correction. She states she recently saw Dr Gonzales and had a heart cath and stress test done. She states there were negative findings. Pt quit smoking 1 year ago. Discussed risks of smoking during and advised pt to continue not smoking. TKRN Pelvic pain in , antepartum 08/04/2017 08/29/2017 Overview: 08/04/2017Patient recently saw Dr Prado her PCP for right sided pain in . AN ultrasound was done and that showed IUP at 7w1d. She states pain has resolved. Denies any bleeding this . Patient is to call/come in if she develops pain or bleeding or PRN problems.TKRN Breast discharge 08/04/2017 01/11/2020 Overview: 08/04/2017 She had an ultrasound for brown discharge from her nipples 05/18/2017. She is scheduled for folw-up mammogram 11/2017. She will discuss with Dr Rojo appropriate follow-up during . She has a history of kidney stones. Recent ultrasound done at [facility] . She is being followed by Dr Prado. TKRN History of seizures 08/04/2017 01/11/20 Overview: 08/04/2017Patient has a history of seizures diagnosed [place] [address] Smith. She currently is taking Depakote. She has an appt with Dr Smith in [place] 09/04. 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 IgM positive. Patient denies any previous outbreak. Start prophylaxis at 36 weeks. Jil Farrar APRN.CNM Polyhydramnios in third trimester 12/12/2017 05/23/2018 Overview: 12/28/17-RUPAL 27.4. Weekly BPP. Jil Farrar APRN.CNM Intrauterine growth restrict ion (IUGR) affecting care of mother, second trimester, single gestation 12/12/2017 05/23/2018 Overview: 12/14/[address] Carroll UTI (urinary tract infection ) in , antepartum 11/02/2017 05/23/2018 Overview: 11/02/17-Positive E Coli UTI. Treated with Macrobid 100mg PO BID x 7 days. Urine LIBERTY in 4 weeks. Jil Farrar APRN.CNM Pyelectasis of fetus on ultrasound 10/17/2017 05/23/2018 Overview: 01/31/18 - pediatric urology recommendations OK to deliver at [facility] Please obtain renal and bladder ultrasound at and a repeat at 7-10 days He will need prophylactic antibiotics amoxicillin 20mg/kg/dose daily Recommend circumcision Note printed & taken to peds at [facility]. Alvarez Rojo MD 12/28/17- Pyelectasis is still noted.The left renal APD measures 10.2 mm (larger than the previous scan). Left hydroureter is noted. Appointment with on 01/04/18. Jil Farrar APRN.CNM Left kidney at 5.1 mm and calyceal dilation 12/14/[address] Carroll Evaluate anatomy not seen on prior sonogram 10/17/2017 05/23/2018 Overview: Stomach bubble not visualized well at 19 weeks History of narcotic use 10/06/201708/2019 Overview: 10/25/17-Patient seen in ER on 10/09/17 for 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 Xray negative. She was given Rx for Tylenol #3 but OARRS report does not show this was filled. Please verify with patient at next visit. Jil Farrar APRN.CNM October 06, 2017 Vicodin use during > Please review OARRS, please review risks at next appt. and intermittently. Rachel Velasquez MD Kidney stone 08/29/2017 01/11/2020 Overview: August 29, 2017 had renal US, there is a small 7 mm kidney stone nonobstructing, not causing an issue clinically in that location. Renal US done [facility] on 07/20/17. CT done 06/24/17 shows small right nonobstructing stone, none on left. Rachel Velasquez MD Grand multipara 08/04/2017 05/23/2018 Overview: 08/04/2017 She is . I have asked her to sign a release form for her delivery records from [place]. TKRN Custody issue 08/04/2017 01/11/2020 Overview: 08/04/2017She states she does not have custody of any of her children due to living in a house in [place], [place] with drug friends . She denies ever using drugs. TKRN Antepartum multigravida of a dvanced maternal age 0308/04/2017 05/23/2018 Overview: 08/04/2017Patient is 42 years old. Advanced Maternal age discussed. Pt refused handouts on Genetic Amniocentesis and [facility]. [facility] handout on Early Screening In given and discussed. Level II Ultrasound and Dr. Carroll's services discussed. Patient desires nuchal ultrasound and [id number] test. Patient recently saw Dr Prado her PCP for right sided pain in . AN ultrasound was done and that showed IUP at 7w1d. She had an ultrasound for brown discharge from her nipples 05/18/2017. She is scheduled for folw-up mammogram 11/2017. She will discuss with Dr Rojo appropriate follow-up during . She has a history of kidney stones. Recent ultrasound done at [facility] . She is being followed by Dr Prado. Patient has a history of seizures diagnosed in [address] Smith. She currently is taking Depakote. She has an appt with Dr Smith in [place] 09/04. She is advised to call Dr Smith today or tomorrow and let him know she is . 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 She denies any surgical correction. She states she recently saw Dr Gonzales and had a heart cath and stress test done. She states there were negative findings. Pt quit smoking 1 year ago. Discussed risks of smoking during and advised pt to continue not smoking. TKRN Pelvic pain in , antepartum 08/04/2017 08/29/2017 Overview: 08/04/2017Patient recently saw Dr Prado her PCP for right sided pain in . AN ultrasound was done and that showed IUP at 7w1d. She states pain has resolved. Denies any bleeding this . Patient is to call/come in if she develops pain or bleeding or PRN problems.TKRN Breast discharge 08/04/2017 01/11/2020 Overview: 08/04/2017 She had an ultrasound for brown discharge from her nipples 05/18/2017. She is scheduled for folw-up mammogram 11/2017. She will discuss with Dr Rojo appropriate follow-up during . She has a history of kidney stones. Recent ultrasound done at [facility] . She is being followed by Dr Prado. TKRN History of seizures 08/04/2017 01/11/20 Overview: 08/04/2017Patient has a history of seizures diagnosed [place] [address] Smith. She currently is taking Depakote. She has an appt with Dr Smith in [place] 09/04. 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 IgM positive. Patient denies any previous outbreak. Start prophylaxis at 36 weeks. Jil Farrar APRN.CNM Polyhydramnios in third trimester 12/12/2017 05/23/2018 Overview: 12/28/17-RUPAL 27.4. Weekly BPP. Jil Farrar APRN.CNM Intrauterine growth restrict ion (IUGR) affecting care of mother, second trimester, single gestation 12/12/2017 05/23/2018 Overview: 12/14/[address] Carroll UTI (urinary tract infection ) in , antepartum 11/02/2017 05/23/2018 Overview: 11/02/17-Positive E Coli UTI. Treated with Macrobid 100mg PO BID x 7 days. Urine LIBERTY in 4 weeks. Jil Farrar APRN.CNM Pyelectasis of fetus on ultrasound 10/17/2017 05/23/2018 Overview: 01/31/18 - pediatric urology recommendations OK to deliver at [facility] Please obtain renal and bladder ultrasound at and a repeat at 7-10 days He will need prophylactic antibiotics amoxicillin 20mg/kg/dose daily Recommend circumcision Note printed & taken to peds at [facility]. Alvarez Rojo MD 12/28/17- Pyelectasis is still noted.The left renal APD measures 10.2 mm (larger than the previous scan). Left hydroureter is noted. Appointment with on 01/04/18. Jil Farrar APRN.CNM Left kidney at 5.1 mm and calyceal dilation 12/14/[address] Carroll Evaluate anatomy not seen on prior sonogram 10/17/2017 05/23/2018 Overview: Stomach bubble not visualized well at 19 weeks History of narcotic use 10/06/20170 08/2019 Overview: 10/25/17-Patient seen in ER on 10/09/17 for 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 Xray negative. She was given Rx for Tylenol #3 but OARRS report does not show this was filled. Please verify with patient at next visit. Jil Farrar APRN.CNM October 06, 2017 Vicodin use during > Please review OARRS, please review risks at next appt. and intermittently. Rachel Velasquez MD Kidney stone 08/29/2017 01/11/2020 Overview: August 29, 2017 had renal US, there is a small 7 mm kidney stone nonobstructing, not causing an issue clinically in that location. Renal US done [facility] on 07/20/17. CT done 06/24/17 shows small right nonobstructing stone, none on left. Rachel Velasquez MD Grand multipara 08/04/2017 05/23/2018 Overview: 08/04/2017 She is . I have asked her to sign a release form for her delivery records from [place]. TKRN Custody issue 08/04/2017 01/11/2020 Overview: 08/04/2017She states she does not have custody of any of her children due to living in a house in [place], [place] with drug friends . She denies ever using drugs. TKRN Antepartum multigravida of a dvanced maternal age 0308/04/2017 05/23/2018 Overview: 08/04/2017Patient is 42 years old. Advanced Maternal age discussed. Pt refused handouts on Genetic Amniocentesis and [facility]. [facility] handout on Early Screening In given and discussed. Level II Ultrasound and Dr. Carroll's services discussed. Patient desires nuchal ultrasound and [id number] test. Patient recently saw Dr Prado her PCP for right sided pain in . AN ultrasound was done and that showed IUP at 7w1d. She had an ultrasound for brown discharge from her nipples 05/18/2017. She is scheduled for folw-up mammogram 11/2017. She will discuss with Dr Rojo appropriate follow-up during . She has a history of kidney stones. Recent ultrasound done at [facility] . She is being followed by Dr Prado. Patient has a history of seizures diagnosed in [address] Smith. She currently is taking Depakote. She has an appt with Dr Smith in [place] 09/04. She is advised to call Dr Smith today or tomorrow and let him know she is . 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 She denies any surgical correction. She states she recently saw Dr Gonzales and had a heart cath and stress test done. She states there were negative findings. Pt quit smoking 1 year ago. Discussed risks of smoking during and advised pt to continue not smoking. TKRN Pelvic pain in , antepartum 08/04/2017 08/29/2017 Overview: 08/04/2017Patient recently saw Dr Prado her PCP for right sided pain in . AN ultrasound was done and that showed IUP at 7w1d. She states pain has resolved. Denies any bleeding this . Patient is to call/come in if she develops pain or bleeding or PRN problems.TKRN Breast discharge 08/04/2017 01/11/2020 Overview: 08/04/2017 She had an ultrasound for brown discharge from her nipples 05/18/2017. She is scheduled for folw-up mammogram 11/2017. She will discuss with Dr Rojo appropriate follow-up during . She has a history of kidney stones. Recent ultrasound done at [facility] . She is being followed by Dr Prado. TKRN History of seizures 08/04/2017 01/11/20 Overview: 08/04/2017Patient has a history of seizures [place] [address] Smith. She currently is taking Depakote. She has an appt with Dr Smith in [place] 09/04. 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 IgM positive. Patient denies any previous outbreak. Start prophylaxis at 36 weeks. Jil Farrar APRN.CNM Polyhydramnios in third trimester 12/12/2017 05/23/2018 Overview: 12/28/17-RUPAL 27.4. Weekly BPP. Jil Farrar APRN.CNM Intrauterine growth restrict ion (IUGR) affecting care of mother, second trimester, single gestation 12/12/2017 05/23/2018 Overview: 12/14/[address] Carroll UTI (urinary tract infection ) in , antepartum 11/02/2017 05/23/2018 Overview: 11/02/17-Positive E Coli UTI. Treated with Macrobid 100mg PO BID x 7 days. Urine LIBERTY in 4 weeks. Jil Farrar APRN.CNM Pyelectasis of fetus on ultrasound 10/17/2017 05/23/2018 Overview: 01/31/18 - pediatric urology recommendations OK to deliver at [facility] Please obtain renal and bladder ultrasound at and a repeat at 7-10 days He will need prophylactic antibiotics amoxicillin 20mg/kg/dose daily Recommend circumcision Note printed & taken to peds at [facility]. Alvarez Rojo MD 12/28/17- Pyelectasis is still noted.The left renal APD measures 10.2 mm (larger than the previous scan). Left hydroureter is noted. Appointment with on 01/04/18. Jil Farrar APRN.CNM Left kidney at 5.1 mm and calyceal dilation 12/14/[address] Carroll Evaluate anatomy not seen on prior sonogram 10/17/2017 05/23/2018 Overview: Stomach bubble not visualized well at 19 weeks History of narcotic use 10/06/201708/2019 Overview: 10/25/17-Patient seen in ER on 10/09/17 for 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 Xray negative. She was given Rx for Tylenol #3 but OARRS report does not show this was filled. Please verify with patient at next visit. Jil Farrar APRN.CNM October 06, 2017 Vicodin use during > Please review OARRS, please review risks at next appt. and intermittently. Rachel Velasquez MD Kidney stone 08/29/2017 01/11/2020 Overview: August 29, 2017 had renal US, there is a small 7 mm kidney stone nonobstructing, not causing an issue clinically in that location. Renal US done [facility] on 07/20/17. CT done 06/24/17 shows small right nonobstructing stone, none on left. Rachel Velasquez MD Grand multipara 08/04/2017 05/23/2018 Overview: 08/04/2017 She is . I have asked her to sign a release form for her delivery records from [place]. TKRN Custody issue 08/04/2017 01/11/2020 Overview: 08/04/2017She states she does not have custody of any of her children due to living in a house in [place], [place] with drug friends . She denies ever using drugs. TKRN Antepartum multigravida of a dvanced maternal age 0308/04/2017 05/23/2018 Overview: 08/04/2017Patient is 42 years old. Advanced Maternal age discussed. Pt refused handouts on Genetic Amniocentesis and [facility]. [facility] handout on Early Screening In given and discussed. Level II Ultrasound and Dr. Carroll's services discussed. Patient desires nuchal ultrasound and [id number] test. Patient recently saw Dr Prado her PCP for right sided pain in . AN ultrasound was done and that showed IUP at 7w1d. She had an ultrasound for brown discharge from her nipples 05/18/2017. She is scheduled for folw-up mammogram 11/2017. She will discuss with Dr Rojo appropriate follow-up during . She has a history of kidney stones. Recent ultrasound done at [facility] . She is being followed by Dr Prado. Patient has a history of seizures diagnosed in [address] Smith. She currently is taking Depakote. She has an appt with Dr Smith in [place] 09/04. She is advised to call Dr Smith today or tomorrow and let him know she is . 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 She denies any surgical correction. She states she recently saw Dr Gonzales and had a heart cath and stress test done. She states there were negative findings. Pt quit smoking 1 year ago. Discussed risks of smoking during and advised pt to continue not smoking. TKRN Pelvic pain in , antepartum 08/04/2017 08/29/2017 Overview: 08/04/2017Patient recently saw Dr Prado her PCP for right sided pain in . AN ultrasound was done and that showed IUP at 7w1d. She states pain has resolved. Denies any bleeding this . Patient is to call/come in if she develops pain or bleeding or PRN problems.TKRN Breast discharge 08/04/2017 01/11/2020 Overview: 08/04/2017 She had an ultrasound for brown discharge from her nipples 05/18/2017. She is scheduled for folw-up mammogram 11/2017. She will discuss with Dr Rojo appropriate follow-up during . She has a history of kidney stones. Recent ultrasound done at [facility] . She is being followed by Dr Prado. TKRN History of seizures 08/04/2017 01/11/20 Overview: 08/04/2017Patient has a history of seizures [place] [address] [place]. She currently is taking Depakote. She has an appt with Dr Smith in [place] 09/04. 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 IgM positive. Patient denies any previous outbreak. Start prophylaxis at 36 weeks. Jil Farrar APRN.CNM Polyhydramnios in third trimester 12/12/2017 05/23/2018 Overview: 12/28/17-RUPAL 27.4. Weekly BPP. Jil Farrar APRN.CNM Intrauterine growth restrict ion (IUGR) affecting care of mother, second trimester, single gestation 12/12/2017 05/23/2018 Overview: 12/14/[address] Carroll UTI (urinary tract infection ) in , antepartum 11/02/2017 05/23/2018 Overview: 11/02/17-Positive E Coli UTI. Treated with Macrobid 100mg PO BID x 7 days. Urine LIBERTY in 4 weeks. Jil Farrar APRN.CNM Pyelectasis of fetus on ultrasound 10/17/2017 05/23/2018 Overview: 01/31/18 - pediatric urology recommendations OK to deliver at [facility] Please obtain renal and bladder ultrasound at and a repeat at 7-10 days He will need prophylactic antibiotics amoxicillin 20mg/kg/dose daily Recommend circumcision Note printed & taken to peds at [facility]. Alvarez Rojo MD 12/28/17- Pyelectasis is still noted.The left renal APD measures 10.2 mm (larger than the previous scan). Left hydroureter is noted. Appointment with on 01/04/18. Jil Farrar, SUPERVISORY TRAINING SPECIALIST.CNM Left kidney at 5.1 mm and calyceal dilation 12/14/[address] Carroll Evaluate anatomy not seen on prior sonogram 10/17/2017 05/23/2018 Overview: Stomach bubble not visualized well at 19 weeks History of narcotic use 10/06/2017 09/08/2019 Overview: 10/25/17-Patient seen in ER on 10/09/17 for 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 Xray negative. She was given Rx for Tylenol #3 but OARRS report does not show this was filled. Please verify with patient at next visit. Jil Farrar APRN.CNM October 06, 2017 Vicodin use during > Please review OARRS, please review risks at next appt. and intermittently. Rachel Velasquez MD Kidney stone 08/29/2017 01/11/2020 Overview: August 29, 2017 had renal US, there is a small 7 mm kidney stone nonobstructing, not causing an issue clinically in that location. Renal US done [facility] on 07/20/17. CT done 06/24/17 shows small right nonobstructing stone, none on left. Rachel Velasquez MD Grand multipara 08/04/2017 05/23/2018 Overview: 08/04/2017 She is . I have asked her to sign a release form for her delivery records from [place]. TKRN Custody issue 08/04/2017 01/11/2020 Overview: 08/04/2017She states she does not have custody of any of her children due to living in a house in [place], [place] with drug friends . She denies ever using drugs. TKRN Antepartum multigravida of a dvanced maternal age 0308/04/2017 05/23/2018 Overview: 08/04/2017Patient is 42 years old. Advanced Maternal age discussed. Pt refused handouts on Genetic Amniocentesis and [facility]. [facility] handout on Early Screening In given and discussed. Level II Ultrasound and Dr. Carroll's services discussed. Patient desires nuchal ultrasound and [id number] test. Patient recently saw Dr Prado her PCP for right sided pain in . AN ultrasound was done and that showed IUP at 7w1d. She had an ultrasound for brown discharge from her nipples 05/18/2017. She is scheduled for folw-up mammogram 11/2017. She will discuss with Dr Rojo appropriate follow-up during . She has a history of kidney stones. Recent ultrasound done at [facility] . She is being followed by Dr Prado. Patient has a history of seizures diagnosed in [address] Smith. She currently is taking Depakote. She has an appt with Dr Smith in [place] 09/04. She is advised to call Dr Smith today or tomorrow and let him know she is . 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 She denies any surgical correction. She states she recently saw Dr Gonzales and had a heart cath and stress test done. She states there were negative findings. Pt quit smoking 1 year ago. Discussed risks of smoking during and advised pt to continue not smoking. TKRN Pelvic pain in , antepartum 08/04/2017 08/29/2017 Overview: 08/04/2017Patient recently saw Dr Prado her PCP for right sided pain in . AN ultrasound was done and that showed IUP at 7w1d. She states pain has resolved. Denies any bleeding this . Patient is to call/come in if she develops pain or bleeding or PRN problems.TKRN Breast discharge 08/04/2017 01/11/2020 Overview: 08/04/2017 She had an ultrasound for brown discharge from her nipples 05/18/2017. She is scheduled for folw-up mammogram 11/2017. She will discuss with Dr Rojo appropriate follow-up during . She has a history of kidney stones. Recent ultrasound done at [facility] . She is being followed by Dr Prado. TKRN History of seizures 08/04/2017 01/11/20 Overview: 08/04/2017Patient has a history of seizures diagnosed in [address] Smith. She currently is taking Depakote. She has an appt with Dr Smith in [place] 09/04. 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 IgM positive. Patient denies any previous outbreak. Start prophylaxis at 36 weeks. Jil Farrar APRN.CNM Polyhydramnios in third trimester 12/12/2017 05/23/2018 Overview: 12/28/17-RUPAL 27.4. Weekly BPP. Jil Farrar APRN.CNM Intrauterine growth restrict ion (IUGR) affecting care of mother, second trimester, single gestation 12/12/2017 05/23/2018 Overview: 12/14/[address] Carroll UTI (urinary tract infection) in , ante 11/02/2017 05/23/2018 Overview: 11/02/17-Positive E Coli UTI. Treated with Macrobid 100mg PO BID x 7 days. Urine LIBERTY in 4 weeks. Jil Farrar APRN.CNM Pyelectasis of fetus on ultrasound 10/0705/23/2018 Overview: 01/31/18 - pediatric urology recommendations OK to deliver at [facility] Please obtain renal and bladder ultrasound at and a repeat at 7-10 days He will need prophylactic antibiotics amoxicillin 20mg/kg/dose daily Recommend circumcision Note printed & taken to peds at [facility]. Alvarez Rojo MD 12/28/17- Pyelectasis is still noted.The left renal APD measures 10.2 mm (larger than the previous scan). Left hydroureter is noted. Appointment with on 01/04/18. Jil Farrar APRN.CNM Left kidney at 5.1 mm and calyceal dilation 12/14/[address] Carroll Evaluate anatomy not seen on prior sonogram 10/0705/23/2018 Overview: Stomach bubble not visualized well at 19 weeks History of narcotic use 10/06/2017 01/11/20 Overview: 10/25/17-Patient seen in ER on 10/09/17 for 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 Xray negative. She was given Rx for Tylenol #3 but OARRS report does not show this was filled. Please verify with patient at next visit. Jil Farrar APRN.CNM October 06, 2017 Vicodin use during > Please review OARRS, please review risks at next appt. and intermittently. Rachel Velasquez MD Kidney stone 08/29/2017 01/11/2020 Overview: August 29, 2017 had renal US, there is a small 7 mm kidney stone nonobstructing, not causing an issue clinically in that location. Renal US done [facility] on 07/20/17. CT done 06/24/17 shows small right nonobstructing stone, none on left. Rachel Velasquez MD Grand multipara 08/04/2017 05/23/2018 Overview: 08/04/2017 She is . I have asked her to sign a release form for her delivery records from [place]. TKRN Custody issue 08/04/2017 01/11/2020 Overview: 08/04/2017She states she does not have custody of any of her children due to living in a house in [place], [place] with drug friends . She denies ever using drugs. TKRN Antepartum multigravida of advanced maternal age 0308/04/2017 05/23/2018 Overview: 08/04/2017Patient is 42 years old. Advanced Maternal age discussed. Pt refused handouts on Genetic Amniocentesis and [facility]. [facility] handout on Early Screening In given and discussed. Level II Ultrasound and Dr. Carroll's services discussed. Patient desires nuchal ultrasound and [id number] test. Patient recently saw Dr rPado her PCP for right sided pain in . AN ultrasound was done and that showed IUP at 7w1d. She had an ultrasound for brown discharge from her nipples 05/18/2017. She is scheduled for folw-up mammogram 11/2017. She will discuss with Dr Rojo appropriate follow-up during . She has a history of kidney stones. Recent ultrasound done at [facility] . She is being followed by Dr Prado. Patient has a history of seizures diagnosed in [address] Smith. She currently is taking Depakote. She has an appt with Dr Smith in [place] 09/04. She is advised to call Dr Smith today or tomorrow and let him know she is . 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 She denies any surgical correction. She states she recently saw Dr Gonzales and had a heart cath and stress test done. She states there were negative findings. Pt quit smoking 1 year ago. Discussed risks of smoking during and advised pt to continue not smoking. TKRN Pelvic pain in , antepartum 08/04/2017 08/29/2017 Overview: 08/04/2017Patient recently saw Dr Prado her PCP for right sided pain in . AN ultrasound was done and that showed IUP at 7w1d. She states pain has resolved. Denies any bleeding this . Patient is to call/come in if she develops pain or bleeding or PRN problems.TKRN Breast discharge 08/04/2017 01/11/2020 Overview: 08/04/2017 She had an ultrasound for brown discharge from her nipples 05/18/2017. She is scheduled for folw-up mammogram 11/2017. She will discuss with Dr Rojo appropriate follow-up during . She has a history of kidney stones. Recent ultrasound done at [facility] . She is being followed by Dr Prado. TKRN History of seizures 08/04/2017 01/11/2020 Overview: 08/04/2017Patient has a history of seizures diagnosed in [address] Smith. She currently is taking Depakote. She has an appt with Dr Smith in [place] 09/04. She is advised to call Dr Smith today or tomorrow and let him know she is .TKRN Seizure disorder in Overview: 10/24/17-Seen by -neurology on 09/30/17. Started on Lamictal XR and titrate as follows: 25mg daily x2 weeks, then 50mg daily x2 weeks then 100mg daily. No seizures since 2014. 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 IgM positive. Patient denies any previous outbreak. Start prophylaxis at 36 weeks. Jil Farrar APRN.CNM Polyhydramnios in third trimester 12/12/2017 05/23/2018 Overview: 12/28/17-RUPAL 27.4. Weekly BPP. Jil Farrar APRN.CNM Intrauterine growth restrict ion (IUGR) affecting care of mother, second trimester, single gestation 12/12/2017 05/23/2018 Overview: 12/14/[address] Carroll UTI (urinary tract infection) in , ante 11/02/2017 05/23/2018 Overview: 11/02/17-Positive E Coli UTI. Treated with Macrobid 100mg PO BID x 7 days. Urine LIBERTY in 4 weeks. Jil Farrar APRN.CNM Pyelectasis of fetus on ultrasound 10/0705/23/2018 Overview: 01/31/18 - pediatric urology recommendations OK to deliver at [place] Please obtain renal and bladder ultrasound at and a repeat at 7-10 days He will need prophylactic antibiotics amoxicillin 20mg/kg/dose daily Recommend circumcision Note printed & taken to peds at [facility]. Alvarez Rojo MD 12/28/17- Pyelectasis is still noted.The left renal APD measures 10.2 mm (larger than the previous scan). Left hydroureter is noted. Appointment with on 01/04/18. Jil Farrar APRN.CNM Left kidney at 5.1 mm and calyceal dilation 12/14/[address] Carroll Evaluate anatomy not seen on prior sonogram 10/0705/23/2018 Overview: Stomach bubble not visualized well at 19 weeks History of narcotic use 10/06/2017 01/11/20 Overview: 10/25/17-Patient seen in ER on 10/09/17 for 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 Xray negative. She was given Rx for Tylenol #3 but OARRS report does not show this was filled. Please verify with patient at next visit. iJl Farrar APRN.CNM October 06, 2017 Vicodin use during > Please review OARRS, please review risks at next appt. and intermittently. Rachel Velasquez MD Kidney stone 08/29/2017 01/11/2020 Overview: August 29, 2017 had renal US, there is a small 7 mm kidney stone nonobstructing, not causing an issue clinically in that location. Renal US done [facility] on 07/20/17. CT done 06/24/17 shows small right nonobstructing stone, none on left. Rachel Velasquez MD Grand multipara 08/04/2017 05/23/2018 Overview: 08/04/2017 She is . I have asked her to sign a release form for her delivery records from [place]. TKRN Custody issue 08/04/2017 01/11/2020 Overview: 08/04/2017She states she does not have custody of any of her children due to living in a house in [place], [place] with drug friends . She denies ever using drugs. TKRN Antepartum multigravida of advanced maternal age 0308/04/2017 05/23/2018 Overview: 08/04/2017Patient is 42 years old. Advanced Maternal age discussed. Pt refused handouts on Genetic Amniocentesis and [facility]. [facility] handout on Early Screening In given and discussed. Level II Ultrasound and Dr. Carroll's services discussed. Patient desires nuchal ultrasound and [id number] test. Patient recently saw Dr Prado her PCP for right sided pain in . AN ultrasound was done and that showed IUP at 7w1d. She had an ultrasound for brown discharge from her nipples 05/18/2017. She is scheduled for folw-up mammogram 11/2017. She will discuss with Dr Rojo appropriate follow-up during . She has a history of kidney stones. Recent ultrasound done at [facility] . She is being followed by Dr Prado. Patient has a history of seizures diagnosed in [address] Smith. She currently is taking Depakote. She has an appt with Dr Smith in [place] 09/04. She is advised to call Dr Smith today or tomorrow and let him know she is . 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 She denies any surgical correction. She states she recently saw Dr Gonzales and had a heart cath and stress test done. She states there were negative findings. Pt quit smoking 1 year ago. Discussed risks of smoking during and advised pt to continue not smoking. TKRN Pelvic pain in , antepartum 08/04/2017 08/29/2017 Overview: 08/04/2017Patient recently saw Dr Prado her PCP for right sided pain in . AN ultrasound was done and that showed IUP at 7w1d. She states pain has resolved. Denies any bleeding this . Patient is to call/come in if she develops pain or bleeding or PRN problems.TKRN Breast discharge 08/04/2017 01/11/2020 Overview: 08/04/2017 She had an ultrasound for brown discharge from her nipples 05/18/2017. She is scheduled for folw-up mammogram 11/2017. She will discuss with Dr Rojo appropriate follow-up during . She has a history of kidney stones. Recent ultrasound done at [facility] . She is being followed by Dr Prado. TKRN History of seizures 08/04/2017 01/11/2020 Overview: 08/04/2017Patient has a history of seizures diagnosed in [address] Smith. She currently is taking Depakote. She has an appt with Dr Smith in [place] 09/04. She is advised to call Dr Smith today or tomorrow and let him know she is .TKRN Seizure disorder in Overview: 10/24/17-Seen by -neurology on 09/30/17. Started on Lamictal XR and titrate as follows: 25mg daily x2 weeks, then 50mg daily x2 weeks then 100mg daily. No seizures since 2014. Jil Farrar APRN.CNM documented as of this encounter (statuses as of 05/12/2022) [facility]08-06-2018 History of Past illness Narrative* Problem Noted Date Resolved Date Polyhydramnios in third trimester 12/12/2017 05/23/2018 Overview: 12/28/17-RUPAL 27.4. Weekly BPP. Jil Farrar APRN.CNM Intrauterine growth restrict ion (IUGR) affecting care of mother, second trimester, single gestation 12/12/2017 05/23/2018 Overview: 12/14/[address] Carroll UTI (urinary tract infection) in , ante 11/02/2017 05/23/2018 Overview: 11/02/17-Positive E Coli UTI. Treated with Macrobid 100mg PO BID x 7 days. Urine LIBERTY in 4 weeks. Jil Farrar APRN.CNM Pyelectasis of fetus on ultrasound 10/0705/23/2018 Overview: 01/31/18 - pediatric urology recommendations OK to deliver at [place] Please obtain renal and bladder ultrasound at and a repeat at 7-10 days He will need prophylactic antibiotics amoxicillin 20mg/kg/dose daily Recommend circumcision Note printed & taken to peds at [facility]. Alvarez Rojo MD 12/28/17- Pyelectasis is still noted.The left renal APD measures 10.2 mm (larger than the previous scan). Left hydroureter is noted. Appointment with on 01/04/18. Jil Farrar APRN.CNM Left kidney at 5.1 mm and calyceal dilation 12/14/[address] Carroll Evaluate anatomy not seen on prior sonogram 10/0705/23/2018 Overview: Stomach bubble not visualized well at 19 weeks History of narcotic use 10/06/2017 01/11/20 Overview: 10/25/17-Patient seen in ER on 10/09/17 for 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 Xray negative. She was given Rx for Tylenol #3 but OARRS report does not show this was filled. Please verify with patient at next visit. Jil Farrar APRN.CNM October 06, 2017 Vicodin use during > Please review OARRS, please review risks at next appt. and intermittently. Rachel Velasquez MD Kidney stone 08/29/2017 01/11/2020 Overview: August 29, 2017 had renal US, there is a small 7 mm kidney stone nonobstructing, not causing an issue clinically in that location. Renal US done [facility] on 07/20/17. CT done 06/24/17 shows small right nonobstructing stone, none on left. Rachel Velasquez MD Grand multipara 08/04/2017 05/23/2018 Overview: 08/04/2017 She is . I have asked her to sign a release form for her delivery records from [place]. [facility] Custody issue 08/04/2017 01/11/2020 Overview: 08/04/2017She states she does not have custody of any of her children due to living in a house in [place], [place] with drug friends . She denies ever using drugs. TKRN Antepartum multigravida of advanced maternal age 0308/04/2017 05/23/2018 Overview: 08/04/2017Patient is 42 years old. Advanced Maternal age discussed. Pt refused handouts on Genetic Amniocentesis and [facility]. [facility] handout on Early Screening In given and discussed. Level II Ultrasound and Dr. Carroll's services discussed. Patient desires nuchal ultrasound and [id number] test. Patient recently saw Dr Prado her PCP for right sided pain in . AN ultrasound was done and that showed IUP at 7w1d. She had an ultrasound for brown discharge from her nipples 05/18/2017. She is scheduled for folw-up mammogram 11/2017. She will discuss with Dr Rojo appropriate follow-up during . She has a history of kidney stones. Recent ultrasound done at [facility] . She is being followed by Dr Prado. Patient has a history of seizures diagnosed in [address] Smith. She currently is taking Depakote. She has an appt with Dr Smith in [place] 09/04. She is advised to call Dr Smith today or tomorrow and let him know she is . 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 She denies any surgical correction. She states she recently saw Dr Gonzales and had a heart cath and stress test done. She states there were negative findings. Pt quit smoking 1 year ago. Discussed risks of smoking during and advised pt to continue not smoking. TKRN Pelvic pain in , antepartum 08/04/2017 08/29/2017 Overview: 08/04/2017Patient recently saw Dr Prado her PCP for right sided pain in . AN ultrasound was done and that showed IUP at 7w1d. She states pain has resolved. Denies any bleeding this . Patient is to call/come in if she develops pain or bleeding or PRN problems.TKRN Breast discharge 08/04/2017 01/11/2020 Overview: 08/04/2017 She had an ultrasound for brown discharge from her nipples 05/18/2017. She is scheduled for folw-up mammogram 11/2017. She will discuss with Dr Rojo appropriate follow-up during . She has a history of kidney stones. Recent ultrasound done at [facility] . She is being followed by Dr Prado. TKRN History of seizures 08/04/2017 01/11/2020 Overview: 08/04/2017Patient has a history of seizures [place] [address] Smith. She currently is taking Depakote. She has an appt with Dr Smith in [place] 09/04. She is advised to call Dr Smith today or tomorrow and let him know she is .TKRN Seizure disorder in Overview: 10/24/17-Seen by -neurology on 09/30/17. Started on Lamictal XR and titrate as follows: 25mg daily x2 weeks, then 50mg daily x2 weeks then 100mg daily. No seizures since 2014. Jil Farrar APRN.CNM documented as of this encounter (statuses as of 05/12/2022) [facility]2018 History of Past illness Narrative* Problem Noted Date Resolved Date History of narcotic use 10/06/2017 01/11/20 Overview: 10/25/17-Patient seen in ER on 10/09/17 for 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 Xray negative. She was given Rx for Tylenol #3 but OARRS report does not show this was filled. Please verify with patient at next visit. Jil Farrar APRN.CNM October 06, 2017 Vicodin use during > Please review OARRS, please review risks at next appt. and intermittently. Rachel Velasquez MD Kidney stone 08/29/2017 01/11/2020 Overview: August 29, 2017 had renal US, there is a small 7 mm kidney stone nonobstructing, not causing an issue clinically in that location. Renal US done [facility] on 07/20/17. CT done 06/24/17 shows small right nonobstructing stone, none on left. Rachel Velasquez MD Grand multipara 08/04/2017 05/23/2018 Overview: 08/04/2017 She is . I have asked her to sign a release form for her delivery records from [place]. TKRN Custody issue 08/04/2017 01/11/2020 Overview: 08/04/2017She states she does not have custody of any of her children due to living in a house in [place], [place] with drug friends . She denies ever using drugs. TKRN Antepartum multigravida of advanced maternal age 0308/04/2017 05/23/2018 Overview: 08/04/2017Patient is 42 years old. Advanced Maternal age discussed. Pt refused handouts on Genetic Amniocentesis and [facility]. [facility] handout on Early Screening In given and discussed. Level II Ultrasound and Dr. Carroll's services discussed. Patient desires nuchal ultrasound and [id number] test. Patient recently saw Dr Prado her PCP for right sided pain in . AN ultrasound was done and that showed IUP at 7w1d. She had an ultrasound for brown discharge from her nipples 05/18/2017. She is scheduled for folw-up mammogram 11/2017. She will discuss with Dr Rojo appropriate follow-up during . She has a history of kidney stones. Recent ultrasound done at [facility] . She is being followed by Dr Prado. Patient has a history of seizures diagnosed in [address] Smith. She currently is taking Depakote. She has an appt with Dr Smith in [place] 09/04. She is advised to call Dr Smith today or tomorrow and let him know she is . 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 She denies any surgical correction. She states she recently saw Dr Gonzales and had a heart cath and stress test done. She states there were negative findings. Pt quit smoking 1 year ago. Discussed risks of smoking during and advised pt to continue not smoking. TKRN Pelvic pain in , antepartum 08/04/2017 08/29/2017 Overview: 08/04/2017Patient recently saw Dr Prado her PCP for right sided pain in . AN ultrasound was done and that showed IUP at 7w1d. She states pain has resolved. Denies any bleeding this . Patient is to call/come in if she develops pain or bleeding or PRN problems.TKRN Breast discharge 08/04/2017 01/11/2020 Overview: 08/04/2017 She had an ultrasound for brown discharge from her nipples 05/18/2017. She is scheduled for folw-up mammogram 11/2017. She will discuss with Dr Rojo appropriate follow-up during . She has a history of kidney stones. Recent ultrasound done at [facility] . She is being followed by Dr Prado. TKRN History of seizures 08/04/2017 01/11/2020 Overview: 08/04/2017Patient has a history of seizures [place] [address] [place]. She currently is taking Depakote. She has an appt with Dr Smith in [place] 09/04. She is advised to call Dr Smith today or tomorrow and let him know she is .TKRN Seizure disorder in Overview: 10/24/17-Seen by -neurology on 09/30/17. Started on Lamictal XR and titrate as follows: 25mg daily x2 weeks, then 50mg daily x2 weeks then 100mg daily. No seizures since 2014. Jil Farrar APRN.CNM documented as of this encounter (statuses as of 05/12/2022) [facility]04[facility] History of Present illness Narrative* Rachel Velasquez - 08/31/2017 7:46 AM EDT lab reviewed, please place result in chart. Rachel Velasquez MD` documented in [facility] encounter[facility] History of Past illness Narrative* Problem Noted Date Resolved Date Kidney stone 08/29/2017 01/11/2020 Overview: August 29, 2017 had renal US, there is a small 7 mm kidney stone nonobstructing, not causing an issue clinically in that location. Renal US done [facility] on 07/20/17. CT done 06/24/17 shows small right nonobstructing stone, none on left. Rachel Velasquez MD Grand multipara 08/04/2017 05/23/2018 Overview: 08/04/2017 She is . I have asked her to sign a release form for her delivery records from [place]. TKRN Custody issue 08/04/2017 01/11/2020 Overview: 08/04/2017She states she does not have custody of any of her children due to living in a house in [place], [place] with drug friends . She denies ever using drugs. TKRN Antepartum multigravida of advanced maternal age 0308/04/2017 05/23/2018 Overview: 08/04/2017Patient is 42 years old. Advanced Maternal age discussed. Pt refused handouts on Genetic Amniocentesis and [facility]. [facility] handout on Early Screening In given and discussed. Level II Ultrasound and Dr. Carroll's services discussed. Patient desires nuchal ultrasound and [id number] test. Patient recently saw Dr Prado her PCP for right sided pain in . AN ultrasound was done and that showed IUP at 7w1d. She had an ultrasound for brown discharge from her nipples 05/18/2017. She is scheduled for folw-up mammogram 11/2017. She will discuss with Dr Rojo appropriate follow-up during . She has a history of kidney stones. Recent ultrasound done at [facility] . She is being followed by Dr Prado. Patient has a history of seizures diagnosed in [address] Smith. She currently is taking Depakote. She has an appt with Dr Smith in [place] 09/04. She is advised to call Dr Smith today or tomorrow and let him know she is . 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 She denies any surgical correction. She states she recently saw Dr Gonzales and had a heart cath and stress test done. She states there were negative findings. Pt quit smoking 1 year ago. Discussed risks of smoking during and advised pt to continue not smoking. TKRN Pelvic pain in , antepartum 08/04/2017 08/29/2017 Overview: 08/04/2017Patient recently saw Dr Prado her PCP for right sided pain in . AN ultrasound was done and that showed IUP at 7w1d. She states pain has resolved. Denies any bleeding this . Patient is to call/come in if she develops pain or bleeding or PRN problems.TKRN Breast discharge 08/04/2017 01/11/2020 Overview: 08/04/2017 She had an ultrasound for brown discharge from her nipples 05/18/2017. She is scheduled for folw-up mammogram 11/2017. She will discuss with Dr Rojo appropriate follow-up during . She has a history of kidney stones. Recent ultrasound done at [facility] . She is being followed by Dr Prado. TKRN History of seizures 08/04/2017 01/11/2020 Overview: 08/04/2017Patient has a history of seizures [place] [address] [place]. She currently is taking Depakote. She has an appt with Dr Smith in [place] 09/04. She is advised to call Dr Smith today or tomorrow and let him know she is .TKRN Seizure disorder in Overview: 10/24/17-Seen by -neurology on 09/30/17. Started on Lamictal XR and titrate as follows: 25mg daily x2 weeks, then 50mg daily x2 weeks then 100mg daily. No seizures since 2014. Jil Farrar APRN.CNM documented as of this encounter (statuses as of 05/12/2022) [facility] Abnormal uterine bleeding (AUB) documented [facility] this [facility] Diagnosis Encounter for screening for malignant neoplasm of cervix- Primary Screening for malignant neoplasm of the cervix Special screening examination for human papillomavirus (HPV) Dysmenorrhea Menorrhagia with regular cycle Excessive or frequent menstruation Adenomyosis Endometriosis of uterus documented [facility] Diagnosis Menorrhagia with regular cycle- Primary Excessive or frequent menstruation documented [facility] Diagnosis Menorrhagia with regular cycle- Primary Excessive or frequent menstruation Pelvic pain in female Unspecified symptom associated with female genital organs documented [facility] Diagnosis Abnormal mammogram- Primary Abnormal mammogram, unspecified documented [facility]* Diagnosis Vaginal discharge Leukorrhea, not specified as infective documented [facility] this [facility]* Diagnosis Pyelectasis of fetus on ultrasound Abnormal findings on screening documented [facility]* Diagnosis Poor growth affecting management of mother in third trimester, single or unspecified fetus documented [facility]* Diagnosis Poor growth affecting management of mother in third trimester, single or unspecified fetus [facility]* Diagnosis Poor growth affecting management of mother in third trimester, single or unspecified fetus documented [facility]* Diagnosis Supervision of high risk in first trimester Unspecified high-risk 12 weeks gestation of state, incidental Advanced maternal age in multigravida, first trimester documented [facility]* Diagnosis Supervision of high risk in first trimester Unspecified high-risk 12 weeks gestation of state, incidental Advanced maternal age in multigravida, first trimester [facility] Diagnosis Postop check- Primary Follow-up examination, following unspecified surgery documented [facility] this [facility]* Diagnosis Abnormal ultrasound of breast Other (abnormal) findings on radiological examination of breast Enlarged lymph nodes Enlargement of lymph nodes documented [facility] Diagnosis Enlarged lymph nodes Enlargement of lymph nodes Abnormal ultrasound of breast Other (abnormal) findings on radiological examination of breast documented [facility] this [facility] Diagnosis Enlarged lymph nodes in armpit- Primary Enlargement of lymph nodes documented [facility]* Diagnosis Encounter for gynecological examination with abnormal finding- Primary Routine gynecological examination Encounter for screening mammogram for breast cancer Vulvovaginitis due to yeast documented [facility]* Diagnosis Seizure (HCC)- Primary Other convulsions documented [facility] this [facility]* Diagnosis Encounter for screening mammogram for malignant neoplasm of breast Other screening mammogram [facility] Diagnosis Abnormal mammogram Abnormal mammogram, unspecified [facility] Diagnosis Abnormal mammogram Abnormal mammogram, unspecified [facility] Diagnosis Encounter for screening mammogram for breast cancer documented in this encounter [facility] course Narrative No data available for this section [facility] Reason for referral (narrative)* Diagnostic Procedure Only (Routine) - Closed Specialty Diagnoses / Procedures Referred By Ken farah Referred To Contact US IMAGING Diagnoses Abnormal uterine bleeding (AUB) Procedures US FEMALE PELVIS TRANSVAG US TRANSVAGINAL Jil Farrar APRN.CNM [address] [place] [address] Us Imaging Referral ID Status Reason Start Date Expiration Date V isits Requested Visits Authorized [id number] Closed Auto-Generate d Referral 02/11/2022 03/13/2023 1 1 [facility] for referral (narrative)* Diagnostic Procedure Only (Routine) - Authorized Specialty Diagnoses / Procedures Referred By Ken farah Referred To Contact BR IMAGING Diagnoses Abnormal mammogram Procedures US BREAST LTD RT US BREAST UNI REAL TIME WITH IMAGE LIMITED Jil Farrar APRN.CNM [address] [place] [address] [facility] Imaging [address] [place] [address] Referral ID Status Reason Start Date Expiration Date Visits Requested Visits Authorized [id number] Authorized Auto-Generat ed Referral 04/14/2022 05/14/2023 1 1 * Diagnostic Procedure Only (Routine) - Authorized Specialty Diagnoses / Procedures [facility] Ref[facility] To Contact BR [facility] Diagnoses Abnormal mammogram Procedures [facility] DIAGNOSTIC BILAT DIAGNOSTIC MAMMOGRAPHY COMPUTER-AIDED DETCJ BI Jil Farrar APRN.CNM [address] [place] [place] [address] [facility] [address] [place] [address] Referral ID Status Reason Start Date Expiration Date Visits Requested Visits Authorized [id number] Authorized Auto-Generat ed Referral 04/14/2022 05/14/2023 1 1 * Diagnostic Procedure Only (Routine) - Authorized Specialty Diagnoses / Procedures Referred By Ken t Referred To Contact BR IMAGING Diagnoses Abnormal mammogram Procedures US BREAST LTD LT US BREAST UNI REAL TIME WITH IMAGE LIMITED Jil Farrra APRN.CNM [address] [place] [address] [facility] [address] [place] [address] Referral ID Status Reason Start Date Expiration Date Visits Requested Visits Authorized [id number] Authorized Auto-Generat ed Referral 04/14/2022 05/14/2023 1 1 [facility] for referral (narrative)* Diagnostic Procedure Only (Routine) - Authorized Specialty Diagnoses / Procedures Referred By [facility] t Referred To Contact BR IMAGING Diagnoses Encounter for gynecological examination (general) (routine) without abnormal findings Encounter for screening mammogram for breast cancer Procedures GLENN SCREENING W NOEL SCREENING DIGITAL BREAST TOMOSYNTHESIS BI SCREENING MAMMOGRAPHY BI 2-VIEW BREAST INC Rachel Ortez MD [address] [place] [address] Br Imaging [address] [place] [address] Referral ID Status Reason Start Date Expiration Date Visits Requested Visits Authorized [id number] Authorized Auto-Generat ed Referral 03/1703/17/2024 1 1 [facility] for referral (narrative)* Outpatient Procedure (Routine) - Pending Review Specialty Diagnoses / Procedures Referred By Ken farah Referred To [facility] Diagnoses Seizure (HCC) Procedures EPIL EEG LEAD PLACEMENT EEG EXTENDED MONITORING 61-119 MINUTES ELECTROENCEPHALOGRAM REC COMA/SLEEP ONLY Micha Do MD [address] [place] [address] Neurological [place] [address] [id number] Referral ID Status Reason Start Date Expiration Date Visits Requested Visits Authorized [id number] Pending Review Auto-Generat ed Referral 3 03/02/2024 1 1 [facility] for referral (narrative)* Diagnostic Procedure Only (Routine) - Closed Specialty Diagnoses / Procedures Referred By Ken farah Referred To Contact BR IMAGING Diagnoses Encounter for screening mammogram for malignant neoplasm of breast Procedures GLENN SCREENING W NOEL SCREENING DIGITAL BREAST TOMOSYNTHESIS BI SCREENING MAMMOGRAPHY BI 2-VIEW BREAST INC CAD Jil Farrar APRN.CNM [address] [place] [address] Br Imaging [address] [place] [address] Referral ID Status Reason Start Date Expiration Date V isits Requested Visits Authorized [id number] Closed Auto-Generate d Referral 02/11/2022 03/13/2023 1 1 [facility] for referral (narrative)* Diagnostic Procedure Only (Routine) - Closed Specialty Diagnoses / Procedures Referred By Ken farah Referred To Contact BR IMAGING Diagnoses Abnormal mammogram Procedures US BREAST LTD LT US BREAST UNI REAL TIME WITH IMAGE LIMITED Jil Farrar APRN.CNM [address] [place] [address] Br Imaging [address] [place] [address] Referral ID Status Reason Start Date Expiration Date V isits Requested Visits Authorized [id number] Closed Auto-Generate d Referral 04/14/2022 05/14/2023 1 1 [facility] for visit Narrative* Diagnostic Procedure Only (Routine) - Closed Specialty Diagnoses / Procedures Referred By Ken t Referred To Contact BR IMAGING Diagnoses Encounter for screening mammogram for malignant neoplasm of breast Procedures GLENN SCREENING W NOEL SCREENING DIGITAL BREAST TOMOSYNTHESIS BI SCREENING MAMMOGRAPHY BI 2-VIEW BREAST INC Jil Esteban APRN.CNM [address] [place] [address] Br Imaging [address] [place] [address] Referral ID Status Reason Start Date Expiration Date V isits Requested Visits Authorized [id number] Closed Auto-Generate d Referral 02/11/2022 03/13/2023 1 1 [facility] for visit Narrative* Diagnostic Procedure Only (Routine) - Closed Specialty Diagnoses / Procedures Referred By Ken farah Referred To Contact BR IMAGING Diagnoses Abnormal mammogram Procedures [facility] DIAGNOSTIC BILAT DIAGNOSTIC MAMMOGRAPHY COMPUTER-AIDED DETCJ Jil Mccoy APRN.CNM [address] [place] [address] Br Imaging [address] [place] [address] Referral ID Status Reason Start Date Expiration Date V isits Requested Visits Authorized [id number] Closed Auto-Generate d Referral 04/14/2022 05/14/2023 1 1 [facility] for visit Narrative* Diagnostic Procedure Only (Routine) - Closed Specialty Diagnoses / Procedures Referred By Ken farah Referred To Contact [facility] IMAGING Diagnoses Encounter for gynecological examination (general) (routine) without abnormal findings Encounter for screening mammogram for breast cancer Procedures GLENN SCREENING W NOEL SCREENING DIGITAL BREAST TOMOSYNTHESIS BI SCREENING MAMMOGRAPHY BI 2-VIEW BREAST INC Rachel Ortez MD [address] [place] [address] Br Imaging [address] [place] [address] Referral ID Status Reason Start Date Expiration Date V isits Requested Visits Authorized [id number] Closed Auto-Generate d Referral 02/16/2023 03/17/2024 1 1 [facility] Summary Purpose Family History No Family History Records FoundNo Family History Records Found No data available for this section No Family History Records FoundNo Family History Records FoundNo Family History Records Found Advance Directives No Advanced Directives Records FoundNo Advanced Directives Records FoundNo Advanced Directives Records FoundNo Advanced Directives Records FoundNo Advanced Directives Records Found Additional Source Comments INFORMATION SOURCE (unrecogn ized section and content) DATE CREATED AUTHOR AUTHOR'S ORGANIZ ATION 08/21/2019 [facility] DATE CREATED AUTHOR AUTHOR'S ORGANIZ ATION 03/01/2023 [facility] ([place]) DATE CREATED AUTHOR AUTHOR'S ORGANIZ ATION 03/12/2023 [facility] DATE CREATED AUTHOR AUTHOR'S ORGANIZ ATION 05/27/2023 [facility] Source Comments (unrecognize d section and content) In the event this informatio n is protected by the Federal Confidentiality of Alcohol and Drug Abuse Patient Records regulations: The Federal rules restrict any use of the information to criminally investigate or prosecute any alcohol or drug abuse patient.[facility] the event this information is protected by the Federal Confidentiality of Alcohol and Drug Abuse Patient Records regulations: The Federal rules restrict any use of the information to criminally investigate or prosecute any alcohol or drug abuse patient.[facility] the event this information is protected by the Federal Confidentiality of Alcohol and Drug Abuse Patient Records regulations: The Federal rules restrict any use of the information to criminally investigate or prosecute any alcohol or drug abuse patient.[facility] the event this information is protected by the Federal Confidentiality of Alcohol and Drug Abuse Patient Records regulations: The Federal rules restrict any use of the information to criminally investigate or prosecute any alcohol or drug abuse patient.[facility] the event this information is protected by the Federal Confidentiality of Alcohol and Drug Abuse Patient Records regulations: The Federal rules restrict any use of the information to criminally investigate or prosecute any alcohol or drug abuse patient.[facility] the event this information is protected by the Federal Confidentiality of Alcohol and Drug Abuse Patient Records regulations: The Federal rules restrict any use of the information to criminally investigate or prosecute any alcohol or drug abuse patient.[facility] the event this information is protected by the Federal Confidentiality of Alcohol and Drug Abuse Patient Records regulations: The Federal rules restrict any use of the information to criminally investigate or prosecute any alcohol or drug abuse patient.[facility] the event this information is protected by the Federal Confidentiality of Alcohol and Drug Abuse Patient Records regulations: The Federal rules restrict any use of the information to criminally investigate or prosecute any alcohol or drug abuse patient.[facility] the event this information is protected by the Federal Confidentiality of Alcohol and Drug Abuse Patient Records regulations: The Federal rules restrict any use of the information to criminally investigate or prosecute any alcohol or drug abuse patient.[facility] the event this information is protected by the Federal Confidentiality of Alcohol and Drug Abuse Patient Records regulations: The Federal rules restrict any use of the information to criminally investigate or prosecute any alcohol or drug abuse patient.[facility] the event this information is protected by the Federal Confidentiality of Alcohol and Drug Abuse Patient Records regulations: The Federal rules restrict any use of the information to criminally investigate or prosecute any alcohol or drug abuse patient.[facility] the event this information is protected by the Federal Confidentiality of Alcohol and Drug Abuse Patient Records regulations: The Federal rules restrict any use of the information to criminally investigate or prosecute any alcohol or drug abuse patient.[facility] the event this information is protected by the Federal Confidentiality of Alcohol and Drug Abuse Patient Records regulations: The Federal rules restrict any use of the information to criminally investigate or prosecute any alcohol or drug abuse patient.[facility] the event this information is protected by the Federal Confidentiality of Alcohol and Drug Abuse Patient Records regulations: The Federal rules restrict any use of the information to criminally investigate or prosecute any alcohol or drug abuse patient.[facility] the event this information is protected by the Federal Confidentiality of Alcohol and Drug Abuse Patient Records regulations: The Federal rules restrict any use of the information to criminally investigate or prosecute any alcohol or drug abuse patient.[facility] the event this information is protected by the Federal Confidentiality of Alcohol and Drug Abuse Patient Records regulations: The Federal rules restrict any use of the information to criminally investigate or prosecute any alcohol or drug abuse patient.[facility] the event this information is protected by the Federal Confidentiality of Alcohol and Drug Abuse Patient Records regulations: The Federal rules restrict any use of the information to criminally investigate or prosecute any alcohol or drug abuse patient.[facility] the event this information is protected by the Federal Confidentiality of Alcohol and Drug Abuse Patient Records regulations: The Federal rules restrict any use of the information to criminally investigate or prosecute any alcohol or drug abuse patient.[facility] the event this information is protected by the Federal Confidentiality of Alcohol and Drug Abuse Patient Records regulations: The Federal rules restrict any use of the information to criminally investigate or prosecute any alcohol or drug abuse patient.[facility] the event this information is protected by the Federal Confidentiality of Alcohol and Drug Abuse Patient Records regulations: The Federal rules restrict any use of the information to criminally investigate or prosecute any alcohol or drug abuse patient.[facility] the event this information is protected by the Federal Confidentiality of Alcohol and Drug Abuse Patient Records regulations: The Federal rules restrict any use of the information to criminally investigate or prosecute any alcohol or drug abuse patient.[facility] the event this information is protected by the Federal Confidentiality of Alcohol and Drug Abuse Patient Records regulations: The Federal rules restrict any use of the information to criminally investigate or prosecute any alcohol or drug abuse patient.[facility] the event this information is protected by the Federal Confidentiality of Alcohol and Drug Abuse Patient Records regulations: The Federal rules restrict any use of the information to criminally investigate or prosecute any alcohol or drug abuse patient.[facility] the event this information is protected by the Federal Confidentiality of Alcohol and Drug Abuse Patient Records regulations: The Federal rules restrict any use of the information to criminally investigate or prosecute any alcohol or drug abuse patient.[facility] the event this information is protected by the Federal Confidentiality of Alcohol and Drug Abuse Patient Records regulations: The Federal rules restrict any use of the information to criminally investigate or prosecute any alcohol or drug abuse patient.[facility] the event this information is protected by the Federal Confidentiality of Alcohol and Drug Abuse Patient Records regulations: The Federal rules restrict any use of the information to criminally investigate or prosecute any alcohol or drug abuse patient.[facility] the event this information is protected by the Federal Confidentiality of Alcohol and Drug Abuse Patient Records regulations: The Federal rules restrict any use of the information to criminally investigate or prosecute any alcohol or drug abuse patient.[facility] the event this information is protected by the Federal Confidentiality of Alcohol and Drug Abuse Patient Records regulations: The Federal rules restrict any use of the information to criminally investigate or prosecute any alcohol or drug abuse patient.[facility] the event this information is protected by the Federal Confidentiality of Alcohol and Drug Abuse Patient Records regulations: The Federal rules restrict any use of the information to criminally investigate or prosecute any alcohol or drug abuse patient.[facility] the event this information is protected by the Federal Confidentiality of Alcohol and Drug Abuse Patient Records regulations: The Federal rules restrict any use of the information to criminally investigate or prosecute any alcohol or drug abuse patient.[facility] the event this information is protected by the Federal Confidentiality of Alcohol and Drug Abuse Patient Records regulations: The Federal rules restrict any use of the information to criminally investigate or prosecute any alcohol or drug abuse patient.[facility] the event this information is protected by the Federal Confidentiality of Alcohol and Drug Abuse Patient Records regulations: The Federal rules restrict any use of the information to criminally investigate or prosecute any alcohol or drug abuse patient.[facility] the event this information is protected by the Federal Confidentiality of Alcohol and Drug Abuse Patient Records regulations: The Federal rules restrict any use of the information to criminally investigate or prosecute any alcohol or drug abuse patient.[facility] the event this information is protected by the Federal Confidentiality of Alcohol and Drug Abuse Patient Records regulations: The Federal rules restrict any use of the information to criminally investigate or prosecute any alcohol or drug abuse patient.[facility] the event this information is protected by the Federal Confidentiality of Alcohol and Drug Abuse Patient Records regulations: The Federal rules restrict any use of the information to criminally investigate or prosecute any alcohol or drug abuse patient.[facility]In the event this information is protected by the Federal Confidentiality of Alcohol and Drug Abuse Patient Records regulations: The Federal rules restrict any use of the information to criminally investigate or prosecute any alcohol or drug abuse patient.[facility] the event this information is protected by the Federal Confidentiality of Alcohol and Drug Abuse Patient Records regulations: The Federal rules restrict any use of the information to criminally investigate or prosecute any alcohol or drug abuse patient.[facility] Reason for Visit (unrecogniz ed section and content) Specialty Diagnoses / Procedures Referred By Contac t Referred To Contact BR IMAGING Diagnoses Abnormal mammogram Procedures US BREAST LTD RT US BREAST UNI REAL TIME WITH IMAGE LIMITED Jil Farrar APRN.CN [address] [place] [address] Br Imaging [address] [place] [address] Referral ID Status Reason Start Date Expiration Date V isits Requested Visits Authorized [id number] Closed Auto-Generate d Referral 04/14/2022 05/14/2023 1 1 Specialty Diagnoses / Procedures Referred By Contac t Referred To Contact US IMAGING Diagnoses Abnormal uterine bleeding (AUB) Procedures US FEMALE PELVIS TRANSVAG US TRANSVAGINAL Jil Farrar APRN.CNM [address] [place] [address] Us Imaging Referral ID Status Reason Start Date Expiration Date V isits Requested Visits Authorized [id number] Closed Auto-Generate d Referral 02/11/2022 03/13/2023 1 1 Reason Comments Discussion Reason Comments Mammogram Result Call Back Reason Comments Well Woman Reason Comments Menstrual Problem Reason Comments Care Plan Reason Comments Post Op Reason Comments Consult Lymph nodes Reason Comments Procedure US guided biopsy Lef t Auxillary Reason Comments Follow Up Left axillary biopsy Reason Comments Yearly Exam Reason Comments New Patient Seizures Care Teams (unrecognized sec tion and content) Automation Application Engineer Relationship Specialty Start Date End Date Liborio Prado DO PCP - General Family Medicine 05/13/15 Automation Application Engineer Relationship Specialty Start Date End Date Liborio Prado DO PCP - General Family Medicine 05/13/15 Automation Application Engineer Relationship Specialty Start Date End Date Liborio Prado, DO PCP - General Family Medicine 05/13/15 Automation Application Engineer Relationship Specialty Start Date End Date Liborio Prado, DO PCP - General Family Medicine 05/13/15 Automation Application Engineer Relationship Specialty Start Date End Date Liborio Prado, DO PCP - General Family Medicine 05/13/15 Automation Application Engineer Relationship Specialty Start Date End Date Liborio Prado, DO PCP - General Family Medicine 05/13/15 Automation Application Engineer Relationship Specialty Start Date End Date Liborio Prado, DO PCP - General Family Medicine 05/13/15 Automation Application Engineer Relationship Specialty Start Date End Date Liborio Prado, DO PCP - General Family Medicine 05/13/15 Automation Application Engineer Relationship Specialty Start Date End Date Liborio Prado, DO PCP - General Family Medicine 05/13/15 Automation Application Engineer Relationship Specialty Start Date End Date Liborio Prado, DO PCP - General Family Medicine 05/13/15 Automation Application Engineer Relationship Specialty Start Date End Date Liborio Prado, DO PCP - General Family Medicine 05/13/15 Automation Application Engineer Relationship Specialty Start Date End Date Liborio Prado, DO PCP - General Family Medicine 05/13/15 Automation Application Engineer Relationship Specialty Start Date End Date Liborio Prado, DO PCP - General Family Medicine 05/13/15 Automation Application Engineer Relationship Specialty Start Date End Date Liborio Prado DO PCP - [facility] 05/13/15 Automation Application Engineer Relationship Specialty Start Date End Date Liborio Prado DO PCP - General Family [facility] 05/13/15 Automation Application Engineer Relationship Specialty Start Date End Date Liborio Prado DO PCP - [facility] 05/13/15 Automation Application Engineer Relationship Specialty Start Date End Date Liborio Prado DO PCP - [facility] 05/13/15 Automation Application Engineer Relationship Specialty Start Date End Date Liborio Prado DO PCP - [facility] 05/13/15 Automation Application Engineer Relationship Specialty Start Date End Date Liborio Prado DO PCP - General Family [facility] 05/13/15 Automation Application Engineer Relationship Specialty Start Date End Date Liborio Prado DO PCP [facility] 05/13/15 Automation Application Engineer Relationship Specialty Start Date End Date Liborio Prado DO [facility] 05/13/15 FOR RECORDS PERTAINING TO PATIENTS WHO ARE OR HAVE BEEN ENROLLED IN A CHEMICAL DEPENDENCY/SUBSTANCEABUSE PROGRAM, SOME INFORMATION MAY BE OMITTED. This clinical summary was aggregated from multiple sources. Caution should be exercised in using it in the provision of clinical care. This summary normalizes information from multiple sources, and as a consequence, information in this document may materially change the coding, format and clinical context of patient data. In addition, data may be omitted in some cases. CLINICAL DECISIONS SHOULD BE BASED ON THE PRIMARY CLINICAL RECORDS. [facility]. provides no warranty or guarantee of the accuracy or completeness of information in this document.
[2023-06-03 10:03] VITALS: BP 149/88; PULSE 88; RESP 16; O2SAT 100; BMI 26.3
[2023-06-03] MEDS: Glucagon 1 MG/ML Syringe IV (11:16)
[2023-06-03 11:32] VITALS: BP 127/86; PULSE 88; RESP 16; O2SAT 98
== END | disposition home or self-care (01) ==
PROVIDERS: PCP Family Medicine; Referring Provider Family Medicine; Visit Provider Family Medicine
DX: R10.9 Unspecified abdominal pain (principal)
CPT/HCPCS: 74183; 96374; A9575; J1610

== ENCOUNTER → 2024-03-01 | Outpatient (CLI) | payer MEDICAID, SELFPAY ==
--- NOTE | 2024-03-01 14:21 | US_ITS ---
STUDY: ULTRASOUND BREAST - LEFT REASON FOR EXAM: Female, 48 years old. Occasional left breast pain. TECHNIQUE: Axial and longitudinal images of the LEFT breast were performed with a high resolution ultrasound transducer. # OF IMAGES: 53 COMPARISON: Comparison is made with prior mammograms and earlier today. FINDINGS: LEFT Breast: The lateral aspect of the left breast was examined with ultrasound. There is evidence of fibroglandular tissue. No sonographic abnormality is seen. US/Breast Limited Unilateral IMPRESSION: No sonographic abnormality is seen. ASSESSMENT CATEGORY: BIRADS Category 1: Negative. A letter regarding these results will be sent to the patient by the facility within 30 days. Electronically Signed: Karlos Concepcion MD at 15:35 EDT ,
--- NOTE | 2024-03-01 14:21 | BI_ITS ---
MAMMOGRAPHY - UNILATERAL DIAGNOSTIC: LEFT BREAST REASON FOR EXAM: Female, 48 years old. Occasional left breast pain. PERTINENT HISTORY: Non-contributory. TECHNIQUE: Digital unilateral breast yara (3D mammographic acquisition) in the CC and MLO projections. 2-D mediolateral oblique (MLO) and craniocaudad (CC) views of both breasts were obtained. CAD: Full Field Digital Mammography with Computer Added Detection was performed. COMPARISON: Comparison is made with prior outside examination dated April 11, 2023. FINDINGS: Breast Composition: There are scattered areas of fibroglandular density. There are no dominant masses or suspicious calcifications. Stable fat-containing left axillary lymph nodes. No other significant abnormalities are identified. There has been no significant change since the prior study. BI/DIAG MAMM W/CAD, UNILAT IMPRESSION: Stable unilateral diagnostic mammogram. With the patient''s history of left breast pain, correlation with ultrasound is recommended. ASSESSMENT CATEGORY: BIRADS Category 0: Incomplete. Need additional imaging evaluation. A letter regarding these results will be sent to the patient by the facility within 30 days. Approximately 10% of breast cancers are not detected by mammography. A normal mammogram should not delay biopsy of a clinically suspicious abnormality. Electronically Signed: Karlos Concepcion MD at 15:24 EDT ,
== END | disposition home or self-care (01) ==
LOC: OPBI 14:17
PROVIDERS: PCP Family Medicine; Referring Provider Obstetrics & Gynecology; Visit Provider Obstetrics & Gynecology
DX: N64.4 Mastodynia (principal)
CPT/HCPCS: 77061; 76642; 77065; G0279

== ENCOUNTER → 2024-06-26 | Outpatient (CLI) | payer MEDICAID, SELFPAY ==
--- NOTE | 2024-06-26 10:50 | RAD_ITS ---
PROCEDURE: CERV SPINE 2 OR 3 VIEWS REASON FOR EXAM: Neck pain. TECHNIQUE: AP, lateral, oblique, odontoid views of the cervical spine. COMPARISON: None. FINDINGS: Normal vertebral body heights. No visible fracture. Discogenic degenerative changes at C5-C6. Reversal of the normal cervical lordosis. Minimal anterolisthesis of C3 on C4 and C4 on C5. Left-sided foraminal narrowing at C3-C4 and C5-C6. The right neural foramina are not optimally seen. Prevertebral soft tissues are normal.. C7-T1 articulation is not optimally seen. RAD/Cerv Spine 2 or 3 Views IMPRESSION: DEGENERATIVE CHANGES IN THE CERVICAL SPINE, MOST SIGNIFICANT AT C5-C6. Reading Location: [id number]
--- NOTE | 2024-06-26 11:00 | RAD_ITS ---
PROCEDURE: LEFT HIP 1 VIEW WITH AP PELVIS REASON FOR EXAM: Left hip pain TECHNIQUE: One (1) view of the left hip and AP pelvis. COMPARISON: No relevant prior. FINDINGS: No fracture. No suspicious bone lesion. Normal alignment. Soft tissues are unremarkable. Multiple phleboliths in the pelvis. RAD/Hip 1 view with Pelvis IMPRESSION: 1. Normal left hip. 2. Normal AP pelvis. Reading Location: [facility]
== END | disposition home or self-care (01) ==
LOC: RAD 10:34
PROVIDERS: PCP Family Medicine; Referring Provider Nurse Practitioner Family; Visit Provider Nurse Practitioner Family
DX: M25.552 Pain in left hip (principal); M54.2 Cervicalgia
CPT/HCPCS: 72040; 73501

== ENCOUNTER → 2024-07-18 | Outpatient (CLI) | payer MEDICAID, SELFPAY ==
--- NOTE | 2024-07-18 12:45 | RAD_ITS ---
EXAM: XR Cervical Spine Flexion/Extension Only, 2 or 3 Views CLINICAL INDICATION: SACROILIITIS TECHNIQUE: Lateral flexion/extension views of the cervical spine. COMPARISON: No relevant prior studies available. FINDINGS: VERTEBRAE: Moderate facet arthropathy of L3-S1. No acute fracture. Normal alignment. No instability. DISC SPACES: No acute findings. No significant narrowing. SOFT TISSUES: Unremarkable. RAD/L/S Spine Min 4 Views IMPRESSION: 1. Degenerative changes as above. 2. If symptoms persist, further evaluation with MRI is recommended. Reading Location: [facility]
== END | disposition home or self-care (01) ==
PROVIDERS: PCP Family Medicine; Referring Provider Anesthesiology; Visit Provider Anesthesiology
DX: M46.1 Sacroiliitis, not elsewhere classified (principal)
CPT/HCPCS: 72110

== ENCOUNTER 2024-08-16 12:30 | Outpatient (RCR) | payer MEDICAID, SELFPAY ==
--- NOTE | 2024-07-19 13:38 | HP.PTEVAL ---
Patient's Visit Information Visit Information Visit Information: EVELYNE MARAVILLA is a 49 year old F referred to Physical Therapy by Dr. Daniel Johnson MD with a diagnosis of CERVICGENIC HEADACHES ,CERVICAL SPONDYLOSIS ,SACRAL PAIN. Date of Evaluation: 07/19/24 Physical Therapist: Darrel Gamboa, PT, Cert MDT, OCS Visit Plan Frequency: 2x /Week Duration: 4 Weeks Plan: PT INTERVENTIONS CERVICAL AND LUMBAR ROM ,DLS ,POSTURAL EX'S ACTIVITY MODIFICATION AND CERVICAL MANUAL TRACTION /STM /OA Subjective Subjective: This 49 y/o female presents to physical therapy with neck and back pain. Patient has had neck/back pain ~ 1 month pain . Seen DR Johnson. Recommended PT ,prescribed bactofilin, muscle relaxer. Patient also has migraines many years. Patient had x-rays showed lumbar Moderate facet arthropathy of L3-S1, x-rays cervical Minimal anterolisthesis of C3 on C4 and C4 on C5, Left-sided foraminal narrowing at C3-C4 and C5-C6. The right neural foramina . Patient neck pain located center c-spine. Aggravating factors sitting ,standing ,lifting ,turning and lifting with arms. Alleviating factors rest. KLEIN located temporal. Denies dizziness /nausea/tinnitus. Patient condition affects sleeping. Lumbar pain LS region scaral . Aggravating lifting .bending ,sitting walking/standing. Alleviating factors rest . Coughing/sneezing-.Bowel/bladder -. Patient has no prior tx . Patient condition affects QOL and function. SOCIAL: single VOCATION: disability Pain Bilateral Neck: Pain Intensity (Out of 10): 10 Pain Intensity Range: 10 Bilateral Back: Pain Intensity (Out of 10): 8 Pain Intensity Range: 10 Objective Objective: POSTURE: mild forward posture PALAPTION: tender UT/levator ,LS NEURO: denies paresthesia/tingling ,reflexes C5-6-7 2/3 ,L3-4 ,L4-5 ,L5-S1 2/3 BUE: AROM WFL MMT: BUE 4/5 ,shoulder 4-/5 ,quads/hams 4/5 ,hip flexion 4-/5 ,ankle 4/5 CERVICAL ROM: flexion min loss ,rotation/lateral flexion mod pain , extension mod pain LUMBAR ROM: flexion mod loss ,extension mod loss ,side glides mod loss FLEXABILITY: hamstrings min loss Special Tests C/S Radiculapathy - Left Upper limb tension test: Negative C/S Radiculapathy - Right Upper limb tension test: Negative C/S Radiculapathy - Left Spurlings: Positive C/S Radiculapathy - Right Spurlings: Positive C/S Radiculapathy - Left Cervical distraction: Negative C/S Radiculapathy - Right Cervical distraction: Negative C/S Radiculapathy - Left Relief test: Negative C/S Radiculapathy - Right Relief test: Negative Sharp Danna: Negative Vertebral Artery Test: Negative Alar Ligament Test: Negative L/S Slump test left side: Negative L/S Slump test right side: Negative L/S Left Straight Leg Raise: Negative L/S Right Straight Leg Raise: Negative Balance/Special Test Scores Oswestry Neck Score: 22 Goals Goal 1:: Patient to be I with HEP for back/neck Goal Time Frame: 4-6 Weeks Goal 2:: Patient to improve cervical and lumbar ROM for function of recovery for ADL Goal Time Frame: 4-6 Weeks Goal 3:: Patient to improve neck oswestry by 3-5 points to improve QOL Goal Time Frame: 4-6 Weeks Goal 4:: Patient to demonstrate 40 % improvement with less pain and improved function Goal Time Frame: 4-6 Weeks Goal 5:: Patient improve posture/body mechanics 80 % of the time Goal Time Frame: 4-6 Weeks Rehabilitation Potential Physical Therapy Diagnosis: Patient has cervical and lumbar pain with decrease ROM ,pain KLEIN ,decrease strength ,pain with motion testing and positioning thus benefit from skilled PT Rehabilitation Potential: Fair Anticipated Interventions Patient/Client Instruction: Educate patient on: Condition and Plan of Care For the Purpose of:: To decrease pain, To increase ROM, To improve muscle performance and motor function, To improve ability to perform ADL's, To increase tolerance to activity/condition/position, To improve ability of physical actions for home/community/work/leisure, To improve health of tissue, To increase flexibility/ROM, To improve endurance, To improve balance and Other Other: adl Therapeutic Exercise to Include: Strength training, Balance training, Body mechanics, Postural training, Flexibilty training, Dynamic Lumbar Stabilization and [place] Exercises For the Purpose of:: To decrease pain, To increase ROM, To improve muscle performance and motor function, To improve ability to perform ADL's, To increase tolerance to activity/condition/position, To improve ability of physical actions for home/community/work/leisure, To improve health of tissue, To decrease soft tissue restriction, To increase flexibility/ROM and To improve tolerance to ADL's Manual Therapy Techniques to Include: Mobilization Comment: cervical traction For the Purpose of:: To decrease pain, To increase ROM, To improve health of tissue, To decrease soft tissue restriction and To increase flexibility/ROM TENS: Yes IF ES: Yes Cryotherapy (ice pack, ice massage): Yes Thermo therapy (hot pack): Yes Ultrasound (thermal/non thermal): Yes For the Purpose of:: To decrease pain, To increase ROM, To improve nutrient delivery to tissue, To increase oxygenation perfusion, To improve health of tissue and To decrease soft tissue restriction Text: Thank you for the opportunity to evaluate your patient. For Medicare and Medicare HMO plans, please review the plan of care and approve it. It will need to be FAXED BACK to us at [phone] for Medicare purposes. For Medicare only, by signing this I certify the plan of care. Please let me know if there are questions or concerns regarding this plan of care. Physician Signature: Date:
--- NOTE | 2024-08-16 12:55 | HP.PTDCSUM ---
Discharge Summary D/C summary: It has been my pleasure to treat EVELYNE MARAVILLA referred by Dr. Daniel Johnson MD, with the diagnosis of CERVICGENIC HEADACHES ,CERVICAL SPONDYLOSIS ,SACRAL PAIN for a total of 9 visit(s). Discharge Date: 08/16/24 Please see the following information for a summary of their discharge status. Subjective Subjective: therapy was helping . Patient seen DR pain management wants MRI after PT RTD 09/03 to check on new medication muscle relaxer Pain Bilateral Neck: Pain Intensity (Out of 10): 6 Bilateral Back: Pain Intensity (Out of 10): 6 Overall Improvement % Improvement: 20 Objective Objective/Function: POSTURE: mild forward posture PALAPTION: tender UT/levator ,LS NEURO: denies paresthesia/tingling ,reflexes C5-6-7 2/3 ,L3-4 ,L4-5 ,L5-S1 2/3 BUE: AROM WFL MMT: BUE 4/5 ,shoulder 4-/5 ,quads/hams 4/5 ,hip flexion 4-/5 ,ankle 4/5 CERVICAL ROM: flexion min loss ,rotation/lateral flexion mod pain , extension mod pain LUMBAR ROM: flexion mod loss ,extension mod loss ,side glides mod loss FLEXABILITY: hamstrings min loss Goals Goal 1:: Patient to be I with HEP for back/neck Goal Progress: Goal Met Goal 2:: Patient to improve cervical and lumbar ROM for function of recovery for ADL Goal Progress: Progressing Goal 3:: Patient to improve neck oswestry by 3-5 points to improve QOL Goal Progress: Progressing Goal 4:: Patient to demonstrate 40 % improvement with less pain and improved function Goal Progress: Progressing Goal 5:: Patient improve posture/body mechanics 80 % of the time Goal Progress: Progressing Plan Plan: D/C TO HEP D/C Information Discharge Comments: hep d/c sentence: If there are questions or concerns regarding this patient's physical therapy, please feel free to call me at [phone]. Thank you for the referral of this patient. Sincerely, Darrel Gamboa, PT, Cert MDT, OCS Balance/Gait/Functional tests Balance/Special Test Scores Oswestry Neck Score: 22 Improvement % Improvement: 20
== END 2024-08-16 19:00 | disposition home or self-care (01) ==
LOC: PT 12:30
PROVIDERS: PCP Internal Medicine; Referring Provider Anesthesiology; Visit Provider Anesthesiology
DX: M53.3 Sacrococcygeal disorders, not elsewhere classified (principal); M47.812 Spondylosis without myelopathy or radiculopathy, cervical region; G44.86 Cervicogenic headache
CPT/HCPCS: 97110; 97140; 97162; 97530

== ENCOUNTER → 2024-12-14 | Outpatient (CLI) | payer MEDICAID, SELFPAY ==
--- NOTE | 2024-12-14 06:52 | MRI_ITS ---
PROCEDURE: LOWER EXT JOINT ONLY (ROUTINE) 12/14/2024 REASON FOR EXAM: L HIP PAIN TECHNIQUE: MRI of the left hip without contrast. Multiplanar and multisequence images were obtained without IV contrast administration. COMPARISON: COMPARISON : Left hip and pelvis series of 06/26/2024. FINDINGS: Bone, joints, and bone Marrow: Mild bilateral hip joint degenerative changes are seen. No evidence of femoral head osteonecrosis. No abnormal osseous signal is seen. No acetabular labral tear is identified. Mild degenerative changes are seen of the lower lumbar spine. Sacroiliac joints appear symmetric and within the normal range. Effusion: No joint effusion is seen. Within the pelvis, no free fluid is seen. No evidence of inguinal or pelvic adenopathy. No muscle signal changes are noted. MRI/Lower Ext Joint Only (Routine) IMPRESSION: 1. Mild bilateral hip degenerative changes. 2. Mild degenerative changes are also seen of the visualized lower lumbar spine . Reading Location: [place] [id number]
--- NOTE | 2024-12-14 06:52 | MRI_ITS ---
PROCEDURE: SPINE LUMBAR (ROUTINE) 12/14/2024 REASON FOR EXAM: SPONDYLOSIS TECHNIQUE: SPINE LUMBAR (ROUTINE) COMPARISON: None. FINDINGS: Vertebrae: No signal abnormalities. Alignment: Unremarkable. Conus Medullaris: Unremarkable. L1-2: No foraminal or canal stenosis. L2-3: No foraminal or canal stenosis. L3-4: Small disc bulge. Facet joint arthropathy with fluid effusion. L4-5: Disc bulge. A right paracentral disc protrusion. Narrowing of the right subarticular space. Facet joint arthropathy. Mild bilateral foramina stenosis. Moderate canal stenosis. L5-S1: A disc bulge with superimposed 3 mm central disc protrusion. Facet joint arthropathy. Mild inferior bilateral foramina stenosis. No significant canal stenosis. Sacrum: Unremarkable. MRI/Spine Lumbar (Routine) IMPRESSION: L4-5, disc bulge. A right paracentral disc protrusion. Narrowing of the right s ubarticular space. Facet joint arthropathy. Mild bilateral foramina stenosis. Moderate canal stenosis. Reading Location: [id number]
== END | disposition home or self-care (01) ==
LOC: OPMRI 08:21
PROVIDERS: PCP Internal Medicine; Referring Provider Anesthesiology; Visit Provider Anesthesiology
DX: M25.552 Pain in left hip (principal); M47.816 Spondylosis without myelopathy or radiculopathy, lumbar region
CPT/HCPCS: 72148; 73721

== ENCOUNTER 2024-12-25 14:30 | Outpatient (RCR) | payer MEDICAID, SELFPAY ==
--- NOTE | 2024-10-23 07:54 | HP.PTEVAL_ITS ---
Patient's Visit Information Visit Information Visit Information: EVELYNE MARAVILLA is a 49 year old F referred to Physical Therapy by Dr. Daniel Johnson MD with a diagnosis of Left sacroiliitis ,Cervical spondylosis. Date of Evaluation: 10/22/24 Physical Therapist: Darrel Gamboa, PT, Cert MDT, OCS Visit Plan Frequency: 2x /Week Duration: 4 Weeks Plan: PT INTERVENTIONS CERVICAL ROM ,LUMBAR ROM ,POSTURAL EX'S ,DLS ,ACTIVITY MODIFICATION ,MANUAL THERAPY ( CERVICAL) ,AND MODALITIES PRN Subjective Subjective: This 49 y/o female presents to physical therapy with neck and back pain. Patient has cervical and lumbar pain for ~ 2 years. Symptoms occurred cumulative over time.x-rays cervical Left-sided foraminal narrowing at C3-C4 and C5-C6 ,lumbar Moderate facet arthropathy of L3-S1. Patient location L-S symmetrical with radicular symptoms with paresthesia left leg. Aggravating factors bending ,lifting ,extended standing/walking with paresthesia < 5 min,sitting. Alleviating factors rest and medication.Coughing/sneezing +. Bowel/bladder-. Described as ache Pain does affects sleeping. No abnormal back pain. Patient symptoms affects ADLS and housework . Occasional weakness in legs . Neck location cervical neck symmetrical described as ache. C/O KLEIN frontal,dizzienss ,nausea/tinnitus. Aggravating turning right ,lifting [place]. Alleviating heat/cold teylonal. 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 Patient had PT has helped in past. Patient condition affects QOL and function . Goals MRI SOCAIL: VOCATION: Disability Pain Bilateral Back: Pain Intensity (Out of 10): 9 Pain Intensity Range: 10 Bilateral Neck: Pain Intensity (Out of 10): 9 Pain Intensity Range: 9 and 10 Objective Objective: POSTURE: mild forward posture NEURO: left paresthesia/tingling arm ,reflexes C5-6-7 1/3 ,L3-4,L4-5,L5-S 1 1/3 PALPATION: UT/levator ,paraspinals ,Left SI SYMMETRIES: PSIS, pelvic iliac crest CERVICAL ROM: flexion mod loss ,extension mod loss , rotation/lateral mod AROM: BUE shoulder WFL pain at end range MMT: BUE 4/5 4-/5 shoulder LUMBAR ROM: flexion mod loss ,extension mod loss ,pain ,side glides NT GAIT: reciprocal pattern Special Tests C/S Radiculapathy - Left Upper limb tension test: Negative C/S Radiculapathy - Right Upper limb tension test: Negative C/S Radiculapathy - Left Spurlings: Negative C/S Radiculapathy - Right Spurlings: Negative C/S Radiculapathy - Left Cervical distraction: Negative C/S Radiculapathy - Right Cervical distraction: Negative L/S Left Straight Leg Raise: Negative L/S Right Straight Leg Raise: Negative Balance/Special Test Scores Oswestry Neck Score: 27 Goals Goal 1:: Patient to be I with HEP fot back Goal Time Frame: 4-6 Weeks Goal 2:: Patient to improve back and cervical ROM for functional of recovery for ADLS Goal Time Frame: 4-6 Weeks Goal 3:: Patient to neck oswestry score by 5 points lisy improve QOL Goal Time Frame: 4-6 Weeks Goal 4:: Patient to demonstrate 40% improvement with less pain and improved function Goal Time Frame: 4-6 Weeks Rehabilitation Potential Physical Therapy Diagnosis: This patient has cervical pain with foraminal stenosis and left SI joint pain with TTP with pain with motion and positioning ,worse with walking /standing with decrease ROM cervical/back affects ADLS and housework tasks thus benefit from skilled PT Rehabilitation Potential: Fair Anticipated Interventions Patient/Client Instruction: Educate patient on: Condition and Plan of Care For the Purpose of:: To decrease pain, To increase ROM, To improve muscle performance and motor function, To improve ability to perform ADL's, To increase tolerance to activity/condition/position, To improve ability of physical actions for home/community/work/leisure, To improve health of tissue, To decrease soft tissue restriction, To increase flexibility/ROM and To improve tolerance to ADL's Therapeutic Exercise to Include: Strength training, Postural training, Flexibilty training, Passive ROM and Active ROM For the Purpose of:: To decrease pain, To increase ROM, To improve nutrient delivery to tissue, To increase oxygenation perfusion, To improve muscle performance and motor function, To increase tolerance to activity/condition/position, To improve ability of physical actions for home/community/work/leisure, To improve health of tissue, To decrease soft tissue restriction, To increase flexibility/ROM and To improve tolerance to ADL's Manual Therapy Techniques to Include: Mobilization and Soft tissue mobilization Comment: CERVICAL For the Purpose of:: To decrease pain, To increase ROM, To improve nutrient delivery to tissue, To increase oxygenation perfusion, To increase tolerance to activity/condition/position, To improve ability of physical actions for home/community/work/leisure, To improve health of tissue, To decrease soft tissue restriction, To increase flexibility/ROM and To improve tolerance to ADL's TENS: Yes IF ES: Yes Cryotherapy (ice pack, ice massage): Yes Thermo therapy (hot pack): Yes Ultrasound (thermal/non thermal): Yes For the Purpose of:: To decrease pain, To increase ROM, To improve nutrient delivery to tissue, To increase oxygenation perfusion, To improve health of tissue and To decrease soft tissue restriction Text: Thank you for the opportunity to evaluate your patient. For Medicare and Medicare HMO plans, please review the plan of care and approve it. It will need to be FAXED BACK to us at [phone] for Medicare purposes. For Medicare only, by signing this I certify the plan of care. Please let me know if there are questions or concerns regarding this plan of care. Physician Signature: Date:
--- NOTE | 2024-12-25 15:04 | HP.PTDCSUM ---
Discharge Summary D/C summary: It has been my pleasure to treat EVELYNE MARAVILLA referred by Dr. Daniel Johnson MD, with the diagnosis of Left sacroiliitis ,Cervical spondylosis for a total of 16 visit(s). Discharge Date: 12/25/24 Please see the following information for a summary of their discharge status. Subjective Subjective: Patient doing better Plan to see DR Thakkar Pain Bilateral Back: Pain Intensity (Out of 10): 7 Bilateral Neck: Pain Intensity (Out of 10): 3 Overall Improvement % Improvement: 60 Objective Objective/Function: POSTURE: mild forward posture NEURO: left paresthesia/tingling arm ,occasionally numbness left leg ,reflexes C5-6-7 / ,L3-4,L4-5,L5-S 1 3 PALPATION: UT/levator ,paraspinals ,Left SI SYMMETRIES: PSIS, pelvic iliac crest CERVICAL ROM: flexion WFL ,extension wfl , rotation/lateral WFL AROM: BUE shoulder WFL pain at end range MMT: BUE 4/5 4-/5 shoulder LUMBAR ROM: flexion mod loss ,extension mod loss ,pain ,side glides mod GAIT: reciprocal pattern Goals Goal 1:: Patient to be I with HEP fot back Goal Progress: Goal Met Goal 2:: Patient to improve back and cervical ROM for functional of recovery for ADLS Goal Progress: Goal Met Goal 3:: Patient to neck oswestry score by 5 points lisy improve QOL Goal Progress: Goal Met Goal 4:: Patient to demonstrate 40% improvement with less pain and improved function Goal Progress: Goal Met Plan Plan: D/C D/C Information Discharge Comments: HEP d/c sentence: If there are questions or concerns regarding this patient's physical therapy, please feel free to call me at [phone]. Thank you for the referral of this patient. Sincerely, Darrel Gamboa, PT, Cert MDT, OCS Balance/Gait/Functional tests Balance/Special Test Scores Oswestry Neck Score: 15 Improvement % Improvement: 60
== END 2024-12-25 19:00 | disposition home or self-care (01) ==
LOC: PT 14:30
PROVIDERS: PCP Internal Medicine; Referring Provider Anesthesiology; Visit Provider Anesthesiology
DX: M47.812 Spondylosis without myelopathy or radiculopathy, cervical region (principal); M53.3 Sacrococcygeal disorders, not elsewhere classified
CPT/HCPCS: 97110; 97140; 97162; 97530

== ENCOUNTER 2025-03-12 11:02 | Emergency (ER) | payer MEDICAID, SELFPAY ==
[2025-03-12 11:02] VITALS: BP 137/93; PULSE 84; RESP 16; TEMP 36.6; O2SAT 99
--- NOTE | 2025-03-12 11:42 | ED.VIS.CHEST ---
HPI History of Present Illness Chief Complaint: Chest Pain Detail of Chief Complaint: Chest pain Informant: patient and spouse/S.O. Narrative Narrative: Patient presents with chest pain that started 2 weeks ago initially. Has been having symptoms off-and-on. She describes a sharp pain that makes her feel short of breath and at times had some numbness in her left arm associated with it. Today she was seeing her primary care physician and while in the office she developed this chest pain. Pain is currently resolved. Typically last anywhere from 15 to 20 minutes. Pain does not seem to be exertional. She denies recent travel or surgery. She denies recent illness. She had a heart catheterization in 2017 that was unremarkable. No history of cardiac stents. 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 Home Medications ?Medication ?Instructions ?Recorded ?Last Taken ?Type albuterol sulfate 90 mcg/actuation 2 puff inhalation Q6H PRN 05/19/17 10/31/17 History aerosol inhaler (Ventolin HFA) Shortness Of Breath naproxen 500 mg tablet 500 mg PO DAILY PRN pain 01/09/21 03/11/25 History nortriptyline 10 mg capsule 10 mg PO QHS HEADACHE 01/09/21 03/10/25 History pantoprazole 40 mg tablet,delayed See Rx Instructions .Route 07/19/22 03/11/25 Rx release .COMPLEX GERD #30 TABLETS blood sugar diagnostic (True 03/12/25 Unknown History Metrix Glucose Test Strip) lancets 30 gauge (Unilet Super 03/12/25 Unknown History Thin Lancets) methocarbamol 500 mg tablet 500 mg PO TID MUSCLE PAIN 03/12/25 03/12/25 History ondansetron 4 mg disintegrating 4 mg PO Q8H PRN Nausea 03/12/25 Unknown History tablet rizatriptan 10 mg tablet 10 mg PO DAILY PRN MIGRAINE 03/12/25 03/10/25 History Allergy/AdvReac Type Severity Reaction Status Date / Time Fish Containing Products Allergy Severe Anaphylaxis Verified 03/12/25 11:04 shellfish derived Allergy Severe Anaphylaxis Verified 03/12/25 11:04 hydromorphone HCl (From Allergy Hives Verified 03/12/25 11:04 Dilaudid) Penicillins (PCN) Allergy Hives Verified 03/12/25 11:04 influenza virus vaccine ts AdvReac Mild Rash Verified 03/12/25 11:04 [id number] (36 mos,up) (From Fluarix) adhesive tape AdvReac Rash Verified 03/12/25 11:04 Family History Mother Diabetes Father Cancer Sister Asthma Brother Heart disease Surgical History History of cholecystectomy History of esophagogastroduodenoscopy (EGD) History of colonoscopy History of cardiac catheterization History of tubal ligation (~02/2018) History of ankle surgery History of oophorectomy, unilateral Social History Smoking Status: Current every day smoker tobacco type: cigarettes ROS ROS ED Review of Systems ROS Unobtainable: other Constitutional Constitutional ED: Reports lethargy; Denies chills, fever(s), sweats or weight loss Eyes Eyes: Denies blurry vision, change in vision or diplopia ENT ENT ED: Denies rhinorrhea or sore throat Cardiovascular Cardiovascular: Reports chest pain; Denies orthopnea or racing heartbeat Respiratory/Chest Respiratory/Chest: Reports dyspnea; Denies cough, dyspnea on exertion, orthopnea or sputum Gastrointestinal Gastrointestinal: Denies abdominal pain, diarrhea, nausea or vomiting Genitourinary Genitourinary ED: Denies dysuria, hematuria or urinary frequency Musculoskeletal Musculoskeletal: Denies arthralgias, back pain, myalgias or neck pain Integumentary Denies abscess, Abrasions or rash Neurologic Neurologic: Denies headache(s) or weakness Psychiatric Psychiatric: Denies anxiety, depression or suicidal thoughts Endocrine Endocrinology: Denies polydipsia, polyphagia or polyuria Hematologic/Lymphatic Hematologic/Lymphatic: Denies easy bleeding, easy bruising or lymphadenopathy Allergic/Immunologic Allergic/Immunologic ED: Denies mouth swelling, tongue swelling or urticaria EXAM Physical Exam Const Vital Signs: 03/12/25 11:02 03/12/25 11:57 03/12/25 12:13 Temperature 98 F Temperature Source Oral Pulse Rate 84 70 Respiratory Rate 16 18 Blood Pressure 137/93 H 126/85 H Blood Pressure Mean 107 98 Pulse Ox 99 100 100 Oxygen Delivery Method Room Air Room Air Room Air 03/12/25 13:00 03/12/25 14:00 Temperature Temperature Source Pulse Rate 70 72 Respiratory Rate 13 18 Blood Pressure 149/88 H 138/90 H Blood Pressure Mean 108 106 Pulse Ox 100 100 Oxygen Delivery Method Room Air Positive well nourished and well developed General Appearance ED: well developed and NAD HEENT Reports TM's clear and moist mucous membranes normocephalic and atraumatic; Negative for trauma or tenderness Tympanic Membrane ED: Yes TM's clear Eyes PERRL and EOMs intact bilaterally General Eye ED: Negative for pale conjunctiva or scleral icterus Neck no lymphadenopathy, supple and no JVD General: Negative for tenderness Chest Wall inspection of chest normal and palpation of chest normal Chest: Negative for tenderness Resp normal respiratory effort and clear to auscultation bilaterally Effort and Inspection: Negative for respiratory distress or pain with movement Auscultation: Negative for rhonchi, wheezes or diminished lung sounds Cardio regular rate, regular rhythm, S1 normal heart sound, S2 normal heart sound and no murmurs Peripheral Pulses: pulses 2+ throughout GI normal to inspection, nondistended, normoactive bowel sounds, soft to palpation, non-tender, non-distended and no masses Back/Spine no CVA tenderness and no thoracic nor lumbar tenderness Extremity normal to inspection General Extremety ED: Negative for edema General Extremity: Negative for edema Neuro oriented x3, CN's II-XII intact bilaterally, no sensory deficits noted and gait normal Sensorium / Orientation: awake, alert, oriented to person, oriented to place and oriented to time Motor Exam: strength 5/5 throughout and strength abnormal Psych mental status grossly normal Skin no rashes or lesions noted and no wounds Heart Score History: Slightly/Non-Suspicious ECG: Normal Age: >45 - <65 years Risk Factors: 1 or 2 Risk Factors Troponin: </= Normal Limit Score: 2 MDM MDM MDM Narrative Medical decision making narrative: Patient presents with chest pain from her primary care physician's office. Describes a sharp stabbing pain in the center of her chest that makes her feel short of breath and at times will have some pain radiating into her left arm and numbness and tingling. She has had this ongoing for at least 2 weeks off-and-on. Clinically she looks well. She had a heart cath in 2017 that was clean. No heart history otherwise. EKG obtained on arrival shows sinus rhythm with rate of 85 bpm with no acute ST segment changes. CBC with differential shows a white count of 5.0 with hemoglobin 12.5 and platelet count of 234. Initial troponin was normal at less than 6. D-dimer was elevated 0.74. Chemistries unremarkable. Delta troponin at 2 hours less than 6. She had a CTA of the chest that was normal. At this time she is pain-free. Low suspicion for acute coronary syndrome. She has a heart score of 2. Recommended outpatient follow-up with her primary care physician. Patient advised to return if exertional symptoms, persistent or worsening pain, or condition worsen anyway. Lab Data Attestation: I reviewed the patient's lab results. Labs: Laboratory Results - last 24 hr 03/12/25 03/12/25 11:22 13:35 WBC 5.0 RBC 4.30 Hgb 12.5 Hct 38.5 MCV 89.5 MCH 29.1 MCHC 32.5 RDW Std Deviation 41.4 RDW Coeff of Rashaun 12.5 Plt Count 234 MPV 10.3 Immature Gran % (Auto) 0.400 Neut % (Auto) 41.8 L Lymph % (Auto) 48.0 H Whitley % (Auto) 6.8 Eos % (Auto) 2.2 Baso % (Auto) 0.8 Absolute Neuts (auto) 2.1 Absolute Lymphs (auto) 2.40 Nucleated RBC % 0 D-Dimer Quant (PE/DVT) 0.74 H* Sodium 142 Potassium 3.9 Chloride 108 Carbon Dioxide 24.6 Anion Gap 10 BUN 14 Creatinine 0.56 L Est GFR (MDRD) Non-Af 112 BUN/Creatinine Ratio 24.9 H Glucose 100 H Calcium 8.9 Troponin T High Sens < 6 Troponin T Hi Sens 2 Hr < 6 Radiography Diagnostic Testing: Clinical Impression(s) from Imaging Studies Chest X-Ray 03/12/25 11:50 IMPRESSION: Atelectasis or airspace disease left lower lobe. Reading Location: [facility] Chest CTA 03/12/25 13:25 IMPRESSION: No pulmonary embolism. No acute chest abnormality. Reading Location: [id number] 1 view chest x-ray obtained interpreted by myself as no evidence of infiltrate or acute process. Radiology felt there was atelectasis or airspace disease left lower lobe. Clinically I do not feel she has pneumonia. EKG Initial EKG: Attestation: I personally reviewed and interpreted this EKG as follows: Comments: Sinus rhythm with ventricular rate of 85 bpm with no acute ST segment changes Discharge Plan Triage Chief Complaint: Chest Pain ED Provider: Sherri Pena Dx/Rx/DC Orders Clinical Impression: Chest pain Instructions: ED Chest Pain, Uncertain Cause Prescriptions: No Action nortriptyline 10 mg capsule 10 mg PO QHS naproxen 500 mg tablet 500 mg PO DAILY PRN (Reason: pain) albuterol sulfate [Ventolin HFA] 1 INHALER inhaler 2 puff inhalation Q6H PRN (Reason: Shortness Of Breath) (DME) True Metrix Glucose Test Strip Strip MISCELLANEOUS DAILY (DME) lancets [Unilet Super Thin Lancets] 30 gauge misc MISCELLANEOUS DAILY methocarbamol 500 mg tablet 500 mg PO TID rizatriptan 10 mg tablet 10 mg PO DAILY PRN ondansetron 4 mg tablet,disintegrating 4 mg PO Q8H PRN (Reason: Nausea) pantoprazole 40 mg tablet,delayed release (DR/EC) See Rx Instructions .ROUTE .COMPLEX Qty: 30 1RF Dose Instruction: TAKE 1 TABLET BY MOUTH DAILY *OKAY TO TAKE OTC FAMOTIDINE 20 MG THE FIRST 3 DAYS WHEN STARTING THIS MEDICATION Rx Instructions: TAKE 1 TABLET BY MOUTH DAILY Primary Care Provider: Amaya Beltran Referrals: Amaya Beltran MD [Primary Care Provider, Internal Medicine] - 5-7 Days Print Language: Mohawk Disposition Disposition: Home, Self Care
--- NOTE | 2025-03-12 11:50 | RAD_ITS ---
PROCEDURE: RAD/Chest 1 View (Portable)
[2025-03-12] MEDS: 0.9% Normal Saline (1000mL) 1,000 ML 150 ML IV (11:55)
[2025-03-12 11:57] VITALS: O2SAT 100
[2025-03-12 12:13] VITALS: BP 126/85; PULSE 70; RESP 18; O2SAT 100
[2025-03-12 12:14] LABS: Hematocrit 38.5 % (37-47); Hemoglobin 12.5 g/dL (12.0-15.0); Immature Granulocytes Count 0.020 X10^3/uL (0.0-0.0); Mean Corp Hgb Conc 32.5 g/dL (32-36); Mean Corpuscular Volume 89.5 fL (81-99); Mean Platelet Vol. 10.3 fl (6.2-12.0); NRBC Flagged by Analyzer 0 % (0-5); Platelet Count 234 K/mm3 (150-450); RBC Distribution Width CV 12.5 % (11.6-14.6); RBC Distribution Width SD 41.4 fl (35.1-43.9); Red Blood Count 4.30 M/mm3 (4.2-5.4); White Blood Count 5.0 K/mm3 (4.4-11.0)
[2025-03-12 12:30] LABS: Anion Gap 10 (5-15); BUN 14 mg/dL (4-19); BUN/Creat Ratio 24.9 RATIO (10-20); Calcium,Total 8.9 mg/dL (7.6-11.0); Carbon Dioxide 24.6 mmol/L (21.0-32.0); Chloride 108 mmol/L (98-108); Glucose 100 mg/dL (70-99); Potassium 3.9 mmol/L (3.3-5.1); Troponin T High Sensitivity < 6 ng/L (<=14)
[2025-03-12 12:50] LABS: D-Dimer Quantitative (DVT/PE) 0.74 FEU/ug/m (0.27-0.49)
[2025-03-12 13:00] VITALS: BP 149/88; PULSE 70; RESP 13; O2SAT 100
--- NOTE | 2025-03-12 13:25 | CT_ITS ---
PROCEDURE: CT/CTA Chest W/WO Contrast
[2025-03-12 14:00] VITALS: BP 138/90; PULSE 72; RESP 18; O2SAT 100
[2025-03-12 14:09] LABS: Troponin T High Sens 2 HR < 6 ng/L (<=14)
[2025-03-12 14:32] VITALS: BP 138/90; PULSE 72; RESP 18; TEMP 36.7; O2SAT 100
== END 2025-03-12 14:33 | disposition home or self-care (01) ==
PROVIDERS: Emergency Provider Emergency Medicine; PCP Internal Medicine; Visit Provider Emergency Medicine
DX: R07.9 Chest pain, unspecified (principal); I25.2 Old myocardial infarction; F17.210 Nicotine dependence, cigarettes, uncomplicated; Z79.51 Long term (current) use of inhaled steroids; Z79.899 Other long term (current) drug therapy
CPT/HCPCS: 71045; 71275; 80048; 84484; 85025; 85379; 93005; 99284; Q9967; A4216

== ENCOUNTER → 2025-03-20 | Outpatient (CLI) | payer MEDICAID, SELFPAY ==
[2025-03-20 15:52] LABS: Hematocrit 41.7 % (37-47); Hemoglobin 13.6 g/dL (12.0-15.0); Immature Granulocytes Count 0.030 X10^3/uL (0.0-0.0); Mean Corp Hgb Conc 32.6 g/dL (32-36); Mean Corpuscular Volume 89.9 fL (81-99); Mean Platelet Vol. 9.4 fl (6.2-12.0); NRBC Flagged by Analyzer 0 % (0-5); Platelet Count 260 K/mm3 (150-450); RBC Distribution Width CV 12.2 % (11.6-14.6); RBC Distribution Width SD 40.4 fl (35.1-43.9); Red Blood Count 4.64 M/mm3 (4.2-5.4); White Blood Count 10.8 K/mm3 (4.4-11.0)
== END | disposition home or self-care (01) ==
PROVIDERS: PCP Internal Medicine; Referring Provider Physician Assistant; Visit Provider Physician Assistant
DX: R00.0 Tachycardia, unspecified (principal)
CPT/HCPCS: 36415; 84443; 85025

== ENCOUNTER → 2025-04-18 | Outpatient (CLI) | payer MEDICAID, SELFPAY | END | disposition home or self-care (01) | LOC: PSN 10:57 | PROVIDERS: PCP Internal Medicine; Referring Provider Physician Assistant; Visit Provider Physician Assistant | DX: R00.0 Tachycardia, unspecified (principal); R42 Dizziness and giddiness | CPT/HCPCS: 93225; 93226 ==

== ENCOUNTER 2025-04-23 15:00 | Outpatient (RCR) | payer MEDICAID, SELFPAY ==
--- NOTE | 2025-03-27 17:07 | HP.PTEVAL_ITS ---
Patient's Visit Information Visit Information Visit Information: EVELYNE MARAVILLA is a 49 year old F referred to Physical Therapy by Dr. Daniel Johnson MD with a diagnosis of CERVICAL SPONDYLOSIS. Date of Evaluation: 03/27/25 Physical Therapist: Darrel Gamboa, PT, Cert MDT, OCS Visit Plan Frequency: 2x /Week Duration: 4 Weeks Plan: PLANNING FOR SI FUSION IN MAY 2025 PT INTERVENTIONS CERVICAL ROM ,POSTURAL EX'S,MANUAL THERAPY (STM) ,US AND CTIVITY MODIFICATION Subjective Subjective: This This 49 y/o female presents to physical therapy with neck pain. Patient has cervical and for ~ 2 1/2 years. No h/o trauma or injury.Patient had PT for neck PT . Patient was doing better but pain gradually worse . Patient had x-rays cervical Left-sided foraminal narrowing at C3-C4 and C5-C6 . Patient pain located base of neck. Patient aggravating factors turning neck ,lilting heavy OH.Alleviating ice and heat. Patient gets temporal migraine. Denies denies nausea/tinnitus. Occasional dizziness. Patient symptoms affects sleeping. Patient has back pain and plans to have surgery in 2025. Patient has seen pain management in back none neck. Patient condition affects QOL/function. SOCIAL: VOCATION: Disability Pain Bilateral Neck: Pain Intensity (Out of 10): 8 Pain Intensity Range: 10 Objective Objective: POSTURE: mild forward posture PALAPTION: tender UT/levator ,paraspinals ,base of neck ( occipital) NEURO: denies paresthesia/tingling ,reflexes C5-6-7 2/3 ,L3-4 ,L4-5 ,L5-S1 2/3 BUE: AROM WFL MMT: BUE 4/5 ,shoulder 4-/5 CERVICAL ROM: flexion 25% loss ,rotation 50% right ,left 75% , extension 50% , lateral flexion 50% Special Tests C/S Radiculapathy - Left Upper limb tension test: Negative C/S Radiculapathy - Right Upper limb tension test: Negative C/S Radiculapathy - Left Spurlings: Positive C/S Radiculapathy - Right Spurlings: Negative C/S Radiculapathy - Left Cervical distraction: Negative C/S Radiculapathy - Right Cervical distraction: Negative C/S Radiculapathy - Left Relief test: Negative C/S Radiculapathy - Right Relief test: Negative C/S Radiculapathy - Valsalva: Negative Sharp Danna: Negative Vertebral Artery Test: Negative Alar Ligament Test: Negative Balance/Special Test Scores Oswestry Neck Score: 26 Goals Goal 1:: Patient to be I with HEP for cervical Goal Time Frame: 4-6 Weeks Goal 2:: Patient to improve cervical ROM for function of recovery for ADLS Goal Time Frame: 4-6 Weeks Goal 3:: Patient to improve neck oswestry score by 5 points to improve QOL and function Goal Time Frame: 4-6 Weeks Goal 4:: Patient to demonstrate 50% improvement with less pain and improve function with ADLS Goal Time Frame: 4-6 Weeks Rehabilitation Potential Physical Therapy Diagnosis: This patient has cervical pain with limitations > to left with pain ,decrease ROM impairs ADLS and housework tasks byron benefit from skilled PT Rehabilitation Potential: Fair Anticipated Interventions Patient/Client Instruction: Educate patient on: Condition and Plan of Care For the Purpose of:: To decrease pain, To increase ROM, To improve muscle performance and motor function, To improve ability to perform ADL's, To increase tolerance to activity/condition/position, To improve ability of physical actions for home/community/work/leisure, To improve health of tissue, To decrease soft tissue restriction, To increase flexibility/ROM and To reduce risk of recurrence Therapeutic Exercise to Include: Strength training, Postural training, Flexibilty training and Active ROM For the Purpose of:: To decrease pain, To increase ROM, To improve muscle performance and motor function, To increase tolerance to activity/condition/position, To improve ability of physical actions for home/community/work/leisure, To improve health of tissue, To decrease soft tissue restriction, To increase flexibility/ROM and To reduce risk of recurrence Manual Therapy Techniques to Include: Soft tissue mobilization For the Purpose of:: To decrease pain, To increase ROM, To improve nutrient delivery to tissue, To increase oxygenation perfusion, To improve health of tissue and To decrease soft tissue restriction TENS: Yes IF ES: Yes Cryotherapy (ice pack, ice massage): Yes Thermo therapy (hot pack): Yes Ultrasound (thermal/non thermal): Yes For the Purpose of:: To decrease pain, To increase ROM, To improve nutrient delivery to tissue, To increase oxygenation perfusion, To improve health of tiss ue and To decrease soft tissue restriction Text: Thank you for the opportunity to evaluate your patient. For Medicare and Medicare HMO plans, please review the plan of care and approve it. It will need to be FAXED BACK to us at [phone] for Medicare purposes. For Medicare only, by signing this I certify the plan of care. Please let me know if there are questions or concerns regarding this plan of care. Physician Signature: Date:
--- NOTE | 2025-04-23 15:19 | HP.PTDCSUM ---
Discharge Summary D/C summary: It has been my pleasure to treat EVELYNE MARAVILLA referred by Dr. Daniel Johnson MD, with the diagnosis of CERVICAL SPONDYLOSIS for a total of 5 visit(s). Discharge Date: 04/23/25 Please see the following information for a summary of their discharge status. Subjective Subjective: Some soreness overall better overall -mediaction meloxicam -Jun 03 for SI Pain Bilateral Neck: Pain Intensity (Out of 10): 2 Overall Improvement % Improvement: 40 Objective Objective/Function: POSTURE: mild forward posture PALAPTION: TTP left >UT/levator ,otherwise unremarkable NEURO: denies paresthesia/tingling ,reflexes C5-6-7 2/3 ,L3-4 ,L4-5 ,L5-S1 2/3 BUE: AROM WFL MMT: BUE 4/5 ,shoulder 4/5 CERVICAL ROM: flexion 25% loss ,rotation 25% right ,left 25% , extension 25% lateral flexion WFL( 0% LOSS) Goals Goal 1:: Patient to be I with HEP for cervical Goal Progress: Goal Met Goal 2:: Patient to improve cervical ROM for function of recovery for ADLS Goal Progress: Goal Met Goal 3:: Patient to improve neck oswestry score by 5 points to improve QOL and function Goal Progress: Goal Met Goal 4:: Patient to demonstrate 50% improvement with less pain and improve function with ADLS Goal Progress: Progressing Plan Plan: D/C D/C Information Discharge Comments: hep d/c sentence: If there are questions or concerns regarding this patient's physical therapy, please feel free to call me at [phone]. Thank you for the referral of this patient. Sincerely, Darrel Gamboa, PT, Cert MDT, OCS Balance/Gait/Functional tests Balance/Special Test Scores Oswestry Neck Score: 8 Improvement % Improvement: 40
== END 2025-04-23 19:00 | disposition home or self-care (01) ==
LOC: PT 15:00
PROVIDERS: PCP Internal Medicine; Referring Provider Anesthesiology; Visit Provider Anesthesiology
DX: M43.02 Spondylolysis, cervical region (principal)
CPT/HCPCS: 97110; 97140; 97162; 97530